=== PATIENT | male | born 1940 | race Caucasian/White ===

== ENCOUNTER 2017-12-20 07:36 | Outpatient (CLI) | payer MEDICARE, BC | END 2017-12-20 07:37 | disposition home or self-care (01) | LOC: BICULT 07:36 | PROVIDERS: ATTEND Family Medicine | DX: R74.8 Abnormal levels of other serum enzymes (principal); K80.20 Calculus of gallbladder without cholecystitis without obstruction; K82.8 Other specified diseases of gallbladder | CPT/HCPCS: 76705 ==

== ENCOUNTER 2018-05-01 07:01 | Outpatient (CLI) | payer MEDICARE, BC ==
--- NOTE | 2018-05-01 08:17 | ULT ---
ULTRASOUND ABDOMINAL AORTA: HISTORY: Abdominal aortic aneurysm. Aneurysm screening. FINDINGS: Real-time imaging of the abdominal aorta shows normal-caliber aorta. Proximally, it measures 2.1 cm and distally also approximately 2 cm. The left iliac artery measures 1 cm and the right iliac 8 mm. IMPRESSION: No evidence of aortic aneurysm. POS: [facility]
== END 2018-05-01 07:02 | disposition home or self-care (01) ==
LOC: SCSULT 07:01
PROVIDERS: ATTEND Family Medicine
DX: Z13.6 Encounter for screening for cardiovascular disorders (principal)
CPT/HCPCS: 76775

== ENCOUNTER 2019-08-16 12:58 | Inpatient (IN) | payer MEDICARE, BC ==
[2019-08-16] MEDS ORDERED: Diltiazem 125 MG/25 ML ONE (13:12)
[2019-08-16 13:43] LABS: #Eosinphils 0.3 thou/uL (0.0-0.7); #Monocytes 0.6 thou/uL (0.11-0.59); #Neutrophils 4.4 thou/uL (1.40-6.50); %Basophils 0.6 % (0.0-1.0); %Eosinophils 4.6 % (0.0-10.0); %Lymphocytes 26.6 % (21.0-51.0); %Monocytes 8.6 % (0.0-10.0); %Neutrophils 59.6 % (42.0-75.0); Hemoglobin 17.1 g/dL (14.0-18.0); Mean Corpuscular HGB CONC 34.3 g/dL (32.0-36.0); Mean Corpuscular Hemoglobin 35.1 pg (27.0-31.0); Mean Platelet Volume 7.7 fL (7.4-10.4); Platelet Count 159 thou/uL (130-400); RBC Distribution Width 12.5 % (11.5-14.5); Red Blood Cell (RBC) Count 4.87 mill/uL (4.70-6.10); White Blood Cell (WBC) Count 7.4 thou/uL (4.8-10.8)
--- NOTE | 2019-08-16 13:48 | RAD ---
EXAM: Single view of the chest HISTORY: Dizziness and atrial fibrillation COMPARISON: None FINDINGS: Single view of the chest shows a normal sized cardiomediastinal silhouette. There is no jackelin dence of consolidation, mass, or pleural effusion. The bones are unremarkable. IMPRESSION: No evidence of acute cardiopulmonary disease
[2019-08-16 14:07] LABS: ALT (SGPT) 46 U/L (8-55); AST (SGOT) 54 U/L (5-34); Albumin 3.8 g/dL (3.4-4.8); Alkaline Phosphatase 169 U/L (40-150); Anion Gap 13 mmol/L (10-20); BUN (Urea Nitrogen) 15 mg/dL (8.4-25.7); CK (CPK) 78 U/L (30-200); Calc. Creatinine Clearance 0 mL/min (70-130); Calcium 9.7 mg/dL (7.8-10.44); Carbon Dioxide 27 mmol/L (23-31); Chloride 97 mmol/L (98-107); Estimated GFR-MDRD 66; Globulin 3.4 g/dL (2.4-3.5); Glucose 123 mg/dL (83-110); Potassium 3.6 mmol/L (3.5-5.1); Protein, Total 7.2 g/dL (5.8-8.1); Sodium 133 mmol/L (136-145)
[2019-08-16 14:32] LABS: CKMB 3.4 ng/mL (0-6.6)
[2019-08-16] MEDS ORDERED: Digoxin 0.5 MG/2 ML AMP ONE (15:00)
[2019-08-16] MEDS ORDERED: Enoxaparin Sodium 100 MG/ML SYRINGE SC SCH (16:45)
[2019-08-16] MEDS ORDERED: Ondansetron ODT 4 MG TAB PO PRN (17:01)
[2019-08-16] MEDS ORDERED: Acetaminophen 325 MG TAB PO PRN (17:01)
[2019-08-16 18:42] LABS: CKMB 2.9 ng/mL (0-6.6)
[2019-08-16] MEDS: Enoxaparin Sodium 100 MG/ML SYRINGE SC SCH (21:17)
[2019-08-16] MEDS: Digoxin 0.5 MG/2 ML AMP SLOW IVP SCH (21:18)
--- NOTE | 2019-08-17 00:08 | CON ---
DATE OF CONSULTATION: 08/16/2019 INDICATION FOR CONSULTATION: A 79-year-old patient with a history of aortic valve stenosis. Last echocardiogram was approximately 1 year ago, which showed ejection fraction of 55% to 60% with aortic valve calcifications with [id number] aortic valve stenosis and mild mitral annular calcification and also some mild tricuspid valve regurgitation. He was seen in the office back in August 2018. He was able to walk on a treadmill and he continues to walk on a treadmill for about half an hour 3 times a week. Blood pressure has been elevated in the office at times. He was said that this was white coat syndrome. His blood pressure had previously been managed by his primary care physician. He also had a carotid duplex performed, which showed mild bilateral common carotid artery disease and plaque in December of 2017. Otherwise, he had no significant complaints. He still continues to exercise, this past Monday when he was in the gym and exercising, he noticed his heart rate had increased and he stopped the treadmill and then rested for a while and the heart rate improved somewhat. Early this morning he woke up with his heart rate not feeling well. He took his blood pressure, blood pressure was significantly elevated, almost 200 and then he called his physician's office at 8'o clock and presented to the physician's office. He had not noticed that the heart rate was rapid, but it was noted in the physician's office that the patient was likely in atrial fibrillation and had a significant elevation of blood pressure. He was then advised to be seen in the emergency room and was then subsequently admitted to the hospital after he was noted to be in atrial fibrillation with rapid ventricular response, so he was given IV diltiazem as well as digoxin. I am now seeing him on the telemetry floor and the heart rate is still in the 90s and shows what appears to be now atrial flutter. Blood pressure is stable at 145/89 and the heart rate is in the 90s, O2 saturation is 96%. He is otherwise comfortable. He denied any chest pain. EKG does show some nonspecific changes, but no significant indication of myocardial infarction. His cardiac enzymes are slightly elevated and were still indeterminate at 0.524, then increased up to 0.608. He denied any other symptoms such as diaphoresis, shortness of breath or chest discomfort. He did feel somewhat dizzy this morning, but now this has improved. There was evidence of moderate left atrial dilatation and mild right atrial dilatation on the echocardiogram in 2018. PAST MEDICAL HISTORY: Significant for right leg surgery. He has had a radical prostatectomy due to prostate cancer. He has hypertension, diabetes and new onset atrial fibrillation. He has had not had any history of atrial fibrillation in the past. FAMILY HISTORY: Unremarkable for any early heart disease. There is some history of prostate cancer as well as well as Waldenstrom's macroglobulinemia. His mother had a stroke. SOCIAL HISTORY: He continues to drink 2-3 glasses of wine a day and occasionally has a beer. He denies any tobacco abuse. He still remains very active. He has children, who are alive and well. He remains . He uses minimal amount of caffeine, but maybe 1 or 2 cups a day, always a mild amount of caffeine. ALLERGIES: HE IS ALLERGIC TO LISINOPRIL AND LOSARTAN. MEDICATIONS PRIOR TO ADMISSION: Include: 1. Hydrochlorothiazide 25 mg daily. 2. He was also taking a fiber laxative, which he stopped taking after he became somewhat bloated and is improved. 3. He was taking occasional other p.r.n. medications. REVIEW OF SYSTEMS: A 12-point review of systems is unremarkable except what is noted in the history of present illness. PHYSICAL EXAMINATION: GENERAL: Reveals a well-developed, well-nourished, very pleasant gentleman. He appears to be his stated age. He is alert, he is oriented. VITAL SIGNS: Show blood pressure is 125/87, heart rate is 94 and irregular. He is afebrile. Respiratory rate is 18. HEENT: Shows head to be normocephalic and atraumatic. NECK: Carotid pulses are present. He has radiation from the aortic area up into the carotids. CHEST: His chest was clear to auscultation without rales, rhonchi, or wheezing. CARDIOVASCULAR: Reveals somewhat tachycardia, irregular rhythm. He has significant aortic valve stenosis murmur, which is heard over the entire precordium. It is louder over the aortic area in the 2nd intercostal space anteriorly just to the right with radiation to the carotids and also to the entire precordium, but no heaves or thrills were noted, definitely irregular rhythm. ABDOMEN: Shows some obesity with positive bowel sounds. No organomegaly or masses noted. Femoral pulses are present. EXTREMITIES: Show no clubbing, cyanosis, or edema. Pedal pulses are present. I do not feel any significant other abnormalities. NEUROLOGIC: The patient appears to be fully intact with normal strength and tone for someone of his age. SKIN: Warm and dry. LABORATORY DATA: Shows a potassium of 3.6, sodium of 133, BUN 15, creatinine 1.08, blood sugar was 123. The AST was 54, alkaline phosphatase is 109. Troponin I as noted above. Hemoglobin was 17.1, hematocrit was 49.8, WBC of 7.4, platelet count 159,000. IMAGING: EKG shows what appears to be atrial flutter at this time. He did have some nonspecific ST-T wave changes. IMPRESSION: 1. New onset atrial fibrillation and flutter. The patient at this time is heart rate and blood pressure maintained on diltiazem. We will continue diltiazem at 15 mg/hour IV. He has also been given IV digoxin and we can continue to load him with digoxin as needed. Most likely, he will need to have an ablation of the atrial flutter and can control hopefully the atrial fibrillation by medical management. An echocardiogram has also been ordered. Further recommendations will depend on the results of the echocardiogram. 2. Hypertension, this is under good control at this time. We will continue to monitor that. 3. History of daily alcohol use. I have advised him to cut back on the alcohol somewhat. 4. Moderate aortic valve stenosis with a significant murmur. The echocardiogram is pending. We will evaluate the aortic valve stenosis. He may eventually need to undergo most likely an aortic valve replacement, hopefully by transcatheter aortic valve replacement, otherwise the patient appears to be stable at this time and we will continue to monitor the patient with you. Job ID: [id number]
--- NOTE | 2019-08-17 00:14 | HP ---
CHIEF COMPLAINT: New onset of atrial fibrillation, which presents as foggy brain. HISTORY OF PRESENT ILLNESS: The patient is a 79-year-old male, who felt that he had so-called foggy brain. His thinking was not clear this morning and he checked his blood pressure and it was elevated almost 200 systolic. He rested and it went down significantly, but he decided to go to his doctor, so he got appointment with Dr. Serrato, his primary care physician, who saw him and did EKG, which showed atrial fibrillation with RVR. He was sent to the emergency room for further evaluation and admission. He did not have any chest pain. He did not feel any palpitations. Apparently, he had some problems a couple of days ago when he did his treadmill and his pulse was high, but it came down to normal range after the rest. He denied any fever or chills. He never had this before. PAST MEDICAL HISTORY: Positive for; 1. Hypertension. 2. Diabetes mellitus, although I do not see any medications for that he is taking. 3. Heart murmur. 4. Prostate cancer, in remission. PAST SURGICAL HISTORY: Prostatectomy. SOCIAL HISTORY: He drinks every day 2, sometimes 3 drinks of red wine that is for his cholesterol he says. He denies any illicit drug use or smoking. ALLERGIES: LISINOPRIL AND LOSARTAN. MEDICATIONS: Hydrochlorothiazide 25 mg once a day. FAMILY HISTORY: Mother had stroke at the age of 63 and she passed when she was 69 and father had Waldenstrom macroglobulinemia and he passed at the age of 83. REVIEW OF SYSTEMS: All 14 systems were reviewed and they were negative except for those symptoms mentioned in the HPI. PHYSICAL EXAMINATION: VITAL SIGNS: Blood pressure is 146/79, pulse is 95, respiratory rate is 22. HEENT: Head is atraumatic and normocephalic. Eyes are PERRLA. Sclerae are nonicteric. Oral mucosa is moist. NECK: Supple. LUNGS: Clear. HEART: S1, S2. Irregularly irregular. No S3. No S4. There is a murmur 3/6 in the right and left sternal border at the top, is most likely aortic valve. ABDOMEN: Soft, nontender, nondistended. Bowel sounds are present. No organomegaly. EXTREMITIES: Trace peripheral edema bilaterally on both lower extremities. NEUROLOGICAL: He is alert and oriented x4. There is no any motor or sensory deficits present. Cranial nerves are intact. LABORATORY DATA: Showed normal white count, normal hemoglobin and hematocrit 49.8, MCV of 102, platelet count 159,000. Sodium of 133, potassium 3.6, chloride 97, glucose 123, creatinine 1.08, AST 54, ALT 46, and alkaline phosphatase is 169. CK-MB 3.4, troponin 0.524. Albumin 3.8, and globulin 3.4. The rest of chemistry is within normal limits. Electrocardiogram showed atrial fibrillation with RVR. Occasional PVCs. Chest x-ray personally reviewed by me did not show any evidence of acute cardiopulmonary disease. IMPRESSION: 1. New onset of atrial fibrillation with rapid ventricular response. The patient received digoxin, Cardizem IV push and he is on Cardizem drip at 15 mg/hour. His rate is down to 110 beats per minute. 2. Diabetes mellitus. 3. History of prostate cancer. 4. Hypertension. PLAN: Admission to telemetry floor. Full admission. Surrogate decision maker is the patient's and primary doctor is Dr. Serrato. IV Hep-Lock. Full dose of Lovenox 1 mg/kg q.12 hours subcutaneously. Continue Cardizem drip at 15 mg/hour, digoxin 0.25 mg q.6 hours x2, then 0.125 mg once a day p.o. tomorrow morning at 9. Echocardiogram. The case was discussed with Balance Bridge Inspector, Dr. Lemus and who is consulted. The patient is going to telemetry and he will have SCDs for DVT prophylaxis. Job ID: [id number]
[2019-08-17] MEDS: Digoxin 0.5 MG/2 ML AMP SLOW IVP SCH (03:45)
[2019-08-17 03:57] LABS: #Basophils 0.1 thou/uL (0.0-0.2); #Eosinphils 0.3 thou/uL (0.0-0.7); #Lymphocytes 2.3 thou/uL (1.20-3.40); #Monocytes 0.8 thou/uL (0.11-0.59); #Neutrophils 5.2 thou/uL (1.40-6.50); %Basophils 0.7 % (0.0-1.0); %Eosinophils 3.6 % (0.0-10.0); %Lymphocytes 26.7 % (21.0-51.0); %Monocytes 9.6 % (0.0-10.0); %Neutrophils 59.4 % (42.0-75.0); Hemoglobin 15.9 g/dL (14.0-18.0); Mean Corpuscular HGB CONC 34.4 g/dL (32.0-36.0); Mean Corpuscular Hemoglobin 35.3 pg (27.0-31.0); Mean Platelet Volume 7.3 fL (7.4-10.4); Platelet Count 167 thou/uL (130-400); RBC Distribution Width 12.6 % (11.5-14.5); Red Blood Cell (RBC) Count 4.49 mill/uL (4.70-6.10); White Blood Cell (WBC) Count 8.7 thou/uL (4.8-10.8)
[2019-08-17 04:22] LABS: Anion Gap 13 mmol/L (10-20); BUN (Urea Nitrogen) 15 mg/dL (8.4-25.7); Calc. Creatinine Clearance 80 mL/min (70-130); Carbon Dioxide 24 mmol/L (23-31); Chloride 99 mmol/L (98-107); Estimated GFR-MDRD 72; Glucose 131 mg/dL (83-110); Potassium 3.7 mmol/L (3.5-5.1); Sodium 132 mmol/L (136-145)
[2019-08-17] MEDS: Digoxin 0.125 MG TAB PO SCH (09:06)
[2019-08-17] MEDS: Enoxaparin Sodium 100 MG/ML SYRINGE SC SCH ×2 (09:07→22:20)
[2019-08-17 11:02] LABS: Hemoglobin 15.3 g/dL (14.0-18.0); Platelet Count 143 thou/uL (130-400)
--- NOTE | 2019-08-17 13:16 | PDOC.CPN ---
- Subjective Date: 08/17/19 Time: 13:18 Interval history: The pt seen and examined. No overnight events. No cardiac complaints. - Objective Allergies/Adverse Reactions: Allergies Allergy/AdvReac Type Severity Reaction Status Date / Time lisinopril Allergy Verified 08/16/19 16:40 losartan Allergy Verified 08/16/19 16:40 Visit Medications: Current Medications Acetaminophen (Tylenol) 650 mg PO Q4H PRN PRN Reason: Headache/Fever/Mild Pain (1-3) Digoxin (Lanoxin) 0.125 mg PO DAILY [facility] Last Admin: 08/17/19 09:06 Dose: 0.125 mg Enoxaparin Sodium (Lovenox) 90 mg SC 0900,2100 [facility] Last Admin: 08/17/19 09:07 Dose: 90 mg Diltiazem HCl 125 mg/ Sodium (Chloride) 125 mls @ 15 mls/hr IVPB INF [facility]; Protocol Last Admin: 08/17/19 06:00 Dose: 125 mls Ondansetron HCl (Zofran Odt) 4 mg PO Q6H PRN PRN Reason: Nausea/Vomiting Vital Signs & Weight: Vital Signs Temp Pulse Resp BP Pulse Ox 08/17/19 09:06 86 08/17/19 07:45 97.5 F L 86 14 118/57 L 96 08/17/19 03:50 97.9 F 86 16 116/60 95 08/17/19 03:45 101 H Weight 204 lb 4.838 oz - Physical Exam General: alert & oriented x3 Cardiac: irregularly regular Lungs: decreased breath sounds Skin: clear Musculoskeletal: decreased range of motion - Labs Result Diagrams: 08/17/19 10:25 08/17/19 10:25 Troponin/CKMB CK-MB (CK-2) 2.9 ng/mL (0-6.6) 08/16/19 17:43 Troponin I 0.663 ng/mL (< 0.028) H* 08/16/19 19:38 - Telemetry Supraventricular conduction: atrial fibrillation - Assessment/Plan Assessment/Plan: 1. New onset Afib with RVR - well controlled with Diltiazem 15mg/h, digoxin, and Lovenox BID; 2. HTN - stable with current med 3. DM type 2 - managed by PCP 4. Prostate Cancer 5. ETOH abuse - 6. Mod - echo today showed possible moderate to severe . The tech was asked to re-evaluate the gradient and the JOSE. MAR reviewed Pt. seen and eval. by me. I agree with the A/P by the CONSULTANT [employer]. 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 He denies cardiac complaints.Chest clear. Irreg/irreg. Rate controlled. When rate remains well controlled and on oral anticoagulation the he can be d/c'd and I will see him in the office in about 1 month and consider cardioversion. This will depend on the ecvaluation. If the is severe then he will need a cardiac cath to eval. the cors.for possible intervention and TAVR or CABG and AVR. <Addendum> Will change diltiazem drip to 90mg PO BID from [employer]. Diltiazem drip will be stopped 2 hrs after 1st dose of Diltazem PO given
--- NOTE | 2019-08-17 15:16 | PRG ---
DATE OF SERVICE: 08/17/2019 SUBJECTIVE: The patient is seen and examined at the bedside. He is in good spirit. Does not have much complaints to offer. No chest pain. No shortness of breath. OBJECTIVE: VITAL SIGNS: Blood pressure is 128/64, respiratory rate is 18, pulse is 89, temperature is 98.7, and O2 saturation is 97% on room air. HEENT: His head is atraumatic and normocephalic. Eyes are PERRLA. Sclerae are nonicteric. Oral mucosa is moist. NECK: Supple. LUNGS: Clear. HEART: S1 and S2. Irregularly irregular. No S3. No S4. ABDOMEN: Soft and nontender. Bowel sounds are present. No organomegaly. EXTREMITIES: No clubbing, cyanosis, or edema. NEUROLOGIC: He is alert and oriented x4. There is no any motor or sensory deficits. Cranial nerves are intact. LABORATORY DATA: Labs showed white count of 8.7, hemoglobin is 15.9, hematocrit 46.2, and platelet count is 167,000. Sodium of 132, potassium 3.7, chloride 99, CO2 of 24, BUN 15, creatinine 1.0, and glucose 131. Echocardiogram showed normal LVEF, probably some diastolic dysfunction, difficult to determine with atrial fibrillation and some tricuspid regurgitation, which is trace. IMPRESSION: 1. New onset atrial fibrillation with rapid ventricular response on Cardizem drip and digoxin and Lovenox full dose subcutaneous every 12 hours. 2. Diabetes mellitus type 2. The patient is not on any diabetic medications. He is managing with diet. 3. Prostate cancer. 4. Hypertension. PLAN: We will continue current regimen until gut cleaner make decision about the next step. He is still in atrial fibrillation, rate is controlled on Cardizem drip and digoxin. He is going to continue his Lovenox 1 mg/kg subcutaneous every 12 hours. Job ID: [id number]
[2019-08-17] MEDS: Diltiazem HCl SR 90 mg Capsule PO SCH (22:20)
[2019-08-18] MEDS: Diltiazem HCl SR 90 mg Capsule PO SCH ×2 (09:05→20:49)
[2019-08-18] MEDS: Digoxin 0.125 MG TAB PO SCH (09:05)
[2019-08-18] MEDS: Enoxaparin Sodium 100 MG/ML SYRINGE SC SCH ×2 (09:05→20:50)
--- NOTE | 2019-08-18 13:29 | PDOC.CPN ---
- Subjective Date: 08/18/19 Time: 13:34 Interval history: The pt seen and examined. No overnight events. No cardiac complaints. - Objective Allergies/Adverse Reactions: Allergies Allergy/AdvReac Type Severity Reaction Status Date / Time lisinopril Allergy Verified 08/16/19 16:40 losartan Allergy Verified 08/16/19 16:40 Visit Medications: Current Medications Acetaminophen (Tylenol) 650 mg PO Q4H PRN PRN Reason: Headache/Fever/Mild Pain (1-3) Digoxin (Lanoxin) 0.125 mg PO DAILY [facility] Last Admin: 08/18/19 09:05 Dose: 0.125 mg Diltiazem HCl (Cardizem Sr) 90 mg PO BID [facility] Last Admin: 08/18/19 09:05 Dose: 90 mg Enoxaparin Sodium (Lovenox) 90 mg SC 00,2099 [facility] Last Admin: 08/18/19 09:05 Dose: 90 mg Ondansetron HCl (Zofran Odt) 4 mg PO Q6H PRN PRN Reason: Nausea/Vomiting Vital Signs & Weight: Vital Signs Temp Pulse Resp BP Pulse Ox 08/18/19 09:05 86 08/18/19 07:30 98.1 F 86 16 127/65 97 08/18/19 04:00 98.3 F 94 16 97 Weight 204 lb 4.838 oz - Physical Exam General: alert & oriented x3 Neck: supple neck Cardiac: irregularly regular Lungs: clear to auscultation Neuro: cranial nerve 2-12 intact Skin: clear Musculoskeletal: normal range of motion - Labs Result Diagrams: 08/17/19 10:25 08/17/19 10:25 Troponin/CKMB CK-MB (CK-2) 2.9 ng/mL (0-6.6) 08/16/19 17:43 Troponin I 0.663 ng/mL (< 0.028) H* 08/16/19 19:38 - Telemetry Supraventricular conduction: atrial fibrillation - Assessment/Plan Assessment/Plan: 1. New onset Afib with RVR - well controlled; On Diltiazem 90mg BID, digoxin, and Lovenox BID; 2. HTN - stable with current med 3. DM type 2 - managed by PCP 4. Prostate Cancer 5. ETOH abuse - 6. Severe - possible cardiac catheterization for severe eval. waiting for gradient and the JOSE. ZAKI reviewed Pt. seen and eval. by me. I agree with the A/P by the DIRECTOR CONSUMER AFFAIRS. Plan for cath in AM to eval. AV stenosis. I have explained the proicedure and risks.jose alfredo
--- NOTE | 2019-08-18 16:22 | PRG ---
DATE OF SERVICE: 08/18/2019 SUBJECTIVE: The patient is seen and examined at the bedside. He is still in atrial fibrillation, but rate is controlled according to the monitors. OBJECTIVE: VITAL SIGNS: Blood pressure is 130/69, pulse is 83, temperature is 97.9, respirations 18, O2 saturation 95% on room air. HEENT: His head is atraumatic and normocephalic. Eyes are PERRLA. Sclerae are nonicteric. Oral mucosa is moist. NECK: Supple. LUNGS: Clear. HEART: S1 and S2 normal. No S3. No S4. Irregularly irregular . ABDOMEN: Soft, nontender, nondistended. EXTREMITIES: No clubbing, cyanosis, or edema. NEUROLOGIC: He is alert and oriented x4. There is no any motor or sensory deficits. LABORATORY DATA: None today. DIAGNOSTIC DATA: Echocardiogram showed LVEF estimated at 60% to 65%, probably diastolic dysfunction and possible severe aortic stenosis. IMPRESSION: 1. New-onset atrial fibrillation with RVR, switched to Cardizem p.o., rate controlled. 2. Diabetes mellitus type 2, on diet. 3. Prostate cancer. 4. Possible severe aortic stenosis based on the echo results. Measurements to be done. 5. Hypertension. PLAN: We are awaiting for final report on echocardiogram. For now, he will continue his digoxin daily, diltiazem 90 mg twice a day, and full dose of Lovenox. Then, Cardiology will make decision about the next step. Most likely, he will have cardiac catheterization for further evaluation of his aortic valve if the findings on echo Job ID: [id number]
[2019-08-18] MEDS ORDERED: Communication Order-Pharmacy FS SCH (18:45)
[2019-08-19] MEDS ORDERED: Lidocaine 1% (PF) 30 ML VIAL ONE (06:59)
[2019-08-19 07:46] LABS: Anion Gap 12 mmol/L (10-20); BUN (Urea Nitrogen) 12 mg/dL (8.4-25.7); Calc. Creatinine Clearance 87 mL/min (70-130); Carbon Dioxide 25 mmol/L (23-31); Chloride 101 mmol/L (98-107); Estimated GFR-MDRD 80; Glucose 137 mg/dL (83-110); Magnesium 2.1 mg/dL (1.6-2.6); Phosphorus 3.2 mg/dL (2.3-4.7); Sodium 134 mmol/L (136-145)
[2019-08-19] MEDS ORDERED: Midazolam HCl 2 mg/2 ml Vial ONE (08:06)
[2019-08-19] MEDS ORDERED: Digoxin 0.5 MG/2 ML AMP ONE (08:12)
[2019-08-19] MEDS ORDERED: Sodium Chloride 0.9% 200 ML IV PRN (10:14)
[2019-08-19] MEDS ORDERED: Nitroglycerin 0.4 MG TAB (25 Tab Bottle) SL PRN (10:14)
[2019-08-19] MEDS ORDERED: Acetaminophen/Codeine 30-300mg Tablet PO PRN ×2 (10:14)
[2019-08-19] MEDS: Digoxin 0.125 MG TAB PO SCH (10:15)
[2019-08-19] MEDS ORDERED: Iopamidol 370 76% 100 ML VIAL ONE (10:32)
[2019-08-19 11:18] LABS: Analyzer IN Cardio OR
[2019-08-19 11:19] LABS: Site PCW; Site RA
[2019-08-19 11:20] LABS: Site ART
[2019-08-19] MEDS: Diltiazem HCl SR 90 mg Capsule PO SCH ×2 (12:33→19:29)
[2019-08-19] MEDS ORDERED: ISOVUE-370 76%-LOCM 1 ML ONE (13:03)
--- NOTE | 2019-08-19 17:48 | PDOC.HOSPP ---
- Subjective Encounter Date: 08/19/19 Encounter Time: 11:00 Subjective: Patient seen and examined for Afib. No CP or SOB. No new complaints. No overnight events - Objective Vital Signs & Weight: Vital Signs (12 hours) Temp Pulse Resp BP BP Pulse Ox 08/19/19 16:00 85 135/74 08/19/19 12:00 98.6 F 94 16 151/75 H 08/19/19 10:17 98.6 F 79 18 139/68 08/19/19 10:15 88 08/19/19 10:14 79 18 139/68 95 Weight Weight 204 lb 4.838 oz I&O: 08/18/19 08/19/19 08/20/19 06:59 06:59 06:59 Intake Total 1560 1400 Output Total 1200 Balance 360 1400 Result Diagrams: 08/17/19 10:25 08/19/19 07:17 EKG Reviewed by me: Yes (tele AFib) Hospitalist ROS - Review of Systems Respiratory: denies: cough, dry, shortness of breath, hemoptysis, SOB with excertion, pleuritic pain, sputum, wheezing, other Cardiovascular: denies: chest pain, palpitations, orthopnea, paroxysmal noc. dyspnea, edema, light headedness, other - Medication Medications: Active Medications Generic Name Dose Route Start Last Admin Trade Name Freq PRN Reason Stop Dose Admin Digoxin 0.125 mg 08/17/19 09:00 08/19/19 10:15 Lanoxin PO Not Given DAILY [facility] Diltiazem HCl 90 mg 08/17/19 21:00 08/19/19 12:33 Cardizem Sr PO Not Given BID SKYLAR - Exam General Appearance: NAD Heart: no gallops, irregular Respiratory: CTAB, no wheezes, no ronchi Respiratory - other findings: dec AE at bases Gastrointestinal: soft, non-distended Extremities: no cyanosis Neurological: no new deficit Hosp A/P (1) Atrial fibrillation with RVR Code(s): I48.91 - UNSPECIFIED ATRIAL FIBRILLATION Status: Acute (2) CAD (coronary artery disease) Code(s): I25.10 - ATHSCL HEART DISEASE OF [place] CORONARY ARTERY W/O ANG PCTRS Status: Chronic (3) Aortic stenosis Code(s): I35.0 - NONRHEUMATIC AORTIC (VALVE) STENOSIS Status: Acute (4) DM2 (diabetes mellitus, type 2) Status: Chronic Qualifiers: Chronic kidney disease stage: stage 2 (mild) (5) Hyponatremia Code(s): E87.1 - HYPO-OSMOLALITY AND HYPONATREMIA Status: Acute (6) Type 2 myocardial infarction Code(s): I21.A1 - MYOCARDIAL INFARCTION TYPE 2 Status: Acute (7) Obesity (BMI 30.0-34.9) Code(s): E66.9 - OBESITY, UNSPECIFIED Status: Chronic (8) HTN (hypertension) Code(s): I10 - ESSENTIAL (PRIMARY) HYPERTENSION Status: Chronic - Plan Add ASA/Statins Cont Cardizem/Digoxin Add fasting lipid/A1c Curretnly being evaluated for CABG/Valve replacement AM labs
[2019-08-19] MEDS ORDERED: Diazepam 5 MG TAB PO PRN (17:54)
[2019-08-19] MEDS ORDERED: Communication Order-Pharmacy FS SCH (17:54)
[2019-08-19] MEDS ORDERED: Aspirin 325 mg Enteric Coated Tablet PO SCH (18:00)
--- NOTE | 2019-08-19 18:03 | CT ---
CTA CHEST WITH CONTRAST: Comparison: None. History: Abnormal cardiac catheterization this morning. Patient is scheduled for open heart surgery t omorrow. Pre-operative CT prior to aortic valve replacement. Technique: Multiple contiguous axial images were obtained in a CTA of the chest with contrast. 3D sag ittal and coronal MIP reformats were performed. FINDINGS: Calcifications are seen in the aortic valve, coronary arteries and aorta. There is no evidence of ane urysmal dilatation of the ascending or descending thoracic aorta. No hilar or mediastinal lymphadenop athy are seen. The heart is normal in size without focal abnormality. Increased interstitial markings are seen in the periphery of the lungs. No focal infiltrates are seen . No suspicious pulmonary mass is seen. No pneumothorax or pleural effusion are present. Degenerative changes are seen in the spine. The liver is slightly nodule in appearance which may repr esent cirrhosis. There is a partially visualized 2.0 cm cystic appearing lesion in the pancreatic jono l. There is a small amount of ascites adjacent to the liver and spleen. There may be fluid surroundin g the gallbladder which is only partially visualized. Chest wall soft tissues are unremarkable. IMPRESSION: 1. No significant aortic abnormality. 2. Calcified coronary arteries and aortic valve. 3. Cirrhotic liver with ascites. 4. Nonspecific cystic lesion in the tail of the pancreas should be further evaluated with a CT of the abdomen and pelvis with contrast. This may represent a pseudocyst or a cystic pancreatic neoplasm. POS: [facility]
[2019-08-19] MEDS ORDERED: Atorvastatin Calcium 10 MG TAB PO SCH (21:00)
--- NOTE | 2019-08-20 00:09 | CON ---
DATE OF CONSULTATION: 08/19/2019 REASON FOR CONSULTATION: Evaluate patient for AVR/CABG/Maze. HISTORY OF PRESENT ILLNESS: Mr. Camacho is a 79-year-old gentleman, who was admitted with atrial fibrillation. He has a longstanding history of aortic stenosis. Recent echocardiogram shows an aortic valve area of less than 1. Ejection fraction is 60% to 65%. He did not have gradients performed on his echo. He underwent cardiac catheterization today revealing severe three-vessel disease. I have been asked to see and discuss surgical intervention. Currently, he is resting comfortably in bed without chest pain, shortness of breath, or other symptomatology. PAST MEDICAL HISTORY: 1. Aortic stenosis. 2. Coronary artery disease. 3. Prostate cancer, status post radical prostatectomy. 4. Hypertension. 5. Diabetes. 6. Atrial fibrillation. PAST SURGICAL HISTORY: 1. Right leg surgery. 2. Prostatectomy. SOCIAL HISTORY: He drinks alcohol socially. He does not use tobacco. He is . ALLERGIES: LISINOPRIL AND LOSARTAN. MEDICATIONS: 1. Hydrochlorothiazide 25 mg daily. 2. Metformin 1000 mg b.i.d. REVIEW OF SYSTEMS: A 10-point review of systems is performed and is negative except as above. PHYSICAL EXAMINATION: GENERAL: This is a well-developed, well-nourished man, resting comfortably in bed. VITAL SIGNS: Height 5 feet 7 inches, weight is 204 pounds. BSA is 2.09. Temperature is 98.6, pulse is 85 and irregularly irregular, blood pressure is 135/74. HEENT: Sclerae nonicteric. Pupils are equal and round bilaterally. NECK: Supple. He has soft bilateral carotid bruits. CHEST: Clear bilaterally. HEART: Rhythm is irregularly irregular. He has a harsh 4/6 systolic ejection murmur heard throughout the precordium. ABDOMEN: Soft and nontender without mass. EXTREMITIES: No edema. VASCULAR: Palpable carotid, radial, femoral, dorsalis pedis pulses bilaterally. Venous, there is no venous varicosities or venous stasis changes. PSYCHIATRIC: The patient is awake, alert, and oriented to person, place, and time. LABORATORY DATA: Of note, hemoglobin is 15.3, platelet count is 143,000. Creatinine is 0.92, potassium is 4.0. Chest x-ray shows no dominant lung mass and well expanded lungs bilaterally. ASSESSMENT AND PLAN: This is a pleasant 79-year-old gentleman with severe aortic stenosis, three-vessel coronary artery disease, and presentation in atrial fibrillation-new onset. I have discussed aortic valve replacement with a bioprosthetic valve with him. We will also plan for three-vessel coronary artery bypass grafting with WYATT to his LAD and saphenous vein graft to OM and distal right coronary artery. We would ligate his left atrial appendage and perform epicardial Maze. Risks, benefits, and options of the operation were discussed with he and his family and they are agreeable to proceed and signed. Job ID: [id number] MTDD
[2019-08-20 05:26] LABS: Hemoglobin 15.8 g/dL (14.0-18.0); Platelet Count 133 thou/uL (130-400)
[2019-08-20 05:47] LABS: Anion Gap 13 mmol/L (10-20); BUN (Urea Nitrogen) 13 mg/dL (8.4-25.7); Calc. Creatinine Clearance 85 mL/min (70-130); Carbon Dioxide 20 mmol/L (23-31); Cardiac Risk 4.2 (Less than 4.5); Chloride 103 mmol/L (98-107); Cholesterol 159 mg/dl (< 200 Desired); Estimated GFR-MDRD 78; Glucose 127 mg/dL (83-110); HDL Cholesterol 38 mg/dL (>60 Neg Risk); LDL Cholesterol, Calculated 98 mg/dL; Potassium 4.1 mmol/L (3.5-5.1); Sodium 132 mmol/L (136-145); Triglycerides 114 mg/dL (Less than 150)
[2019-08-20 06:17] LABS: Hemoglobin A1c 5.4 % (4.0-6.0)
[2019-08-20] MEDS ORDERED: Midazolam HCl 5 mg/5 ml Vial ONE (06:28)
[2019-08-20] MEDS ORDERED: Fentanyl 250 MCG/5 ML VIAL ONE (06:28)
[2019-08-20] MEDS ORDERED: Phenylephrine HCL 10 MG/ML VIAL ONE (06:29)
[2019-08-20] MEDS ORDERED: Bupivacaine HCl 0.5%/Epinephrine 1:200,000/PF 30 ml Vial ONE (06:30)
[2019-08-20] MEDS ORDERED: Albumin 5% 500 ML ONE ×2 (06:30→10:26)
[2019-08-20] MEDS ORDERED: Vancomycin HCl 1.5 GM in Sodium Chloride 0.9% 250 ML 300 ML IVPB SCH (06:30)
[2019-08-20] MEDS ORDERED: Dexamethasone 4 mg/ml Vial ONE (06:30)
[2019-08-20] MEDS ORDERED: Heparin 10,000 UNITS/1 ML VIAL 30,000 UNITS in Sodium Chloride 0.9% 1,000 ML FS SCH (06:45)
[2019-08-20] MEDS ORDERED: Aspirin 325 mg Enteric Coated Tablet PO SCH (09:00)
[2019-08-20] MEDS ORDERED: Potassium Chloride 20 MEQ/100 ML PREMIX BAG IVPB PRN (12:30)
[2019-08-20] MEDS ORDERED: hydrALAZINE 20 MG/ML VIAL SLOW IVP PRN (12:30)
[2019-08-20] MEDS ORDERED: Bisacodyl 10 MG SUPP PR PRN (12:30)
[2019-08-20] MEDS ORDERED: Nitroglycerin 50 MG/250 ML BOT 250 ML IVPB PRN (12:30)
[2019-08-20] MEDS ORDERED: Norepinephrine 8 MG/0.9% NS 250 ML IVPB PRN (12:30)
[2019-08-20] MEDS ORDERED: Acetaminophen 325 MG TAB PO PRN (12:30)
[2019-08-20] MEDS ORDERED: Fentanyl 100 MCG/2 ML VIAL SLOW IVP PRN ×2 (12:30)
[2019-08-20] MEDS ORDERED: Hetastarch 6% 500 ML 500 ML IVPB PRN (12:30)
[2019-08-20] MEDS ORDERED: Morphine 2 MG/ML SYRINGE SLOW IVP PRN (12:30)
[2019-08-20] MEDS ORDERED: Guaifenesin DM 100-10/5 ML UDCUP PO PRN (12:30)
[2019-08-20] MEDS ORDERED: Bisacodyl 5 MG TAB PO PRN (12:30)
[2019-08-20] MEDS ORDERED: Mag-Al 1200 mg/1200 mg/30 ML UDCUP PO PRN (12:30)
[2019-08-20] MEDS ORDERED: HYDROcodone/Acetaminophen 5/325 mg Tablet PO PRN (12:30)
--- NOTE | 2019-08-20 12:38 | RAD ---
EXAM: Single view of the chest HISTORY: Status post open heart surgery COMPARISON: 08/16/2019 FINDINGS: Single view of the chest shows an enlarged cardiomediastinal silhouette. The patient is st atus post aortic valve repair. An endotracheal tube is seen with its tip at the lower border of the clavicles. A right-sided central venous catheter seen with its tip at the atriocaval junction. No pne umothorax is seen. Atelectasis is seen in the left lung base. IMPRESSION: Appropriate position of lines and tubes status post sternotomy.
[2019-08-20 12:42] LABS: #Eosinphils 0.2 thou/uL (0.0-0.7); #Monocytes 1.2 thou/uL (0.11-0.59); #Neutrophils 13.1 thou/uL (1.40-6.50); %Basophils 0.3 % (0.0-1.0); %Lymphocytes 12.3 % (21.0-51.0); %Monocytes 7.4 % (0.0-10.0); %Neutrophils 79.1 % (42.0-75.0); Hemoglobin 12.6 g/dL (14.0-18.0); Mean Corpuscular HGB CONC 34.6 g/dL (32.0-36.0); Mean Corpuscular Hemoglobin 35.8 pg (27.0-31.0); Mean Platelet Volume 7.2 fL (7.4-10.4); Platelet Count 119 thou/uL (130-400); RBC Distribution Width 12.4 % (11.5-14.5); Red Blood Cell (RBC) Count 3.51 mill/uL (4.70-6.10); White Blood Cell (WBC) Count 16.6 thou/uL (4.8-10.8)
[2019-08-20 12:45] LABS: INR-International Normal Ratio 1.8; Prothrombin Time 20.5 SEC (12.0-14.7)
[2019-08-20 12:46] LABS: PTT 40.6 SEC (22.9-36.1)
[2019-08-20 12:53] LABS: Actual Bicarbonate (HCO3a) 20.6 mEq/L (22-28); CO2 Tension 36.1 mmHg (35.0-45.0); Calcium, Ionized 1.03 mmol/L (1.12-1.30); Carboxyhemoglobin (COHb) 1.7 gm% (0.0-3.0); Hemoglobin (Hb) 13.2 g/dL (14.0-18.0); O2 Tension (PaO2) 88.5 mmHg (> 70.0); Potassium - ABG Lab 4.06 mmol/L (3.70-5.30); pH, Arterial 7.37 (7.35-7.45)
[2019-08-20] MEDS ORDERED: Dextrose 5% in Water 1,000 ML IV PRN (12:56)
[2019-08-20] MEDS ORDERED: Dextrose 50% Abboject 50 ML SYRINGE SLOW IVP PRN (12:56)
[2019-08-20] MEDS ORDERED: Magnesium 2 GM/50 ML 2 GM in Premix Bag 1 BAG IVPB SCH (13:00)
[2019-08-20 13:07] LABS: Anion Gap 13 mmol/L (10-20); BUN (Urea Nitrogen) 13 mg/dL (8.4-25.7); Calc. Creatinine Clearance 84 mL/min (70-130); Calcium 7.7 mg/dL (7.8-10.44); Carbon Dioxide 22 mmol/L (23-31); Chloride 108 mmol/L (98-107); Estimated GFR-MDRD 73; Glucose 121 mg/dL (83-110); Potassium 4.1 mmol/L (3.5-5.1); Sodium 139 mmol/L (136-145)
[2019-08-20 13:16] LABS: ALV-art Gradient 222.875 (0-20); Puncture Site ALINE
[2019-08-20] MEDS: D5 1/2 NS w/20 mEq KCL 1,000 ML IV SCH (13:54)
[2019-08-20] MEDS: CEFAZOLIN 2 GM in Premix Bag 1 BAG IVPB SCH ×2 (13:54→22:09)
[2019-08-20 15:38] LABS: Actual Bicarbonate (HCO3a) 17.7 mEq/L (22-28); Base Excess (BEa) -6.5 mEq/L (-2.0 to +3.0); CO2 Tension 31.8 mmHg (35.0-45.0); Calcium, Ionized 1.04 mmol/L (1.12-1.30); Carboxyhemoglobin (COHb) 1.6 gm% (0.0-3.0); Hemoglobin (Hb) 13.4 g/dL (14.0-18.0); O2 Tension (PaO2) 100.3 mmHg (> 70.0); Potassium - ABG Lab 4.22 mmol/L (3.70-5.30); pH, Arterial 7.36 (7.35-7.45)
[2019-08-20 15:45] LABS: Puncture Site ALINE
--- NOTE | 2019-08-20 15:45 | OP ---
DATE OF PROCEDURE: 08/20/2019 PREOPERATIVE DIAGNOSES: Aortic stenosis/coronary artery disease/hypertension/dyslipidemia/diabetes mellitus/paroxysmal atrial fibrillation. POSTOPERATIVE DIAGNOSES: Aortic stenosis/coronary artery disease/hypertension/dyslipidemia/diabetes mellitus/paroxysmal atrial fibrillation. PROCEDURES PERFORMED: 1. Aortic valve replacement with #23 Magna bioprosthetic valve. 2. Coronary artery bypass grafting x3 -. a. Left internal mammary artery to 3.0 mm heavily calcified diffuse disease mid left anterior descending artery. b. Reverse saphenous vein to 2.0 mm heavily calcified diffusely diseased obtuse marginal. c. Reverse saphenous vein to 1.25 mm heavily calcified diffusely diseased posterior descending artery. 3. Epicardial Maze with ligation of left atrial appendage. HEAT TREATING OPERATOR SURGEON: Guillermo Iverson MD ANESTHESIA: General endotracheal - Dr. Nilesh Mackey. PUMP TIME: 125 minutes. CROSS-CLAMP TIME: 93 minutes. LOW CORE TEMPERATURE: 34.5 degrees Celsius. DUMP TRUCK OPERATOR: Ratna Qiu. DRAINS: 24-[place]ian chest tubes x2. DRIPS: None. TRANSFUSIONS: None. DESCRIPTION OF PROCEDURE: After consent was obtained, the patient was brought to the operating room, placed in supine position on the operating table. Appropriate central line and monitors were placed and general endotracheal anesthesia was induced. Chest, abdomen, and legs were prepped and draped in usual sterile fashion. Greater saphenous vein was harvested from the left thigh utilizing an endoscopic technique. The wound was irrigated and closed in layers. Median sternotomy was performed. Left internal mammary artery was harvested as a pedicle graft. The patient was systemically heparinized. Distal pedicle was divided and infused with papaverine. Thymic fat and pericardium were divided with electrocautery. Pericardial stay sutures were placed. Aortic and atrial cannulation was performed. After adequate heparinization, retrograde prime was performed, the patient was placed on cardiopulmonary bypass. The left-sided pulmonary veins were ablated x2 with Dinamundotronic radiofrequency ablator. A left ventricular sump drain was placed through the right superior pulmonary vein. Aortic cross-clamp was applied and an antegrade sanguineous cardioplegic arrest obtained. 1 L of antegrade cold [place] cardioplegia was given. Topical cold solution was used. The left-sided pulmonary veins were then ablated x2 again at the venoatrial junction. The left atrial appendage was ablated x1. The left atrial appendage was then ligated utilizing a running mattressed 4-0 Prolene suture. A reverse saphenous vein was anastomosed to the OM in an end-to-side fashion with running 7-0 Prolene suture. Anastomosis was tested and was hemostatic. Reverse saphenous vein was anastomosed to the PDA in an end-to-side fashion with running 7-0 Prolene suture. Anastomosis was tested and was hemostatic. The mammary artery was brought through one of the pericardium and anastomosed to the mid LAD in an end-to-side fashion with running 7-0 Prolene suture. On release of the mammary clamps, good hooding of the anastomosis and good distal flow. Membranes were clamped. Pedicle was secured with interrupted 6-0 Prolene suture. Note, bypasses were done to the only soft spots on any of these three arteries. I would not consider him for redo for coronary reasons. 300 mL of antegrade [place] cardioplegia was given. Carbon dioxide was infused within the pericardial well. A transverse hockey-stick aortotomy was performed. Aortic stay sutures were placed. The valve was inspected. This was three leaflet valve with heavily-calcified leaflets and hinge point. Leaflets were debrided and the annulus decalcified. The bowel measured as a 23. A 23 Magna bioprosthetic valve was washed. Pledgeted 2-0 Ethibond sutures were placed in the annulus. These were then passed through the valve sewing ring and the valve seated nicely. A core knots were used to secure the valve in place. Aortotomy was then closed in a delayed running fashion with mattress 4-0 Prolene suture. Punch sites were created in the aorta for proximal anastomosis. Saphenous veins were anastomosed to aorta with running 6-0 Prolene suture. De-airing maneuvers were performed prior to completion of the last proximal anastomosis, that anastomosis was then tied. The patient was placed in Trendelenburg position and the cross-clamp removed. The patient was warmed and weaned from cardiopulmonary bypass. Atrial and ventricular pacing wires were placed and the patient was paced. After good hemodynamics had been obtained and the temperature was greater than 36.5, bypass was discontinued. Transfusion was given. Protamine was administered. The left ventricular sump drain was removed and its purse-string suture secured. The aortic root vent was removed and its purse-string suture secured. Decannulation was performed and purse-string suture secured for cannulation sites. Both cannulation sites reinforced with 4-0 Prolene suture. After adequate hemostasis had been obtained, 24-[place] chest tubes x2 were placed in the mediastinum. The sternum was treated with vancomycin paste and closed with #7 wire. Sternum was treated with platelet rich plasma and wire was twisted and buried. Wounds were irrigated. A 0.5% Marcaine with epinephrine mixed with Decadron. Peristernal block was performed. The sternum was then treated with platelet poor plasma and closed in multiple layers. Needle, sponge, and instrument counts were all reported as correct at the end of the procedure. The patient tolerated the procedure well and was transferred to the intensive care unit in stable, but critical condition. Job ID: [id number]
[2019-08-20] MEDS: Insulin Regular 300 UNITS/3 ML VIAL SC PRN ×2 (16:29→20:39)
[2019-08-20 17:07] LABS: Actual Bicarbonate (HCO3a) 20.6 mEq/L (22-28); Analyzer IN Cardio OR; Base Excess (BEa) -3.9 mEq/L (-2.0 to +3.0); CO2 Tension 36.1 mmHg (35.0-45.0); Calcium, Ionized 1.11 mmol/L (1.12-1.30); Hemoglobin (Hb) 14.6 g/dL (14.0-18.0); O2 Tension (PaO2) 266.4 mmHg (> 70.0); pH, Arterial 7.37 (7.35-7.45)
[2019-08-20 17:07] LABS: Actual Bicarbonate (HCO3a) 19.8 mEq/L (22-28); Analyzer IN Cardio OR; Base Excess (BEa) -4.1 mEq/L (-2.0 to +3.0); Calcium, Ionized 1.12 mmol/L (1.12-1.30); Carboxyhemoglobin (COHb) 0.8 gm% (0.0-3.0); Hemoglobin (Hb) 14.4 g/dL (14.0-18.0); O2 Tension (PaO2) 293.5 mmHg (> 70.0); Potassium - ABG Lab 3.88 mmol/L (3.70-5.30)
[2019-08-20 17:07] LABS: Analyzer IN Cardio OR; Base Excess (BEa) -2.5 mEq/L (-2.0 to +3.0); CO2 Tension 28.1 mmHg (35.0-45.0); Calcium, Ionized 0.99 mmol/L (1.12-1.30); Carboxyhemoglobin (COHb) 0.6 gm% (0.0-3.0); Hemoglobin (Hb) 12.1 g/dL (14.0-18.0); O2 Tension (PaO2) 406.4 mmHg (> 70.0); Potassium - ABG Lab 4.05 mmol/L (3.70-5.30); pH, Arterial 7.47 (7.35-7.45)
[2019-08-20 17:08] LABS: Actual Bicarbonate (HCO3v) 25 mEq/L (22-28); Analyzer IN Cardio OR; Base Excess 0.3 mEq/L (-2.0 to +3.0); Calcium, Ionized 0.95 mmol/L (1.16-1.32); Chloride (ABG LAB) 103 mmol/L (98-106); Hemoglobin (Hb) 10.4 g/dL (12.6-17.4); Potassium - ABG Lab 4.27 mmol/L (3.70-5.30); Sodium 136.6 mmol/L (133-146); pH (venous) 7.41 (7.32-7.43)
[2019-08-20 17:08] LABS: Actual Bicarbonate (HCO3a) 24.9 mEq/L (22-28); Analyzer IN Cardio OR; Base Excess (BEa) -0.7 mEq/L (-2.0 to +3.0); CO2 Tension 44.8 mmHg (35.0-45.0); Calcium, Ionized 0.97 mmol/L (1.12-1.30); Carboxyhemoglobin (COHb) 0.4 gm% (0.0-3.0); Hemoglobin (Hb) 10.6 g/dL (14.0-18.0); O2 Tension (PaO2) 429.7 mmHg (> 70.0); Potassium - ABG Lab 4.31 mmol/L (3.70-5.30); pH, Arterial 7.36 (7.35-7.45)
[2019-08-20 17:08] LABS: Actual Bicarbonate (HCO3a) 24.9 mEq/L (22-28); Analyzer IN Cardio OR; Base Excess (BEa) -0.7 mEq/L (-2.0 to +3.0); CO2 Tension 45.2 mmHg (35.0-45.0); Calcium, Ionized 0.99 mmol/L (1.12-1.30); Carboxyhemoglobin (COHb) 0.3 gm% (0.0-3.0); O2 Tension (PaO2) 455.5 mmHg (> 70.0); Potassium - ABG Lab 4.41 mmol/L (3.70-5.30); pH, Arterial 7.36 (7.35-7.45)
[2019-08-20 17:09] LABS: Puncture Site ALINE
[2019-08-20 17:09] LABS: Actual Bicarbonate (HCO3a) 22.2 mEq/L (22-28); Analyzer IN Cardio OR; Base Excess (BEa) -2.1 mEq/L (-2.0 to +3.0); CO2 Tension 36.3 mmHg (35.0-45.0); Calcium, Ionized 1.04 mmol/L (1.12-1.30); Carboxyhemoglobin (COHb) 0.5 gm% (0.0-3.0); Hemoglobin (Hb) 10.5 g/dL (14.0-18.0); O2 Tension (PaO2) 408.3 mmHg (> 70.0); Potassium - ABG Lab 4.26 mmol/L (3.70-5.30); pH, Arterial 7.41 (7.35-7.45)
[2019-08-20 17:09] LABS: Actual Bicarbonate (HCO3a) 22.2 mEq/L (22-28); Analyzer IN Cardio OR; Base Excess (BEa) -2.5 mEq/L (-2.0 to +3.0); CO2 Tension 38.2 mmHg (35.0-45.0); Carboxyhemoglobin (COHb) 0.5 gm% (0.0-3.0); Hemoglobin (Hb) 11.1 g/dL (14.0-18.0); O2 Tension (PaO2) 435.4 mmHg (> 70.0); Potassium - ABG Lab 4.45 mmol/L (3.70-5.30); pH, Arterial 7.38 (7.35-7.45)
[2019-08-20 17:10] LABS: Puncture Site ALINE
[2019-08-20 17:14] LABS: Puncture Site ALINE
[2019-08-20 17:16] LABS: Puncture Site ALINE
[2019-08-20 17:17] LABS: Puncture Site ALINE
[2019-08-20 17:18] LABS: Puncture Site ALINE
[2019-08-20 17:18] LABS: Puncture Site ALINE
[2019-08-20] MEDS: Vancomycin HCl 1.5 GM in Sodium Chloride 0.9% 250 ML 300 ML IVPB SCH (17:26)
[2019-08-20] MEDS: Ketorolac Tromethamine 30 MG/ML VIAL IVP SCH (17:27)
[2019-08-20 18:05] LABS: Hemoglobin 13.1 g/dL (14.0-18.0)
[2019-08-20 18:18] LABS: Potassium 4.2 mmol/L (3.5-5.1)
[2019-08-20] MEDS: Ondansetron PF 4 MG/2 ML Vial IVP PRN (20:23)
[2019-08-20] MEDS: HYDROcodone/Acetaminophen 5/325 mg Tablet PO PRN (20:24)
[2019-08-20] MEDS ORDERED: Famotidine/PF 20 mg/2ml Vial SLOW IVP SCH (21:00)
[2019-08-20] MEDS ORDERED: Simvastatin 40 MG TAB PO SCH (21:00)
[2019-08-20] MEDS ORDERED: Rocuronium Bromide 10 MG/ML (10ML VIAL) ONE (21:46)
[2019-08-20] MEDS ORDERED: Heparin 5,000 UNITS/ML VIAL ONE (21:46)
[2019-08-20] MEDS ORDERED: Papaverine 60 MG/2 ML VIAL ONE (21:46)
[2019-08-20] MEDS ORDERED: Thrombin 5000 UNITS/5 ML VIAL ONE (21:46)
[2019-08-20] MEDS ORDERED: Mannitol 12.5 GM/50 ML ONE (21:46)
[2019-08-20] MEDS ORDERED: Cardioplegic Soln 1,000 ML BAG ONE (21:46)
[2019-08-20] MEDS ORDERED: Sodium Bicarb 50 MEQ/50 ML VIAL ONE (21:46)
[2019-08-20] MEDS ORDERED: Protamine Sulfate 250 MG/25 ML VIAL ONE (21:46)
[2019-08-20] MEDS ORDERED: Vecuronium 10 MG VIAL ONE (21:46)
[2019-08-20] MEDS ORDERED: Potassium Chloride 60 MEQ/30 ML VIAL ONE (21:46)
[2019-08-20] MEDS ORDERED: Lidocaine 2% PF 100 mg/5 ml Syringe ONE (21:46)
[2019-08-20] MEDS ORDERED: PROPOFOL 200 MG/20 ML VIAL ONE (21:46)
[2019-08-20] MEDS ORDERED: Aminocaproic Acid 5 GM/20 ML VIAL ONE (21:46)
[2019-08-20] MEDS ORDERED: Magnesium 5 GM/10 ML VIAL ONE (21:46)
[2019-08-20] MEDS ORDERED: Calcium Chloride 1 GM/10 ML Abboject SYRINGE ONE (21:46)
[2019-08-20] MEDS ORDERED: PHENYLEPHRINE-NS 100 MCG/ML 10 ML SYRINGE ONE (21:46)
[2019-08-20] MEDS ORDERED: ePHEDrine 50 MG/ML VIAL ONE (21:46)
[2019-08-20] MEDS ORDERED: Heparin 30,000 units/30 ml VIAL ONE (21:46)
[2019-08-21] MEDS: Ketorolac Tromethamine 30 MG/ML VIAL IVP SCH ×2 (00:06→06:11)
[2019-08-21] MEDS: Insulin Regular 300 UNITS/3 ML VIAL SC PRN ×5 (00:10→20:35)
[2019-08-21] MEDS: HYDROcodone/Acetaminophen 5/325 mg Tablet PO PRN ×3 (03:05→20:28)
[2019-08-21 04:23] LABS: #Lymphocytes 1.1 thou/uL (1.20-3.40); #Monocytes 1.1 thou/uL (0.11-0.59); #Neutrophils 10.6 thou/uL (1.40-6.50); %Basophils 0.1 % (0.0-1.0); %Eosinophils 0.2 % (0.0-10.0); %Lymphocytes 8.5 % (21.0-51.0); %Monocytes 8.8 % (0.0-10.0); %Neutrophils 82.5 % (42.0-75.0); Hemoglobin 12.1 g/dL (14.0-18.0); Mean Corpuscular HGB CONC 33.8 g/dL (32.0-36.0); Mean Corpuscular Hemoglobin 35.3 pg (27.0-31.0); Mean Platelet Volume 7.8 fL (7.4-10.4); Platelet Count 102 thou/uL (130-400); RBC Distribution Width 12.6 % (11.5-14.5); Red Blood Cell (RBC) Count 3.43 mill/uL (4.70-6.10); White Blood Cell (WBC) Count 12.9 thou/uL (4.8-10.8)
[2019-08-21 04:44] LABS: Anion Gap 12 mmol/L (10-20); BUN (Urea Nitrogen) 23 mg/dL (8.4-25.7); Calc. Creatinine Clearance 62 mL/min (70-130); Calcium 7.5 mg/dL (7.8-10.44); Carbon Dioxide 22 mmol/L (23-31); Chloride 104 mmol/L (98-107); Estimated GFR-MDRD 52; Glucose 191 mg/dL (83-110); Potassium 4.1 mmol/L (3.5-5.1); Sodium 134 mmol/L (136-145)
[2019-08-21] MEDS: CEFAZOLIN 2 GM in Premix Bag 1 BAG IVPB SCH (05:21)
[2019-08-21] MEDS: Vancomycin HCl 1.5 GM in Sodium Chloride 0.9% 250 ML 300 ML IVPB SCH (06:12)
[2019-08-21] MEDS: Ondansetron PF 4 MG/2 ML Vial IVP PRN ×2 (06:15→17:38)
[2019-08-21] MEDS ORDERED: HumaLOG 300 UNITS/3 ML VIAL SC PRN (07:18)
--- NOTE | 2019-08-21 07:38 | RAD ---
Portable upright frontal chest radiograph: 08/21/2019 COMPARISON: 08/20/2019 HISTORY: Evaluate chest following open heart surgery FINDINGS: Midline sternotomy wires are present. Mechanical cardiac valve noted. Stable right-sided va scular catheter. No pneumothorax is noted. There is mild hazy increased linear density noted in the right lung base, which may signify mild infi ltrate or volume loss. Questionable small bilateral pleural effusions versus pleural thickening. IMPRESSION: Postoperative changes as detailed above. Mild hazy density in right lung base and subtle blunting of bilateral costophrenic angles.
[2019-08-21] MEDS: Famotidine 20 MG TAB PO SCH ×2 (07:59→20:21)
[2019-08-21] MEDS: Aspirin 325 MG TAB PO SCH (07:59)
--- NOTE | 2019-08-21 09:25 | PDOC.CPN ---
- Subjective Date: 08/21/19 Time: 09:32 Interval history: The pt seen and examined. No overnight events. No cardiac complaints. He is up to chair without any difficulties. - Objective Allergies/Adverse Reactions: Allergies Allergy/AdvReac Type Severity Reaction Status Date / Time lisinopril Allergy Verified 08/16/19 16:40 losartan Allergy Verified 08/16/19 16:40 Visit Medications: Current Medications Acetaminophen (Tylenol) 650 mg PO Q6H PRN PRN Reason: Headache/Fever Or Mild Pain Hydrocodone Bitart/Acetaminophen ([place] 5/325) 1 tab PO Q4H PRN PRN Reason: Moderate Pain (4-6) Hydrocodone Bitart/Acetaminophen ([place] 5/325) 2 tab PO Q4H PRN PRN Reason: Severe Pain (7-10) Last Admin: 08/21/19 03:05 Dose: 2 tab Al Hydroxide/Mg Hydroxide (Maalox) 30 ml PO Q4H PRN PRN Reason: Indigestion Albumin Human (Albumin 5%) 12.5 gm IVPB Q6H PRN PRN Reason: To Maintain SBP> 90 mmHG Stop: 08/21/19 12:31 Albumin Human (Albumin 5%) 25 gm IVPB Q6H PRN PRN Reason: To Maintain SBP > 90 mmHG Stop: 08/21/19 12:31 Albuterol/Ipratropium (Duoneb) 3 ml NEB [id number] PRN PRN Reason: SHORTNESS OF BREATH Aspirin (Aspirin) 325 mg PO DAILY [facility] Last Admin: 08/21/19 07:59 Dose: 325 mg Bisacodyl (Dulcolax) 10 mg PO Q12H PRN PRN Reason: Constipation Bisacodyl (Dulcolax) 10 mg UT Q12H PRN PRN Reason: Constipation Dextrose/Water (Dextrose 50%) 25 gm SLOW IVP PRN PRN PRN Reason: PER HYPOGLYCEMIC PROTOCOL Famotidine (Pepcid) 20 mg PO Q12HR [facility] Last Admin: 08/21/19 07:59 Dose: 20 mg Fentanyl (Sublimaze) 25 mcg SLOW IVP Q2H PRN PRN Reason: Moderate Pain (4-6) Stop: 08/22/19 12:03 Last Admin: 08/20/19 16:24 Dose: 25 mcg Fentanyl (Sublimaze) 50 mcg SLOW IVP Q2H PRN PRN Reason: Severe Pain (7-10) Stop: 08/22/19 12:03 Glucagon (Glucagon) 1 mg SC PRN PRN PRN Reason: PER HYPOGLYCEMIC PROTOCOL Glucagon (Glucagon) 1 mg IM PRN PRN PRN Reason: Hypoglycemia Guaifenesin/Dextromethorphan (Robitussin Dm) 15 ml PO Q4H PRN PRN Reason: Cough Hydralazine HCl (Apresoline) 10 mg SLOW IVP Q6H PRN PRN Reason: To Maintain SBP< 140mmHG Potassium Chloride/Dextrose/Sod Cl (D5 1/2 Ns W/20 Meq Kcl) 1,000 mls @ 40 mls/ hr IV .Q24H SKYLAR Last Admin: 08/20/19 13:54 Dose: 1,000 mls Hetastarch/Sodium Chloride (Hespan) 500 mls @ 0 mls/hr IVPB PRN PRN PRN Reason: To Maintain SBP > 90mmHg Stop: 08/21/19 12:03 Magnesium Sulfate 2 gm/ Device 50 mls @ 50 mls/hr IVPB QAM SKYLAR Stop: 08/22/19 09:59 Dextrose/Water (D5w) 1,000 mls @ 0 mls/hr IV INF PRN PRN Reason: PRN HYPOGLYCEMIC PROTOCOL Insulin Human Lispro (Humalog) 0 units SC .MILD SLIDING SCALE PRN PRN Reason: Mild Correctional Scale Insulin Human Regular (Humulin R) 0 units SC Q4H PRN; Protocol PRN Reason: POST OP SLIDING SCALE Last Admin: 08/21/19 06:44 Dose: 4 unit Ondansetron HCl (Zofran) 4 mg IVP Q6H PRN PRN Reason: Nausea/Vomiting Last Admin: 08/21/19 06:15 Dose: 4 mg Potassium Chloride (Kcl) 20 meq IVPB PRN PRN PRN Reason: K level </= 4.0 Simvastatin (Zocor) 40 mg PO QPM SKYLAR Last Admin: 08/20/19 20:25 Dose: Not Given Sodium Chloride (Flush - Normal Saline) 10 ml IVF PRN PRN PRN Reason: Saline Flush Vital Signs & Weight: Vital Signs Temp 08/21/19 07:53 97.9 F 08/21/19 04:00 97.6 F 08/21/19 00:00 97.8 F Weight 221 lb 5.506 oz - Physical Exam General: alert & oriented x3 Neck: supple neck Cardiac: regular rate and rhythm, S1/S2 Lungs: clear to auscultation, decreased breath sounds Neuro: cranial nerve 2-12 intact Abdomen: unremarkable Skin: clear Musculoskeletal: decreased range of motion - Labs Result Diagrams: 08/21/19 03:45 08/21/19 03:45 Troponin/CKMB CK-MB (CK-2) 2.9 ng/mL (0-6.6) 08/16/19 17:43 Troponin I 0.663 ng/mL (< 0.028) H* 08/16/19 19:38 - Telemetry Sinus rhythms and dysrhythmias: sinus rhythm - Assessment/Plan Assessment/Plan: 1. CAD with s/p CABG x3 on 08/20/2019 with WYATT-LAD, RSVG-OM, and RSVG-PDA with Manga Bioprostatic aortic valve replacement, maze procedure with YANY ligation - stable; will start BBlocker with stable VS. 2. New onset Afib with RVR with s/p Maze procedure with YANY ligation on 2018 - remains in SR; will start bblocker with stable VS 2. HTN - stable with current med 3. DM type 2 - managed by PCP 4. Prostate Cancer 5. ETOH abuse - strongly recommend ETOH cessation to the pt and family 6. Severe with s/p Manga Bioprostatic aortic valve replacement on 08/20/2019 MAR reviewed Pt. seen and eval. by me. I agree with the A/P by the COUPON CLERK. He is doing well s/p CABG, AVR and Maze procedure.. No cardiac complaints. Chest clear ant. RRR.
[2019-08-21] MEDS: Magnesium 2 GM/50 ML 2 GM in Premix Bag 1 BAG IVPB SCH (11:08)
--- NOTE | 2019-08-21 13:48 | CON ---
DATE OF CONSULTATION: 08/21/2019 HISTORY OF PRESENT ILLNESS: Kyle Camacho is a 79-year-old male, who underwent aortic valve replacement with a #23 Magna bioprosthetic valve yesterday as well as coronary artery bypass grafting x3 with a WYATT to his LAD, a saphenous vein to his obtuse marginal, and saphenous vein to his posterior descending artery. He also had a ligation of the left atrial appendage. I have seen him because of his presence in the Critical Care Unit. He was having dry heaves and walked into the room. He says he has "thrown up like this since he was in college." He is a very pleasant gentleman with no other complaints. He denies having chest discomfort. Actually presented 08/16/2019 with new onset of atrial fibrillation. He was hypertensive with rapid atrial fibrillation and said thinking would not clear, so he came in. CT pulmonary angiogram was done on the , which showed evidence of cirrhosis and a cystic lesion in the tail of the pancreas. He has undergone the above procedure and lymph node biopsy as well. PAST MEDICAL HISTORY: Remarkable for: 1. Diabetes. 2. History of prostate cancer with a radical prostatectomy in the past. 3. History of hypertension. 4. History of surgery in right lower extremity. SOCIAL HISTORY: He is not a smoker. He drinks wine in the evening. He does not use drugs. ALLERGIES: REPORTS INTOLERANCE TO LISINOPRIL AND LOSARTAN. MEDICATIONS: Prior to admission, he was just on hydrochlorothiazide. FAMILY HISTORY: Positive for vascular disease and cancer. REVIEW OF SYSTEMS: Ten-point review of system completed is otherwise negative. PHYSICAL EXAMINATION: GENERAL: He is in no distress other than his dry heaves. VITAL SIGNS: Blood pressure 121/76, heart rate 81, respiratory rate 16, and oximetry is 93%. HEENT: Pupils are equal. Sclerae are anicteric. NECK: Supple. LUNGS: Clear. HEART: Regular rhythm. ABDOMEN: Soft. EXTREMITIES: Without clubbing, cyanosis, or edema. NEUROLOGIC: Grossly nonfocal. LABORATORY DATA: White count 12.9, hemoglobin 12.1, platelets 102,000. Sodium 134, potassium 4.1, chloride 104, bicarb 22, BUN 23, creatinine 1.33, and glucose 191. IMPRESSION: 1. Status post aortic valve replacement, coronary artery bypass grafting. 2. Radiographic finding suggestive of cirrhosis. 3. Borderline thrombocytopenia. 4. Status post lymph node biopsy. 5. Cystic lesion in the tail of the pancreas. 6. Diabetes. 7. Obesity. He is getting Zofran as I evaluated him this morning, hopefully lead to resolution of his current complaints. We are happy to follow the other physicians caring for him. This is a 70 minute consult, with greater than 50% of time spent on unit coordinating care. Job ID: [id number] MTDD
--- NOTE | 2019-08-21 13:49 | PDOC.HOSPP ---
- Subjective Encounter Date: 08/20/19 Encounter Time: 17:00 Subjective: is post cabg weaning on vent, currently on cpap trial awakens easily - Objective Vital Signs & Weight: Vital Signs (12 hours) Temp Pulse Resp Pulse Ox 08/21/19 13:37 76 16 97 08/21/19 11:00 97.0 F L 08/21/19 07:53 97.9 F 08/21/19 04:00 97.6 F Weight Weight 221 lb 5.506 oz Most Recent Monitor Data Heart Rate from ECG 72 NIBP 117/59 NIBP BP-Mean 78 Respiration from ECG 21 SpO2 92 I&O: 08/20/19 08/21/19 08/22/19 06:59 06:59 06:59 Intake Total 1050 2762 240 Output Total 500 1880 410 Balance 550 882 -170 Result Diagrams: 08/21/19 03:45 08/21/19 03:45 Additional Labs: Accuchecks 08/21/19 08/21/19 08/20/19 11:21 00:11 20:32 POC Glucose 153 H 204 H 184 H 08/20/19 08/20/19 08/20/19 15:36 10:35 10:07 POC Glucose 153 H 149 H 137 H 08/20/19 08/20/19 08/20/19 09:40 09:25 09:12 POC Glucose 129 H 115 H 112 H 08/20/19 08/20/19 08:42 07:54 POC Glucose 112 H 103 Hospitalist ROS - Medication Medications: Active Medications Generic Name Dose Route Start Last Admin Trade Name Freq PRN Reason Stop Dose Admin Hydrocodone Bitart/Acetaminophen 2 tab 08/20/19 12:30 08/21/19 03:05 [place] 5/325 PO 2 tab Q4H PRN Administration Severe Pain (7-10) Albuterol/Ipratropium 3 ml 08/20/19 12:30 08/21/19 13:37 Duoneb NEB 3 ml [id number] PRN Administration SHORTNESS OF BREATH Aspirin 325 mg 08/21/19 09:00 08/21/19 07:59 Aspirin PO 325 mg DAILY SKYLAR Administration Famotidine 20 mg 08/21/19 09:00 08/21/19 07:59 Pepcid PO 20 mg Q12HR SKYLAR Administration Fentanyl 25 mcg 08/20/19 12:30 08/20/19 16:24 Sublimaze SLOW IVP 08/22/19 12:03 25 mcg Q2H PRN Administration Moderate Pain (4-6) Potassium Chloride/Dextrose/Sod Cl 1,000 mls @ 40 mls/hr 08/20/19 12:30 08/20 13:54 D5 1/2 Ns W/20 Meq Kcl IV 1,000 mls .Q24H SKYLAR Administration Magnesium Sulfate 2 gm/ Device 50 mls @ 50 mls/hr 08/21/19 09:00 08/21/19 11: 08 IVPB 08/22/19 09:59 50 mls QAM SKYLAR Administration Insulin Human Regular 0 units 08/20/19 12:56 08/21/19 12:47 Humulin R SC 3 unit Q4H PRN Administration POST OP SLIDING SCALE Protocol Ondansetron HCl 4 mg 08/20/19 12:30 08/21/19 06:15 Zofran IVP 4 mg Q6H PRN Administration Nausea/Vomiting - Exam Eye: PERRL, anicteric sclera ENT: no oropharyngeal lesions, dry oral mucosa Neck: supple, no JVD Heart: RRR, no murmur Respiratory: no wheezes, rales Respiratory - other findings: chest tubes+ Gastrointestinal: soft, non-tender, non-distended, normal bowel sounds Extremities: no cyanosis, no edema Neurological: cranial nerve grossly intact, no focal deficits Hosp A/P (1) Afib Code(s): I48.91 - UNSPECIFIED ATRIAL FIBRILLATION Status: Resolved (2) Aortic stenosis Code(s): I35.0 - NONRHEUMATIC AORTIC (VALVE) STENOSIS Status: Chronic Plan: s/p Magna 23 bioprosthetic valve (3) CAD (coronary artery disease) Code(s): I25.10 - ATHSCL HEART DISEASE OF [place] CORONARY ARTERY W/O ANG PCTRS Status: Chronic Qualifiers: Coronary Disease-Associated Artery/Lesion type: bypass graft [place] vs. transplanted heart: [place] heart Associated angina: without angina Qualified Code(s): I25.810 - Atherosclerosis of coronary artery bypass graft(s) without angina pectoris (4) DM2 (diabetes mellitus, type 2) Status: Chronic Qualifiers: Diabetes mellitus [place] insulin use: without residential use (5) HTN (hypertension) Code(s): I10 - ESSENTIAL (PRIMARY) HYPERTENSION Status: Chronic Qualifiers: Hypertension type: essential hypertension Qualified Code(s): I10 - Essential (primary) hypertension (6) Obesity (BMI 30.0-34.9) Code(s): E66.9 - OBESITY, UNSPECIFIED Status: Chronic - Plan s/p cabg 08/20/2019 for 3 vessel disease, bernardo to lad, svg to OM and PDA s/p bioprosthetic aortic valve 08/20/2019 s/p epicardial maze and LA appendage ligation done for afib 08/20/2019 hemostable not on any pressors will f/u
--- NOTE | 2019-08-21 13:54 | PDOC.HOSPP ---
- Subjective Encounter Date: 08/21/19 Encounter Time: 11:00 Subjective: is sitting in chair, no sob family at bedside knows what procedure he had etc - Objective Vital Signs & Weight: Vital Signs (12 hours) Temp Pulse Resp Pulse Ox 08/21/19 13:37 76 16 97 08/21/19 11:00 97.0 F L 08/21/19 07:53 97.9 F 08/21/19 04:00 97.6 F Weight Weight 221 lb 5.506 oz Most Recent Monitor Data Heart Rate from ECG 72 NIBP 117/59 NIBP BP-Mean 78 Respiration from ECG 21 SpO2 92 I&O: 08/20/19 08/21/19 08/22/19 06:59 06:59 06:59 Intake Total 1050 2762 240 Output Total 500 1880 410 Balance 550 882 -170 Result Diagrams: 08/21/19 03:45 08/21/19 03:45 Additional Labs: Accuchecks 08/21/19 08/21/19 08/20/19 11:21 00:11 20:32 POC Glucose 153 H 204 H 184 H 08/20/19 08/20/19 08/20/19 15:36 10:35 10:07 POC Glucose 153 H 149 H 137 H 08/20/19 08/20/19 08/20/19 09:40 09:25 09:12 POC Glucose 129 H 115 H 112 H 08/20/19 08/20/19 08:42 07:54 POC Glucose 112 H 103 Hospitalist ROS - Medication Medications: Active Medications Generic Name Dose Route Start Last Admin Trade Name Freq PRN Reason Stop Dose Admin Hydrocodone Bitart/Acetaminophen 2 tab 08/20/19 12:30 08/21/19 03:05 [place] 5/325 PO 2 tab Q4H PRN Administration Severe Pain (7-10) Albuterol/Ipratropium 3 ml 08/20/19 12:30 08/21/19 13:37 Duoneb NEB 3 ml [id number] PRN Administration SHORTNESS OF BREATH Aspirin 325 mg 08/21/19 09:00 08/21/19 07:59 Aspirin PO 325 mg DAILY SKYLAR Administration Famotidine 20 mg 08/21/19 09:00 08/21/19 07:59 Pepcid PO 20 mg Q12HR SKYLAR Administration Fentanyl 25 mcg 08/20/19 12:30 08/20/19 16:24 Sublimaze SLOW IVP 08/22/19 12:03 25 mcg Q2H PRN Administration Moderate Pain (4-6) Potassium Chloride/Dextrose/Sod Cl 1,000 mls @ 40 mls/hr 08/20/19 12:30 08/20 13:54 D5 1/2 Ns W/20 Meq Kcl IV 1,000 mls .Q24H SKYLAR Administration Magnesium Sulfate 2 gm/ Device 50 mls @ 50 mls/hr 08/21/19 09:00 08/21/19 11: 08 IVPB 08/22/19 09:59 50 mls QAM SKYLAR Administration Insulin Human Regular 0 units 08/20/19 12:56 08/21/19 12:47 Humulin R SC 3 unit Q4H PRN Administration POST OP SLIDING SCALE Protocol Ondansetron HCl 4 mg 08/20/19 12:30 08/21/19 06:15 Zofran IVP 4 mg Q6H PRN Administration Nausea/Vomiting - Exam General Appearance: awake alert Eye: anicteric sclera ENT: normocephalic atraumatic, no oropharyngeal lesions Neck: supple, no JVD Heart: RRR, no murmur Respiratory: no wheezes, no rales Respiratory - other findings: chest tube+ Gastrointestinal: soft, non-tender, normal bowel sounds Extremities: no cyanosis, no edema Neurological: cranial nerve grossly intact, no focal deficits Psychiatric: A&O x 3 Hosp A/P (1) Afib Code(s): I48.91 - UNSPECIFIED ATRIAL FIBRILLATION Status: Resolved (2) Aortic stenosis Code(s): I35.0 - NONRHEUMATIC AORTIC (VALVE) STENOSIS Status: Chronic (3) CAD (coronary artery disease) Code(s): I25.10 - ATHSCL HEART DISEASE OF [place] CORONARY ARTERY W/O ANG PCTRS Status: Chronic Qualifiers: Coronary Disease-Associated Artery/Lesion type: bypass graft [place] vs. transplanted heart: [place] heart Associated angina: without angina Qualified Code(s): I25.810 - Atherosclerosis of coronary artery bypass graft(s) without angina pectoris (4) DM2 (diabetes mellitus, type 2) Status: Chronic Qualifiers: Diabetes mellitus [place] insulin use: without intermediate use (5) HTN (hypertension) Code(s): I10 - ESSENTIAL (PRIMARY) HYPERTENSION Status: Chronic Qualifiers: Hypertension type: essential hypertension Qualified Code(s): I10 - Essential (primary) hypertension (6) Obesity (BMI 30.0-34.9) Code(s): E66.9 - OBESITY, UNSPECIFIED Status: Chronic (7) S/P CABG x 3 Code(s): Z95.1 - PRESENCE OF AORTOCORONARY BYPASS GRAFT Status: Acute (8) S/P AVR (aortic valve replacement) Code(s): Z95.2 - PRESENCE OF PROSTHETIC HEART VALVE Status: Acute - Plan s/p cabg 08/20/2019 for 3 vessel disease, bernardo to lad, svg to OM and PDA s/p bioprosthetic aortic valve 08/20/2019 s/p epicardial maze and LA appendage ligation done for afib 08/20/2019 hemostable sbp around 90's, may add bb in am, is on asp, lipitor will f/u
[2019-08-21] MEDS: D5 1/2 NS w/20 mEq KCL 1,000 ML IV SCH (16:58)
[2019-08-21] MEDS ORDERED: Polyethylene Glycol 3350 17 GM Packet PO PRN (18:53)
[2019-08-21] MEDS: Atorvastatin Calcium 20 MG TAB PO SCH (20:26)
[2019-08-21] MEDS ORDERED: Atorvastatin Calcium 10 MG TAB PO SCH (21:00)
[2019-08-22] MEDS: HYDROcodone/Acetaminophen 5/325 mg Tablet PO PRN (04:19)
[2019-08-22 04:26] LABS: #Eosinphils 0.3 thou/uL (0.0-0.7); #Monocytes 1.3 thou/uL (0.11-0.59); %Basophils 0.3 % (0.0-1.0); %Eosinophils 2.4 % (0.0-10.0); %Lymphocytes 16.1 % (21.0-51.0); %Monocytes 10.1 % (0.0-10.0); %Neutrophils 71.1 % (42.0-75.0); Hemoglobin 11.3 g/dL (14.0-18.0); Mean Corpuscular HGB CONC 34.3 g/dL (32.0-36.0); Mean Corpuscular Hemoglobin 35.5 pg (27.0-31.0); Mean Platelet Volume 7.5 fL (7.4-10.4); Platelet Count 110 thou/uL (130-400); RBC Distribution Width 12.7 % (11.5-14.5); Red Blood Cell (RBC) Count 3.19 mill/uL (4.70-6.10); White Blood Cell (WBC) Count 12.6 thou/uL (4.8-10.8)
[2019-08-22 04:42] LABS: Anion Gap 10 mmol/L (10-20); BUN (Urea Nitrogen) 31 mg/dL (8.4-25.7); Calc. Creatinine Clearance 64 mL/min (70-130); Calcium 7.6 mg/dL (7.8-10.44); Carbon Dioxide 24 mmol/L (23-31); Chloride 99 mmol/L (98-107); Estimated GFR-MDRD 51; Glucose 121 mg/dL (83-110); Potassium 3.8 mmol/L (3.5-5.1); Sodium 129 mmol/L (136-145)
[2019-08-22] MEDS: Insulin Regular 300 UNITS/3 ML VIAL SC PRN ×3 (06:08→21:09)
[2019-08-22] MEDS ORDERED: Furosemide 40 MG/4 ML VIAL SLOW IVP SCH ×2 (06:30→18:00)
--- NOTE | 2019-08-22 08:07 | RAD ---
PORTABLE CHEST: HISTORY: Postop open heart surgery. COMPARISON: 08/21/2019 exam. FINDINGS: Heart size is enlarged. There are postop sternotomy changes. A right subclavian line is present. C hest tubes remain in place. Pulmonary vessels appear mildly engorged. IMPRESSION: Overall stable chest. POS: [facility]
[2019-08-22] MEDS: Magnesium 2 GM/50 ML 2 GM in Premix Bag 1 BAG IVPB SCH (08:41)
[2019-08-22] MEDS: Potassium Chloride 10 MEQ TAB PO SCH ×2 (08:44→18:16)
[2019-08-22] MEDS: Famotidine 20 MG TAB PO SCH ×2 (08:44→21:06)
[2019-08-22] MEDS: Aspirin 325 MG TAB PO SCH (08:44)
--- NOTE | 2019-08-22 10:25 | PDOC.CPN ---
- Subjective Date: 08/22/19 Time: 10:30 Interval history: The pt seen and examined. No overnight events. No cardiac complaints. He complains of dizziness when he got up from the bed - Objective Allergies/Adverse Reactions: Allergies Allergy/AdvReac Type Severity Reaction Status Date / Time lisinopril Allergy Verified 08/16/19 16:40 losartan Allergy Verified 08/16/19 16:40 Visit Medications: Current Medications Acetaminophen (Tylenol) 650 mg PO Q6H PRN PRN Reason: Headache/Fever Or Mild Pain Al Hydroxide/Mg Hydroxide (Maalox) 30 ml PO Q4H PRN PRN Reason: Indigestion Albuterol/Ipratropium (Duoneb) 3 ml NEB [id number] PRN PRN Reason: SHORTNESS OF BREATH Last Admin: 08/21/19 13:37 Dose: 3 ml Aspirin (Aspirin) 325 mg PO DAILY [facility] Last Admin: 08/22/19 08:44 Dose: 325 mg Atorvastatin Calcium (Lipitor) 20 mg PO QPM [facility] Last Admin: 08/21/19 20:26 Dose: 20 mg Bisacodyl (Dulcolax) 10 mg PO Q12H PRN PRN Reason: Constipation Bisacodyl (Dulcolax) 10 mg [place] Q12H PRN PRN Reason: Constipation Dextrose/Water (Dextrose 50%) 25 gm SLOW IVP PRN PRN PRN Reason: PER HYPOGLYCEMIC PROTOCOL Famotidine (Pepcid) 20 mg PO Q12HR [facility] Last Admin: 08/22/19 08:44 Dose: 20 mg Glucagon (Glucagon) 1 mg SC PRN PRN PRN Reason: PER HYPOGLYCEMIC PROTOCOL Glucagon (Glucagon) 1 mg IM PRN PRN PRN Reason: Hypoglycemia Guaifenesin/Dextromethorphan (Robitussin Dm) 15 ml PO Q4H PRN PRN Reason: Cough Hydralazine HCl (Apresoline) 10 mg SLOW IVP Q6H PRN PRN Reason: To Maintain SBP< 140mmHG Dextrose/Water (D5w) 1,000 mls @ 0 mls/hr IV INF PRN PRN Reason: PRN HYPOGLYCEMIC PROTOCOL Insulin Human Lispro (Humalog) 0 units SC .MILD SLIDING SCALE PRN PRN Reason: Mild Correctional Scale Insulin Human Regular (Humulin R) 0 units SC Q4H PRN; Protocol PRN Reason: POST OP SLIDING SCALE Last Admin: 08/22/19 06:08 Dose: 2 unit Ondansetron HCl (Zofran) 4 mg IVP Q6H PRN PRN Reason: Nausea/Vomiting Last Admin: 08/21/19 17:38 Dose: 4 mg Polyethylene Glycol (Miralax) 17 gm PO DAILYPRN PRN PRN Reason: Constipation Potassium Chloride (Kcl) 20 meq IVPB PRN PRN PRN Reason: K level </= 4.0 Last Admin: 08/22/19 09:54 Dose: 20 meq Potassium Chloride (Klor-Con 10) 10 meq PO BID-WM SKYLAR Last Admin: 08/22/19 08:44 Dose: 10 meq Sodium Chloride (Flush - Normal Saline) 10 ml IVF PRN PRN PRN Reason: Saline Flush Tramadol HCl (Ultram) 50 mg PO Q6H PRN PRN Reason: Pain Vital Signs & Weight: Vital Signs Temp 08/22/19 08:00 97.4 F L 08/22/19 04:00 98.0 F 08/22/19 00:00 97.9 F Weight 218 lb 11.177 oz - Physical Exam General: alert & oriented x3 Neck: supple neck Cardiac: regular rate and rhythm, S1/S2 Lungs: clear to auscultation, decreased breath sounds Skin: clear Musculoskeletal: normal range of motion - Labs Result Diagrams: 08/22/19 04:10 08/22/19 04:10 Troponin/CKMB CK-MB (CK-2) 2.9 ng/mL (0-6.6) 08/16/19 17:43 Troponin I 0.663 ng/mL (< 0.028) H* 08/16/19 19:38 - Telemetry Sinus rhythms and dysrhythmias: sinus rhythm - Assessment/Plan Assessment/Plan: 1. CAD with s/p CABG x3 on 08/20/2019 with WYATT-LAD, RSVG-OM, and RSVG-PDA with Manga Bioprostatic aortic valve replacement, maze procedure with YANY ligation - stable; will start Coreg 3.125mg BID from today. 2. New onset Afib with RVR with s/p Maze procedure with YANY ligation on 2018 - remains in SR; will start Coreg 3.125mg BID. 2. HTN - stable with current med 3. DM type 2 - managed by PCP 4. Prostate Cancer 5. ETOH abuse - strongly recommend ETOH cessation to the pt and family 6. Severe with s/p Manga Bioprostatic aortic valve replacement on 08/20/2019 MAR reviewed Pt. seen and eval. by me. He is doing well postop CABG+CABG. He is maintaining NSR. Chest clear. RRR. No edema. i agree with the A/P by the NEW [employer]IVER. jose alfredo
[2019-08-22] MEDS ORDERED: Carvedilol 3.125 MG TAB PO SCH (12:15)
--- NOTE | 2019-08-22 13:08 | PDOC.HOSPP ---
- Subjective Encounter Date: 08/22/19 Encounter Time: 11:50 Subjective: is sitting in chair, says he is dizzy at bedside - Objective Vital Signs & Weight: Vital Signs (12 hours) Temp Pulse Pulse BP BP Pulse Ox Pulse Ox 08/22/19 12:00 97.4 F L 08/22/19 09:24 77 79 134/61 146/77 H 98 100 08/22/19 08:00 97.4 F L 08/22/19 04:00 98.0 F Weight Weight 218 lb 11.177 oz Most Recent Monitor Data Heart Rate from ECG 79 NIBP 133/63 NIBP BP-Mean 86 Respiration from ECG 24 SpO2 94 I&O: 08/21/19 08/22/19 08/23/19 06:59 06:59 06:59 Intake Total 2762 1645 2140 Output Total 1880 1210 620 Balance 666 242 2277 Result Diagrams: 08/22/19 04:10 08/22/19 04:10 Additional Labs: Accuchecks 08/22/19 08/22/19 08/21/19 11:38 06:00 20:35 POC Glucose 168 H 130 H 174 H 08/21/19 16:57 POC Glucose 141 H Hospitalist ROS - Medication Medications: Active Medications Generic Name Dose Route Start Last Admin Trade Name Freq PRN Reason Stop Dose Admin Albuterol/Ipratropium 3 ml 08/20/19 12:30 08/21/19 13:37 Duoneb NEB 3 ml [id number] PRN Administration SHORTNESS OF BREATH Aspirin 325 mg 08/21/19 09:00 08/22/19 08:44 Aspirin PO 325 mg DAILY SKYLAR Administration Atorvastatin Calcium 20 mg 08/21/19 21:00 08/21/19 20:26 Lipitor PO 20 mg QPM SKYLAR Administration Famotidine 20 mg 08/21/19 09:00 08/22/19 08:44 Pepcid PO 20 mg Q12HR SKYLAR Administration Insulin Human Regular 0 units 08/20/19 12:56 08/22/19 12:24 Humulin R SC 4 unit Q4H PRN Administration POST OP SLIDING SCALE Protocol Ondansetron HCl 4 mg 08/20/19 12:30 08/21/19 17:38 Zofran IVP 4 mg Q6H PRN Administration Nausea/Vomiting Potassium Chloride 20 meq 08/20/19 12:30 08/22/19 09:54 Kcl IVPB 20 meq PRN PRN Administration K level </= 4.0 Potassium Chloride 10 meq 08/22/19 08:00 08/22/19 08:44 Klor-Con 10 PO 10 meq BID-WM SKYLAR Administration - Exam General Appearance: awake alert Eye: PERRL, anicteric sclera ENT: no oropharyngeal lesions, moist mucosa Neck: supple, no JVD Heart: RRR, no murmur Respiratory: no wheezes, rales Gastrointestinal: soft, non-tender, non-distended, normal bowel sounds Extremities: no clubbing, no edema Neurological: cranial nerve grossly intact, no focal deficits Psychiatric: normal affect, A&O x 3 Hosp A/P (1) S/P CABG x 3 Code(s): Z95.1 - PRESENCE OF AORTOCORONARY BYPASS GRAFT Status: Acute (2) S/P AVR (aortic valve replacement) Code(s): Z95.2 - PRESENCE OF PROSTHETIC HEART VALVE Status: Acute (3) Afib Code(s): I48.91 - UNSPECIFIED ATRIAL FIBRILLATION Status: Resolved (4) Aortic stenosis Code(s): I35.0 - NONRHEUMATIC AORTIC (VALVE) STENOSIS Status: Chronic (5) CAD (coronary artery disease) Code(s): I25.10 - ATHSCL HEART DISEASE OF [place] CORONARY ARTERY W/O ANG PCTRS Status: Chronic Qualifiers: Coronary Disease-Associated Artery/Lesion type: bypass graft [place] vs. transplanted heart: [place] heart Associated angina: without angina Qualified Code(s): I25.810 - Atherosclerosis of coronary artery bypass graft(s) without angina pectoris (6) DM2 (diabetes mellitus, type 2) Status: Chronic Qualifiers: Diabetes mellitus group home insulin use: without terminal gauger use (7) HTN (hypertension) Code(s): I10 - ESSENTIAL (PRIMARY) HYPERTENSION Status: Chronic Qualifiers: Hypertension type: essential hypertension Qualified Code(s): I10 - Essential (primary) hypertension (8) Obesity (BMI 30.0-34.9) Code(s): E66.9 - OBESITY, UNSPECIFIED Status: Chronic - Plan s/p cabg 08/20/2019 for 3 vessel disease, bernardo to lad, svg to OM and PDA s/p bioprosthetic aortic valve 08/20/2019 s/p epicardial maze and LA appendage ligation done for afib 08/20/2019 hemostable, might need a dose of lasix is on asp, lipitor will f/u, chest tubes are off, gentle cardiac rehab as tolerated
[2019-08-22] MEDS: Ondansetron PF 4 MG/2 ML Vial IVP PRN (15:18)
[2019-08-22] MEDS: Carvedilol 3.125 MG TAB PO SCH (18:16)
[2019-08-22] MEDS: traMADol HCl 50 MG TAB PO PRN ×2 (18:18→23:59)
--- NOTE | 2019-08-22 18:19 | PRG ---
DATE OF SERVICE: 08/22/2019 SUBJECTIVE: Mr. Camacho is doing well. He has no complaints. He is afebrile. He did get a little nauseated again today, but this was not in a relationship to any particular medication he had received. He said he had a bowel movement prior to surgery, but has not had one since. OBJECTIVE: VITAL SIGNS: His heart rate is in the 60s, blood pressure 122/67, and oximetry is 98%. LUNGS: Clear. HEART: Regular rhythm. ABDOMEN: Soft. LABORATORY DATA: White count 12.6, hemoglobin 11.3, and platelets 110. Sodium 129, potassium 3.8, chloride 99, bicarb 24, BUN 31, and creatinine 1.35. Creatinine was 0.92 at its lowest. IMPRESSION AND PLAN: 1. Status post aortic valve replacement, coronary artery bypass grafting. 2. Acute on chronic renal dysfunction. I suspect his bump in creatinine as a downstream effect of the surgery and that should level often return to his normal. 3. Diabetes. 4. Hypertension. 5. History of prostatectomy for prostate cancer. He has been in a positive fluid balance for the last five days, so it is unlikely that the bump in creatinine is related to intravascular volume depletion. Lymph node biopsy, pathology has been reviewed. No malignancy was identified. He is stable to move out of the critical care unit. We will sign off. Job ID: [id number]
[2019-08-22] MEDS: Atorvastatin Calcium 20 MG TAB PO SCH (21:06)
[2019-08-23 04:51] LABS: Anion Gap 8 mmol/L (10-20); BUN (Urea Nitrogen) 31 mg/dL (8.4-25.7); Calc. Creatinine Clearance 73 mL/min (70-130); Calcium 7.5 mg/dL (7.8-10.44); Carbon Dioxide 26 mmol/L (23-31); Chloride 97 mmol/L (98-107); Estimated GFR-MDRD 60; Glucose 127 mg/dL (83-110); Sodium 127 mmol/L (136-145)
[2019-08-23 04:54] LABS: #Eosinphils 0.5 thou/uL (0.0-0.7); #Lymphocytes 1.9 thou/uL (1.20-3.40); #Monocytes 1.2 thou/uL (0.11-0.59); #Neutrophils 7.3 thou/uL (1.40-6.50); %Basophils 0.1 % (0.0-1.0); %Eosinophils 4.3 % (0.0-10.0); %Lymphocytes 17.3 % (21.0-51.0); %Monocytes 11.2 % (0.0-10.0); %Neutrophils 67.2 % (42.0-75.0); Hemoglobin 11.3 g/dL (14.0-18.0); Mean Corpuscular HGB CONC 35.6 g/dL (32.0-36.0); Mean Corpuscular Hemoglobin 36.2 pg (27.0-31.0); Mean Platelet Volume 8.5 fL (7.4-10.4); Platelet Count 99 thou/uL (130-400); RBC Distribution Width 12.7 % (11.5-14.5); Red Blood Cell (RBC) Count 3.11 mill/uL (4.70-6.10); White Blood Cell (WBC) Count 10.8 thou/uL (4.8-10.8)
[2019-08-23] MEDS ORDERED: Artificial Tears 18 DROP/0.9 ML EA EYE PRN (07:05)
[2019-08-23] MEDS ORDERED: Nitroglycerin 0.4 MG TAB (25 Tab Bottle) SL PRN (07:05)
[2019-08-23] MEDS ORDERED: Bisacodyl 10 MG SUPP PR PRN (07:05)
[2019-08-23] MEDS ORDERED: Bisacodyl 5 MG TAB PO PRN (07:05)
[2019-08-23] MEDS ORDERED: diphenhydrAMINE 25 MG CAP PO PRN (07:05)
[2019-08-23] MEDS ORDERED: Mag-Al 1200 mg/1200 mg/30 ML UDCUP PO PRN (07:05)
[2019-08-23] MEDS ORDERED: Milk Of Magnesia 30 ML UDCUP PO PRN (07:05)
[2019-08-23] MEDS ORDERED: Zolpidem Tartrate 5 MG TAB PO PRN (07:05)
[2019-08-23] MEDS ORDERED: Guaifenesin DM 100-10/5 ML UDCUP PO PRN (07:05)
[2019-08-23] MEDS ORDERED: Metolazone 5 MG TAB PO SCH (07:05)
[2019-08-23] MEDS ORDERED: Mineral Oil ENEMA PR PRN (07:05)
[2019-08-23] MEDS: Carvedilol 3.125 MG TAB PO SCH ×2 (07:27→17:23)
[2019-08-23] MEDS: Potassium Chloride 10 MEQ TAB PO SCH ×2 (07:27→17:22)
--- NOTE | 2019-08-23 08:42 | RAD ---
CHEST 1 VIEW: Date: 08/23/19 INDICATION: History of open heart surgery. COMPARISON: Prior exam dated 08/22/19. FINDINGS: Pulmonary vascular congestion is mildly improved. Midline sternotomy changes and aortic valve prosthe sis unchanged. Right subclavian central venous catheter is unchanged. There is increasing pleural eff usion bilaterally, left greater than right, with increased left basilar opacity, suspicious for atele ctasis. No pneumothorax is evident. IMPRESSION: Improving central edema pattern, but slightly increased pleural effusions bilaterally, left greater t lemon right. There is increased opacity in the left lower lobe suspicious for atelectasis. The remainde r of the examination is unchanged. POS: [facility]
[2019-08-23] MEDS: Famotidine 20 MG TAB PO SCH ×2 (09:07→20:51)
[2019-08-23] MEDS: Aspirin 325 MG TAB PO SCH (09:07)
[2019-08-23] MEDS: Furosemide 40 MG TAB PO SCH ×2 (09:07→13:11)
[2019-08-23] MEDS: Aspirin 325 mg Enteric Coated Tablet PO SCH (09:42)
--- NOTE | 2019-08-23 12:06 | PDOC.HOSPP ---
- Subjective Encounter Date: 08/23/19 Encounter Time: 08:45 Subjective: no dizziness, has amb a bit in the room with cardiac rehab at bedside - Objective Vital Signs & Weight: Vital Signs (12 hours) Temp Pulse Pulse Pulse Resp BP BP 08/23/19 09:25 98.2 F 72 18 08/23/19 08:51 74 70 145/67 H 106/61 08/23/19 08:00 97.8 F 08/23/19 04:00 98.5 F BP Pulse Ox 08/23/19 09:25 135/64 96 08/23/19 08:51 08/23/19 08:00 96 08/23/19 04:00 Weight Weight 217 lb 13.067 oz Most Recent Monitor Data Heart Rate from ECG 72 NIBP 145/67 NIBP BP-Mean 93 Respiration from ECG 20 SpO2 98 I&O: 08/22/19 08/23/19 08/24/19 06:59 06:59 06:59 Intake Total 1645 4220 390 Output Total 1210 1420 0 Balance 435 2800 390 Result Diagrams: 08/23/19 04:03 08/23/19 04:03 Additional Labs: Accuchecks 08/23/19 08/23/19 08/22/19 11:22 06:08 21:07 POC Glucose 171 H 126 H 153 H 08/22/19 08/22/19 17:45 11:38 POC Glucose 127 H 168 H Hospitalist ROS - Medication Medications: Active Medications Generic Name Dose Route Start Last Admin Trade Name Freq PRN Reason Stop Dose Admin Albuterol/Ipratropium 3 ml 08/20/19 12:30 08/21/19 13:37 Duoneb NEB 3 ml [id number] PRN Administration SHORTNESS OF BREATH Aspirin 325 mg 08/23/19 09:00 08/23/19 09:42 Ecotrin PO Not Given DAILY SKYLAR Atorvastatin Calcium 20 mg 08/21/19 21:00 08/22/19 21:06 Lipitor PO 20 mg QPM SKYLAR Administration Carvedilol 3.125 mg 08/22/19 17:00 08/23/19 07:27 Coreg PO 3.125 mg BID-WM SKYLAR Administration Famotidine 20 mg 08/21/19 09:00 08/23/19 09:07 Pepcid PO 20 mg Q12HR SKYLAR Administration Furosemide 40 mg 08/23/19 09:00 08/23/19 09:07 Lasix PO 40 mg 0900,1400 SKYLAR Administration Insulin Human Regular 0 units 08/20/19 12:56 08/22/19 21:09 Humulin R SC 3 unit Q4H PRN Administration POST OP SLIDING SCALE Protocol Ondansetron HCl 4 mg 08/20/19 12:30 08/22/19 15:18 Zofran IVP 4 mg Q6H PRN Administration Nausea/Vomiting Polyethylene Glycol 17 gm 08/21/19 18:53 08/22/19 18:31 Miralax PO 17 gm DAILYPRN PRN Administration Constipation Potassium Chloride 20 meq 08/20/19 12:30 08/22/19 09:54 Kcl IVPB 20 meq PRN PRN Administration K level </= 4.0 Potassium Chloride 10 meq 08/22/19 08:00 08/23/19 07:27 Klor-Con 10 PO 10 meq BID-WM SKYLAR Administration Tramadol HCl 50 mg 08/22/19 09:21 08/22/19 23:59 Ultram PO 50 mg Q6H PRN Administration Pain - Exam General Appearance: awake alert Eye: PERRL, anicteric sclera ENT: no oropharyngeal lesions, moist mucosa Neck: supple, no JVD Heart: RRR, no murmur Respiratory: no wheezes, no ronchi, rales Gastrointestinal: soft, non-tender, normal bowel sounds Extremities: no cyanosis, no edema Neurological: cranial nerve grossly intact, no focal deficits Psychiatric: normal affect, A&O x 3 Hosp A/P (1) S/P CABG x 3 Code(s): Z95.1 - PRESENCE OF AORTOCORONARY BYPASS GRAFT Status: Acute (2) S/P AVR (aortic valve replacement) Code(s): Z95.2 - PRESENCE OF PROSTHETIC HEART VALVE Status: Acute (3) Afib Code(s): I48.91 - UNSPECIFIED ATRIAL FIBRILLATION Status: Resolved (4) Aortic stenosis Code(s): I35.0 - NONRHEUMATIC AORTIC (VALVE) STENOSIS Status: Chronic (5) CAD (coronary artery disease) Code(s): I25.10 - ATHSCL HEART DISEASE OF [place] CORONARY ARTERY W/O ANG PCTRS Status: Chronic Qualifiers: Coronary Disease-Associated Artery/Lesion type: bypass graft [place] vs. transplanted heart: [place] heart Associated angina: without angina Qualified Code(s): I25.810 - Atherosclerosis of coronary artery bypass graft(s) without angina pectoris (6) DM2 (diabetes mellitus, type 2) Status: Chronic Qualifiers: Diabetes mellitus terminal system operator insulin use: without terminal system operator use (7) HTN (hypertension) Code(s): I10 - ESSENTIAL (PRIMARY) HYPERTENSION Status: Chronic Qualifiers: Hypertension type: essential hypertension Qualified Code(s): I10 - Essential (primary) hypertension (8) Obesity (BMI 30.0-34.9) Code(s): E66.9 - OBESITY, UNSPECIFIED Status: Chronic - Plan s/p cabg 08/20/2019 for 3 vessel disease, bernardo to lad, svg to OM and PDA s/p bioprosthetic aortic valve 08/20/2019 s/p epicardial maze and LA appendage ligation done for afib 08/20/2019 hemostable, continue gentle diuresis (lasix and zaroxolyn) is on asp, lipitor, coreg tx to tele
--- NOTE | 2019-08-23 12:42 | PDOC.CPN ---
- Subjective Date: 08/23/19 Time: 12:46 Interval history: The pt seen and examined. No overnight events. No cardiac complaints. - Objective Allergies/Adverse Reactions: Allergies Allergy/AdvReac Type Severity Reaction Status Date / Time lisinopril Allergy Verified 08/16/19 16:40 losartan Allergy Verified 08/16/19 16:40 Visit Medications: Current Medications Acetaminophen (Tylenol) 650 mg PO Q6H PRN PRN Reason: Headache/Fever Or Mild Pain Al Hydroxide/Mg Hydroxide (Maalox) 30 ml PO Q4H PRN PRN Reason: Indigestion Albuterol/Ipratropium (Duoneb) 3 ml NEB [id number] PRN PRN Reason: SHORTNESS OF BREATH Last Admin: 08/21/19 13:37 Dose: 3 ml Artificial Tears (Tears Naturale) 0 drop EA EYE PRN PRN PRN Reason: Dry Eyes Aspirin (Ecotrin) 325 mg PO DAILY [facility] Last Admin: 08/23/19 09:42 Dose: Not Given Atorvastatin Calcium (Lipitor) 20 mg PO QPM [facility] Last Admin: 08/22/19 21:06 Dose: 20 mg Bisacodyl (Dulcolax) 10 mg PO Q12H PRN PRN Reason: Constipation Bisacodyl (Dulcolax) 10 mg SD Q12H PRN PRN Reason: Constipation Carvedilol (Coreg) 3.125 mg PO BID-[facility] Last Admin: 08/23/19 07:27 Dose: 3.125 mg Dextrose/Water (Dextrose 50%) 25 gm SLOW IVP PRN PRN PRN Reason: PER HYPOGLYCEMIC PROTOCOL Diphenhydramine HCl (Benadryl) 25 mg PO Q6H PRN PRN Reason: Itching & Insomnia or Fer Timothy Famotidine (Pepcid) 20 mg PO Q12HR [facility] Last Admin: 08/23/19 09:07 Dose: 20 mg Furosemide (Lasix) 40 mg PO 0900,1400 [facility] Last Admin: 08/23/19 09:07 Dose: 40 mg Glucagon (Glucagon) 1 mg IM PRN PRN PRN Reason: Hypoglycemia Guaifenesin/Dextromethorphan (Robitussin Dm) 15 ml PO Q4H PRN PRN Reason: Cough Hydralazine HCl (Apresoline) 10 mg SLOW IVP Q6H PRN PRN Reason: To Maintain SBP< 140mmHG Dextrose/Water (D5w) 1,000 mls @ 0 mls/hr IV INF PRN PRN Reason: PRN HYPOGLYCEMIC PROTOCOL Insulin Human Regular (Humulin R) 0 units SC Q4H PRN; Protocol PRN Reason: POST OP SLIDING SCALE Last Admin: 08/22/19 21:09 Dose: 3 unit Magnesium Hydroxide (Milk Of Magnesium) 30 ml PO Q12H PRN PRN Reason: Constipation Mineral Oil (Fleet Mineral Oil) 133 ml SD DAILYPRN PRN PRN Reason: Constipation Nitroglycerin (Nitrostat) 0.4 mg SL Q5MIN PRN PRN Reason: Chest Pain Ondansetron HCl (Zofran) 4 mg IVP Q6H PRN PRN Reason: Nausea/Vomiting Last Admin: 08/22/19 15:18 Dose: 4 mg Polyethylene Glycol (Miralax) 17 gm PO DAILYPRN PRN PRN Reason: Constipation Last Admin: 08/22/19 18:31 Dose: 17 gm Potassium Chloride (Kcl) 20 meq IVPB PRN PRN PRN Reason: K level </= 4.0 Last Admin: 08/22/19 09:54 Dose: 20 meq Potassium Chloride (Klor-Con 10) 10 meq PO BID-WM SKYLAR Last Admin: 08/23/19 07:27 Dose: 10 meq Sodium Chloride (Flush - Normal Saline) 10 ml IVF PRN PRN PRN Reason: Saline Flush Tramadol HCl (Ultram) 50 mg PO Q6H PRN PRN Reason: Pain Last Admin: 08/22/19 23:59 Dose: 50 mg Zolpidem Tartrate (Ambien) 5 mg PO HSPRN PRN PRN Reason: Insomnia Vital Signs & Weight: Vital Signs Temp Pulse Pulse Pulse Resp BP BP 08/23/19 11:15 98.4 F 72 20 08/23/19 09:25 98.2 F 72 18 08/23/19 08:51 74 70 145/67 H 106/61 08/23/19 08:00 97.8 F 08/23/19 04:00 98.5 F BP Pulse Ox 08/23/19 11:15 135/62 97 08/23/19 09:25 135/64 96 08/23/19 08:51 08/23/19 08:00 96 09/27/19 04:00 Weight 217 lb 13.067 oz - Physical Exam General: alert & oriented x3 Neck: supple neck Cardiac: regular rate and rhythm, S1/S2 Lungs: decreased breath sounds Neuro: cranial nerve 2-12 intact Abdomen: unremarkable Skin: clear Musculoskeletal: decreased range of motion - Labs Result Diagrams: 08/23/19 04:03 08/23/19 04:03 Troponin/CKMB CK-MB (CK-2) 2.9 ng/mL (0-6.6) 08/16/19 17:43 Troponin I 0.663 ng/mL (< 0.028) H* 08/16/19 19:38 - Telemetry Sinus rhythms and dysrhythmias: sinus rhythm - Assessment/Plan Assessment/Plan: 1. CAD with s/p CABG x3 on 08/20/2019 with WYATT-LAD, RSVG-OM, and RSVG-PDA with Manga Bioprostatic aortic valve replacement, maze procedure with YANY ligation - stable; On Coreg 3.125mg BID, ASA 325mg qd, and Lipitor. 2. New onset Afib with RVR with s/p Maze procedure with YANY ligation on 2018 - remains in SR; On Coreg 3.125mg BID and ASA 325mg qd. [id number] Score is 4 (age, HTN, hx of CABG); Hx of YANY ligation 2. HTN - stable with current med 3. DM type 2 - managed by PCP 4. Prostate Cancer 5. ETOH abuse - strongly recommend ETOH cessation to the pt and family 6. Severe with s/p Manga Bioprostatic aortic valve replacement on 08/20/2019 MAR reviewed Pt. seen and eval. by me. I agree with the A/P by the LINGO CLEANER. He is doing well s/p CABG+ AVR.. Prob. home in 1-2 days. Chest clear. RRR. trace edema.
[2019-08-23] MEDS: Insulin Regular 300 UNITS/3 ML VIAL SC PRN (13:11)
[2019-08-23] MEDS ORDERED: Dextrose 5% in Water 1,000 ML IV PRN (13:35)
[2019-08-23] MEDS ORDERED: HumaLOG 300 UNITS/3 ML VIAL SC PRN (13:35)
[2019-08-23] MEDS: Atorvastatin Calcium 20 MG TAB PO SCH (20:51)
[2019-08-24] MEDS ORDERED: Carvedilol 3.125 MG TAB PO SCH (06:03)
[2019-08-24] MEDS ORDERED: Metolazone 5 MG TAB PO SCH (07:30)
[2019-08-24] MEDS: Aspirin 325 mg Enteric Coated Tablet PO SCH (09:37)
[2019-08-24] MEDS: Famotidine 20 MG TAB PO SCH ×2 (09:37→21:47)
[2019-08-24] MEDS: Furosemide 40 MG TAB PO SCH ×2 (09:38→12:46)
[2019-08-24] MEDS: Carvedilol 6.25 MG TAB PO SCH ×2 (09:38→17:51)
[2019-08-24] MEDS: Potassium Chloride 10 MEQ TAB PO SCH ×2 (09:38→17:51)
--- NOTE | 2019-08-24 10:22 | PDOC.HOSPP ---
- Subjective Subjective: Pt seen feels better Denies complaint concerned diet about causing sugars to go up - Objective Vital Signs & Weight: Vital Signs (12 hours) Temp Pulse Resp BP BP Pulse Ox 08/24/19 09:38 111/42 L 08/24/19 08:00 97.7 F 72 18 133/64 96 08/24/19 03:57 97.1 F L 67 16 138/65 16 L Weight Weight 216 lb 12.8 oz Most Recent Monitor Data Heart Rate from ECG 72 NIBP 145/67 NIBP BP-Mean 93 Respiration from ECG 20 SpO2 98 I&O: 08/23/19 08/24/19 08/25/19 06:59 06:59 06:59 Intake Total 4220 1400 Output Total 1420 870 Balance 2800 530 Result Diagrams: 08/23/19 04:03 08/23/19 04:03 Additional Labs: Accuchecks 08/24/19 08/23/19 08/23/19 05:39 20:52 16:51 POC Glucose 138 H 151 H 135 H 08/23/19 11:22 POC Glucose 171 H Hospitalist ROS - Review of Systems Constitutional: denies: fever Eyes: denies: pain Respiratory: denies: cough Cardiovascular: denies: chest pain Gastrointestinal: denies: nausea Musculoskeletal: denies: neck pain Neurological: reports: weakness - Medication Medications: Active Medications Generic Name Dose Route Start Last Admin Trade Name Freq PRN Reason Stop Dose Admin Albuterol/Ipratropium 3 ml 08/20/19 12:30 08/21/19 13:37 Duoneb NEB 3 ml [id number] PRN Administration SHORTNESS OF BREATH Aspirin 325 mg 08/23/19 09:00 08/24/19 09:37 Ecotrin PO 325 mg DAILY SKYLAR Administration Atorvastatin Calcium 20 mg 08/21/19 21:00 08/23/19 20:51 Lipitor PO 20 mg QPM SKYLAR Administration Carvedilol 6.25 mg 08/24/19 08:00 08/24/19 09:38 Coreg PO 6.25 mg BID-WM SKYLAR Administration Famotidine 20 mg 08/21/19 09:00 08/24/19 09:37 Pepcid PO 20 mg Q12HR SKYLAR Administration Furosemide 40 mg 08/23/19 09:00 08/24/19 09:38 Lasix PO 40 mg 0900,1400 SKYLAR Administration Guaifenesin/Dextromethorphan 15 ml 08/23/19 07:05 08/23/19 20:51 Robitussin Dm PO 15 ml Q4H PRN Administration Cough Magnesium Hydroxide 30 ml 08/23/19 07:05 08/23/19 17:31 Milk Of Magnesium PO 30 ml Q12H PRN Administration Constipation Ondansetron HCl 4 mg 08/20/19 12:30 08/22/19 15:18 Zofran IVP 4 mg Q6H PRN Administration Nausea/Vomiting Polyethylene Glycol 17 gm 08/21/19 18:53 08/22/19 18:31 Miralax PO 17 gm DAILYPRN PRN Administration Constipation Potassium Chloride 20 meq 08/20/19 12:30 08/22/19 09:54 Kcl IVPB 20 meq PRN PRN Administration K level </= 4.0 Potassium Chloride 10 meq 08/22/19 08:00 08/24/19 09:38 Klor-Con 10 PO 10 meq BID-WM SKYLAR Administration Tramadol HCl 50 mg 08/22/19 09:21 08/22/19 23:59 Ultram PO 50 mg Q6H PRN Administration Pain - Exam General Appearance: awake alert ENT: normocephalic atraumatic Neck: supple Heart: negative: no gallops Respiratory: no wheezes Gastrointestinal: soft Extremities: no cyanosis Neurological: cranial nerve grossly intact Musculoskeletal: normal tone Hosp A/P - Plan CAD S/P CABG x 3 AND S/P AVR Continue post op care , incentive spirometry Afib s/p epicardial maze and LA appendage ligation done for afib 08/20/2019 DM2 (diabetes mellitus, type 2) Diet changed to Diabetic continue monitoring blood sugars HTN (hypertension) currently stable Hyponatremia Chronic DVT/GI Prophylaxis Discussed with pt and nursing staff , Check labs BMP now and in am
[2019-08-24 11:24] LABS: Anion Gap 10 mmol/L (10-20); BUN (Urea Nitrogen) 30 mg/dL (8.4-25.7); Calc. Creatinine Clearance 76 mL/min (70-130); Calcium 7.8 mg/dL (7.8-10.44); Carbon Dioxide 24 mmol/L (23-31); Chloride 93 mmol/L (98-107); Estimated GFR-MDRD 63; Glucose 148 mg/dL (83-110); Potassium 3.4 mmol/L (3.5-5.1); Sodium 124 mmol/L (136-145)
--- NOTE | 2019-08-24 14:27 | PDOC.CPN ---
- Subjective Date: 08/24/19 Time: 14:25 Interval history: He is doing well. he had a BM yesterday. He is working with PT. - Review of Systems General: denies: fever/chills, weight/appetite/sleep changes, night sweats, fatigue Respiratory: denies: cough, congestion, shortness of breath, exercise intolerance Cardiovascular: denies: chest pain, palpitation, edema, paroxysmal nocturnal dyspnea, orthopnea Gastrointestinal: denies: nausea, vomiting, diarrhea, constipation, abd pain, GI bleeding Musculoskeletal: denies: pain, tenderness, stiffness, swelling, arthritis/ arthralgias Neurological: denies: numbness, syncope, seizure, weakness - Objective Allergies/Adverse Reactions: Allergies Allergy/AdvReac Type Severity Reaction Status Date / Time lisinopril Allergy Verified 08/16/19 16:40 losartan Allergy Verified 08/16/19 16:40 Visit Medications: Current Medications Acetaminophen (Tylenol) 650 mg PO Q6H PRN PRN Reason: Headache/Fever Or Mild Pain Al Hydroxide/Mg Hydroxide (Maalox) 30 ml PO Q4H PRN PRN Reason: Indigestion Albuterol/Ipratropium (Duoneb) 3 ml NEB [id number] PRN PRN Reason: SHORTNESS OF BREATH Last Admin: 08/21/19 13:37 Dose: 3 ml Artificial Tears (Tears Naturale) 0 drop EA EYE PRN PRN PRN Reason: Dry Eyes Aspirin (Ecotrin) 325 mg PO DAILY [facility] Last Admin: 08/24/19 09:37 Dose: 325 mg Atorvastatin Calcium (Lipitor) 20 mg PO QPM [facility] Last Admin: 08/23/19 20:51 Dose: 20 mg Bisacodyl (Dulcolax) 10 mg PO Q12H PRN PRN Reason: Constipation Bisacodyl (Dulcolax) 10 mg HI Q12H PRN PRN Reason: Constipation Carvedilol (Coreg) 6.25 mg PO BID-[facility] Last Admin: 08/24/19 09:38 Dose: 6.25 mg Dextrose/Water (Dextrose 50%) 25 gm SLOW IVP PRN PRN PRN Reason: PER HYPOGLYCEMIC PROTOCOL Diphenhydramine HCl (Benadryl) 25 mg PO Q6H PRN PRN Reason: Itching & Insomnia or Fer Timothy Famotidine (Pepcid) 20 mg PO Q12HR SKYLAR Last Admin: 08/24/19 09:37 Dose: 20 mg Furosemide (Lasix) 40 mg PO 0900,1400 [facility] Last Admin: 08/24/19 12:46 Dose: 40 mg Glucagon (Glucagon) 1 mg IM PRN PRN PRN Reason: Hypoglycemia Guaifenesin/Dextromethorphan (Robitussin Dm) 15 ml PO Q4H PRN PRN Reason: Cough Last Admin: 08/23/19 20:51 Dose: 15 ml Hydralazine HCl (Apresoline) 10 mg SLOW IVP Q6H PRN PRN Reason: To Maintain SBP< 140mmHG Dextrose/Water (D5w) 1,000 mls @ 0 mls/hr IV .Q0M PRN PRN Reason: Hypoglycemia Insulin Human Lispro (Humalog) 0 units SC .MILD SLIDING SCALE PRN PRN Reason: Mild Correctional Scale Magnesium Hydroxide (Milk Of Magnesium) 30 ml PO Q12H PRN PRN Reason: Constipation Last Admin: 08/23/19 17:31 Dose: 30 ml Mineral Oil (Fleet Mineral Oil) 133 ml HI DAILYPRN PRN PRN Reason: Constipation Nitroglycerin (Nitrostat) 0.4 mg SL Q5MIN PRN PRN Reason: Chest Pain Ondansetron HCl (Zofran) 4 mg IVP Q6H PRN PRN Reason: Nausea/Vomiting Last Admin: 08/22/19 15:18 Dose: 4 mg Polyethylene Glycol (Miralax) 17 gm PO DAILYPRN PRN PRN Reason: Constipation Last Admin: 08/22/19 18:31 Dose: 17 gm Potassium Chloride (Kcl) 20 meq IVPB PRN PRN PRN Reason: K level </= 4.0 Last Admin: 08/22/19 09:54 Dose: 20 meq Potassium Chloride (Klor-Con 10) 10 meq PO BID-[facility] Last Admin: 08/24/19 09:38 Dose: 10 meq Sodium Chloride (Flush - Normal Saline) 10 ml IVF PRN PRN PRN Reason: Saline Flush Tramadol HCl (Ultram) 50 mg PO Q6H PRN PRN Reason: Pain Last Admin: 08/22/19 23:59 Dose: 50 mg Zolpidem Tartrate (Ambien) 5 mg PO HSPRN PRN PRN Reason: Insomnia Vital Signs & Weight: Vital Signs Temp Pulse Pulse Resp BP BP BP 08/24/19 12:00 97.8 F 68 18 08/24/19 09:38 111/42 L 08/24/19 08:30 69 124/66 08/24/19 08:00 97.7 F 72 18 133/64 08/24/19 03:57 97.1 F L 67 16 138/65 BP Pulse Ox 08/24/19 12:00 124/61 95 08/24/19 09:38 08/24/19 08:30 08/24/19 08:00 96 08/24/19 03:57 16 L Weight 216 lb 12.8 oz - Physical Exam General: alert & oriented x3, no apparent distress HEENT: mucus membranes moist, normocephaly Neck: supple neck, midline trachea Cardiac: regular rate and rhythm, no murmur Lungs: clear to auscultation, no wheeze, rales, rhonchi Neuro: grossly intact, coordination normal Abdomen: active bowel sounds, soft, non-tender Skin: clear Musculoskeletal: normal range of motion, no pain - Labs Result Diagrams: 08/23/19 04:03 08/24/19 10:55 Troponin/CKMB CK-MB (CK-2) 2.9 ng/mL (0-6.6) 08/16/19 17:43 Troponin I 0.663 ng/mL (< 0.028) H* 08/16/19 19:38 - Telemetry Sinus rhythms and dysrhythmias: sinus rhythm - Assessment/Plan Assessment/Plan: 1. CAD with s/p CABG x3 with WYATT-LAD, SVG to OM and SVG to PDA with Manga Bioprostatic aortic valve replacement, maze procedure with YANY ligation - stable ; On Coreg 3.125mg BID, ASA 325mg qd, and Lipitor. 2. Afib with RVR with s/p Maze procedure with YANY ligation. 3. HTN 4. DM type 2 5. Prostate Cancer 6. ETOH abuse 7. Severe s/p Magna Bioprostatic aortic valve replacement . PLAN: - Doing very well. - ASA, statin for life. - BB. - Icrease PT as tolerated. - CV stable.
--- NOTE | 2019-08-24 17:35 | CT ---
CT OF BRAIN PERFORMED WITHOUT CONTRAST ENHANCEMENT: 08/24/19 HISTORY: Slurred speech. Some mild generalized ventricular and sulcal prominence. There is no signs of intracerebral hemorrhag e or extra-axial fluid collections. The mastoid air cells and visualized sinuses are clear other than some very minimal ethmoid air cell mucosa change. IMPRESSION: No acute intracranial abnormalities. POS: [facility]
[2019-08-24 19:43] LABS: Bilirubin Negative (Negative); Blood, Urine Trace (Negative); Clarity Clear (Clear); Glucose, Urine (Dipstick) Normal (Negative); Leukocyte Negative Leu/uL (Negative); Nitrite Negative (Negative); Protein, Urine (Dipstick) Negative (Neg-Trace); RBC/HPF 0-3 HPF (0-3); Squamous Epithelial 0-3 HPF (0-3); Urobilinogen Normal mg/dL (Less than 2); WBC/HPF 0-3 HPF (0-3)
[2019-08-24 19:44] LABS: Bacteria/HPF 1+ HPF (None Seen); Urine Culture Reflex No No
[2019-08-24] MEDS: traMADol HCl 50 MG TAB PO PRN (21:47)
[2019-08-24] MEDS: Atorvastatin Calcium 20 MG TAB PO SCH (21:47)
[2019-08-25 06:45] LABS: Phosphorus 3.4 mg/dL (2.3-4.7)
[2019-08-25 06:47] LABS: Anion Gap 9 mmol/L (10-20); BUN (Urea Nitrogen) 31 mg/dL (8.4-25.7); Calc. Creatinine Clearance 75 mL/min (70-130); Calcium 8.1 mg/dL (7.8-10.44); Carbon Dioxide 27 mmol/L (23-31); Chloride 92 mmol/L (98-107); Estimated GFR-MDRD 63; Glucose 115 mg/dL (83-110); Magnesium 2.4 mg/dL (1.6-2.6); Potassium 3.1 mmol/L (3.5-5.1); Sodium 125 mmol/L (136-145)
[2019-08-25] MEDS ORDERED: Potassium Chloride 20 MEQ TAB PO SCH ×2 (08:00→09:00)
--- NOTE | 2019-08-25 09:12 | DIS ---
DATE OF ADMISSION: 08/16/2019 DATE OF DISCHARGE: 08/25/2019 DIAGNOSES: 1. Coronary artery disease. 2. Severe aortic stenosis. 3. Hypertension. 4. Dyslipidemia. 5. Diabetes mellitus. PROCEDURES: 1. Cardiac catheterization. 2. Aortic valve replacement with #23 Magna bioprosthetic valve/coronary artery bypass grafting x3 -. a. Left internal mammary artery to left anterior descending artery. b. Saphenous vein graft to obtuse marginal. c. Saphenous vein graft to posterior descending artery. 3. Epicardial Maze with ligation of the left atrial appendage. DESCRIPTION OF HOSPITAL STAY: Mr. Camacho was admitted with AFib, which was controlled in his rate. He underwent cardiac catheterization revealing severe three-vessel disease. He has known history of aortic stenosis. Repeat echocardiogram showed severe aortic stenosis. He was taken to the operating room on 08/20 and underwent procedure as above. Postoperatively, he has remained in sinus rhythm. He has had no shortness of breath or incisional issues. At the time of discharge, he is ambulatory, tolerating a regular diet, having good bowel and bladder function. Incisions are clean and dry without evidence of infection. DISCHARGE MEDICATIONS: Include; 1. Aspirin 325 mg daily. 2. Lipitor 20 mg at bedtime. 3. Coreg 6.25 mg b.i.d. 4. Lasix 40 mg b.i.d. for 2 weeks. 5. Potassium 10 mEq b.i.d. for 2 weeks. 6. Tramadol 50 mg q.6 hours p.r.n. pain. FOLLOWUP: Follow up is with me in 2 weeks, Dr. Lemus in a month. Job ID: [id number]
[2019-08-25] MEDS: Aspirin 325 mg Enteric Coated Tablet PO SCH (09:26)
[2019-08-25] MEDS: Famotidine 20 MG TAB PO SCH ×2 (09:26→20:22)
[2019-08-25] MEDS: Furosemide 40 MG TAB PO SCH ×2 (09:26→13:23)
[2019-08-25] MEDS: Carvedilol 6.25 MG TAB PO SCH ×2 (09:26→18:08)
--- NOTE | 2019-08-25 09:34 | CON ---
DATE OF CONSULTATION: 08/24/2019 REQUESTING PHYSICIAN: Ceasar Mora MD REASON FOR CONSULTATION: Hyponatremia. HISTORY OF PRESENT ILLNESS: A 79-year-old male with past medical history significant for aortic stenosis, hypertension, and diabetes, who was admitted on August 16 due to new onset atrial fibrillation associated with hypertension. Further evaluation by Cardiology revealed severe aortic stenosis and 3-vessel atherosclerotic disease. Cardiothoracic Surgery consult was obtained, and the patient subsequently had aortic valve replacement as well as 3-vessel CABG. Postoperatively, the patient has been on diuretics, but sodium trended down from admission level of 133 to 124, hence Nephrology consult. Review of medical records showed that the patient has chronic hyponatremia, which waxes and wanes. Further review showed that the patient is on thiazide for hypertension management. Post cardiac surgery, the patient also has been on Lasix and metolazone. Metolazone, however, was stopped earlier today, August 24, due to worsening hyponatremia. The patient also has had hypokalemia during this hospitalization as well as hypomagnesemia requiring supplementation. He denied nausea, vomiting, worsening shortness of breath, fever, worsening cough, but admitted to bilateral leg swelling. He denied dysuria or hematuria. PAST MEDICAL HISTORY: 1. Severe aortic stenosis. 2. Coronary artery disease. 3. Prostate cancer. 4. Hypertension. 5. Diabetes mellitus. 6. New diagnosis of atrial fibrillation. PAST SURGICAL HISTORY: 1. Radical prostatectomy. 2. Right leg surgery. FAMILY HISTORY: Reviewed, but noncontributory. SOCIAL HISTORY: The patient drinks alcohol regularly. Denied recreational drug use or tobacco use. The patient is . ALLERGIES: REPORTED ALLERGIC REACTION TO LISINOPRIL AND LOSARTAN. HOME MEDICATIONS: 1. Hydrochlorothiazide 25 mg daily. 2. Metformin 1000 mg p.o. b.i.d. CURRENT HOSPITAL MEDICATIONS: 1. Aspirin 325 mg p.o. daily. 2. Lipitor 20 mg p.o. daily at bedtime. 3. Pepcid 20 mg p.o. b.i.d. 4. Carvedilol 6.25 mg p.o. b.i.d. 5. Lasix 40 mg p.o. b.i.d. 6. Metolazone 5 mg p.o. daily. This was stopped earlier today. 7. Potassium chloride 10 mEq p.o. b.i.d. 8. Tylenol p.r.n. as needed for pain. 9. Sliding scale Humalog. REVIEW OF SYSTEMS: Twelve-point review of systems performed was negative other than pertinent positives and negatives included in the history of present illness. PHYSICAL EXAMINATION: VITAL SIGNS: Temperature 97.5, pulse 70, respiratory rate 18, SpO2 of 97 on room air, blood pressure 112/59. GENERAL: Elderly male, in no obvious distress. Afebrile. Anicteric. Acyanotic. HEENT: Normocephalic, atraumatic. Oral mucosa is moist. NECK: Supple. Nontender with good range of motion. No obvious masses or JVD appreciated. CARDIOVASCULAR: Regular rhythm and rate with normal heart sounds 1 and 2. Systolic murmur noted. CHEST/RESPIRATORY: Anterior sternotomy wound noted. Fair air entry bilaterally with bibasilar crackles posteriorly. Work of breathing is not increased. GI: Abdomen is full, soft, nontender, nondistended with normal bowel sound. EXTREMITIES: Left leg is covered with dressing. Mild edema of right leg noted. STONE SETTER: Conscious and alert oriented x3 with appropriate mental status. Cranial nerves 2 through 12 are grossly intact. DIAGNOSTIC DATA: BMP earlier today showed sodium 124, potassium 3.4, chloride 93, CO2 of 24, BUN 30, creatinine 1.12, glucose 148, calcium 7.8. Ammonia is 92. CBC on August 23 showed WBC count of 10.8, hemoglobin of 11.3, MCV of 102, and platelet count of 99. There is no urinalysis since admission. ASSESSMENT: 1. Hyponatremia: Chronic with acute worsening. This is multifactorial in etiology. 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 The patient also has been receiving thiazide diuretics since this hospitalization. 2. Hypertension: Control is acceptable. 3. Volume status: Close to euvolemia. The patient is still on Lasix diuretic. 4. Coronary artery disease status post coronary artery bypass graft. 5. Severe aortic stenosis status post valve replacement. PLAN: 1. We will get urinalysis as well as urine and plasma osmolality as well as urine sodium. Agree with discontinuation of thiazide diuretics. 2. Continue Lasix diuretics for now. 3. Further recommendation, we will replete serum potassium with potassium chloride. We will also get repeat magnesium level to be sure hypomagnesium has resolved. Many thanks for involving us in the care of this patient. We will follow along with you. Further recommendation to follow on review of other diagnostic tests. Job ID: [id number]
--- NOTE | 2019-08-25 09:40 | PRG ---
DATE OF SERVICE: 08/25/2019 SERVICE: Nephrology. SUBJECTIVE: A 79-year-old male admitted due to atrial fibrillation with rapid ventricular response. Found to have coronary artery disease status post CABG. We are seeing the patient for hyponatremia as well as hypokalemia. The patient has been on thiazide and was also on thiazide prior to my evaluation yesterday. No new complaints. Denied fever, nausea, vomiting, or dysuria. The patient is for discharge today by Cardiothoracic Surgery. OBJECTIVE: VITAL SIGNS: Temperature 97.8, pulse 68, respiratory rate 16, SpO2 of 93% on room air, blood pressure 139/65. GENERAL: Elderly male, in no distress. Afebrile. Anicteric. Acyanotic. HEENT: Normocephalic, atraumatic. Oral mucosa is moist. CARDIOVASCULAR: Regular rhythm and rate with normal heart sounds 1 and 2 with few ectopics. Systolic murmur noted. RESPIRATORY: Fair air entry bilaterally with some transmitted breath sounds. Few bibasilar crackles also were noted. No rhonchi were appreciated. GI: Full, soft, nontender, nondistended with normal bowel sounds. EXTREMITIES: Mild right leg edema noted. PROFESSOR OF GEOGRAPHY: Conscious and alert oriented x3 with appropriate mental status. DIAGNOSTIC DATA: Renal function panel showed sodium 125, potassium 3.1, chloride 92, CO2 of 27, BUN 31, creatinine 1.13, glucose 115, calcium 8.1, phosphorus 3.4. Magnesium is 2.4. Serum osmolality on August 24 was 278, while urine osmolality on same day was 282. Urine sodium was 65. Urinalysis on August 24, showed clear colorless urine with pH of 5.0, specific gravity of 1.007. Negative protein, ketone, nitrite, bilirubin, and leukocyte esterase with trace blood. Microscopy showed 0 to 3 rbc and wbc. ASSESSMENT: 1. Hyponatremia: Due to syndrome of inappropriate antidiuretic hormone secretion or rather disrupted concentrating ability of the kidney due to chronic thiazide use as well as hypokalemia. 2. Hypokalemia: Due to diuretic use. 3. Hypertension. Control is acceptable. 4. Volume status: Close to euvolemia. 5. Hyperammonemia of unclear significance. PLAN: 1. We will start fluid restriction to 1500/24 hours. 2. The patient should not be restarted on thiazide diuretics. 3. We will replete serum potassium with 60 mEq of potassium chloride and continue with supplementation at increased rate due to continued Lasix therapy. 4. Since discharge is planned by Cardiothoracic Surgery, close followup with repeat renal function test and magnesium is recommended. I could see the patient in the office on August 29 with repeat BMP for re-evaluation of treatment and further adjustment. Many thanks for involving us in the care of this patient. Job ID: [id number]
[2019-08-25] MEDS: Potassium Chloride 20 MEQ TAB PO SCH ×2 (09:50→18:08)
--- NOTE | 2019-08-25 14:39 | PDOC.HOSPP ---
- Subjective Encounter Date: 08/25/19 - Objective Vital Signs & Weight: Vital Signs (12 hours) Temp Pulse Resp BP BP BP Pulse Ox 08/25/19 11:34 97.7 F 70 18 125/58 L 95 08/25/19 08:00 97.7 F 67 16 145/65 H 95 08/25/19 03:08 97.8 F 68 16 139/65 93 L Weight Weight 214 lb 11.2 oz Most Recent Monitor Data Heart Rate from ECG 72 NIBP 145/67 NIBP BP-Mean 93 Respiration from ECG 20 SpO2 98 I&O: 08/24/19 08/25/19 08/26/19 06:59 06:59 06:59 Intake Total 1400 1720 240 Output Total 870 1050 Balance 530 670 240 Result Diagrams: 08/23/19 04:03 08/25/19 05:33 Additional Labs: Accuchecks 08/25/19 08/25/19 08/24/19 10:50 05:54 21:01 POC Glucose 185 H 128 H 120 H 08/24/19 18:02 POC Glucose 128 H Hospitalist ROS - Review of Systems Constitutional: denies: fever Eyes: denies: pain ENT: denies: ear pain Respiratory: denies: cough Cardiovascular: denies: chest pain Gastrointestinal: denies: nausea Musculoskeletal: denies: neck pain Neurological: denies: weakness - Medication Medications: Active Medications Generic Name Dose Route Start Last Admin Trade Name Freq PRN Reason Stop Dose Admin Albuterol/Ipratropium 3 ml 08/20/19 12:30 08/21/19 13:37 Duoneb NEB 3 ml [id number] PRN Administration SHORTNESS OF BREATH Aspirin 325 mg 08/23/19 09:00 08/25/19 09:26 Ecotrin PO 325 mg DAILY SKYLAR Administration Atorvastatin Calcium 20 mg 08/21/19 21:00 08/24/19 21:47 Lipitor PO 20 mg QPM SKYLAR Administration Carvedilol 6.25 mg 08/24/19 08:00 08/25/19 09:26 Coreg PO 6.25 mg BID-WM SKYLAR Administration Famotidine 20 mg 08/21/19 09:00 08/25/19 09:26 Pepcid PO 20 mg Q12HR SKYLAR Administration Furosemide 40 mg 08/23/19 09:00 08/25/19 13:23 Lasix PO 40 mg 0900,1400 SKYLAR Administration Guaifenesin/Dextromethorphan 15 ml 08/23/19 07:05 08/23/19 20:51 Robitussin Dm PO 15 ml Q4H PRN Administration Cough Magnesium Hydroxide 30 ml 08/23/19 07:05 08/23/19 17:31 Milk Of Magnesium PO 30 ml Q12H PRN Administration Constipation Ondansetron HCl 4 mg 08/20/19 12:30 08/22/19 15:18 Zofran IVP 4 mg Q6H PRN Administration Nausea/Vomiting Polyethylene Glycol 17 gm 08/21/19 18:53 08/22/19 18:31 Miralax PO 17 gm DAILYPRN PRN Administration Constipation Potassium Chloride 20 meq 08/20/19 12:30 08/22/19 09:54 Kcl IVPB 20 meq PRN PRN Administration K level </= 4.0 Potassium Chloride 20 meq 08/25/19 17:00 08/25/19 09:50 K-Dur PO 20 meq BID-WM SKYLAR Administration Tramadol HCl 50 mg 08/22/19 09:21 08/24/19 21:47 Ultram PO 50 mg Q6H PRN Administration Pain - Exam General Appearance: awake alert Eye: anicteric sclera ENT: normocephalic atraumatic Neck: supple Heart: no murmur Respiratory: no wheezes Gastrointestinal: soft Extremities: no cyanosis Skin: normal turgor Neurological: cranial nerve grossly intact Musculoskeletal: normal tone Psychiatric: normal affect Hosp A/P - Plan CAD S/P CABG x 3 AND S/P AVR Continue post op care , incentive spirometry , doing well , cleared by Dr Park to dc Afib s/p epicardial maze and LA appendage ligation done for afib 08/20/2019 DM2 (diabetes mellitus, type 2) Continue Diet Diabetic, continue monitoring blood sugars HTN (hypertension) currently stable Hyponatremia Possible acute on Chronic as per pt been having low Na previously Nephrology evaluation appreciated continue fluid restriction , Na 125 today will check BMP in am and possible dc in am if Na improving , Acute mild encephaloapthy multifactorial possible metabolic due to hyponatremia and meds induced and related to recent hospitalization , Mental status Improving DVT/GI Prophylaxis Discussed with pt and nursing staff , Possible dc in am if Na improving and ok with Dr Bryant
--- NOTE | 2019-08-25 16:57 | EKG ---
Test Reason : POST CABG Blood Pressure : / mmHG Vent. Rate : 073 BPM Atrial Rate : 073 BPM P-R Int : 194 ms QRS Dur : 092 ms QT Int : 432 ms P-R-T Axes : 021 042 106 degrees QTc Int : 475 ms Normal sinus rhythm Prolonged QT Abnormal ECG When compared with ECG of 16-AUG-2019 13:06, Sinus rhythm has replaced Atrial fibrillation Vent. rate has decreased BY [address] no longer depressed in Inferior leads T wave inversion no longer evident in Inferior leads T wave inversion now evident in Anterior leads Confirmed by MARVIN ALBERTO (2) on 08/25/2019 4:57:11 PM Referred By: Jessica RAUSCH Confirmed By:MARVIN ALBERTO
--- NOTE | 2019-08-25 19:25 | PDOC.CPN ---
- Subjective Date: 08/25/19 Time: 19:21 - Review of Systems General: denies: fever/chills, weight/appetite/sleep changes, night sweats, fatigue Respiratory: denies: cough, congestion, shortness of breath, exercise intolerance Cardiovascular: denies: chest pain, palpitation, edema, paroxysmal nocturnal dyspnea, orthopnea Gastrointestinal: denies: nausea, vomiting, diarrhea, constipation, abd pain, GI bleeding Musculoskeletal: denies: pain, tenderness, stiffness, swelling, arthritis/ arthralgias Neurological: denies: numbness, syncope, seizure, weakness - Objective Allergies/Adverse Reactions: Allergies Allergy/AdvReac Type Severity Reaction Status Date / Time lisinopril Allergy Verified 08/16/19 16:40 losartan Allergy Verified 08/16/19 16:40 Visit Medications: Current Medications Acetaminophen (Tylenol) 650 mg PO Q6H PRN PRN Reason: Headache/Fever Or Mild Pain Al Hydroxide/Mg Hydroxide (Maalox) 30 ml PO Q4H PRN PRN Reason: Indigestion Albuterol/Ipratropium (Duoneb) 3 ml NEB [id number] PRN PRN Reason: SHORTNESS OF BREATH Last Admin: 08/21/19 13:37 Dose: 3 ml Artificial Tears (Tears Naturale) 0 drop EA EYE PRN PRN PRN Reason: Dry Eyes Aspirin (Ecotrin) 325 mg PO DAILY [facility] Last Admin: 08/25/19 09:26 Dose: 325 mg Atorvastatin Calcium (Lipitor) 20 mg PO QPM [facility] Last Admin: 08/24/19 21:47 Dose: 20 mg Bisacodyl (Dulcolax) 10 mg PO Q12H PRN PRN Reason: Constipation Bisacodyl (Dulcolax) 10 mg [place] Q12H PRN PRN Reason: Constipation Carvedilol (Coreg) 6.25 mg PO BID-[facility] Last Admin: 08/25/19 18:08 Dose: 6.25 mg Dextrose/Water (Dextrose 50%) 25 gm SLOW IVP PRN PRN PRN Reason: PER HYPOGLYCEMIC PROTOCOL Diphenhydramine HCl (Benadryl) 25 mg PO Q6H PRN PRN Reason: Itching & Insomnia or Fer Timothy Famotidine (Pepcid) 20 mg PO Q12HR [facility] Last Admin: 09/29/19 09:26 Dose: 20 mg Furosemide (Lasix) 40 mg PO 0900,1400 [facility] Last Admin: 08/25/19 13:23 Dose: 40 mg Glucagon (Glucagon) 1 mg IM PRN PRN PRN Reason: Hypoglycemia Guaifenesin/Dextromethorphan (Robitussin Dm) 15 ml PO Q4H PRN PRN Reason: Cough Last Admin: 08/23/19 20:51 Dose: 15 ml Hydralazine HCl (Apresoline) 10 mg SLOW IVP Q6H PRN PRN Reason: To Maintain SBP< 140mmHG Dextrose/Water (D5w) 1,000 mls @ 0 mls/hr IV .Q0M PRN PRN Reason: Hypoglycemia Insulin Human Lispro (Humalog) 0 units SC .MILD SLIDING SCALE PRN PRN Reason: Mild Correctional Scale Magnesium Hydroxide (Milk Of Magnesium) 30 ml PO Q12H PRN PRN Reason: Constipation Last Admin: 08/23/19 17:31 Dose: 30 ml Mineral Oil (Fleet Mineral Oil) 133 ml [place] DAILYPRN PRN PRN Reason: Constipation Nitroglycerin (Nitrostat) 0.4 mg SL Q5MIN PRN PRN Reason: Chest Pain Ondansetron HCl (Zofran) 4 mg IVP Q6H PRN PRN Reason: Nausea/Vomiting Last Admin: 08/22/19 15:18 Dose: 4 mg Polyethylene Glycol (Miralax) 17 gm PO DAILYPRN PRN PRN Reason: Constipation Last Admin: 08/22/19 18:31 Dose: 17 gm Potassium Chloride (Kcl) 20 meq IVPB PRN PRN PRN Reason: K level </= 4.0 Last Admin: 08/22/19 09:54 Dose: 20 meq Potassium Chloride (K-Dur) 20 meq PO BID-WM [facility] Last Admin: 08/25/19 18:08 Dose: 20 meq Sodium Chloride (Flush - Normal Saline) 10 ml IVF PRN PRN PRN Reason: Saline Flush Tramadol HCl (Ultram) 50 mg PO Q6H PRN PRN Reason: Pain Last Admin: 08/24/19 21:47 Dose: 50 mg Zolpidem Tartrate (Ambien) 5 mg PO HSPRN PRN PRN Reason: Insomnia Vital Signs & Weight: Vital Signs Temp Pulse Resp BP BP Pulse Ox 08/25/19 17:59 67 18 143/67 H 97 08/25/19 11:34 97.7 F 70 18 125/58 L 95 08/25/19 08:00 97.7 F 67 16 145/65 H 95 Weight 214 lb 11.2 oz - Physical Exam General: alert & oriented x3 HEENT: mucus membranes moist Neck: supple neck Cardiac: regular rate and rhythm Lungs: clear to auscultation Neuro: grossly intact Abdomen: active bowel sounds Skin: clear Musculoskeletal: no pain - Labs Result Diagrams: 08/23/19 04:03 08/25/19 05:33 Troponin/CKMB CK-MB (CK-2) 2.9 ng/mL (0-6.6) 08/16/19 17:43 Troponin I 0.663 ng/mL (< 0.028) H* 08/16/19 19:38 - Telemetry Sinus rhythms and dysrhythmias: sinus rhythm - Assessment/Plan Assessment/Plan: 1. CAD with s/p CABG x3 with WYATT-LAD, SVG to OM and SVG to PDA. 2. Afib with RVR with s/p Maze procedure with YANY ligation. 3. HTN 4. DM type 2 5. Prostate Cancer 6. ETOH abuse 7. 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 8. Hyponatremia PLAN: - Family feels he is a little "slower" today, they are concerned it is the BB. I enforced that this is likely the hyponatremia. Nephrology is on the case for this. Will hold BB for now to make sure this is not cause but doubt he will get better until his sodium improves. - ASA, statin for life. - Increase PT as tolerated. - CV stable.
[2019-08-25] MEDS: Atorvastatin Calcium 20 MG TAB PO SCH (20:22)
[2019-08-26 06:52] LABS: Anion Gap 12 mmol/L (10-20); BUN (Urea Nitrogen) 31 mg/dL (8.4-25.7); Calc. Creatinine Clearance 61 mL/min (70-130); Calcium 8.7 mg/dL (7.8-10.44); Carbon Dioxide 33 mmol/L (23-31); Chloride 91 mmol/L (98-107); Estimated GFR-MDRD 52; Glucose 116 mg/dL (83-110); Potassium 3.8 mmol/L (3.5-5.1); Sodium 132 mmol/L (136-145)
--- NOTE | 2019-08-26 08:22 | PRG ---
DATE OF SERVICE: 08/26/2019 SERVICE: Nephrology. SUBJECTIVE: A 79-year-old male status post aortic valve replacement and coronary artery bypass surgery, being followed up by Nephrology for hyponatremia. The patient reports feeling better. Also reported the swelling has markedly improved. Denied worsening shortness of breath, dysuria, hematuria, or palpitations. He also denied dizziness or vomiting. OBJECTIVE: VITAL SIGNS: Temperature 97.9, pulse 68, respiratory rate 16, SpO2 of 96% on room air, blood pressure is 130/67. GENERAL: Elderly male, in no distress. Afebrile. Anicteric. Acyanotic. HEENT: Normocephalic, atraumatic. Oral mucosa is moist. CARDIOVASCULAR: Regular rhythm and rate with normal heart sounds 1 and 2. RESPIRATORY: Fair air entry bilaterally with few transmitted breath sounds. No obvious crackle or rhonchi was appreciated. CHEST: Anterior sternotomy wound noted. GI: Full, soft, nontender, nondistended with normal bowel sounds. EXTREMITIES: Grossly normal looking. Left leg dressing noted. No edema or erythema appreciated. 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 DIAGNOSTIC DATA: BMP today showed sodium 132, up from 125 yesterday; potassium 3.8, up from 3.1 yesterday; chloride 91; CO2 33, up from 27 yesterday; BUN 31; creatinine 1.34, up from 1.13 yesterday; glucose is 116 and calcium is 8.7. ASSESSMENT: 1. Hyponatremia: [place] to be related to thiazide diuretic use as well as hypokalemia. The patient was started with fluid restriction while thiazide was discontinued with prompt improvement in sodium level. 2. Hypokalemia: Repleted with potassium chloride. 3. Chronic kidney disease stage 3 with acute increase in creatinine: [place] to be due to volume contraction from diuretic therapy given associated increase in BUN as well as in CO2. 4. Volume status: The patient seems euvolemic or close to it. PLAN: 1. We will decrease Lasix to 40 mg p.o. daily. 2. We will also decrease potassium supplementation to 20 mEq p.o. daily. 3. Close followup is recommended with repeat lab in 2 to 3 days. Other treatment as per primary attending and Cardiology service. Job ID: [id number]
[2019-08-26] MEDS: Aspirin 325 mg Enteric Coated Tablet PO SCH (08:44)
[2019-08-26] MEDS: Famotidine 20 MG TAB PO SCH ×2 (08:45→21:51)
[2019-08-26] MEDS: Potassium Chloride 20 MEQ TAB PO SCH (08:46)
[2019-08-26] MEDS ORDERED: Furosemide 40 MG TAB PO SCH (09:00)
[2019-08-26 13:18] LABS: Mean Corpuscular HGB CONC 35.4 g/dL (32.0-36.0); Mean Corpuscular Hemoglobin 34.9 pg (27.0-31.0); Mean Corpuscular Volume 98.6 fL (78.0-98.0); Mean Platelet Volume 7.3 fL (7.4-10.4); Platelet Count 173 thou/uL (130-400); Red Blood Cell (RBC) Count 3.71 mill/uL (4.70-6.10); White Blood Cell (WBC) Count 10.8 thou/uL (4.8-10.8)
--- NOTE | 2019-08-26 13:55 | PDOC.CPN ---
- Subjective Date: 08/26/19 Time: 08:30 Interval history: The pt seen and examined. No overnight events. No cardiac complaints. However , per the pt's family, the pt is slow to respond since the CABG sx. CT brain on 08/24/2019 is normal - Objective Allergies/Adverse Reactions: Allergies Allergy/AdvReac Type Severity Reaction Status Date / Time lisinopril Allergy Verified 08/16/19 16:40 losartan Allergy Verified 08/16/19 16:40 Visit Medications: Current Medications Acetaminophen (Tylenol) 650 mg PO Q6H PRN PRN Reason: Headache/Fever Or Mild Pain Al Hydroxide/Mg Hydroxide (Maalox) 30 ml PO Q4H PRN PRN Reason: Indigestion Albuterol/Ipratropium (Duoneb) 3 ml NEB [id number] PRN PRN Reason: SHORTNESS OF BREATH Last Admin: 08/21/19 13:37 Dose: 3 ml Artificial Tears (Tears Naturale) 0 drop EA EYE PRN PRN PRN Reason: Dry Eyes Aspirin (Ecotrin) 325 mg PO DAILY [facility] Last Admin: 08/26/19 08:44 Dose: 325 mg Atorvastatin Calcium (Lipitor) 20 mg PO QPM [facility] Last Admin: 08/25/19 20:22 Dose: 20 mg Bisacodyl (Dulcolax) 10 mg PO Q12H PRN PRN Reason: Constipation Bisacodyl (Dulcolax) 10 mg [place] Q12H PRN PRN Reason: Constipation Carvedilol (Coreg) 6.25 mg PO BID-WM [facility] Last Admin: 08/25/19 18:08 Dose: 6.25 mg Dextrose/Water (Dextrose 50%) 25 gm SLOW IVP PRN PRN PRN Reason: PER HYPOGLYCEMIC PROTOCOL Diphenhydramine HCl (Benadryl) 25 mg PO Q6H PRN PRN Reason: Itching & Insomnia or Fer Timothy Famotidine (Pepcid) 20 mg PO Q12HR [facility] Last Admin: 08/26/19 08:45 Dose: 20 mg Furosemide (Lasix) 40 mg PO DAILY [facility] Last Admin: 08/26/19 08:45 Dose: 40 mg Glucagon (Glucagon) 1 mg IM PRN PRN PRN Reason: Hypoglycemia Guaifenesin/Dextromethorphan (Robitussin Dm) 15 ml PO Q4H PRN PRN Reason: Cough Last Admin: 08/23/19 20:51 Dose: 15 ml Hydralazine HCl (Apresoline) 10 mg SLOW IVP Q6H PRN PRN Reason: To Maintain SBP< 140mmHG Dextrose/Water (D5w) 1,000 mls @ 0 mls/hr IV .Q0M PRN PRN Reason: Hypoglycemia Insulin Human Lispro (Humalog) 0 units SC .MILD SLIDING SCALE PRN PRN Reason: Mild Correctional Scale Magnesium Hydroxide (Milk Of Magnesium) 30 ml PO Q12H PRN PRN Reason: Constipation Last Admin: 08/23/19 17:31 Dose: 30 ml Mineral Oil (Fleet Mineral Oil) 133 ml [place] DAILYPRN PRN PRN Reason: Constipation Nitroglycerin (Nitrostat) 0.4 mg SL Q5MIN PRN PRN Reason: Chest Pain Ondansetron HCl (Zofran) 4 mg IVP Q6H PRN PRN Reason: Nausea/Vomiting Last Admin: 08/22/19 15:18 Dose: 4 mg Polyethylene Glycol (Miralax) 17 gm PO DAILYPRN PRN PRN Reason: Constipation Last Admin: 08/22/19 18:31 Dose: 17 gm Potassium Chloride (Kcl) 20 meq IVPB PRN PRN PRN Reason: K level </= 4.0 Last Admin: 08/22/19 09:54 Dose: 20 meq Potassium Chloride (K-Dur) 20 meq PO DAILY [facility] Last Admin: 08/26/19 08:46 Dose: 20 meq Sodium Chloride (Flush - Normal Saline) 10 ml IVF PRN PRN PRN Reason: Saline Flush Tramadol HCl (Ultram) 50 mg PO Q6H PRN PRN Reason: Pain Last Admin: 08/24/19 21:47 Dose: 50 mg Zolpidem Tartrate (Ambien) 5 mg PO HSPRN PRN PRN Reason: Insomnia Vital Signs & Weight: Vital Signs Temp Pulse Pulse Pulse Resp BP BP 08/26/19 12:49 78 71 172/76 H 130/60 08/26/19 11:58 98.6 F 73 18 08/26/19 08:00 98.1 F 68 12 08/26/19 03:29 97.9 F 68 16 BP BP Pulse Ox Pulse Ox Pulse Ox 08/26/19 12:49 99 96 08/26/19 11:58 131/60 95 08/26/19 08:00 133/60 96 08/26/19 03:29 130/67 96 Weight 210 lb 9.6 oz - Physical Exam General: alert & oriented x3 HEENT: mucus membranes moist Neck: supple neck Cardiac: regular rate and rhythm, S1/S2 Lungs: clear to auscultation Neuro: cranial nerve 2-12 intact Abdomen: unremarkable Skin: clear - Labs Result Diagrams: 08/26/19 13:04 08/26/19 05:09 Troponin/CKMB CK-MB (CK-2) 2.9 ng/mL (0-6.6) 08/16/19 17:43 Troponin I 0.663 ng/mL (< 0.028) H* 08/16/19 19:38 - Telemetry Sinus rhythms and dysrhythmias: sinus rhythm - Assessment/Plan Assessment/Plan: 1. CAD with s/p CABG x3 on 08/20/2019 with WYATT-LAD, RSVG-OM, and RSVG-PDA with Manga Bioprostatic aortic valve replacement, maze procedure with YANY ligation - stable; On Coreg 3.125mg BID, ASA 325mg qd, and Lipitor. 2. New onset Afib with RVR with s/p Maze procedure with YANY ligation on 2018 - remains in SR; On Coreg 3.125mg BID and ASA 325mg qd. [id number] Score is 4 (age, HTN, hx of CABG); Hx of YANY ligation 2. HTN - stable with current med 3. DM type 2 - managed by PCP 4. Prostate Cancer 5. ETOH abuse - strongly recommend ETOH cessation to the pt and family 6. Severe with s/p Manga Bioprostatic aortic valve replacement on 08/20/2019 7. Hyponatremia - improving 132 from 127 yesterday. On Fluid restrictions; Lasix was decreased from BID to qd. 8. CKD stage 3 - managed by car blocker; Lasix was decreased from BID to qd. ZAKI reviewed Pt. seen and eval. by me. He was getting ready for d/c and then developed Afib/ flutter with RVR. He has been started on IV amiodarone and now IV digoxin. If he does not convert he may need cardioversion. The BP has decreased somewhat with the tachycardia. If this is atrial flutter then I suggest an ablation. He did have a ligation of the YANY during his surgery. I agree with the remainder of the A/P by the ARMED SECURITY OFFICER.
[2019-08-26] MEDS ORDERED: Amiodarone 150 MG, Admixture Fee 1 EACH in Dextrose 5% in Water 100 ML IVPB SCH (15:00)
[2019-08-26] MEDS: Amiodarone 450 MG in Dextrose 5% in Water 250 ML IVPB SCH ×2 (15:37→22:47)
[2019-08-26] MEDS ORDERED: Digoxin 0.5 MG/2 ML AMP SLOW IVP SCH (16:45)
--- NOTE | 2019-08-26 17:21 | PDOC.HOSPP ---
- Subjective Encounter Date: 08/26/19 Subjective: per family at bedised patient is "slower than normal" ambulating in the hallways ; tolerating oral intake; no events overnight - Objective Vital Signs & Weight: Vital Signs (12 hours) Temp Pulse Pulse Pulse Resp BP BP 08/26/19 16:38 97.5 F L 120 H 18 08/26/19 12:49 78 71 172/76 H 130/60 08/26/19 11:58 98.6 F 73 18 08/26/19 08:00 98.1 F 68 12 BP Pulse Ox Pulse Ox Pulse Ox 08/26/19 16:38 99/66 95 08/26/19 12:49 99 96 08/26/19 11:58 131/60 95 08/26/19 08:00 133/60 96 Weight Weight 210 lb 9.6 oz Most Recent Monitor Data Heart Rate from ECG 72 NIBP 145/67 NIBP BP-Mean 93 Respiration from ECG 20 SpO2 98 I&O: 08/25/19 08/26/19 08/27/19 06:59 06:59 06:59 Intake Total 1720 2009 Output Total 1050 1800 Balance 670 210 Result Diagrams: 08/26/19 13:04 08/26/19 05:09 Additional Labs: Accuchecks 08/26/19 08/26/19 08/25/19 11:08 05:42 20:48 POC Glucose 148 H 127 H 188 H 08/25/19 17:23 POC Glucose 128 H Hospitalist ROS - Review of Systems Respiratory: denies: shortness of breath Cardiovascular: denies: chest pain Gastrointestinal: denies: abdominal pain - Medication Medications: Active Medications Generic Name Dose Route Start Last Admin Trade Name Freq PRN Reason Stop Dose Admin Albuterol/Ipratropium 3 ml 08/20/19 12:30 08/21/19 13:37 Duoneb NEB 3 ml [id number] PRN Administration SHORTNESS OF BREATH Aspirin 325 mg 08/23/19 09:00 08/26/19 08:44 Ecotrin PO 325 mg DAILY [facility] Administration Atorvastatin Calcium 20 mg 08/21/19 21:00 08/25/19 20:22 Lipitor PO 20 mg QPM [facility] Administration Carvedilol 6.25 mg 08/24/19 08:00 08/25/19 18:08 Coreg PO 6.25 mg BID-WM [facility] Administration Famotidine 20 mg 08/21/19 09:00 08/26/19 08:45 Pepcid PO 20 mg Q12HR [facility] Administration Furosemide 40 mg 08/26/19 09:00 08/26/19 08:45 Lasix PO 40 mg DAILY [facility] Administration Guaifenesin/Dextromethorphan 15 ml 08/23/19 07:05 08/23/19 20:51 Robitussin Dm PO 15 ml Q4H PRN Administration Cough Amiodarone HCl 450 mg/ 259 mls @ 0 mls/hr 08/26/19 14:45 08/26/19 15:37 Dextrose/Water IVPB 259 mls INF [facility] Administration Protocol Per Protocol Magnesium Hydroxide 30 ml 08/23/19 07:05 08/23/19 17:31 Milk Of Magnesium PO 30 ml Q12H PRN Administration Constipation Polyethylene Glycol 17 gm 08/21/19 18:53 08/22/19 18:31 Miralax PO 17 gm DAILYPRN PRN Administration Constipation Potassium Chloride 20 meq 08/20/19 12:30 08/22/19 09:54 Kcl IVPB 20 meq PRN PRN Administration K level </= 4.0 Potassium Chloride 20 meq 08/26/19 09:00 08/26/19 08:46 K-Dur PO 20 meq DAILY [facility] Administration Tramadol HCl 50 mg 08/22/19 09:21 08/24/19 21:47 Ultram PO 50 mg Q6H PRN Administration Pain - Exam General Appearance: NAD, awake alert Eye: PERRL, anicteric sclera ENT: normocephalic atraumatic, no oropharyngeal lesions, moist mucosa Neck: supple, symmetric, no JVD, no thyromegaly, no lymphadenopathy, no carotid bruit Heart: RRR, no murmur, no gallops, no rubs, normal peripheral pulses Respiratory: CTAB, no wheezes, no rales, no ronchi, normal chest expansion, no tachypnea, normal percussion Gastrointestinal: soft, non-tender, non-distended, normal bowel sounds, no palpable masses, no hepatomegaly, no splenomegaly, no bruit Extremities: no cyanosis, no clubbing, no edema Skin: normal turgor, no lesions, no rashes Skin - other findings: sternotomy scar Neurological: cranial nerve grossly intact, normal sensation to touch, no weakness, no focal deficits, no new deficit Musculoskeletal: normal tone, normal strength, no muscle wasting Psychiatric: normal affect, normal behavior, A&O x 3 Hosp A/P (1) Atrial fibrillation with RVR Code(s): I48.91 - UNSPECIFIED ATRIAL FIBRILLATION Status: Acute (2) S/P CABG x 3 Code(s): Z95.1 - PRESENCE OF AORTOCORONARY BYPASS GRAFT Status: Acute Plan: continue current medications; discharge planning with outpatient cardiac rehab (3) Type 2 myocardial infarction Code(s): I21.A1 - MYOCARDIAL INFARCTION TYPE 2 Status: Acute Plan: continue with bedside glucose monitor and sliding scale coverage (4) CAD (coronary artery disease) Code(s): I25.10 - ATHSCL HEART DISEASE OF [place] CORONARY ARTERY W/O ANG PCTRS Status: Chronic Qualifiers: Coronary Disease-Associated Artery/Lesion type: bypass graft [place] vs. transplanted heart: [place] heart Associated angina: without angina Qualified Code(s): I25.810 - Atherosclerosis of coronary artery bypass graft(s) without angina pectoris
[2019-08-26] MEDS: Atorvastatin Calcium 20 MG TAB PO SCH (21:51)
[2019-08-26] MEDS: Digoxin 0.5 MG/2 ML AMP SLOW IVP SCH (22:49)
[2019-08-27] MEDS: Digoxin 0.5 MG/2 ML AMP SLOW IVP SCH (04:55)
[2019-08-27 08:23] LABS: Anion Gap 11 mmol/L (10-20); BUN (Urea Nitrogen) 27 mg/dL (8.4-25.7); BUN/Creatinine Ratio 19.71; Calc. Creatinine Clearance 60 mL/min (70-130); Calcium 8.8 mg/dL (7.8-10.44); Carbon Dioxide 35 mmol/L (23-31); Chloride 91 mmol/L (98-107); Estimated GFR-MDRD 50; Glucose 132 mg/dL (83-110); Phosphorus 3.6 mg/dL (2.3-4.7); Potassium 3.6 mmol/L (3.5-5.1); Sodium 133 mmol/L (136-145)
[2019-08-27] MEDS ORDERED: Potassium Chloride 20 MEQ TAB PO SCH (08:45)
[2019-08-27] MEDS ORDERED: Digoxin 0.25 MG TAB PO SCH (09:00)
[2019-08-27] MEDS ORDERED: Furosemide 40 MG TAB PO SCH (09:00)
--- NOTE | 2019-08-27 09:29 | PDOC.CPN ---
- Subjective Date: 08/27/19 Time: 09:00 - Review of Systems General: denies: fever/chills, weight/appetite/sleep changes, night sweats, fatigue Respiratory: denies: cough, congestion, shortness of breath, exercise intolerance Cardiovascular: denies: chest pain, palpitation, edema, paroxysmal nocturnal dyspnea, orthopnea Gastrointestinal: denies: nausea, vomiting, diarrhea, constipation, abd pain, GI bleeding Neurological: denies: numbness, syncope, seizure, weakness - Objective Allergies/Adverse Reactions: Allergies Allergy/AdvReac Type Severity Reaction Status Date / Time lisinopril Allergy Verified 08/16/19 16:40 losartan Allergy Verified 08/16/19 16:40 Visit Medications: Current Medications Acetaminophen (Tylenol) 650 mg PO Q6H PRN PRN Reason: Headache/Fever Or Mild Pain Al Hydroxide/Mg Hydroxide (Maalox) 30 ml PO Q4H PRN PRN Reason: Indigestion Albuterol/Ipratropium (Duoneb) 3 ml NEB [id number] PRN PRN Reason: SHORTNESS OF BREATH Last Admin: 08/21/19 13:37 Dose: 3 ml Artificial Tears (Tears Naturale) 0 drop EA EYE PRN PRN PRN Reason: Dry Eyes Aspirin (Ecotrin) 325 mg PO DAILY [facility] Last Admin: 08/26/19 08:44 Dose: 325 mg Atorvastatin Calcium (Lipitor) 20 mg PO QPM [facility] Last Admin: 08/26/19 21:51 Dose: 20 mg Bisacodyl (Dulcolax) 10 mg PO Q12H PRN PRN Reason: Constipation Bisacodyl (Dulcolax) 10 mg [place] Q12H PRN PRN Reason: Constipation Carvedilol (Coreg) 6.25 mg PO BID-[facility] Last Admin: 08/25/19 18:08 Dose: 6.25 mg Dextrose/Water (Dextrose 50%) 25 gm SLOW IVP PRN PRN PRN Reason: PER HYPOGLYCEMIC PROTOCOL Digoxin (Lanoxin) 0.25 mg PO QAM [facility] Diphenhydramine HCl (Benadryl) 25 mg PO Q6H PRN PRN Reason: Itching & Insomnia or Fer Timothy Last Admin: 08/26/19 22:02 Dose: 25 mg Famotidine (Pepcid) 20 mg PO Q12HR [facility] Last Admin: 08/26/19 21:51 Dose: 20 mg Furosemide (Lasix) 20 mg PO DAILY [facility] Glucagon (Glucagon) 1 mg IM PRN PRN PRN Reason: Hypoglycemia Guaifenesin/Dextromethorphan (Robitussin Dm) 15 ml PO Q4H PRN PRN Reason: Cough Last Admin: 08/23/19 20:51 Dose: 15 ml Hydralazine HCl (Apresoline) 10 mg SLOW IVP Q6H PRN PRN Reason: To Maintain SBP< 140mmHG Dextrose/Water (D5w) 1,000 mls @ 0 mls/hr IV .Q0M PRN PRN Reason: Hypoglycemia Amiodarone HCl 450 mg/ (Dextrose/Water) 259 mls @ 0 mls/hr IVPB INF [facility]; Protocol Last Admin: 08/26/19 22:47 Dose: 259 mls Insulin Human Lispro (Humalog) 0 units SC .MILD SLIDING SCALE PRN PRN Reason: Mild Correctional Scale Magnesium Hydroxide (Milk Of Magnesium) 30 ml PO Q12H PRN PRN Reason: Constipation Last Admin: 08/23/19 17:31 Dose: 30 ml Mineral Oil (Fleet Mineral Oil) 133 ml [place] DAILYPRN PRN PRN Reason: Constipation Nitroglycerin (Nitrostat) 0.4 mg SL Q5MIN PRN PRN Reason: Chest Pain Polyethylene Glycol (Miralax) 17 gm PO DAILYPRN PRN PRN Reason: Constipation Last Admin: 08/22/19 18:31 Dose: 17 gm Potassium Chloride (Kcl) 20 meq IVPB PRN PRN PRN Reason: K level </= 4.0 Last Admin: 08/22/19 09:54 Dose: 20 meq Potassium Chloride (K-Dur) 20 meq PO DAILY [facility] Last Admin: 08/26/19 08:46 Dose: 20 meq Potassium Chloride (K-Dur) 40 meq PO NOW [facility] Stop: 08/27/19 11:00 Sodium Chloride (Flush - Normal Saline) 10 ml IVF PRN PRN PRN Reason: Saline Flush Sodium Chloride (Flush - Normal Saline) 10 ml IVF Q12HR [facility] Sodium Chloride (Flush - Normal Saline) 10 ml IVF PRN PRN PRN Reason: Saline Flush Tramadol HCl (Ultram) 50 mg PO Q6H PRN PRN Reason: Pain Last Admin: 08/24/19 21:47 Dose: 50 mg Zolpidem Tartrate (Ambien) 5 mg PO HSPRN PRN PRN Reason: Insomnia Vital Signs & Weight: Vital Signs Temp Pulse Resp BP Pulse Ox 08/27/19 07:05 98.6 F 80 14 159/74 H 96 08/27/19 04:55 83 08/27/19 04:00 97.9 F 83 19 124/60 97 08/26/19 22:49 102 H Weight 211 lb - Quality Measures CV meds: Beta Rayo: Yes, CLAU/ARB: Yes, Statin: Yes, ASA: Yes - Physical Exam HEENT: normocephaly Neck: no JVD/HJR, no bruit Cardiac: irregularly regular Lungs: clear to auscultation, no wheeze, rales, rhonchi Neuro: grossly intact Abdomen: unremarkable - Labs Result Diagrams: 08/26/19 13:04 08/27/19 07:51 Troponin/CKMB CK-MB (CK-2) 2.9 ng/mL (0-6.6) 08/16/19 17:43 Troponin I 0.663 ng/mL (< 0.028) H* 08/16/19 19:38 - Telemetry Supraventricular conduction: atrial fibrillation - Assessment/Plan Assessment/Plan: 1. CAD with s/p CABG x3 on 08/20/2019 with WYATT-LAD, RSVG-OM, and RSVG-PDA with Manga Bioprostatic aortic valve replacement, maze procedure with YANY ligation - stable; On Coreg 3.125mg BID, ASA 325mg qd, and Lipitor. 2. New onset Afib with RVR with s/p Maze procedure with YANY ligation on 2018 - remains in Afib but rate controlled this AM. Asymptomatic. Started on IV amiodarone last PM. [id number] Score is 4 (age, HTN, hx of CABG); Hx of YANY ligation. Plan for electrical cardioversion today. 2. HTN - stable with current med 3. DM type 2 - managed by PCP 4. Prostate Cancer 5. ETOH abuse - strongly recommend ETOH cessation to the pt and family 6. Severe with s/p Manga Bioprostatic aortic valve replacement on 08/20/2019 7. Hyponatremia - improving 132 from 127 yesterday. On Fluid restrictions; Lasix was decreased from BID to qd. 8. CKD stage 3 - managed by communications assistant; Lasix was decreased from BID to qd. MAR reviewed
--- NOTE | 2019-08-27 09:59 | PRG ---
DATE OF SERVICE: 08/27/2019 SERVICE: Nephrology. SUBJECTIVE: A 79-year-old male admitted due to generalized weakness and atrial fibrillation with rapid ventricular response. The patient was found to have severe aortic stenosis and coronary artery disease, hence CABG and bioprosthetic valve replacement. The patient was to be discharged yesterday, but developed atrial fibrillation/flutter with rapid ventricular response. Nephrology is seeing the patient for hyponatremia and renal insufficiency. The patient feels better, but complains of generalized weakness. Denied fever, shortness of breath, abdominal pain, or dysuria. OBJECTIVE: VITAL SIGNS: Temperature 98.6, pulse 80, respiratory rate 14, SpO2 of 96% on room air, blood pressure is 159/74. GENERAL: Elderly male, in no obvious distress. Afebrile. Anicteric. Acyanotic. HEENT: Normocephalic, atraumatic. Oral mucosa is moist. CARDIOVASCULAR: Irregular rhythm. Normal heart rate. CHEST/RESPIRATORY: Sternotomy wound noted. Good air entry bilaterally with no obvious crackles or rhonchi or use of accessory muscles. GI: Full, soft, nontender, nondistended with normal bowel sounds. EXTREMITIES: Grossly normal looking, atraumatic with no edema or erythema. 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 Cranial nerves 2 through 12 are grossly intact. The patient moves all extremities. LABORATORY DATA: Renal function panel today showed sodium 133, potassium 3.6, chloride 91, CO2 of 35, BUN 27, creatinine 1.37, glucose 132, calcium 8.8, phosphorus 3.6, magnesium 2.0, albumin 3.0. Of note, creatinine is up from a nancy of 0.92 to 1.37. ASSESSMENT: 1. Acute kidney injury: Due to hemodynamic factors related to volume depletion. 2. Hyponatremia: Related to thiazide diuretic therapy. Improving with fluid restriction. 3. Volume depletion as evidenced by increasing creatinine, BUN, and contraction alkalosis with CO2 of 35. 4. Hypokalemia: Due to diuretic therapy. Up to 3.6. 5. Atrial fibrillation/flutter with rapid ventricular response: Treatment as per Cardiology. 6. Coronary artery disease, status post coronary artery bypass grafting. 7. Severe aortic stenosis, status post replacement. PLAN: 1. We will hold diuretic therapy for now. 2. We will get replete potassium to get it above 4 given atrial fibrillation/flutter. 3. We will change fluid restriction to 1800/24 hours. 4. We will repeat BMP in the morning. Other treatment as per primary attending and Cardiology. Job ID: [id number]
[2019-08-27] MEDS: Potassium Chloride 20 MEQ TAB PO SCH ×2 (10:04→18:37)
[2019-08-27] MEDS: Aspirin 325 mg Enteric Coated Tablet PO SCH (10:13)
[2019-08-27] MEDS: Famotidine 20 MG TAB PO SCH ×2 (10:13→21:41)
[2019-08-27] MEDS: Amiodarone 450 MG in Dextrose 5% in Water 250 ML IVPB SCH (14:02)
--- NOTE | 2019-08-27 14:28 | PDOC.HOSPP ---
- Subjective Subjective: Patient seen and examined. NPO for cardioversion. Family at bedside, many questions asked, all answered in detail. Family state that patient is profoundly week and is having difficulty getting in and out of bed. They are inquiring about rehab placement once medically cleared. - Objective Vital Signs & Weight: Vital Signs (12 hours) Temp Pulse Resp BP Pulse Ox 08/27/19 11:45 98.2 F 83 14 140/70 97 08/27/19 08:05 96 08/27/19 07:05 98.6 F 80 14 159/74 H 96 08/27/19 04:55 83 08/27/19 04:00 97.9 F 83 19 124/60 97 Weight Weight 211 lb Most Recent Monitor Data Heart Rate from ECG 72 NIBP 145/67 NIBP BP-Mean 93 Respiration from ECG 20 SpO2 98 I&O: 08/26/19 08/27/19 08/28/19 06:59 06:59 06:59 Intake Total 2009 1419.98 Output Total 1800 1800 Balance 210 -380.02 Result Diagrams: 08/26/19 13:04 08/27/19 07:51 Additional Labs: Accuchecks 08/27/19 08/27/19 08/26/19 10:51 05:35 20:26 POC Glucose 128 H 137 H 213 H 08/26/19 17:26 POC Glucose 134 H Radiology Reviewed by me: Yes (CT head 08/24/19) Hospitalist ROS - Review of Systems All other systems reviewed; all pertinent +/- noted in HPI/Subj - Medication Medications: Active Medications Generic Name Dose Route Start Last Admin Trade Name Freq PRN Reason Stop Dose Admin Albuterol/Ipratropium 3 ml 08/20/19 12:30 08/21/19 13:37 Duoneb NEB 3 ml [id number] PRN Administration SHORTNESS OF BREATH Aspirin 325 mg 08/23/19 09:00 08/27/19 10:13 Ecotrin PO 325 mg DAILY SKYLAR Administration Atorvastatin Calcium 20 mg 08/21/19 21:00 08/26/19 21:51 Lipitor PO 20 mg QPM SKYLAR Administration Carvedilol 6.25 mg 08/24/19 08:00 08/25/19 18:08 Coreg PO 6.25 mg BID-WM SKYLAR Administration Diphenhydramine HCl 25 mg 08/23/19 07:05 08/26/19 22:02 Benadryl PO 25 mg Q6H PRN Administration Itching & Insomnia or Fer Timothy Famotidine 20 mg 08/21/19 09:00 08/27/19 10:13 Pepcid PO 20 mg Q12HR SKYLAR Administration Guaifenesin/Dextromethorphan 15 ml 08/23/19 07:05 08/23/19 20:51 Robitussin Dm PO 15 ml Q4H PRN Administration Cough Amiodarone HCl 450 mg/ 259 mls @ 0 mls/hr 08/26/19 14:45 08/27/19 14:02 Dextrose/Water IVPB 259 mls INF SKYLAR Administration Protocol Per Protocol Magnesium Hydroxide 30 ml 08/23/19 07:05 08/23/19 17:31 Milk Of Magnesium PO 30 ml Q12H PRN Administration Constipation Polyethylene Glycol 17 gm 08/21/19 18:53 08/22/19 18:31 Miralax PO 17 gm DAILYPRN PRN Administration Constipation Potassium Chloride 20 meq 08/20/19 12:30 08/22/19 09:54 Kcl IVPB 20 meq PRN PRN Administration K level </= 4.0 Potassium Chloride 20 meq 08/26/19 09:00 08/27/19 10:04 K-Dur PO Not Given DAILY SKYLAR Tramadol HCl 50 mg 08/22/19 09:21 08/24/19 21:47 Ultram PO 50 mg Q6H PRN Administration Pain - Exam General Appearance: NAD, awake alert ENT: normocephalic atraumatic, moist mucosa Neck: supple, symmetric, no lymphadenopathy Heart: no gallops, no rubs, irregular Respiratory: CTAB, no wheezes, no rales, no ronchi Gastrointestinal: soft, non-tender, non-distended, normal bowel sounds, no guarding, no rigidity Extremities: no cyanosis, no clubbing Skin: no lesions, no rashes Neurological: cranial nerve grossly intact, no focal deficits Musculoskeletal: no muscle wasting, generalized weakness Psychiatric: normal affect, A&O x 3 Hosp A/P (1) Atrial fibrillation with RVR Code(s): I48.91 - UNSPECIFIED ATRIAL FIBRILLATION Status: Acute (2) Hyponatremia Code(s): E87.1 - HYPO-OSMOLALITY AND HYPONATREMIA Status: Acute (3) S/P AVR (aortic valve replacement) Code(s): Z95.2 - PRESENCE OF PROSTHETIC HEART VALVE Status: Acute (4) S/P CABG x 3 Code(s): Z95.1 - PRESENCE OF AORTOCORONARY BYPASS GRAFT Status: Acute (5) Type 2 myocardial infarction Code(s): I21.A1 - MYOCARDIAL INFARCTION TYPE 2 Status: Acute (6) Aortic stenosis Code(s): I35.0 - NONRHEUMATIC AORTIC (VALVE) STENOSIS Status: Chronic (7) CAD (coronary artery disease) Code(s): I25.10 - ATHSCL HEART DISEASE OF [place] CORONARY ARTERY W/O ANG PCTRS Status: Chronic Qualifiers: Coronary Disease-Associated Artery/Lesion type: bypass graft [place] vs. transplanted heart: [place] heart Associated angina: without angina Qualified Code(s): I25.810 - Atherosclerosis of coronary artery bypass graft(s) without angina pectoris (8) DM2 (diabetes mellitus, type 2) Status: Chronic Qualifiers: Diabetes mellitus intermediate designer insulin use: without intermediate designer use (9) HTN (hypertension) Code(s): I10 - ESSENTIAL (PRIMARY) HYPERTENSION Status: Chronic Qualifiers: Hypertension type: essential hypertension Qualified Code(s): I10 - Essential (primary) hypertension (10) Obesity (BMI 30.0-34.9) Code(s): E66.9 - OBESITY, UNSPECIFIED Status: Chronic - Plan Plan: medical unit with telemetry cardiology consultation, recommendations appreciated nephrology consultation, recommendations appreciated cardiovascular thoracic surgery consultation, recommendations appreciated NPO for possible cardioversion on 08/27/2019 cardiomyopathy regimen as tolerated avoid nephro toxins as able fluid restrictions replace electrolytes as needed continue home medications as able
[2019-08-27 14:36] VITALS: BMI 33.0
[2019-08-27] MEDS ORDERED: PROPOFOL 20 ML ONE (17:08)
[2019-08-27] MEDS ORDERED: Carvedilol 3.125 MG TAB PO SCH (20:00)
--- NOTE | 2019-08-27 20:20 | OP ---
DATE OF PROCEDURE: 08/27/19 SURGEON: Laurel Lemus M.D. INDICATION FOR PROCEDURE: This is a 79-year-old gentleman who is status post aortic valve replacement as well as bypass surgery who developed atrial fibrillation with rapid ventricular response yesterday. He was started on IV Am iodarone as well as given IV digoxin. He continues to be in atrial fibrillation and was advised to un dergo early cardioversion of his atrial fibrillation. He has undergone a ligation of the left atrial appendage at the time of the surgery as well as Maze procedure. CARDIOVERSION The patient was taken to the recovery area where he underwent short acting propofol. Using one attemp t at 200 joules, he was successfully converted back to normal sinus rhythm without any difficulties o r complications. At this time he remains in a sinus rhythm with a heart rate in the 70s.
[2019-08-27] MEDS: Amiodarone 200 MG TAB PO SCH (21:41)
[2019-08-27] MEDS: Atorvastatin Calcium 20 MG TAB PO SCH (21:41)
[2019-08-28 06:23] LABS: #Basophils 0.1 thou/uL (0.0-0.2); #Eosinphils 0.5 thou/uL (0.0-0.7); #Monocytes 1.4 thou/uL (0.11-0.59); %Basophils 0.6 % (0.0-1.0); %Lymphocytes 18.3 % (21.0-51.0); %Monocytes 12.5 % (0.0-10.0); %Neutrophils 63.5 % (42.0-75.0); Hemoglobin 12.9 g/dL (14.0-18.0); Mean Corpuscular HGB CONC 34.4 g/dL (32.0-36.0); Mean Corpuscular Hemoglobin 34.9 pg (27.0-31.0); Mean Platelet Volume 7.7 fL (7.4-10.4); Platelet Count 143 thou/uL (130-400); Red Blood Cell (RBC) Count 3.69 mill/uL (4.70-6.10); White Blood Cell (WBC) Count 10.9 thou/uL (4.8-10.8)
[2019-08-28 06:36] LABS: Anion Gap 11 mmol/L (10-20); BUN (Urea Nitrogen) 23 mg/dL (8.4-25.7); Calc. Creatinine Clearance 59 mL/min (70-130); Calcium 8.5 mg/dL (7.8-10.44); Carbon Dioxide 34 mmol/L (23-31); Chloride 91 mmol/L (98-107); Estimated GFR-MDRD 49; Glucose 115 mg/dL (83-110); Potassium 4.2 mmol/L (3.5-5.1); Sodium 132 mmol/L (136-145)
[2019-08-28] MEDS ORDERED: Carvedilol 3.125 MG TAB PO SCH ×2 (08:00)
[2019-08-28] MEDS: Amiodarone 200 MG TAB PO SCH ×2 (08:30→15:40)
[2019-08-28] MEDS: Famotidine 20 MG TAB PO SCH (08:31)
[2019-08-28] MEDS: Aspirin 325 mg Enteric Coated Tablet PO SCH (08:31)
--- NOTE | 2019-08-28 10:52 | PDOC.CPN ---
- Subjective Date: 08/28/19 Time: 10:53 Interval history: The pt seen and examined. No overnight events. No cardiac complaints. - Objective Allergies/Adverse Reactions: Allergies Allergy/AdvReac Type Severity Reaction Status Date / Time lisinopril Allergy Verified 08/16/19 16:40 losartan Allergy Verified 08/16/19 16:40 Visit Medications: Current Medications Acetaminophen (Tylenol) 650 mg PO Q6H PRN PRN Reason: Headache/Fever Or Mild Pain Al Hydroxide/Mg Hydroxide (Maalox) 30 ml PO Q4H PRN PRN Reason: Indigestion Albuterol/Ipratropium (Duoneb) 3 ml NEB [id number] PRN PRN Reason: SHORTNESS OF BREATH Last Admin: 08/21/19 13:37 Dose: 3 ml Amiodarone HCl (Cordarone) 200 mg PO TID [facility] Last Admin: 08/28/19 08:30 Dose: 200 mg Artificial Tears (Tears Naturale) 0 drop EA EYE PRN PRN PRN Reason: Dry Eyes Aspirin (Ecotrin) 325 mg PO DAILY [facility] Last Admin: 08/28/19 08:31 Dose: 325 mg Atorvastatin Calcium (Lipitor) 20 mg PO QPM [facility] Last Admin: 08/27/19 21:41 Dose: 20 mg Bisacodyl (Dulcolax) 10 mg PO Q12H PRN PRN Reason: Constipation Bisacodyl (Dulcolax) 10 mg VT Q12H PRN PRN Reason: Constipation Carvedilol (Coreg) 1.5625 mg PO BID-WM [facility] Last Admin: 08/28/19 08:30 Dose: 1.5625 mg Dextrose/Water (Dextrose 50%) 25 gm SLOW IVP PRN PRN PRN Reason: PER HYPOGLYCEMIC PROTOCOL Diphenhydramine HCl (Benadryl) 25 mg PO Q6H PRN PRN Reason: Itching & Insomnia or Fer Timothy Last Admin: 08/26/19 22:02 Dose: 25 mg Famotidine (Pepcid) 20 mg PO Q12HR [facility] Last Admin: 08/28/19 08:31 Dose: 20 mg Glucagon (Glucagon) 1 mg IM PRN PRN PRN Reason: Hypoglycemia Guaifenesin/Dextromethorphan (Robitussin Dm) 15 ml PO Q4H PRN PRN Reason: Cough Last Admin: 08/23/19 20:51 Dose: 15 ml Hydralazine HCl (Apresoline) 10 mg SLOW IVP Q6H PRN PRN Reason: To Maintain SBP< 140mmHG Dextrose/Water (D5w) 1,000 mls @ 0 mls/hr IV .Q0M PRN PRN Reason: Hypoglycemia Insulin Human Lispro (Humalog) 0 units SC .MILD SLIDING SCALE PRN PRN Reason: Mild Correctional Scale Magnesium Hydroxide (Milk Of Magnesium) 30 ml PO Q12H PRN PRN Reason: Constipation Last Admin: 08/23/19 17:31 Dose: 30 ml Mineral Oil (Fleet Mineral Oil) 133 ml VT DAILYPRN PRN PRN Reason: Constipation Nitroglycerin (Nitrostat) 0.4 mg SL Q5MIN PRN PRN Reason: Chest Pain Polyethylene Glycol (Miralax) 17 gm PO DAILYPRN PRN PRN Reason: Constipation Last Admin: 08/22/19 18:31 Dose: 17 gm Potassium Chloride (Kcl) 20 meq IVPB PRN PRN PRN Reason: K level </= 4.0 Last Admin: 08/22/19 09:54 Dose: 20 meq Sodium Chloride (Flush - Normal Saline) 10 ml IVF PRN PRN PRN Reason: Saline Flush Sodium Chloride (Flush - Normal Saline) 10 ml IVF Q12HR SKYLAR Last Admin: 08/28/19 08:31 Dose: 10 ml Sodium Chloride (Flush - Normal Saline) 10 ml IVF PRN PRN PRN Reason: Saline Flush Tramadol HCl (Ultram) 50 mg PO Q6H PRN PRN Reason: Pain Last Admin: 08/24/19 21:47 Dose: 50 mg Zolpidem Tartrate (Ambien) 5 mg PO HSPRN PRN PRN Reason: Insomnia Vital Signs & Weight: Vital Signs Temp Pulse Resp BP BP Pulse Ox 08/28/19 08:00 98.1 F 71 18 149/68 H 96 08/28/19 03:37 98.1 F 74 18 168/79 H 98 Admit Weight 200 lb 8 oz Weight 210 lb 3 oz - Quality Measures CV meds: Beta Rayo: Yes, CLAU/ARB: Yes, Statin: Yes, ASA: Yes - Physical Exam General: alert & oriented x3, other (still slightly respond slow; however, the pt denied any "foggy feeling in head" any more) Neck: supple neck Cardiac: regular rate and rhythm, S1/S2 Lungs: clear to auscultation Neuro: cranial nerve 2-12 intact Skin: clear Musculoskeletal: normal range of motion - Labs Result Diagrams: 08/28/19 05:26 08/28/19 05:26 Troponin/CKMB CK-MB (CK-2) 2.9 ng/mL (0-6.6) 08/16/19 17:43 Troponin I 0.663 ng/mL (< 0.028) H* 08/16/19 19:38 - Telemetry Sinus rhythms and dysrhythmias: sinus rhythm - Assessment/Plan Assessment/Plan: 1. CAD with s/p CABG x3 on 08/20/2019 with WYATT-LAD, RSVG-OM, and RSVG-PDA with [employer] aortic valve replacement, maze procedure with YANY ligation - stable; On Coreg 3.125mg BID, ASA 325mg qd, and Lipitor. 2. New onset Afib with RVR with s/p Maze procedure with YANY ligation on 2018 - S/p DCCV on 08/27/2019 with Amiodarone 200mg TID from on 08/27/2019 which will be weaning down q2wks. Remains in SR since DCCV yesterday; [id number]- VASc Score is 4 (age, HTN, hx of CABG); on ASA 325mg qd with Hx of YANY ligation. 2. HTN - stable with current med 3. DM type 2 - managed by PCP 4. Prostate Cancer 5. ETOH abuse - strongly recommend ETOH cessation to the pt and family 6. Severe with s/p M[employer] aortic valve replacement on 08/20/2019 7. Hyponatremia - unchanged; On Fluid restrictions; Lasix was decreased from BID to qd. May need repeat Na check as outpt. 8. CKD stage 3 - managed by commercial loan closer; Lasix was decreased from BID to qd. MAR reviewed * From Cardiac standpoint, the pt is stable to d/c home. The pt will f/u with Dr Lemus' office within 2wks. Pt. seen and eval. by me. I agree with the A/P by the CLOTH FOLDER MACHINE. He remains in NSR. Chest clear,RRR.
--- NOTE | 2019-08-28 13:15 | PRG ---
DATE OF SERVICE: 08/28/2019 SERVICE: Nephrology. SUBJECTIVE: A 79-year-old male, status post CABG and aortic valve replacement, being followed up for hyponatremia and acute kidney injury. The patient had cardioversion yesterday for persistent atrial fibrillation with rapid ventricular response. Reports feeling better today. No nausea, vomiting, or change in bowel habit. OBJECTIVE: VITAL SIGNS: Temperature 98.1, pulse 71, respiratory rate 18, SpO2 of 96% on room air, blood pressure 149/68. GENERAL: Elderly male, in no distress. Afebrile. Anicteric. Acyanotic. CARDIOVASCULAR: Regular rhythm and rate with normal heart sounds 1 and 2. Systolic murmur noted. RESPIRATORY: Fair air entry bilaterally with few bibasilar rhonchi posteriorly. No use of accessory muscles appreciated. GASTROINTESTINAL: Full, soft, nontender, and nondistended with normal bowel sounds. EXTREMITIES: Grossly normal, looking atraumatic with no obvious edema or erythema. CENTRAL NERVOUS SYSTEM: Conscious, alert, and oriented x3 with appropriate mental status. Cranial nerves 2 through 12 are grossly intact. DIAGNOSTIC DATA: CBC showed WBC count of 10.9, hemoglobin of 12.9, MCV of 101, and platelet of 143. BMP showed sodium 132, potassium 4.2, chloride 91, CO2 of 34, BUN 23, creatinine 1.40, glucose 115, calcium 8.5. ASSESSMENT: 1. Acute kidney injury: Due to hemodynamic factors related to volume depletion from diuretic therapy. Diuretics are held at this time. 2. Hyponatremia: Related to thiazide diuretic therapy. Improved with fluid restriction. Thiazide diuretic has been discontinued. 3. Mild dehydration with volume depletion given elevated creatinine, BUN, and contraction alkalosis: Improving. Oral intake, however, remained suboptimal. It is expected that the patient's oral intake will improve when the patient gets home as he does not like hospital foods. 4. Hypokalemia: Repleted. 5. Atrial fibrillation/flutter with rapid ventricular response: Treatment per Cardiology. Continue to hold diuretic while in hospital. PLAN: The patient will be discharged whenever he is medically ready on low-dose diuretics of Lasix 20 mg p.o. daily. Continue potassium supplementation while in hospital and also on discharge. If the patient goes home today, a repeat BMP in 1 week is recommended as well as follow up in clinic in 1 week. Fluid restriction of 1500 to 1800 to continue on discharge. Other treatment as per primary attending and other specialties. The patient can be discharged from Nephrology point of view. Job ID: [id number]
[2019-08-28 15:19] VITALS: BP 142/64; TEMP 97.5
--- NOTE | 2019-08-29 02:57 | DIS ---
DATE OF ADMISSION: 08/16/2019 DATE OF DISCHARGE: 08/28/2019 REASON FOR HOSPITALIZATION: Chest pain in addition to new onset of atrial fibrillation. SIGNIFICANT FINDINGS: The patient found to have new onset of atrial fibrillation, underwent cardiac catheterization, please see full report for details. The patient was found to have aortic stenosis and coronary artery disease and was taken to the operating room for aortic valve replacement and bypass grafting x3-please see full operative report for details. PROCEDURE PERFORMED AND TREATMENTS RENDERED: The patient with aortic valve repair for aortic valve replacement and coronary artery bypass grafting x3 vessels, which was performed on 08/20/[address] Park-please see full operative report for details. The patient underwent cardiac catheterization on 08/16/2019-please see full report for details. The patient had a good postoperative recovery with the only complication of him developing recurrent atrial flutter and he required cardioversion, this was completed on 08/27/[address] Lemus-please see full operative report for details. The patient recommended safe for discharge by all specialists on 08/28/2019, with close followup in the outpatient setting. SPECIFIC INSTRUCTIONS FOR THE PATIENT/FAMILY: 1. The patient is recommended to take all medications as directed, to be re-evaluated by Cardiology, primary care physician, outpatient form building supervisor, and Cardiovascular Thoracic Surgery in the next 1 to 2 weeks. 2. The patient is recommended to participate with home health care in addition to 24-hour supervision by his family for a good recovery. 3. The patient was evaluated by Physical Therapy and Occupational Therapy and recommended placement in rehabilitation facility, unfortunately the patient and his family refused any rehabilitation placement and they decided they would take him home with 24-hour/7-day a week supervision by family. The patient's daughter is a nurse and she states that she will be able to take care of him completely. 4. The patient is recommended to return to acute care hospital immediately if signs or symptoms return, worsen, or any other new symptoms occur. DISCHARGE MEDICATIONS: 1. Amiodarone 100 mg one tablet p.o. t.i.d. 2. Aspirin 325 mg one tablet p.o. daily. 3. Atorvastatin 20 mg one tablet p.o. daily. 4. Carvedilol 1.12755 mg one tablet p.o. b.i.d. 5. Furosemide 20 mg one tablet p.o. daily. 6. Potassium chloride 10 mEq one tablet p.o. b.i.d. 7. Tramadol 50 mg one tablet p.o. q.6 hours p.r.n. pain. Please see discharge summary from Dr. Park from 08/25/2019 for additional details. The patient unfortunately was not discharged on that date as he developed atrial flutter and Cardiology recommending cardioversion, which was successfully performed on 08/27/2019. After successful cardioversion, the patient was recommended safe for discharge by all specialists on 08/28/2019, and discharged in stable condition with 24-hour supervision by his family including his daughter, who is a nurse. The patient was evaluated by Physical Therapy, Occupational Therapy and myself, all of whom recommended rehabilitation placement. The patient was recommended rehabilitation placement by Case Management and nursing staff. Despite all of our efforts, the patient and his family decided that they will take him home with 24-hour 7-day a week supervision including the care of his daughter, who is a nurse. Greater than 39 minutes spent coordinating care and discharge process for this patient. Job ID: [id number]
== END 2019-08-28 16:30 | disposition home or self-care (01) | DRG 216 ==
LOC: ERS 12:58 → 2NO 16:38 → CCU 08-20 07:12 → 2NO 08-23 09:19
PROVIDERS: ADMIT Internal Medicine; ATTEND Internal Medicine
PROC: B2111ZZ Fluoroscopy of Multiple Coronary Arteries using Low Osmolar Contrast (ICD-10-PCS; 2019-08-16)
PROC: 4A023N7 Measurement of Cardiac Sampling and Pressure, Left Heart, Percutaneous Approach (ICD-10-PCS; 2019-08-16)
PROC: B2151ZZ Fluoroscopy of Left Heart using Low Osmolar Contrast (ICD-10-PCS; 2019-08-16)
PROC: 4A023N6 Measurement of Cardiac Sampling and Pressure, Right Heart, Percutaneous Approach (ICD-10-PCS; 2019-08-16)
PROC: 02RF08Z Replacement of Aortic Valve with Zooplastic Tissue, Open Approach (ICD-10-PCS; principal; 2019-08-20)
PROC: 02580ZZ Destruction of Conduction Mechanism, Open Approach (ICD-10-PCS; 2019-08-20)
PROC: 02100Z9 Bypass Coronary Artery, One Artery from Left Internal Mammary, Open Approach (ICD-10-PCS; 2019-08-20)
PROC: 021109W Bypass Coronary Artery, Two Arteries from Aorta with Autologous Venous Tissue, Open Approach (ICD-10-PCS; 2019-08-20)
PROC: 06BQ4ZZ Excision of Left Saphenous Vein, Percutaneous Endoscopic Approach (ICD-10-PCS; 2019-08-20)
PROC: 5A1221Z Performance of Cardiac Output, Continuous (ICD-10-PCS; 2019-08-20)
PROC: 5A2204Z Restoration of Cardiac Rhythm, Single (ICD-10-PCS; 2019-08-27)
DX: I48.0 Paroxysmal atrial fibrillation (principal); I21.A1 Myocardial infarction type 2; K86.2 Cyst of pancreas; I97.190 Other postprocedural cardiac functional disturbances following cardiac surgery; N17.9 Acute kidney failure, unspecified; E22.2 Syndrome of inappropriate secretion of antidiuretic hormone; E72.4 Disorders of ornithine metabolism; G93.49 Other encephalopathy; I35.0 Nonrheumatic aortic (valve) stenosis; F10.10 Alcohol abuse, uncomplicated; I25.10 Atherosclerotic heart disease of native coronary artery without angina pectoris; E11.22 Type 2 diabetes mellitus with diabetic chronic kidney disease; E66.9 Obesity, unspecified; Z88.8 Allergy status to other drugs, medicaments and biological substances; Z90.79 Acquired absence of other genital organ(s); Z85.46 Personal history of malignant neoplasm of prostate; Z79.899 Other long term (current) drug therapy; Z68.32 Body mass index [BMI] 32.0-32.9, adult; D69.6 Thrombocytopenia, unspecified; Y83.2 Surgical operation with anastomosis, bypass or graft as the cause of abnormal reaction of the patient, or of later complication, without mention of misadventure at the time of the procedure; Y71.2 Prosthetic and other implants, materials and accessory cardiovascular devices associated with adverse incidents; I48.92 Unspecified atrial flutter; E86.0 Dehydration; E87.6 Hypokalemia; I12.9 Hypertensive chronic kidney disease with stage 1 through stage 4 chronic kidney disease, or unspecified chronic kidney disease; N18.3 Chronic kidney disease, stage 3 (moderate)
CPT/HCPCS: 36415; 36416; 36430; 70450; 71045; 71275; 80048; 80053; 80061; 80069; 82140; 82550; 82553; 82805; 82810; 83036; 83735; 83930; 83935; 84100; 84300; 84484; 85014; 85018; 85025; 85027; 85049; 85610; 85730; 86850; 86900; 86901; 88184; 88305; 88307; 92960; 93005; 93010; 93306; 93460; 93561; 93798; 94002; 94150; 94640; 94760; 96365; 96366; 96374; 99152; 99153; C1769; J0282; J0670; J0690; J1100; J1160; J1642; J1644; J1650; J1815; J1885; J1940; J2001; J2150; J2250; J2370; J2405; J2440; J2704; J2720; J3010; J3370; J3475; J3480; J3490; J7050; J7070; P9045; Q0163; Q9966; Q9967; S0017; S0028

== ENCOUNTER 2019-09-05 14:53 | Outpatient (CLI) | payer MEDICARE, BC ==
--- NOTE | 2019-09-05 16:55 | RAD ---
PA AND LATERAL CHEST: Date: 09/05/19 COMPARISON: 08/23/19 study. HISTORY: Dyspnea. FINDINGS: Heart size is enlarged. There are postop sternotomy changes. There appears to be a slight increase in size of the left-sided effusion, although the differences may be just technique-related. The right l neo remains clear. IMPRESSION: 1. Cardiomegaly with postop sternotomy change and aortic valve replacement. 2. Persistent left pleural effusion, appears slightly increased as compared to the prior exam. POS: TPC
== END 2019-09-05 14:54 | disposition home or self-care (01) ==
LOC: RAD 14:53
PROVIDERS: ATTEND Thoracic Surgery (Cardiothoracic Vascular Surgery)
DX: I25.10 Atherosclerotic heart disease of native coronary artery without angina pectoris (principal); I51.7 Cardiomegaly; Z98.890 Other specified postprocedural states; J90 Pleural effusion, not elsewhere classified; Z95.2 Presence of prosthetic heart valve
CPT/HCPCS: 71046

== ENCOUNTER 2019-09-08 06:29 | Emergency (ER) | payer MEDICARE, BC ==
[2019-09-08 07:05] LABS: #Basophils 0.1 thou/uL (0.0-0.2); #Eosinphils 0.7 thou/uL (0.0-0.7); #Lymphocytes 1.4 thou/uL (1.20-3.40); #Neutrophils 6.6 thou/uL (1.40-6.50); %Eosinophils 7.4 % (0.0-10.0); %Lymphocytes 13.8 % (21.0-51.0); %Monocytes 10.4 % (0.0-10.0); %Neutrophils 67.5 % (42.0-75.0); Hemoglobin 12.8 g/dL (14.0-18.0); Mean Corpuscular HGB CONC 34.6 g/dL (32.0-36.0); Mean Corpuscular Hemoglobin 34.7 pg (27.0-31.0); Platelet Count 203 thou/uL (130-400); RBC Distribution Width 13.5 % (11.5-14.5); White Blood Cell (WBC) Count 9.8 thou/uL (4.8-10.8)
[2019-09-08 07:21] LABS: ALT (SGPT) 34 U/L (8-55); AST (SGOT) 46 U/L (5-34); Alkaline Phosphatase 199 U/L (40-110); Anion Gap 11 mmol/L (10-20); BUN (Urea Nitrogen) 25 mg/dL (8.4-25.7); Bilirubin, Total 1.1 mg/dL (0.2-1.2); Calc. Creatinine Clearance 0 mL/min (70-130); Calcium 8.4 mg/dL (7.8-10.44); Carbon Dioxide 30 mmol/L (23-31); Chloride 93 mmol/L (98-107); Estimated GFR-MDRD 53; Glucose 153 mg/dL (83-110); Potassium 3.2 mmol/L (3.5-5.1); Sodium 131 mmol/L (136-145)
--- NOTE | 2019-09-08 07:34 | RAD ---
Chest one view HISTORY: Dyspnea. COMPARISON: 09/05/2019. FINDINGS: Cardiac silhouette is magnified. Left cardiac margin predominantly obscured by left pleural fluid and dense left basilar infiltrate. Pulmonary vasculature remains engorged. Mediastinum is midline with postoperative changes and aortic calcification. No evidence of pneumothorax. IMPRESSION: Pulmonary vascular congestion, left pleural fluid, and left basilar infiltrate are stable .
[2019-09-08 07:35] LABS: CKMB 1.7 ng/mL (0-6.6)
[2019-09-08 07:39] LABS: INR-International Normal Ratio 1.1; PTT 34.4 SEC (22.9-36.1); Prothrombin Time 14.4 SEC (12.0-14.7)
== END 2019-09-08 09:00 | disposition home or self-care (01) ==
LOC: ERS 06:29
DX: I48.91 Unspecified atrial fibrillation (principal); I10 Essential (primary) hypertension; E11.9 Type 2 diabetes mellitus without complications; Z79.899 Other long term (current) drug therapy
CPT/HCPCS: 71045; 80053; 82553; 84484; 85025; 85610; 85730; 93005

== ENCOUNTER 2019-09-13 11:22 | Day surgery (SDC) | payer MEDICARE, BC ==
[2019-09-12 11:54] VITALS: BMI 31.3
[2019-09-13 13:10] LABS: #Basophils 0.1 thou/uL (0.0-0.2); #Eosinphils 0.8 thou/uL (0.0-0.7); #Lymphocytes 1.6 thou/uL (1.20-3.40); #Monocytes 1.1 thou/uL (0.11-0.59); #Neutrophils 6.4 thou/uL (1.40-6.50); %Basophils 0.6 % (0.0-1.0); %Eosinophils 8.4 % (0.0-10.0); %Lymphocytes 15.7 % (21.0-51.0); %Neutrophils 64.3 % (42.0-75.0); Mean Corpuscular HGB CONC 34.4 g/dL (32.0-36.0); Mean Corpuscular Hemoglobin 34.3 pg (27.0-31.0); Mean Corpuscular Volume 99.6 fL (78.0-98.0); Mean Platelet Volume 8.3 fL (7.4-10.4); Platelet Count 150 thou/uL (130-400); RBC Distribution Width 14.1 % (11.5-14.5); White Blood Cell (WBC) Count 9.9 thou/uL (4.8-10.8)
[2019-09-13 13:23] LABS: MDiff Complete? YES; Platelet Clumps SLIGHT; Platelet Morphology Comment Appears Adequate; RBC Morphology Normal
--- NOTE | 2019-09-13 16:23 | OP ---
DATE OF PROCEDURE: 09/13/19 SURGEON: Laurel Lemus M.D. PROCEDURE: Cardioversion. INDICATION FOR PROCEDURE: 79-year-old gentleman status post bypass surgery, aortic valve replacement and a left atrial appendag e occlusion or ligation. He was found to be back in atrial fibrillation. He had been on Amiodarone an d he was advised to undergo a repeat cardioversion of his atrial fibrillation. CARDIOVERSION The patient was taken to the recovery area where he underwent short acting propofol. Using one attempt at 200 joules, he was successfully converted back to a normal sinus rhythm with a h eart rate in the 50s. He remained stable throughout the procedure. There were no difficulties or comp lications encountered.
--- NOTE | 2019-09-14 02:33 | DIS ---
DATE OF ADMISSION: 09/13/2019 DATE OF DISCHARGE: 09/13/2019 INDICATION FOR PROCEDURE: A 79-year-old patient with status post aortic valve replacement, also history of bypass surgery with a left atrial appendage ligation. He was found to be in atrial fibrillation in the office. He had a Maze procedure performed. He had been on medications, but he presented to the hospital, was in sinus rhythm. He returned to the office and was noted to be back in atrial fibrillation. He was advised to undergo electrical cardioversion. He was taken to the recovery area, where he underwent short-acting propofol, using one attempt at 200 joules. He was successfully converted back to a normal sinus rhythm with a heart rate in the 50s. No difficulties or complications were encountered. DISCHARGE MEDICATIONS: Include, 1. Coreg 3.125 mg three times a day. 2. Furosemide 40 mg a day. 3. Potassium 10 mEq a day. 4. Amiodarone 200 mg a day. 5. Atorvastatin 20 mg a day. 6. Aspirin 81 mg a day. 7. Metolazone 5 mg once a day as directed as well as Tylenol. 8. Hydrochlorothiazide 25 mg once every morning. He is to follow up with me in 2 weeks in the office. He will continue his routine followup with primary care physician. PROCEDURE IN HOSPITAL: Included electrocardioversion of atrial fibrillation. HOSPITAL COURSE: As noted above. He underwent successful cardioversion of atrial fibrillation without difficulties or complications using one attempt at 200 joules. I will see him back in the office in about 2 weeks to see whether or not he continues in atrial fibrillation. He does continue to have significant lower extremity edema and also some ascites, which may be related to his atrial fibrillation. We will continue with his diuretics. He was down to 20 mg a day on the Lasix, however, increased up again to 40 mg a day. He may need further diuretics depending on how he progresses. Job ID: [id number]
--- NOTE | 2019-09-16 23:09 | EKG ---
Test Reason : PREOP CARDIOVERSION Blood Pressure : / mmHG Vent. Rate : 103 BPM Atrial Rate : 234 BPM P-R Int : 000 ms QRS Dur : 116 ms QT Int : 400 ms P-R-T Axes : 000 031 236 degrees QTc Int : 524 ms Atrial fibrillation with rapid ventricular response Incomplete left bundle branch block Abnormal ECG When compared with ECG of 08-SEP-2019 06:36, (Unconfirmed) QT has lengthened Confirmed by JESUS HOOPER M.D. ([id number]) on 09/16/2019 11:08:53 PM Referred By: WILLAM Confirmed By:JESUS HOOPER M.D.
--- NOTE | 2019-09-16 23:10 | EKG ---
Test Reason : POST CARDIOVERSION Blood Pressure : / mmHG Vent. Rate : 058 BPM Atrial Rate : 058 BPM P-R Int : 218 ms QRS Dur : 110 ms QT Int : 440 ms P-R-T Axes : 047 032 154 degrees QTc Int : 431 ms Sinus bradycardia with 1st degree A-V block Incomplete left bundle branch block T wave abnormality, consider inferior ischemia Abnormal ECG When compared with ECG of 13-SEP-2019 12:48, (Unconfirmed) Sinus rhythm has replaced Atrial fibrillation Vent. rate has decreased BY 45 BPM QT has shortened Confirmed by JESUS HOOPER M.D. ([id number]) on 09/16/2019 11:10:09 PM Referred By: WILLAM Confirmed By:JESUS HOOPER M.D.
== END 2019-09-13 15:20 | disposition home or self-care (01) ==
LOC: CCL 11:22
PROVIDERS: ATTEND Internal Medicine Cardiovascular Disease
PROC: 5A2204Z Restoration of Cardiac Rhythm, Single (ICD-10-PCS; principal; 2019-09-13)
DX: I48.0 Paroxysmal atrial fibrillation (principal); R60.0 Localized edema; I25.10 Atherosclerotic heart disease of native coronary artery without angina pectoris; I12.9 Hypertensive chronic kidney disease with stage 1 through stage 4 chronic kidney disease, or unspecified chronic kidney disease; E11.22 Type 2 diabetes mellitus with diabetic chronic kidney disease; N18.3 Chronic kidney disease, stage 3 (moderate); Z79.82 Long term (current) use of aspirin; Z79.899 Other long term (current) drug therapy; Z88.8 Allergy status to other drugs, medicaments and biological substances; Z95.1 Presence of aortocoronary bypass graft; Z95.3 Presence of xenogenic heart valve; Z98.890 Other specified postprocedural states
CPT/HCPCS: 85025; 93005; 93010

== ENCOUNTER 2019-11-14 10:22 | Outpatient (CLI) | payer MEDICARE, BC ==
--- NOTE | 2019-11-14 10:48 | RAD ---
XR Chest Pa Lat STANDARD HISTORY: Localized edema COMPARISON: 09/08/2019 FINDINGS: Changes of median sternotomy are again seen. The heart size is stable. A large left pleural effusion is again seen with adjacent infiltrate/atelectatic change. No pneumothoraces are identified.
== END 2019-11-14 10:23 | disposition home or self-care (01) ==
LOC: RAD 10:22
PROVIDERS: ATTEND Internal Medicine Cardiovascular Disease
DX: R60.0 Localized edema (principal)
CPT/HCPCS: 71046

== ENCOUNTER 2019-12-02 14:28 | Outpatient (CLI) | payer MEDICARE, BC ==
--- NOTE | 2019-12-02 15:57 | RAD ---
PA AND LATERAL VIEWS CHEST: HISTORY: Pleural effusion. COMPARISON: 11/14/2019. FINDINGS: Changes of median sternotomy are again seen. The heart size is stable. The large left pleural effus ion is again noted with infiltrate/atelectatic change. No pneumothoraces are seen. There are chroni c changes in the right lung. IMPRESSION: Large left pleural effusion. POS: TPC
== END 2019-12-02 14:29 | disposition home or self-care (01) ==
LOC: BICRAD 14:28
PROVIDERS: ATTEND Internal Medicine Cardiovascular Disease
DX: J90 Pleural effusion, not elsewhere classified (principal)
CPT/HCPCS: 71046

== ENCOUNTER 2019-12-04 11:43 | Day surgery (SDC) | payer MEDICARE, BC ==
[2019-12-04] MEDS ORDERED: Heparin 10,000 UNITS/ 10 ML VIAL ONE (12:22)
[2019-12-04 13:15] LABS: Fluid, pH - Pleural Fld Greater than 7.50 (7.60 - 7.66)
[2019-12-04 14:01] LABS: Fluid, Creatinine 1.51 mg/dL (Not Available); Fluid, Protein 3.2 g/dL (Not Available)
[2019-12-04 14:46] LABS: RBC Count-Automated (BF) 20312 /cumm; WBC/Nucleated-Auto (BF) 2136 uL
[2019-12-04 15:20] LABS: BF Color Red; Body Fluid Source Pleural Fluid; Clarity Hazy (Clear); Tube # EDTA
[2019-12-04 15:27] LABS: BF Segmented Neutrophils 1 %; Cell Count Non Hematic 10 %; Eosinophils 1 %; Lymphocytes 88 %
--- NOTE | 2019-12-04 20:39 | HP ---
DATE: 12/04/2019 HISTORY OF PRESENT ILLNESS: Kyle Camacho is a 79-year-old gentleman who is referred for pleural effusion. Dr. Lemus asked me to work him in for a possible thoracentesis. Reviewing old radiographs, he has had an effusion dating back in August. This is a large left-sided effusion. He had atrial fibrillation. He was cardioverted in August and he tells me he has been in sinus rhythm since then. He was admitted in the fall last year with an aortic valve abnormality (stenosis ). He required aortic valve replacement and 3-vessel bypass and also had left atrial appendage ligation. He has had intermittent problems with atrial fib since then and actually his aortic stenosis has been followed for some time. He developed atrial fib at home 1 day when he got lightheaded. This led to a trip to the hospital which eventually led to his surgery. SOCIAL HISTORY: He was actually seen by me back in July when he was in the ICU. When I met him, he was actually vomiting and was joking that he had thrown up like that since he was in college, he obviously recovered from that. PAST MEDICAL HISTORY: 1. Remarkable for CT pulmonary angiogram showing cirrhosis in August 19, 2019. 2. History of WYATT to LAD graft, saphenous vein to obtuse marginal graft and saphenous vein to posterior descending graft with placement of his aortic valve, which was a #23 Magna bioprosthetic valve. 3. History of hypertension. 4. History of radical prostatectomy for prostate cancer. 5. History of right lower extremity surgery. In the past, he has been one drinker in the evening. He is not a smoker. He does not use drugs. Reports CLAU inhibitor and angiotensin receptor jsaon intolerance. MEDICATIONS: Have been reviewed. FAMILY HISTORY: Negative for lung disease in early age. REVIEW OF SYSTEMS: 10 point review of systems completed, otherwise negative. PHYSICAL EXAMINATION: GENERAL: He is in no distress in the office. VITAL SIGNS: Pulse is 88, respiratory rate is 18, oximetry is 96% on room air. HEENT: Pupils are equal. Sclerae anicteric. NECK: Supple. No lymphadenopathy. LUNGS: Remarkable for decreased breath sounds long-term up with dullness on the left. Right chest is clear. HEART: Regular rhythm. No S3. ABDOMEN: Protuberant with an exam consistent with ascites. EXTREMITIES: Without clubbing, cyanosis, or edema. LABORATORY DATA: There are some labs recently done at the [facility], which showed low albumin. His liver enzymes were normal. Remainder of his lab was fairly unimpressive. IMPRESSION: Large left pleural effusion. PLAN: Thoracentesis. Risk of bleeding, infection, lung collapse, and least likely serious complications such as were explained to the patient. He agreed to proceed. This is a 50 minute History and Physical, with greater than 50% of time spent on unit coordinating care. Time is independent of procedures performed. Job ID: [id number] MTDD
--- NOTE | 2019-12-05 08:52 | OP ---
DATE OF PROCEDURE: 12/04/2019 PROCEDURE PERFORMED: Thoracentesis. INDICATIONS: Left posterior hemithorax was cleansed with chlorhexidine. DESCRIPTION OF PROCEDURE: The interspace was anesthetized with 8 mL of 1% lidocaine. The fluid was localized with a 22-gauge needle. An 8-[place] Umpb-J-Akcytxjc Catheter was inserted into the pleural space. 900 mL of serosanguineous pleural fluid was evacuated. No air was aspirated. There were no immediate complications. Preliminary studies show a white count of 21.36, red count of 20,312, predominantly lymphocytes. Glucose 130, protein 3.2, LDH 201, creatinine 1.5. PH was 7.60. Cytology is pending. He will call my office for final results next week. He tolerated the procedure well. He should have an immediate improvement in his symptoms. He does have an exam consistent with ascites and the CT showing findings consistent with cirrhosis back in July last year. He says he is not aware of any cirrhosis. I would recommend that he be evaluated by one of the broaching machine repairer, if this has not already occurred. Reviewing old notes, I do not see any consultation when he was in the hospital consistent with that. Job ID: [id number]
== END 2019-12-04 14:15 | disposition home or self-care (01) ==
LOC: SDC/OP 11:43
PROVIDERS: ATTEND Internal Medicine Critical Care Medicine
PROC: 0W9B3ZZ Drainage of Left Pleural Cavity, Percutaneous Approach (ICD-10-PCS; principal; 2019-12-04)
DX: J90 Pleural effusion, not elsewhere classified (principal); I48.91 Unspecified atrial fibrillation; Z88.8 Allergy status to other drugs, medicaments and biological substances
CPT/HCPCS: 32554; 82570; 82945; 83615; 84157; 85060; 87070; 87205; 88112; 88184; 88305; 89051; J1642; J1644

== ENCOUNTER 2019-12-10 13:21 | Inpatient (IN) | payer MEDICARE, BC ==
[2019-12-10] MEDS ORDERED: Furosemide 100 MG/10 ML VIAL SLOW IVP SCH (15:30)
--- NOTE | 2019-12-10 15:53 | RAD ---
EXAM: Single view of the chest HISTORY: Pleural effusion COMPARISON: 12/02/2019 FINDINGS: Single view of the chest shows an enlarged but stable cardiomediastinal silhouette. The pa tient is status post sternotomy. There is a moderate to large left pleural effusion. The bones are unremarkable. IMPRESSION: Stable moderate to large left pleural effusion.
--- NOTE | 2019-12-10 16:12 | ULT ---
EXAM: US Abdomen Limited CLINICAL HISTORY: Evaluate for ascites.. COMPARISON: None. FINDINGS: Targeted sonographic imaging of all 4 quadrants demonstrates ascites. Largest pockets appear to be wi thin the right upper quadrant and right lower quadrant. IMPRESSION: Significant ascites, which is amenable to ultrasound-guided paracentesis.
[2019-12-10 16:23] LABS: #Eosinphils 0.3 thou/uL (0.0-0.7); #Lymphocytes 1.1 thou/uL (1.20-3.40); #Monocytes 0.8 thou/uL (0.11-0.59); #Neutrophils 6.1 thou/uL (1.40-6.50); %Basophils 0.2 % (0.0-1.0); %Eosinophils 3.5 % (0.0-10.0); %Lymphocytes 12.9 % (21.0-51.0); %Monocytes 9.9 % (0.0-10.0); %Neutrophils 73.5 % (42.0-75.0); Hemoglobin 12.1 g/dL (14.0-18.0); Mean Corpuscular HGB CONC 32.8 g/dL (32.0-36.0); Mean Corpuscular Hemoglobin 32.3 pg (27.0-31.0); Mean Corpuscular Volume 98.4 fL (78.0-98.0); Mean Platelet Volume 6.6 fL (7.4-10.4); Platelet Count 263 thou/uL (130-400); RBC Distribution Width 15.4 % (11.5-14.5); Red Blood Cell (RBC) Count 3.76 mill/uL (4.70-6.10); White Blood Cell (WBC) Count 8.3 thou/uL (4.8-10.8)
[2019-12-10 16:28] LABS: INR-International Normal Ratio 1.2; Prothrombin Time 15.4 SEC (12.0-14.7)
[2019-12-10 16:47] LABS: ALT (SGPT) 24 U/L (8-55); AST (SGOT) 36 U/L (5-34); Albumin 2.7 g/dL (3.4-4.8); Alkaline Phosphatase 184 U/L (40-110); Anion Gap 10 mmol/L (10-20); BUN (Urea Nitrogen) 46 mg/dL (8.4-25.7); Bilirubin, Total 1.4 mg/dL (0.2-1.2); Calc. Creatinine Clearance 43 mL/min (70-130); Calcium 8.6 mg/dL (7.8-10.44); Carbon Dioxide 35 mmol/L (23-31); Chloride 94 mmol/L (98-107); Estimated GFR-MDRD 35; Glucose 207 mg/dL (83-110); Potassium 4.1 mmol/L (3.5-5.1); Protein, Total 6.7 g/dL (5.8-8.1); Sodium 135 mmol/L (136-145)
[2019-12-10 17:05] LABS: Ferritin 471.17 ng/mL (22-322)
[2019-12-10 17:06] LABS: HIV (1/2) Antibody/Antigen Non-Reactive (NonReactive); HIV 1/2 INDEX 0.18 S/CO (<1.00)
[2019-12-10] MEDS: Spironolactone 25 MG TAB PO SCH (20:25)
[2019-12-10] MEDS: Carvedilol 6.25 MG TAB PO SCH (20:26)
[2019-12-10] MEDS: Atorvastatin Calcium 20 MG TAB PO SCH (20:26)
--- NOTE | 2019-12-11 01:41 | CON ---
DATE OF CONSULTATION: 12/10/2019 REASON FOR CONSULTATION: New onset ascites. CONSULTING PROVIDER: Mansoor Berman MD HISTORY OF PRESENT ILLNESS: The patient is a 79-year-old male with past medical history of coronary artery disease status post CABG, hypertension, prostate cancer, aortic stenosis status post replacement, atrial fibrillation, and imaging showing cirrhosis of the liver in July 2019, presenting with complaints of shortness of breath. Upon questioning the patient, he states that he underwent aortic valve repair, approximately 3 months ago with three-vessel CABG and since that time has been experiencing increased shortness of breath, both at rest and exertion (primarily at exertion). However, during the same time, he also endorses increased abdominal distention with an approximate 10 to 15 pounds weight gain during that same time as well. With this increased shortness of breath and increased abdominal distention, it was also accompanied by generalized weakness and somnolence again worsening over the last 3 months. He was subsequently evaluated by his primary care physician and ultimately sent to his professor of family medicine for further evaluation of the shortness of breath, especially in light of the recent cardiac instrumentation. Upon evaluation by his professor of family medicine (Dr. Lemus), he was noted to have a large left pleural effusion for which the patient underwent urgent thoracentesis by Dr. Berman on December 04, 2019. The patient did well during the procedure and did have some improvement of his symptoms, but over the course of the next week had return of his shortness of breath. So that when he was followed up in the Pulmonary Clinic, there was concern for worsening pulmonary status in addition into this increased abdominal distention requiring inpatient admission for further evaluation. Upon questioning the patient, he also states that he has been having increased jaundice and lower extremity edema over the last three months but denies any nausea, vomiting, fevers, chills, hematemesis, melena, hematochezia, dysphagia, odynophagia, or encephalopathy. He states that for the last 17 to 18 years, he would drink approximately 1 to 2 glasses red wine per night at the direction of one of his physicians for cholesterol management, but prior to that did not have an extensive drinking history. However, the patient has been "overweight" for many years. REVIEW OF SYSTEMS: A 10-category review of systems was obtained with all responses negative except for the pertinent positives as listed in HPI. PAST MEDICAL HISTORY: As per HPI. PAST SURGICAL HISTORY: Radical prostatectomy and right leg surgery. FAMILY HISTORY: Denies any GI malignancies. SOCIAL HISTORY: He drinks approximately 1 to 2 glasses of red wine nightly, but denies any tobacco or illicit drug use. OUTPATIENT MEDICATIONS: Reviewed. ALLERGIES: LISINOPRIL AND LOSARTAN. PHYSICAL EXAMINATION: VITAL SIGNS: Temperature 97.8, pulse 66, blood pressure 136/63, respiratory rate 23, saturating 95% on room air. GENERAL: The patient was lying in bed, in no acute distress. Alert and oriented x4. HEENT: Normocephalic, atraumatic. NECK: Supple. No JVD or scleral icterus noted. CARDIOVASCULAR: Regular rate and rhythm with no discernible murmurs, gallops, or rubs. RESPIRATORY: Clear to auscultation in the right upper and lower lung golden, however, diminished breath sounds were auscultated in both the left upper and left lower lung golden. ABDOMEN: Normoactive bowel sounds. Moderate to severe abdominal distention that is not tense to palpation. No tenderness upon palpation either. EXTREMITIES: 1+/2+ bilateral lower extremity edema extending up to the bilateral knees. No cyanosis or clubbing. LABORATORY DATA: CBC with a white blood cell count of 8.3, hemoglobin 12.1, hematocrit 37, platelets 263. INR 1.2. Chemistry with a sodium of 135, potassium 4.1, chloride 94, CO2 of 35, BUN 46, creatinine 1.86, glucose 207. AST 36, ALT 24, alkaline phosphatase 184, total bilirubin 1.4, ferritin 471, albumin 2.7. HIV nonreactive. IMAGING DATA: Chest x-ray obtained on December 10, 2019, showed [id number] stable left-sided pleural effusion. Abdominal ultrasound also obtained on December 10 showed a significant amount of abdominal ascites. ASSESSMENT AND PLAN: The patient is a 79-year-old male with past medical history of coronary artery disease status post coronary artery bypass grafting, hypertension, prostate cancer, aortic stenosis status post aortic valve repair, atrial fibrillation, now presenting with increased lower extremity edema, significant ascites and imaging in July of 2019, consistent with a diagnosis of cirrhosis. Ascites/abdominal distention. The patient is presenting with a history of increased shortness of breath that has been slowly worsening over the last 3 months ever since he had a 3-vessel coronary artery bypass grafting and aortic valve repair. This has also been associated with an increase in his abdominal distention with abdominal ultrasound obtained during this admission showing a significant amount of ascites. Upon review of the patient's chart, he did have a CT angiography of the chest obtained in July 2019, which showed a slightly nodular liver which may represent cirrhosis, but also a small amount of ascites adjacent to the liver and spleen also consistent with cirrhotic liver with ascites. However, given his extensive cardiac history and worsening of ascites immediately after coronary artery bypass grafting, congestive heart failure or cardiac etiology for his worsening ascites is within the differential as well. Cirrhosis. The patient is presenting with a history of cirrhotic morphology on imaging based on the CT scan from July 2019, in addition to worsening lower extremity edema and ascites also concerning for the presence of cirrhosis of the liver. However, at the current point in time, he is not exhibiting any spider angioma nor does he have thrombocytopenia on labs consistent with a diagnosis of cirrhosis, although he does also have hypoalbuminemia which does lend itself toward the diagnosis of cirrhosis. At this point, the etiology of his cirrhosis is largely unknown, but could possibly due to his alcohol consumption history (less likely), but more realistically could be related to nonalcoholic fatty liver disease. RECOMMENDATIONS: 1. Would perform paracentesis with removal of 6 to 8 L of fluid as a therapeutic tap. 2. Would also send labs for fluid albumin to calculate a SAAG ration in addition to culture, cytology, and fluid protein to help differentiate between portal hypertension and cardiac etiology. 3. Agree with placing the patient on diuretic management including spironolactone and furosemide, but would attempt to maintain 5:2 ratio of spironolactone to furosemide (could consider increased dose of furosemide in the first 24 to 48 hours of this hospitalization, but then decrease to 5:2 ratio). 4. Would maintain a low-sodium diet with consumption of sodium not exceeding 2000 mg in a 24-hour period. 5. We will perform a full liver workup during this hospitalization for evaluation of other underlying liver disease that could contribute to cirrhosis. 6. Would obtain paracentesis as above to help differentiate between portal hypertension and cardiac etiology. 7. If the patient's labs are consistent with portal hypertension, he will need dedicated imaging of the liver for evaluation of possible hepatoma. 8. I will review his records for recent EGD or colonoscopy and make sure that his age-appropriate colonoscopy is up to date, as well as possible screening for esophageal varices via EGD. We will continue to follow. Please call with any questions. Job ID: [id number]
--- NOTE | 2019-12-11 03:21 | HP ---
DATE: 12/10/2019 HISTORY OF PRESENT ILLNESS: Kyle Camacho is a 79-year-old male, who has cirrhosis. This was seen on the CT last fall. He had coronary bypass grafting and aortic valve replacement. I was consulted to see him recently for pleural effusion. He underwent a thoracentesis, which was serosanguineous and really more of an exudate than a transudate. My feeling was that this might be just a slowly resolving post pericardiotomy effusion. He called today saying he was feeling horrible and was short of breath again. I recommended he come to the office and then when I saw him in the office I recommended admission. PAST MEDICAL HISTORY: Remarkable for; 1. Three vessel bypass, a left atrial appendage ligation, and aortic valve replacement. 2. History of CT pulmonary angiogram in July 2019 showing cirrhosis. 3. History of WYATT to LAD graft, saphenous vein graft to an obtuse marginal and a saphenous vein to his posterior descending artery. His aortic valve a #23 Magna bioprosthetic valve. 4. History of hypertension. 5. History of radical prostatectomy for prostate cancer. 6. History of drinking occasionally, but he is not a heavy drinker. 7. History of CLAU inhibitor intolerance and ARB intolerance. FAMILY HISTORY: Negative for lung disease in early age. REVIEW OF SYSTEMS: Ten points otherwise negative. His only complaint today is uncomfortable abdominal swelling and shortness of breath. PHYSICAL EXAMINATION: GENERAL: A very pleasant gentleman. He is always pleasant since I have met him. VITAL SIGNS: He is afebrile. Heart rate is in the 60s, respiratory rate is in the 20s, oximetry is 95% on room air in the office, blood pressure 147/66 when he got into the hospital. HEAD AND NECK: Unremarkable. LUNGS: Remarkable for decreased breath sounds at the left base. HEART: Regular rhythm. S1 and S2 are normal. No gallop. ABDOMEN: Soft, massively distended. EXTREMITIES: Without asymmetry. He has lower extremity edema. LABORATORY DATA: White count 8.3, hemoglobin 12.1, platelets 263. Sodium 135, potassium 4.1, chloride 94, bicarb 35, BUN 46, and creatinine 1.86. Creatinine was 1.65 on the 10th. PT is 15.4, INR is 1.2. Glucose was 179. Ferritin was 471. Bilirubin was 1.4, AST 36, ALT 24, alkaline phosphatase 184, albumin is 2.7. IMPRESSION: Cirrhosis with ascites. PLAN: Admission. Gradual diuresis. Large volume paracentesis if GI feels appropriate. Gastroenterology consult. I think the primary problem here is cirrhosis. I doubt now that his bowels have been replaced and he has had bypass surgery that this is hepatic failure secondary to right heart failure secondary to pulmonary hypertension. We will be happy to follow the other physicians caring for him. I am happy to admit him to the hospital. An echocardiogram in July 2019 was found and reviewed. He had atrial fibrillation at that time. His ejection fraction was 60%. Dilated left atrium , but no clear-cut evidence of severe pulmonary hypertension. Job ID: [id number] MTDD
[2019-12-11 04:37] LABS: Iron 46 ug/dL (65-175); Iron Binding Capacity, Total 206 mcg/dL (261-462)
[2019-12-11 04:55] LABS: Hep C IgG Ab Non-Reactive (NonReactive); Hep C Index 0.24 S/CO (0-0.79)
--- NOTE | 2019-12-11 11:55 | PRG ---
DATE OF SERVICE: 12/11/2019 SUBJECTIVE: Mr. Camacho was down having procedure done during my rounds today, so I was unable to examine him. I did speak at length with his and daughter regarding his presentation and current management. OBJECTIVE: VITAL SIGNS: Temperature 98.1, pulse 65, blood pressure 145/70, and 96% oxygen saturation on room air. LABORATORY STUDIES: Sodium 135, potassium 4.1, BUN 46, creatinine 1.86, and glucose 179. Iron 46, TIBC 206, 22% iron saturation, and ferritin is 471.1. Total bilirubin 1.4, alkaline phosphatase 184, AST 36, ALT 24, and albumin 2.7. Hepatitis C antibodies nonreactive. HIV antibody is nonreactive. INR is 1.2. WBC 8.3, hemoglobin 12.1, and platelets normal at 263. Further labs are pending including alpha-1 antitrypsin, PB, AMA, ceruloplasmin, hepatitis B serologies, serum protein electrophoresis, and paracentesis fluid studies including albumin, Gram stain and culture, protein and cytology. ASSESSMENT AND PLAN: 1. Ascites, new onset over the past few months, following cardiac surgery. 2. Cirrhosis, based on nodular liver appearance on imaging as well as presence of ascites. This would appear to be the patient's initial decompensation. 3. Chronic alcohol use. The patient evidently has about 3 alcoholic beverages per day on average and this has been his pattern for a long time. We will continue to follow along and await results of paracentesis studies. He did have some workup through our clinic a couple of years ago, which was essentially negative for other causes of liver disease aside from alcoholic or fatty liver disease. The patient is going to need to stop alcohol altogether at this point. He is going to need to be on a low-sodium diet of less than 2000 mg per day. We will see how he does after paracentesis with regard to fluid retention, but I expect he is going to need to continue diuretics with Lasix and spironolactone. We will have him follow up in the GI/Liver Clinic closely as well. Job ID: [id number]
[2019-12-11] MEDS: Aspirin 325 MG TAB PO SCH (11:59)
[2019-12-11] MEDS: Carvedilol 6.25 MG TAB PO SCH ×2 (11:59→20:31)
[2019-12-11] MEDS: Spironolactone 25 MG TAB PO SCH ×2 (12:00→20:31)
[2019-12-11] MEDS: Furosemide 100 MG/10 ML VIAL SLOW IVP SCH (12:00)
--- NOTE | 2019-12-11 13:31 | CON ---
DATE OF CONSULTATION: PRIMARY CARE DOCTOR: Rebel Serrato DO PRIMARY RF ENGINEER: Laurel Lemus MD PRIMARY HEADER BOSS: Mansoor Berman MD PRIMARY GI DOCTOR: Madhu Tucker MD REASON FOR CARDIOLOGY CONSULT: History of coronary artery disease with status post CABG in July 2019, history of paroxysmal atrial fibrillation, shortness of breath, and surgical clearance for possible GI workup today. HISTORY OF PRESENT ILLNESS: Mr. Camacho is a very pleasant 79-year-old male with significant history of coronary artery disease, status post CABG x3 in July 2019, and bioprosthetic aortic valve replacement, postop atrial fibrillation, status post cardioversion in August 2019, thoracentesis at the left posterior lobe on December 04, 2019. Since the patient has underwent CABG in July 2019, he has continued to have shortness of breath, although the patient was on a strict fluid restriction and Lasix and metolazone. The patient underwent thoracentesis by Dr. Berman on December 04, 2019. He was found to have more fluid and large amount of cirrhosis. The patient was supposed to follow up with Dr. Tucker's PA today. However, patient has started having more shortness of breath, after the patient was examined by Dr. Berman, Dr. Berman recommend direct admit for the patient for further GI workup. Dr. Tucker having seen this patient yesterday and according to Dr. Tucker consult note, the patient had CT scan which shows slightly nodular liver which may represent cirrhosis. At that time, the patient had small amount of ascites in 2019, however, etiologies of his cirrhosis is still unknown, but most likely nonalcoholic fatty liver disease and possible patient is to undergo paracentesis today by Dr. Tucker. At this moment, the patient denies any chest pain, heaviness, tightness, shortness of breath at rest or any other cardiac complaints. He still has shortness of breath with mild exertion. PAST MEDICAL HISTORY: 1. Coronary artery disease with CABG x3, aortic valve replacement, Maze procedure, left atrium appendage ligation July 2019. 2. Hypertension. 3. Diabetes type 2. 4. Prostate cancer. 5. Postop atrial fibrillation. PAST SURGICAL HISTORY: 1. CABG x3 with Maze and LA ligation and bioprosthetic aortic valve replacement in July 2019. 2. Cardioversion for atrial fibrillation in August 2019. 3. Left leg surgery. 4. Radical prostatectomy. 5. Thoracentesis from left posterior lobe on December 04, 2019. FAMILY HISTORY: Remarkable for any heart disease. There is family history of polyps, prostate cancer, and waldenstrom macroglobulinemia. His mother had a stroke. SOCIAL HISTORY: He used to drink two glass of wine and occasional beer at lunchtime. He denied any tobacco abuse or illicit drug abuse. Prior to CABG in July 2019, he was active. He is , lives with his . ALLERGIES: HE HAS NO KNOWN DRUG ALLERGIES. HOME MEDICATION: 1. Atorvastatin 20 mg once a day. 2. Potassium chloride 20 mEq once a day. 3. Lasix 40 mg twice a day. 4. Metolazone 5 mg once week. 5. Amiodarone 100 mg once a day. 6. Aspirin 81 mg once a day. 7. Carvedilol 6.25 mg twice a day. REVIEW OF SYSTEMS: 12-point review of systems negative unless otherwise mentioned in the HPI. PHYSICAL EXAMINATION: VITAL SIGNS: Blood pressure 145/70, temperature 98.1, heart rate 65 with sinus rhythm, respiratory rate 22, O2 saturation 96% on room air, but with movement, the patient's O2 saturation went down to 88% per the nurse. GENERAL: The patient is alert and oriented x4, not in acute distress, the patient in the bed. HEAD: Normocephalic, atraumatic. EYES: Extraocular muscle movement intact ENT: Mouth, oral mucosa moist without lesions. NECK: Supple. Normal range of motion. No JVD. RESPIRATORY: Clear to auscultate bilaterally, but very diminished at the bases. No wheezing, rales, or rhonchi noted. CARDIOVASCULAR: Regular rate and rhythm. Normal S1, S2. No S3 or S4. No significant murmur, hives, or thrill noted. 2+ pulses in bilateral upper and lower extremities. 2+ pitting edema in the bilateral lower extremities. Carotid pulses are present without bruit or thrill. ABDOMEN: Very distended, but no discomfort with palpitation. Bowel sounds are present but very diminished. SKIN: Warm and dry. No lesion, rash, erythema noted. MUSCULOSKELETAL: The patient able to move all extremities. The patient denied claudication. NEUROLOGIC: The patient is alert and oriented x4. PSYCHIATRIC: The patient mood is appropriate. LABORATORY DATA: WBC 8.3, hemoglobin 12.1, hematocrit 37.0, platelet 263. INR 1.2. Sodium 135, potassium 4.1, chloride 94, carbon dioxide 35, BUN 46, creatinine 1.86, glucose 207, calcium 8.6. Iron 46, TIBC 206, ferritin 471.17. Total bilirubin 1.4, AST 36, ALT 24, alkaline phosphate 184, albumin 2.7, globulin 4.0. Hepatitis C antibody is negative. Chest x-ray shows stable moderate to large left pleural effusion. Abdomen ultrasound shows significant ascites which amenable to ultrasound-guided paracentesis. EKGs shows sinus rhythm. ASSESSMENT AND PLAN: 1. Large ascites. The patient has already consulted by Dr. Tucker. Possibility, the patient is to undergo paracentesis today. The patient has been n.p.o. The patient denied any cardiac complaints. The patient's echocardiogram in October 2019, shows EF 60% to 65% and normal function of bioprosthetic aortic valve and again patient denied any cardiac complaints at this moment. The patient is cleared for surgical clearance by the industrial engineering director. 2. Moderate to large left pleural effusion, status post thoracenteses in the left posterior lobe on December 04, [address] Berman. We will continue to monitor, which is managed by Dr. Berman. 3. Coronary artery disease with history of CABG in July 2019. The patient is asymptomatic. He is on carvedilol, atorvastatin, and aspirin. We might like to hold the atorvastatin and aspirin due to the ascites. 4. Hypertension. Blood pressure is stable at this moment. 5. Diabetes type 2, which is managed by primary care doctor. 6. Paroxysmal atrial fibrillation. The patient has been in normal sinus rhythm during this hospitalization. We would like to continue to monitor on the telemetry. Thank you very much for Cardiology Services to participate in care of this patient. We will follow along the patient's care team and make further recommendation as appropriate. Job ID: [id number]
--- NOTE | 2019-12-11 13:49 | ULT ---
Ultrasound-guided paracentesis: 12/11/2019 HISTORY: Ascites FINDINGS: Informed consent obtained prior to the procedure. Preprocedural imaging demonstrated signif icant ascites throughout the abdomen and pelvis. Left lower quadrantprepped and draped in normal sterile fashion and anesthetized with 1% buffered lid ocaine. With direct sonographic guidance, 5 [place] Yueh catheter is advanced into the ascites and removal of the stylet yielded yellowfluid. 5 L were removed. The patient tolerated the procedure well. No postprocedural complications. Significant residual ascites noted. Only 5 L were removed as this was t he patient's initial paracentesis. IMPRESSION: Successful ultrasound-guided paracentesis yielding 5 L of yellow fluid.
[2019-12-11] MEDS ORDERED: Acetaminophen 325 MG TAB PO PRN (16:26)
--- NOTE | 2019-12-11 16:51 | PRG ---
DATE OF SERVICE: 12/11/2019 SUBJECTIVE: Mr. Camacho did well overnight. He had a large volume paracentesis today. I have started him on some albumin afterwards to hopefully facilitate ongoing diuresis. OBJECTIVE: VITAL SIGNS: He is afebrile, heart rate 60, respiratory rate 20s, oximetry is 94% on room air, and blood pressure 105/56. LUNGS: Clear HEART: Regular rhythm. ABDOMEN: Soft. EXTREMITIES: Without clubbing, cyanosis, or edema. IMPRESSION: 1. Cirrhosis with ascites. 2. Postpericardiotomy pleural effusion. He has had some elevated blood glucoses, but only one yesterday afternoon, was high in the 200. We will just continue to observe this for now. Appreciate Gastroenterology's assistance. Cardiology is following as well. While we are diuresing him, we will follow his electrolytes, to be sure we do not make him to extremely alkalotic. At the same time, we will check a morning fasting glucose. Job ID: [id number]
[2019-12-11] MEDS: Albumin 25% 25 GM/100 ML BOT IVPB SCH (17:49)
[2019-12-11] MEDS: Atorvastatin Calcium 20 MG TAB PO SCH (20:32)
[2019-12-12] MEDS: Albumin 25% 25 GM/100 ML BOT IVPB SCH ×4 (00:03→18:05)
[2019-12-12] MEDS: Acetaminophen 500 MG TAB PO PRN (00:03)
[2019-12-12] MEDS: diphenhydrAMINE 25 MG CAP PO PRN (00:03)
[2019-12-12 05:04] LABS: #Eosinphils 0.4 thou/uL (0.0-0.7); #Lymphocytes 1.5 thou/uL (1.20-3.40); #Monocytes 1.1 thou/uL (0.11-0.59); #Neutrophils 5.3 thou/uL (1.40-6.50); %Basophils 0.5 % (0.0-1.0); %Eosinophils 4.6 % (0.0-10.0); %Lymphocytes 18.4 % (21.0-51.0); %Neutrophils 63.4 % (42.0-75.0); Hemoglobin 10.5 g/dL (14.0-18.0); Mean Corpuscular HGB CONC 33.1 g/dL (32.0-36.0); Mean Corpuscular Hemoglobin 32.3 pg (27.0-31.0); Mean Corpuscular Volume 97.7 fL (78.0-98.0); Mean Platelet Volume 6.7 fL (7.4-10.4); Platelet Count 202 thou/uL (130-400); RBC Distribution Width 15.3 % (11.5-14.5); Red Blood Cell (RBC) Count 3.26 mill/uL (4.70-6.10); White Blood Cell (WBC) Count 8.3 thou/uL (4.8-10.8)
[2019-12-12 05:30] LABS: ALT (SGPT) 19 U/L (8-55); AST (SGOT) 31 U/L (5-34); Albumin 2.8 g/dL (3.4-4.8); Alkaline Phosphatase 135 U/L (40-110); Anion Gap 13 mmol/L (10-20); BUN (Urea Nitrogen) 42 mg/dL (8.4-25.7); Bilirubin, Total 1.5 mg/dL (0.2-1.2); Calc. Creatinine Clearance 49 mL/min (70-130); Calcium 8.4 mg/dL (7.8-10.44); Carbon Dioxide 31 mmol/L (23-31); Chloride 94 mmol/L (98-107); Estimated GFR-MDRD 41; Globulin 3.1 g/dL (2.4-3.5); Glucose 112 mg/dL (83-110); Potassium 3.5 mmol/L (3.5-5.1); Protein, Total 5.9 g/dL (5.8-8.1); Sodium 134 mmol/L (136-145)
[2019-12-12] MEDS: Aspirin 325 MG TAB PO SCH (08:41)
[2019-12-12] MEDS: Spironolactone 25 MG TAB PO SCH ×2 (08:41→21:50)
[2019-12-12] MEDS: Furosemide 100 MG/10 ML VIAL SLOW IVP SCH (08:42)
[2019-12-12] MEDS: Carvedilol 6.25 MG TAB PO SCH ×2 (08:42→21:50)
--- NOTE | 2019-12-12 10:48 | PDOC.CPN ---
- Subjective Date: 12/12/19 Time: 10:49 Interval history: The pt seen and examined. No overnight events. No cardiac complaints. After paracentesis, the pt feels better and can breath. - Objective Allergies/Adverse Reactions: Allergies Allergy/AdvReac Type Severity Reaction Status Date / Time lisinopril Allergy Verified 09/12/19 13:15 losartan Allergy Verified 09/12/19 13:15 Visit Medications: Current Medications Acetaminophen (Tylenol) 500 mg PO Q4H PRN PRN Reason: Headache/Fever or Pain Last Admin: 12/12/19 00:03 Dose: 500 mg Albumin Human (Albumin 25%) 25 gm IVPB Q6HR [facility] Stop: 12/12/19 18:01 Last Admin: 12/12/19 06:17 Dose: 25 gm Aspirin (Aspirin) 325 mg PO DAILY [facility] Last Admin: 12/12/19 08:41 Dose: 325 mg Atorvastatin Calcium (Lipitor) 20 mg PO HS [facility] Last Admin: 12/11/19 20:32 Dose: 20 mg Carvedilol (Coreg) 6.25 mg PO BID [facility] Last Admin: 12/12/19 08:42 Dose: 6.25 mg Diphenhydramine HCl (Benadryl) 25 mg PO Q6H PRN PRN Reason: Itching & Insomnia Last Admin: 12/12/19 00:03 Dose: 25 mg Furosemide (Lasix) 60 mg SLOW IVP QAM [facility] Last Admin: 12/12/19 08:42 Dose: 60 mg Spironolactone (Aldactone) 50 mg PO BID [facility] Last Admin: 12/12/19 08:41 Dose: 50 mg Vital Signs & Weight: Vital Signs Temp Pulse Resp BP BP Pulse Ox 12/12/19 10:21 97 12/12/19 08:42 136/60 12/12/19 03:59 51 L 16 116/55 L 97 12/12/19 00:00 99.0 F 63 20 108/53 L 93 L Weight 194 lb 6.4 oz - Physical Exam General: alert & oriented x3 HEENT: mucus membranes moist Neck: supple neck Cardiac: regular rate and rhythm, S1/S2 Lungs: decreased breath sounds Neuro: cranial nerve 2-12 intact Abdomen: firm, distended Extremities: no edema Skin: clear - Labs Result Diagrams: 12/12/19 04:29 12/12/19 04:29 - Telemetry Sinus rhythms and dysrhythmias: sinus rhythm - Assessment/Plan Assessment/Plan: 1. Large Ascities possible 2/2 non ETOH fatty liver and s/p paracentesis on with 5L output - managed by GI 2. Mod-large Lt pleural effusion with s/p thoracentesis in Lt posterior lobe in 11/[address] Berman 3. CAD with s/p CABG, MAZE procedure, YANY ligation, and AV replacement in 2018 4. Prox Afib - remains in SR; on ASA and Coreg 5. HTN - stable 6. Type 2 DM MAR reviewed Pt. seen and eval. by me. I agree with the A/P by the RAMP SERVICE AGENT. He is feeling better and the edema in the lower extremities has improved. RRR, Chest: decr. left base. continue present meds. jose alfredo
--- NOTE | 2019-12-12 11:33 | PRG ---
DATE OF SERVICE: 12/12/2019 SUBJECTIVE: Mr. Camacho is feeling a lot better after paracentesis of 5 L yesterday. Abdominal distension persists but is improved. He is having really good urine output. He had a good breakfast today. He has no new complaints. OBJECTIVE: VITAL SIGNS: Temperature 97, blood pressure 136/60, pulse 62, and 97% oxygen saturation on room air. GENERAL: In no acute distress. Sitting up in bed comfortably. HEART: Regular rate and rhythm. LUNGS: Clear to auscultation bilaterally. ABDOMEN: Distended, but not tense. Bowel sounds are present. Soft, nontender to palpation. EXTREMITIES: Trace pretibial edema bilaterally. LABORATORY STUDIES: WBC 8.3, hemoglobin 10.5, platelets 202. INR is 1.2. Sodium 134, potassium 3.5, BUN 42, creatinine down to 1.64, glucose 112, calcium 8.4, total bilirubin 1.5, alkaline phosphatase 135, AST 31, ALT 19. Ascites fluid total protein is 2.0. Other ascites fluid studies are pending. Also awaiting results of PB, alpha-1 antitrypsin, ASMA, ceruloplasmin, and AMA, as well as serum protein electrophoresis. ASSESSMENT AND PLAN: 1. Ascites, new onset over the past few months, does indeed appear to be due to portal hypertension. Note of the ascites fluid total protein is 2.0, which is consistent with portal hypertension. 2. Cirrhosis. This was previously well compensated, now with decompensation with ascites since his cardiac procedures a few months ago. We do need to get dedicated liver imaging to rule out hepatoma or portal vein thrombosis. We will go ahead and order an MRI, and we will get AFP with tomorrow morning's labs. Otherwise, discussed that the patient needs to completely abstain from all alcohol going forward, which he will do. We are continuing IV diuresis for now as well as low-sodium diet. Anticipate on discharge we will transition him to Lasix with spironolactone at a 2 to 5 ratio. Please call anytime with questions or concerns. Job ID: [id number]
--- NOTE | 2019-12-12 11:54 | PRG ---
DATE OF SERVICE: 12/12/2019 SUBJECTIVE: Kyle Camacho is feeling better. He is walking around in the room. Intake and output entered is 350 mL, but he had over 5 L removed yesterday via paracentesis. There is a 13-pound weight change which really does match up with intake and output. He needs to be weighed on a standing scale. OBJECTIVE: VITAL SIGNS: Stable. He is afebrile. Heart rate is in the 50s to 60s and regular rhythm. Blood pressure 136/60. Oximetry is 96% to 97% on room air. HEAD AND NECK: Unremarkable. LUNGS: Clear with exception of decreased breath sounds at left base. HEART: Regular rhythm. ABDOMEN: Soft and much less protuberant than several days back. LABORATORY DATA: White count 8.3, hemoglobin 10.5, platelets 202. Electrolytes are normal. BUN is 42, creatinine 1.64 which is down from 1.86. IMPRESSION: 1. Cirrhosis with decompensation and ascites. 2. History of aortic valve replacement, coronary artery bypass grafting last year. This was in the time period when the incidental finding of cirrhosis was identified via CAT scan. 3. Acute on chronic kidney disease. Actually, he has improved renal function with diuresis. I suspect he had significant intraabdominal pressure as massive as his ascites was, maybe this was contributing to renal perfusion issues. I have recommended we continue our current course. He needs to be weighed on the standing scale. He can transfer to a medical bed. Job ID: [id number]
[2019-12-12] MEDS ORDERED: Magnevist 469MG/ML 20 ML VIAL ONE (13:58)
[2019-12-12] MEDS: Atorvastatin Calcium 20 MG TAB PO SCH (21:50)
[2019-12-13] MEDS: Acetaminophen 500 MG TAB PO PRN ×2 (00:55→23:38)
[2019-12-13] MEDS: diphenhydrAMINE 25 MG CAP PO PRN ×2 (00:55→23:38)
[2019-12-13 05:27] LABS: #Eosinphils 0.4 thou/uL (0.0-0.7); #Lymphocytes 1.4 thou/uL (1.20-3.40); #Neutrophils 5.2 thou/uL (1.40-6.50); %Basophils 0.6 % (0.0-1.0); %Eosinophils 4.6 % (0.0-10.0); %Lymphocytes 17.2 % (21.0-51.0); %Monocytes 12.4 % (0.0-10.0); %Neutrophils 65.2 % (42.0-75.0); Hemoglobin 10.9 g/dL (14.0-18.0); Mean Corpuscular HGB CONC 33.4 g/dL (32.0-36.0); Mean Corpuscular Hemoglobin 32.8 pg (27.0-31.0); Mean Corpuscular Volume 98.1 fL (78.0-98.0); Mean Platelet Volume 6.3 fL (7.4-10.4); Platelet Count 197 thou/uL (130-400); RBC Distribution Width 15.4 % (11.5-14.5); Red Blood Cell (RBC) Count 3.32 mill/uL (4.70-6.10)
[2019-12-13 05:42] VITALS: BMI 30.1
[2019-12-13 05:47] LABS: ALT (SGPT) 18 U/L (8-55); AST (SGOT) 31 U/L (5-34); Albumin 3.1 g/dL (3.4-4.8); Alkaline Phosphatase 147 U/L (40-110); Anion Gap 10 mmol/L (10-20); BUN (Urea Nitrogen) 39 mg/dL (8.4-25.7); Bilirubin, Total 1.4 mg/dL (0.2-1.2); Calc. Creatinine Clearance 46 mL/min (70-130); Calcium 8.6 mg/dL (7.8-10.44); Carbon Dioxide 32 mmol/L (23-31); Chloride 94 mmol/L (98-107); Estimated GFR-MDRD 41; Globulin 2.7 g/dL (2.4-3.5); Glucose 109 mg/dL (83-110); Potassium 3.7 mmol/L (3.5-5.1); Protein, Total 5.8 g/dL (5.8-8.1); Sodium 132 mmol/L (136-145)
[2019-12-13] MEDS: Carvedilol 6.25 MG TAB PO SCH ×2 (08:22→20:45)
[2019-12-13] MEDS: Aspirin 325 MG TAB PO SCH (08:22)
[2019-12-13] MEDS: Spironolactone 25 MG TAB PO SCH ×2 (08:22→20:45)
--- NOTE | 2019-12-13 09:14 | MRI ---
MRI Abdomen W WO Con HISTORY: Cirrhosis, portal hypertension COMPARISON: None. FINDINGS: There is a 17 mm cyst in the right paracardiac region with low T1, high T2 signal and no postcontrast enhancement. The spleen is enlarged measuring 15 cm in length. The liver surface is irregular and nodular, consistent with cirrhosis. No enhancing liver mass is identified. Multiple gallstones are pr esent. There is a 2 cm cystic mass in the tail of the pancreas with low T1 and high T2 signal and no postcon trast enhancement. There is free fluid in the abdomen. No portal splenic thrombosis is seen. No lymphadenopathy is identified. The aorta demonstrates no evidence of aneurysmal dilatation. The abdelrahman ne marrow signal is normal. The adrenal glands and kidneys are normal. IMPRESSION: 1. Cirrhosis the liver without mass 2. Splenomegaly 3. Ascites 4. Cholelithiasis 5. A 2 cm cystic mass in the tail of the pancreas. Endoscopic ultrasound is recommended. 6. A 17 mm right paracardiac cyst.
[2019-12-13] MEDS: Furosemide 100 MG/10 ML VIAL SLOW IVP SCH (09:19)
--- NOTE | 2019-12-13 09:57 | PDOC.CPN ---
- Subjective Date: 12/13/19 Time: 10:02 Interval history: The Pt seen and examined. No overnight events. No cardiac complaints. He stated he can breath much better and feels more energy this AM. - Objective Allergies/Adverse Reactions: Allergies Allergy/AdvReac Type Severity Reaction Status Date / Time lisinopril Allergy Verified 09/12/19 13:15 losartan Allergy Verified 09/12/19 13:15 Visit Medications: Current Medications Acetaminophen (Tylenol) 500 mg PO Q4H PRN PRN Reason: Headache/Fever or Pain Last Admin: 12/13/19 00:55 Dose: 500 mg Aspirin (Aspirin) 325 mg PO DAILY [facility] Last Admin: 12/13/19 08:22 Dose: 325 mg Atorvastatin Calcium (Lipitor) 20 mg PO HS [facility] Last Admin: 12/12/19 21:50 Dose: 20 mg Carvedilol (Coreg) 6.25 mg PO BID [facility] Last Admin: 12/13/19 08:22 Dose: 6.25 mg Diphenhydramine HCl (Benadryl) 25 mg PO Q6H PRN PRN Reason: Itching & Insomnia Last Admin: 12/13/19 00:55 Dose: 25 mg Furosemide (Lasix) 60 mg SLOW IVP QAM [facility] Last Admin: 12/13/19 09:19 Dose: 60 mg Spironolactone (Aldactone) 50 mg PO BID [facility] Last Admin: 12/13/19 08:22 Dose: 50 mg Vital Signs & Weight: Vital Signs Temp Pulse Resp BP BP Pulse Ox 12/13/19 07:41 98.3 F 59 L 18 129/74 95 12/13/19 04:00 98.4 F 60 20 112/64 95 12/13/19 00:00 98.9 F 63 20 102/54 L 92 L Weight 192 lb - Physical Exam General: alert & oriented x3 HEENT: mucus membranes moist Neck: supple neck Cardiac: regular rate and rhythm, S1/S2 Lungs: decreased breath sounds Neuro: cranial nerve 2-12 intact Extremities: no edema - Labs Result Diagrams: 12/13/19 05:07 12/13/19 05:07 - Assessment/Plan Assessment/Plan: 1. Large Ascities possible 2/2 portal hypertension and s/p paracentesis on 12/11 with 5L output - managed by GI; march d/c with Lasix with Spironolactone (2: 5 ratio) 2. Mod-large Lt pleural effusion with s/p thoracentesis in Lt posterior lobe in 11/[address] Berman - stable with RA 3. CAD with s/p CABG, MAZE procedure, YANY ligation, and AV replacement in 2018 - stable; on Coreg, ASA, but to no Statin due to Ascities 4. Prox Afib - remains in SR; on ASA and Coreg 5. HTN - stable 6. Type 2 DM MAR reviewed
--- NOTE | 2019-12-13 12:38 | PRG ---
DATE OF SERVICE: 12/13/2019 SUBJECTIVE: Mr. Camacho is feeling well. He feels his abdominal distention is about the same as yesterday. His appetite is great. He is having good urine output on the diuretics. He has no other complaints. OBJECTIVE: VITAL SIGNS: His temperature is 98.2, pulse 62, blood pressure 143/77, 95% oxygen saturation on room air. GENERAL: No acute distress. HEART: Regular rate and rhythm. LUNGS: Clear to auscultation bilaterally. ABDOMEN: Distended, but not tense. Bowel sounds are present. Soft, nontender to palpation throughout. EXTREMITIES: No peripheral edema. LABORATORY STUDIES: WBC 8.0, hemoglobin 10.9, platelets 197. INR is 1.2. Sodium 132, potassium 3.7, BUN 39, creatinine 1.62, which is stable. Total bilirubin 1.4, alkaline phosphatase 147, AST 31, ALT 18, albumin 3.1, and AFP is less than 2. Ascites fluid total protein is 2.0. Ascites fluid albumin is 0.9. This yields a serum ascites albumin gradient of 2.2. ASMA is pending. IMAGING STUDIES: MRI of the abdomen was performed yesterday. This demonstrates a 2.0 cm cystic mass in the tail of the pancreas with no postcontrast enhancement. There is no portal or splenic thrombosis seen. There is no liver lesion seen. The liver is nodular consistent with cirrhosis. Spleen measures 15 cm in length. There is a 17 mm right pericardiac cyst and there is some cholelithiasis as well. ASSESSMENT/PLAN: 1. Cirrhosis, appears secondary to nonalcoholic steatohepatitis. Liver lab workup does seem most consistent with OATES. He does have some history of drinking alcohol, but not to the extent that I would blame this for the cirrhosis. Even so, I advised he abstain from all alcohol completely going forward. We will not plan on any liver biopsy at this time. 2. Ascites, new development over the past few months. He has done well following 5 L paracentesis, getting IV Lasix here the past few days. I advised him to continue with daily weights as well as sodium and fluid restriction. He is going to need to be on diuretics following discharge. I think a reasonable dose would be Lasix 40 mg daily and spironolactone 50 mg twice daily. We will plan to see him back in clinic in a couple of weeks and monitor his metabolic panel. If his renal function is not stable, then he is already established with Dr. Bryant with Nephrology and should follow up with him as well. 3. Pancreatic lesion, 2 cm cystic mass in the tail of the pancreas. This is an incidental finding on yesterday's MRI of the abdomen. I advised that this could represent a new one of multiple benign causes, but malignancy cannot be excluded. It does need to be worked up further with endoscopic ultrasound. We will go ahead and start working on referral for endoscopic ultrasound, which is not done at this facility or with anyone in my practice. Otherwise, okay for discharge from the GI perspective. Please call back anytime with questions or concerns. Job ID: [id number]
[2019-12-13 15:10] LABS: A/G Ratio 0.6 (0.7-1.7); Albumin 2.4 g/dL (2.9-4.4); Alpha 1 0.4 g/dL (0.0-0.4); Alpha 2 0.6 g/dL (0.4-1.0); Beta 1.1 g/dL (0.7-1.3); Gamma 1.6 g/dL (0.4-1.8); Globulin, Total 3.8 g/dL (2.2-3.9); M-Spike Not Observed g/dL (Not Observed)
[2019-12-13 16:09] LABS: Hep B Surface AG-Rflx Sendout Negative (Negative); Hepatitis B Core Total Negative (Negative); Hepatitis B Surface AB-Sendout Non Reactive (.)
[2019-12-13 16:24] LABS: ANA Symphony (Qualitative) Negative (Negative); ANA Symphony (Quantitative) 0.4 Ratio (< 0.7 Negative); EliA Vaculitis New Method **** NEW METHOD ****; Mitochondrial Ab 1.4 U/mL (<4 Negative); dsDNA IgG Antibody 0.9 IU/mL (<10 Negative)
--- NOTE | 2019-12-13 19:48 | PRG ---
DATE OF SERVICE: 12/13/2019 SUBJECTIVE: Mr. Camacho says he is feeling better. OBJECTIVE: VITAL SIGNS: He is afebrile, heart rate is 61, respiratory rate is 19, oximetry is 92% to 94% on room air, blood pressure 104/62. LUNGS: Remarkable for decreased breath sounds in the left base. HEART: Regular rhythm. ABDOMEN: Remarkable for a soft abdomen compared to admission. LABORATORY DATA: Peritoneal fluid cultures are negative so far. IMPRESSION AND PLAN: Cirrhosis with ascites. He appears to be slowly clinically improving. His intake and output just over -600 mL. He has a weight on there today that I am not sure is accurate. I weighed myself on the floor scale that they had in the room, and I weighed 15 pounds more than I weigh using my doctor's office scale. In any event, he appears to be slowly improving, diuresing on a daily basis. He is still on IV Lasix. We will discontinue this and start him on p.o. Lasix in the morning. He will ambulate in the [place]choa tonight. Hopefully, he can go home in the morning. Job ID: [id number]
[2019-12-13] MEDS: Atorvastatin Calcium 20 MG TAB PO SCH (20:45)
[2019-12-14 06:18] LABS: Anion Gap 13 mmol/L (10-20); BUN (Urea Nitrogen) 35 mg/dL (8.4-25.7); Calc. Creatinine Clearance 46 mL/min (70-130); Calcium 8.6 mg/dL (7.8-10.44); Carbon Dioxide 29 mmol/L (23-31); Chloride 95 mmol/L (98-107); Estimated GFR-MDRD 42; Glucose 106 mg/dL (83-110); Potassium 3.9 mmol/L (3.5-5.1); Sodium 133 mmol/L (136-145)
[2019-12-14 07:05] VITALS: BP 146/73; TEMP 99
[2019-12-14] MEDS ORDERED: Furosemide 40 MG TAB PO SCH (07:30)
[2019-12-14] MEDS: Spironolactone 25 MG TAB PO SCH (07:45)
[2019-12-14] MEDS: Aspirin 325 MG TAB PO SCH (07:46)
[2019-12-14] MEDS: Carvedilol 6.25 MG TAB PO SCH (07:46)
--- NOTE | 2019-12-14 14:07 | DIS ---
DATE OF ADMISSION: 12/10/2019 DATE OF DISCHARGE: 12/14/2019 HOSPITAL COURSE: Mr. Camacho is a very pleasant gentleman, who was admitted from my office with massive ascites. He underwent large volume paracentesis and IV diuretics. His weights are inaccurate, but he has clearly diuresed close to a liter a day, sometimes more, sometimes less. His hemodynamics remained stable with his diuresis, and his renal function has improved. He will be discharged home on 60 of Lasix in the morning and then 50 of Aldactone twice a day. He is to follow up with his primary care doctor next week for electrolyte and creatinine check. He will follow up with his aircraft tool maker in 2 to 3 weeks. I will see him in 4 to 6 weeks to do a chest x-ray. Hopefully, we will see resolution of his pleural effusion. I have encouraged his family to call me should he have any problems in the interim. DISCHARGE DIAGNOSES: 1. Cirrhosis of unclear etiology. Many studies are pending. 2. Status post aortic valve replacement. 3. Status post coronary artery bypass grafting. 4. Status post large volume paracentesis, tolerated well. 5. Qxqwr-yx-evaatud kidney disease. I am wondering if he did degree of abdominal compartment syndrome when he came in given his improvement of his renal function after his paracentesis with diuresis. Job ID: [id number]
== END 2019-12-14 11:26 | disposition home or self-care (01) | DRG 433 ==
LOC: 2NO 14:00 → T4-A 12-12 15:55
PROVIDERS: ADMIT Internal Medicine Critical Care Medicine; ATTEND Internal Medicine Critical Care Medicine
PROC: 0W9G3ZZ Drainage of Peritoneal Cavity, Percutaneous Approach (ICD-10-PCS; principal; 2019-12-11)
DX: K74.60 Unspecified cirrhosis of liver (principal); R18.8 Other ascites; J90 Pleural effusion, not elsewhere classified; K76.6 Portal hypertension; K75.81 Nonalcoholic steatohepatitis (NASH); K76.0 Fatty (change of) liver, not elsewhere classified; I25.10 Atherosclerotic heart disease of native coronary artery without angina pectoris; Z95.1 Presence of aortocoronary bypass graft; I12.9 Hypertensive chronic kidney disease with stage 1 through stage 4 chronic kidney disease, or unspecified chronic kidney disease; N28.9 Disorder of kidney and ureter, unspecified; I48.91 Unspecified atrial fibrillation; Z95.2 Presence of prosthetic heart valve; Z82.3 Family history of stroke; Z80.8 Family history of malignant neoplasm of other organs or systems; Z84.89 Family history of other specified conditions; E78.5 Hyperlipidemia, unspecified; N18.3 Chronic kidney disease, stage 3 (moderate); Z85.46 Personal history of malignant neoplasm of prostate; I27.20 Pulmonary hypertension, unspecified; E11.22 Type 2 diabetes mellitus with diabetic chronic kidney disease; K86.9 Disease of pancreas, unspecified
CPT/HCPCS: 36415; 36416; 49083; 71045; 74183; 76705; 80048; 80053; 82042; 82103; 82105; 82390; 82728; 83516; 83540; 83550; 84157; 84165; 85025; 85610; 86038; 86225; 86704; 86705; 86706; 86707; 86803; 87070; 87205; 87340; 87350; 87389; 88112; 88305; A9579; J1940; P9047; Q0163

== ENCOUNTER 2020-05-18 10:27 | Outpatient (CLI) | payer MEDICARE, BC ==
--- NOTE | 2020-05-18 10:53 | RAD ---
EXAM: Chest 2 views: HISTORY: Pleural effusion COMPARISON: 12/02/2019 FINDINGS: There is an enlarged but stable cardiomediastinal silhouette. The patient is status post sternotomy. Atherosclerotic calcific lesions are seen in the aorta. There is a moderate left pleural effusion. This has decreased in size compared to the prior exam. The bones are unremarkable. IMPRESSION: Moderate left pleural effusion
== END 2020-05-18 10:28 | disposition home or self-care (01) ==
LOC: BICRAD 10:27
PROVIDERS: ATTEND Internal Medicine Cardiovascular Disease
DX: J90 Pleural effusion, not elsewhere classified (principal)
CPT/HCPCS: 71046

== ENCOUNTER 2020-06-14 18:39 | Inpatient (IN) | payer MEDICARE, BC ==
[~2020-06-14 18:39] MED LIST: Calcium Chloride 1 GM/10 ML Abboject SYRINGE ONE; Ondansetron PF 4 MG/2 ML Vial ONE; PHENYLEPHRINE-NS 100 MCG/ML 10 ML SYRINGE ONE; Rocuronium Bromide 10 MG/ML (10ML VIAL) ONE
[2020-06-14] MEDS ORDERED: Ondansetron PF 4 MG/2 ML Vial ONE ×2 (18:49→19:06)
[2020-06-14] MEDS ORDERED: ADMIXTURE FEE IV SCH (19:30)
[2020-06-14] MEDS ORDERED: [UNRECOGNIZED DRUG - OTHER] IV SCH (19:30)
[2020-06-14] MEDS ORDERED: Octreotide Acetate 50 MCG/ML AMP SLOW IVP SCH (19:30)
[2020-06-14] MEDS ORDERED: HUM PROTHROMBIN CPLX IV SCH (19:30)
[2020-06-14] MEDS ORDERED: Pantoprazole 80 MG in Sodium Chloride 0.9% 100 ML IVPB SCH (19:30)
[2020-06-14 19:31] LABS: #Eosinphils 0.1 thou/uL (0.0-0.7); #Lymphocytes 2.4 thou/uL (1.20-3.40); #Monocytes 1.3 thou/uL (0.11-0.59); #Neutrophils 15.7 thou/uL (1.40-6.50); %Basophils 0.2 % (0.0-1.0); %Eosinophils 0.4 % (0.0-10.0); %Lymphocytes 12.4 % (21.0-51.0); %Monocytes 6.7 % (0.0-10.0); %Neutrophils 80.2 % (42.0-75.0); Hemoglobin 8.8 g/dL (14.0-18.0); Mean Corpuscular HGB CONC 32.4 g/dL (32.0-36.0); Mean Corpuscular Hemoglobin 32.8 pg (27.0-31.0); Mean Platelet Volume 7.1 fL (7.4-10.4); Platelet Count 425 thou/uL (130-400); RBC Distribution Width 14.8 % (11.5-14.5); Red Blood Cell (RBC) Count 2.67 mill/uL (4.70-6.10); White Blood Cell (WBC) Count 19.6 thou/uL (4.8-10.8)
[2020-06-14 19:39] LABS: INR-International Normal Ratio 1.4; PTT 30.4 sec (22.9-36.1); Prothrombin Time 17.5 sec (12.0-14.7)
[2020-06-14] MEDS ORDERED: cefTRIAXone\\ROCEPHIN 1 GM VIAL ONE (19:42)
[2020-06-14 19:57] LABS: ALT (SGPT) 31 U/L (8-55); AST (SGOT) 41 U/L (5-34); Albumin 2.5 g/dL (3.4-4.8); Alkaline Phosphatase 185 U/L (40-110); Anion Gap 17 mmol/L (10-20); BUN (Urea Nitrogen) 64 mg/dL (8.4-25.7); Bilirubin, Total 0.7 mg/dL (0.2-1.2); Calc. Creatinine Clearance 0 mL/min (70-130); Calcium 8.9 mg/dL (7.8-10.44); Carbon Dioxide 22 mmol/L (23-31); Chloride 100 mmol/L (98-107); Estimated GFR-MDRD 55; Glucose 193 mg/dL (83-110); Lipase 17 U/L (8-78); Magnesium 2.3 mg/dL (1.6-2.6); Protein, Total 5.5 g/dL (5.8-8.1); Sodium 132 mmol/L (136-145)
[2020-06-14] MEDS ORDERED: Octreotide Acetate 50 MCG/ML AMP ONE (19:59)
[2020-06-14 20:03] LABS: Potassium 6.6 mmol/L (3.5-5.1)
[2020-06-14] MEDS ORDERED: Sodium Bicarb 50 MEQ/50 ML Abboject 8.4% SYRINGE ONE ×2 (20:22→21:30)
[2020-06-14] MEDS ORDERED: Calcium Chloride 1 GM/10 ML Abboject SYRINGE ONE ×3 (20:22→21:30)
[2020-06-14] MEDS ORDERED: Acetaminophen 650 MG Suppository PR PRN (20:41)
[2020-06-14] MEDS ORDERED: Acetaminophen 325 MG TAB PO PRN (20:41)
[2020-06-14] MEDS ORDERED: Sodium Chloride 0.9% 1,000 ML IV SCH (20:45)
--- NOTE | 2020-06-14 21:10 | HP ---
REASON FOR ADMISSION: Acute blood loss anemia, hematemesis with GI hemorrhage, hyperkalemia. HISTORY OF PRESENT ILLNESS: The patient gives history of starting to vomit blood from this afternoon. In fact, he had black stools last night, and he has had nearly 4 of them this morning. As his hematemesis continued multiple times, the patient and his called EMS and was brought here. He admits to taking a dose of 40 mg prednisone for shoulder pain yesterday morning. I did confirm with that he only takes aspirin and no other blood thinners. He is on spironolactone and Lasix. Currently, the patient is getting more lethargic. He is maintaining airway for now, but he is still throwing up blood. He almost threw up more than half a liter of blood during his stay here in the emergency room in multiple emesis bags. 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 He has had left atrial appendage ligation done during his CABG. CURRENT MEDICATIONS: The patient is on; 1. Aspirin 81 mg daily. 2. Lasix 20 mg daily. 3. Carvedilol 6.25 mg twice daily. 4. Spironolactone 50 mg twice daily. 5. Lactulose 5 tablespoons daily. ALLERGIES: TO LISINOPRIL AND LOSARTAN. PERSONAL HISTORY: Does not abuse alcohol or drugs. No history of smoking. Lives with his . He ambulates by himself. He says physical therapy comes 3 times a week to exercise him. FAMILY HISTORY: Mother at the age of 69. She has had history of coronary artery disease. Father at the age of 82 from natural causes. CODE STATUS: Full. Power of machine stitcher is his . REVIEW OF SYSTEMS: CONSTITUTIONAL: Negative for weight loss or gain, ability to conduct usual activities. SKIN: Negative for rash, itching. EYES: Negative for double vision, pain. ENT/MOUTH: Negative for nose bleeding, neck stiffness, pain, tenderness. CARDIOVASCULAR: Negative for palpitations, dyspnea on exertion, orthopnea. RESPIRATORY: Negative for shortness of breath, wheezing, cough, hemoptysis, fever or night sweats. GASTROINTESTINAL: Negative for poor appetite, abdominal pain, heartburn, nausea , vomiting, constipation, or diarrhea. GENITOURINARY: Negative for urgency, frequency, dysuria, nocturia. MUSCULOSKELETAL: Negative for pain, swelling. NEUROLOGIC/PSYCHIATRIC: Negative for anxiety, depression. ALLERGY/IMMUNOLOGIC: Negative for skin rash, bleeding tendency. PHYSICAL EXAMINATION: GENERAL: The patient is a 79-year-old male, who is currently in moderate-to- severe distress from throwing up blood. VITAL SIGNS: Blood pressure 106/54, pulse 84 per minute, respiratory rate 24 per minute, temperature 96 degrees rectal and the patient is on a Murphy Hugger now, and saturating 100% on room air. HEENT: Eyes; extraocular muscles intact. Pupils reacting to light. Oral cavity, the patient is still having hematemesis with its entire oral cavity, tongue and teeth and lips and on the exterior chin and the cheek smeared with blood. NECK: Supple. No elevated JVD. CARDIOVASCULAR SYSTEM: S1 and S2 heard, regular rhythm. RESPIRATORY: Air entry 1+ bilateral. Scattered rhonchi plus bilateral. ABDOMEN: Soft. Bowel sounds heard. No tenderness, rigidity, or guarding. EXTREMITIES: No peripheral edema or calf tenderness. VASCULAR SYSTEM: Peripheral pulses 1+ bilateral. No ischemic ulcerations or gangrene. CENTRAL NERVOUS SYSTEM: No gross focal motor deficits noted. The patient is a bit lethargic at present. PSYCHIATRIC SYSTEM: No obvious hallucinations or delusions. LABORATORY DATA: White count of 19, H and H of 8.8 and 27, platelet count is 425, MCV is 101 with 80% neutrophils, 12% lymphocytes. PT 17.5, INR 1.4, and PTT 30. Sodium 132, potassium 6.6, serum bicarb 22, BUN 64, creatinine 1.2, serum glucose 193, AST 41, ALT 31, alkaline phosphatase 185, albumin 2.5. Lipase is 17. CLINICAL IMPRESSION AND PLAN: The patient will be admitted to ICU for GI hemorrhage with hematemesis, acute blood loss anemia, hyperkalemia. He is currently on octreotide and Protonix drip. The patient is also getting 2 g of ceftriaxone in the ER. 2 units of packed cell transfusion is getting ready. He will also be getting a dose of KCentra weight based. 2 units of fresh frozen plasma will be kept ready as well. Dr. David Richards, ditch cleaner will be shortly evaluating patient for emergent upper endoscopy. I have given complete updates to his , Ms. Janice Banks. She is also aware that the patient might get intubated if he cannot maintain airway with him getting lethargic post procedure. She is okay with it for now. He is a full code for now. He will be kept n.p.o. We will obtain serial H and H. His overall prognosis is guarded. Likely his hyperkalemia is related to him being on spironolactone. A repeat metabolic panel is pending in the ER at present and we will closely follow up on that. Job ID: [id number] MTDD
[2020-06-14 21:13] LABS: Anion Gap 17 mmol/L (10-20); BUN (Urea Nitrogen) 63 mg/dL (8.4-25.7); Calc. Creatinine Clearance 0 mL/min (70-130); Calcium 9.6 mg/dL (7.8-10.44); Carbon Dioxide 21 mmol/L (23-31); Chloride 103 mmol/L (98-107); Estimated GFR-MDRD 63; Glucose 152 mg/dL (83-110); Sodium 134 mmol/L (136-145)
[2020-06-14] MEDS ORDERED: Midazolam HCl 2 mg/2 ml Vial ONE (21:20)
[2020-06-14] MEDS ORDERED: Ketamine 50 MG/ML (10ML VIAL) ONE (21:20)
[2020-06-14] MEDS ORDERED: Furosemide 20 MG/2 ML VIAL ONE (21:29)
[2020-06-14] MEDS ORDERED: Insulin Regular 300 UNITS/3 ML VIAL ONE (21:30)
[2020-06-14] MEDS ORDERED: Dextrose 50% Abboject 50 ML SYRINGE ONE (21:30)
[2020-06-14 21:35] LABS: Hemoglobin 7.9 g/dL (14.0-18.0)
[2020-06-14] MEDS ORDERED: Propofol 1,000 MG/100 ML VIAL IV ONE (22:34)
[2020-06-14 22:49] LABS: Base Excess (BEa) -3.5 mEq/L (-2.0 to +3.0); Carboxyhemoglobin (COHb) 0.3 gm% (0.0-3.0); Hemoglobin (Hb) 8.9 g/dL (14.0-18.0); Potassium - ABG Lab 5.68 mmol/L (3.70-5.30)
[2020-06-14 22:53] LABS: O2 Tension (PaO2), arterial 514.6 mmHg (> 70.0)
[2020-06-14 22:54] LABS: Puncture Site LRA
[2020-06-14] MEDS ORDERED: Ventilator Sedation Protocol 1 EACH FS ONE (23:02)
[2020-06-14] MEDS ORDERED: DISCONTINUE PREVIOUS NARCOTIC PAIN MEDICATIONS AND BENZODIAZEPINES FS SCH (23:13)
[2020-06-14] MEDS ORDERED: Propofol BOLUS 1,000 MG/100 ML VIAL IV PRN (23:13)
[2020-06-14] MEDS ORDERED: fentaNYL Citrate/PF 2,000 MCG in Sodium Chloride 0.9% 60 ML IV SCH (23:13)
[2020-06-14] MEDS ORDERED: Lorazepam 2 MG/ML VIAL SLOW IVP PRN (23:13)
[2020-06-14] MEDS ORDERED: Morphine 2 MG/ML VIAL SLOW IVP PRN (23:13)
[2020-06-14] MEDS ORDERED: Fentanyl BOLUS 250 ML IVPB PRN (23:13)
[2020-06-14] MEDS ORDERED: Propofol 1,000 MG/100 ML VIAL IV PRN (23:13)
--- NOTE | 2020-06-15 01:20 | OP ---
DATE OF PROCEDURE: 06/14/2020 PROCEDURE PERFORMED: Esophagogastroduodenoscopy with banding of esophageal varices with active bleeding. DESCRIPTION OF PROCEDURE: Informed consent was obtained from the patient. He was sedated with general anesthesia. The bite block was placed, and the endoscope was advanced easily to the second portion of the duodenum and retroflexion was performed in the stomach. The esophagus had 3 columns of varices, 2 columns of large grade 3 varices with red signs with one of those having a red nipple line suggestive of recent active bleed. His two varices were banded at 3 o'clock and 9 o'clock. A third varix at 12 o'clock was small and did appear red, but I attempted band placement, but these were not soft enough to hold a band, which just slid off. This varix was left alone ultimately. The stomach had black old blood staining throughout the fundus and body, which obscured views of the fundus. I really could not assess for gastric varices adequately, but there was no red blood or active bleeding in that site. The pylorus and first and second portions of the duodenum were normal. Again, there was black old blood throughout the duodenum. IMPRESSION: 1. Two columns of large grade 3 varices with red signs banded one time each. They flattened out completely with the banding. One of these did have a red nipple over it. A third varix was small and stiff and would not hold the band. 2. Old black blood in the fundus and body of the stomach that obscured views in these areas and I could not say if he has gastric varices or not at this point. RECOMMENDATIONS: 1. Octreotide IV. 2. Proton pump inhibitor IV. 3. Follow trend of his hemoglobin. 4. Ceftriaxone 1 g q.24 hours. He received his first dose in the ER. 5. Lactulose enema tonight. He was noted to have significant hyperkalemia, which likely involves a hemolyzed specimen; however, repeat potassium again is high. He received calcium and insulin during the endoscopy. We will give a large volume lactulose enema this evening. 6. Repeat EGD in around 2 weeks for completion banding of the varices. Job ID: [id number]
--- NOTE | 2020-06-15 01:27 | CON ---
DATE OF CONSULTATION: 06/14/2020 CHIEF COMPLAINT: Vomiting blood. HISTORY OF PRESENT ILLNESS: Mr. Camacho is a 79-year-old man who passed 2 black stools earlier today and then vomited some pink blood and then started vomiting on the way to the emergency room, large amounts of dark red blood and clots. He filled a few emesis bags with blood. He has no abdominal pain with this. No chest pain or shortness of breath. Over the last several days, he has had shoulder pain, which he believes was from sleeping on his shoulder wrong. He initially was taking Tylenol and working on physical therapy with it, but then ultimately he took a dose of prednisone on Monday 40 mg to help with his pain. He takes aspirin 81 mg daily but no other blood thinners. He just saw Dr. Tucker in the office in [facility] on Monday, and upper and lower endoscopies have been ordered for him for varices screening and colon cancer screening. He has been on diuretics for ascites, which has been fairly well controlled and on lactulose for history of encephalopathy, and currently his mental status is pretty good. PAST MEDICAL HISTORY: Cirrhosis of the liver thought to be due to past alcohol versus OATES, coronary artery disease, atrial fibrillation, congestive heart failure, hypertension, diabetes mellitus type 2. PAST SURGICAL HISTORY: Aortic valve replacement. FAMILY HISTORY: Negative for liver disease or GI malignancy. SOCIAL HISTORY: He is a former drinker. Previously, he just drank a couple of glasses of wine in the evening and occasional beer with lunch. These are not volumes expected to cause cirrhosis alone. No smoking. No drugs. ALLERGIES: LISINOPRIL, LOSARTAN. MEDICATIONS: Prior to admission, 1. Aspirin 81 mg daily. 2. Carvedilol 6.25 mg daily. 3. Lactulose 45 mL twice daily. 4. Lasix 20 mg daily. 5. Spironolactone 50 mg daily. REVIEW OF SYSTEMS: Negative x10 systems reviewed except as stated in history of present illness. PHYSICAL EXAMINATION: VITAL SIGNS: Blood pressure 106/54, pulse 84, temperature 96. GENERAL: He is awake and alert. He is oriented x3. His eyes have no scleral icterus. Oropharynx is clear without lesions. He has blood staining on his hand. He has multiple emesis bags in the sink and he is holding one with blood in as well. HEENT: He has no cervical or supraclavicular lymphadenopathy. LUNGS: Clear to auscultation bilaterally. HEART: Regular rate and rhythm without murmur. ABDOMEN: Soft, nontender, and nondistended. Bowel sounds are present. EXTREMITIES: No lower extremity edema. LABORATORY DATA: White blood cell count 19.6, hemoglobin 8.8, down from 12.4 a month ago, platelets 425. INR 1.4. Sodium 132, potassium 6.6, chloride 100, CO2 22, BUN 64, creatinine 1.27, bilirubin 0.7, AST 41, ALT 31, alkaline phosphatase 185, albumin 2.5. Alpha-fetoprotein was 2.1 back in February. IMPRESSION: 1. Acute upper gastrointestinal bleed consistent with esophageal varices with a large volume bleed. 2. 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 3. History of ascites, which has been pretty well controlled lately with low-dose of diuretics on furosemide 20 mg daily and spironolactone 50 mg daily along with a low-sodium diet. 4. History of hepatic encephalopathy. Currently has no asterixis and he is oriented x3. He is on lactulose 45 mL twice daily. RECOMMENDATIONS: 1. Octreotide. 2. We will transfuse as needed. Currently, his hemoglobin is 8.8, and we will just have the blood ready but not transfuse as of yet. 3. Upper endoscopy urgently given the large volume bleeding from suspected varices. 4. Ceftriaxone has been given in the ER for SBP prophylaxis. 5. Proton pump inhibitor. 6. We will give lactulose or Kayexalate enema depending on the trend of his potassium. I suspect his hyperkalemia is from a hemolyzed specimen. Job ID: [id number]
[2020-06-15 03:49] LABS: Hemoglobin 9.3 g/dL (14.0-18.0)
[2020-06-15 05:04] LABS: ALT (SGPT) 36 U/L (8-55); AST (SGOT) 48 U/L (5-34); Albumin 2.5 g/dL (3.4-4.8); Alkaline Phosphatase 160 U/L (40-110); Anion Gap 17 mmol/L (10-20); BUN (Urea Nitrogen) 71 mg/dL (8.4-25.7); Bilirubin, Total 0.9 mg/dL (0.2-1.2); Calc. Creatinine Clearance 56 mL/min (70-130); Calcium 10.6 mg/dL (7.8-10.44); Carbon Dioxide 19 mmol/L (23-31); Chloride 105 mmol/L (98-107); Estimated GFR-MDRD 57; Globulin 3.1 g/dL (2.4-3.5); Glucose 172 mg/dL (83-110); Potassium 6.1 mmol/L (3.5-5.1); Protein, Total 5.6 g/dL (5.8-8.1); Sodium 135 mmol/L (136-145)
[2020-06-15] MEDS ORDERED: DC Sedation Protocol FS ONE (08:27)
[2020-06-15] MEDS ORDERED: Prevnar 13-Val Conj/PF 0.5 ML SYRINGE IM ONE (09:00)
--- NOTE | 2020-06-15 09:02 | CON ---
DATE OF CONSULTATION: 06/15/2020 TIME SPENT: 35 minutes of critical care time. HISTORY OF PRESENT ILLNESS: I have been consulted by the hospitalist group to see Mr. Camacho, who is a 79-year-old who was admitted yesterday with variceal bleeding and required banding by Dr. Richards. He was left intubated overnight on mechanical ventilation. PAST MEDICAL HISTORY: 1. Cirrhosis due to alcohol. 2. Coronary artery disease. 3. Atrial fibrillation. 4. Congestive heart failure. 5. Diabetes mellitus. 6. Hypertension. PAST SURGICAL HISTORY: Aortic valve replacement. FAMILY MEDICAL HISTORY: Unremarkable. SOCIAL HISTORY: Former drinker. Does not smoke. No illicit drugs. ALLERGIES: LISINOPRIL, LOSARTAN. MEDICATIONS: Prior to admission; 1. Aspirin. 2. Carvedilol. 3. Lactulose. 4. Lasix. 5. Spironolactone. REVIEW OF SYSTEMS: Cannot be obtained as the patient is currently intubated. PHYSICAL EXAMINATION: VITAL SIGNS: Temperature 98.3, pulse 96, blood pressure 143/70, and O2 saturation 100%. GENERAL: The patient will wake up. HEENT: Unremarkable. NECK: No adenopathy or JVD. CHEST: Clear. CARDIAC: S1 and S2 regular without murmur. ABDOMEN: Soft and nontender. EXTREMITIES: No clubbing, cyanosis, or edema. LABORATORY DATA: Sodium 135, potassium 6.1, chloride 105, CO2 of 19, BUN 71, creatinine 1.2, and glucose 172. White blood cell count 19.6, hematocrit , and platelet count 425. PH of 7.4, pCO2 of 35, and pO2 of 514. ASSESSMENT: 1. The patient is currently intubated after variceal bleeding, requiring endoscopy. 2. Stable anemia. 3. Hyperkalemia. PLAN: 1. We will go ahead and extubate. 2. He received some Kayexalate for his hyperkalemia. 3. Monitor H and H. Job ID: [id number]
[2020-06-15 09:55] LABS: Hemoglobin 9.3 g/dL (14.0-18.0)
[2020-06-15] MEDS ORDERED: Sodium Bicarbonate 150 MEQ in Dextrose 5% in Water 1,000 ML IV SCH (10:00)
[2020-06-15] MEDS ORDERED: Pantoprazole 80 MG, Admixture Fee 1 EACH in Sodium Chloride 0.9% 100 ML IVPB SCH (10:00)
--- NOTE | 2020-06-15 10:03 | PDOC.HOSPP ---
- Subjective Encounter Date: 06/15/20 Encounter Time: 11:00 Subjective: Patient remains intubated and sedated. No further bleeding overnight. - Objective Vital Signs & Weight: Vital Signs (12 hours) Temp Pulse Resp BP Pulse Ox 06/15/20 09:00 98.6 F 06/15/20 08:00 28 H 06/15/20 06:46 93 148/77 H 06/15/20 06:00 24 H 06/15/20 04:00 98.3 F 23 H 06/15/20 02:18 84 94/49 L 06/15/20 02:00 23 H 06/15/20 00:41 88 147/79 H 06/15/20 00:00 25 H 06/14/20 23:00 97.7 F 89 25 H 06/14/20 22:52 100 Weight Weight 173 lb 15.115 oz Most Recent Monitor Data Heart Rate from ECG 101 NIBP 157/90 NIBP BP-Mean 112 Respiration from ECG 29 SpO2 100 I&O: 06/14/20 06/15/20 06/16/20 06:59 06:59 06:59 Intake Total 659.8 Output Total 605 70 Balance 54.8 -70 Result Diagrams: 06/15/20 09:39 06/15/20 03:02 Hospitalist ROS - Review of Systems ROS unobtainable: due to endotracheal tube - Medication Medications: Active Medications Generic Name Dose Route Start Last Admin Trade Name Freq PRN Reason Stop Dose Admin Sodium Polystyrene Sulfonate 30 gm 06/15/20 08:45 06/15/20 09:13 Kayexalate Oral Susp 15 Gm/60 Ml PO 06/15/20 12:00 30 gm NOW SKYLAR Administration - Exam General - other findings: sedated on vent ENT: moist mucosa Heart: RRR, no murmur, no gallops, no rubs Respiratory: CTAB, no wheezes, no rales, no ronchi Gastrointestinal: soft, non-tender, non-distended, normal bowel sounds Psychiatric - other findings: sedated on vent Hosp A/P (1) Esophageal varices with bleeding Code(s): I85.01 - ESOPHAGEAL VARICES WITH BLEEDING Status: Acute (2) Acute blood loss anemia Code(s): D62 - ACUTE POSTHEMORRHAGIC ANEMIA Status: Acute (3) Hyperkalemia Code(s): E87.5 - HYPERKALEMIA Status: Acute (4) S/P AVR (aortic valve replacement) Code(s): Z95.2 - PRESENCE OF PROSTHETIC HEART VALVE Status: Chronic (5) S/P CABG x 3 Code(s): Z95.1 - PRESENCE OF AORTOCORONARY BYPASS GRAFT Status: Chronic (6) CAD (coronary artery disease) Code(s): I25.10 - ATHSCL HEART DISEASE OF [place] CORONARY ARTERY W/O ANG PCTRS Status: Chronic Qualifiers: Coronary Disease-Associated Artery/Lesion type: bypass graft [place] vs. transplanted heart: [place] heart Associated angina: without angina Qualified Code(s): I25.810 - Atherosclerosis of coronary artery bypass graft(s) without angina pectoris (7) DM2 (diabetes mellitus, type 2) Status: Chronic Qualifiers: Diabetes mellitus alf insulin use: without alf use (8) HTN (hypertension) Code(s): I10 - ESSENTIAL (PRIMARY) HYPERTENSION Status: Chronic Qualifiers: Hypertension type: essential hypertension Qualified Code(s): I10 - Essential (primary) hypertension (9) Obesity (BMI 30.0-34.9) Code(s): E66.9 - OBESITY, UNSPECIFIED Status: Chronic (10) Afib Code(s): I48.91 - UNSPECIFIED ATRIAL FIBRILLATION Status: Chronic Qualifiers: Atrial fibrillation type: paroxysmal Qualified Code(s): I48.0 - Paroxysmal atrial fibrillation - Plan Patient s/p esophageal varices banding on 06/14/2020, will need repeat EGD and finish banding in 2 weeks Received 1 unit PRBC, H/H stable this morning Dr. Sanchez plans to extubate this morning. Persistent hyperkalemia, received lactulose per GI, Dr. Castelan to give Kayexelate. Will ask Dr. Bryant to see.
--- NOTE | 2020-06-15 10:42 | CON ---
DATE OF CONSULTATION: 06/15/2020 SERVICE: Nephrology. REQUESTING PHYSICIAN: Faustino Robertson MD REASON FOR CONSULTATION: Hyperkalemia. CHIEF COMPLAINT: Hematemesis. HISTORY OF PRESENT ILLNESS: A 79-year-old male with known history of coronary artery disease, status post CABG, cirrhosis, hypertension, diabetes, and others, well known to me from prior hospitalization; during which, he had acute kidney injury, hyponatremia, and hyperkalemia. The patient on spironolactone, presented with hematemesis. He was found to have potassium of 6.6, which worsened to 7.0, necessitating Nephrology consult. The patient was intubated and taken to endoscopy suite. After stabilization and treatment with sodium bicarbonate, calcium chloride, insulin, and dextrose, he was still intubated and in the ICU. Since admission, the patient had received 1 unit of packed red blood cells as well as calcitriol. OBJECTIVE: VITAL SIGNS: Temperature 98.6, pulse 104, respiratory rate 29, SpO2 of 100 on the ventilator, and blood pressure is 157/90. GENERAL: Somnolent elderly male, in no obvious distress. Sedatives were discontinued earlier this morning. HEENT: Normocephalic, atraumatic. Oral mucosa is mildly dry. ET tube is in place. CARDIOVASCULAR: Regular rhythm and rate with normal heart sounds. RESPIRATORY: Ventilator transmitted breath sounds is heard in all lung zones. GI: Full, soft, nondistended. Bowel sound is hypoactive. UROGENITAL: Espitia catheter is in place, draining some urine. MUSCULOSKELETAL: Extremities are grossly normal with no obvious edema. SKIN: Scattered ecchymosis and petechia on both forearms noted. POST ACUTE CARE NURSE: The patient is lethargic. He opens eye with stimulation, but goes right back to sleep. DIAGNOSTIC DATA: Hemoglobin and hematocrit this morning showed 9.3 and 28.7. On presentation yesterday, CBC showed WBC count of 19.6, hemoglobin of 8.8, MCV of 101, and platelets of 425. Chemistry today showed sodium 135, potassium 6.1, chloride 105, CO2 19, BUN 71, creatinine 1.22, glucose 172 calcium 10.6, total bilirubin 0.9, AST 48, ALT 36, alkaline phosphatase 160, total protein 5.6, albumin 2.5, and globulin 3.1. EKG performed on June 14, showed normal sinus rhythm with rate of 82 with no peaked T-wave or evidence of cardiac toxicity. Telemetry reviewed showed sinus tachycardia. ASSESSMENT: 1. Hyperkalemia: Most likely due to increase absorption from gastrointestinal bleed superimposed on effect of spironolactone as well as potassium shift related to acidosis. Potassium has gone up from 6.6 on presentation to 7.0 before coming down to 6.1 currently. 2. Metabolic acidosis: Due to hyperchloremia and use of normal saline, superimposed on chronic kidney disease. 3. Chronic kidney disease, stage 3 with possible reversible component. Baseline creatinine seems to be 0.9 to 1.1, currently is 1.22, which is close to baseline. 4. Hyponatremia: Most likely due to volume contraction with appropriate ADH. 5. Worsening azotemia, most likely due to gastrointestinal bleeding. Volume contraction cannot be ruled out. 6. Acute gastrointestinal bleeding. Treatment as per GI specialist. PLAN: 1. We will substitute normal saline with sodium bicarbonate. 2. We will also give Kayexalate. 3. We will repeat potassium level in 6 hours. There is no overt need for hemodialysis at this point as potassium is trending downwards. Other treatment as per care aid and GI. Further treatment to follow depending on hospital course. Job ID: [id number]
[2020-06-15 16:33] LABS: Anion Gap 19 mmol/L (10-20); BUN (Urea Nitrogen) 84 mg/dL (8.4-25.7); Calc. Creatinine Clearance 41 mL/min (70-130); Calcium 10.3 mg/dL (7.8-10.44); Carbon Dioxide 16 mmol/L (23-31); Chloride 107 mmol/L (98-107); Estimated GFR-MDRD 40; Glucose 237 mg/dL (83-110); Potassium 5.8 mmol/L (3.5-5.1); Sodium 136 mmol/L (136-145)
[2020-06-15] MEDS ORDERED: Lactulose 10 GM/15 ML Oral Solution PR SCH ×2 (18:45)
--- NOTE | 2020-06-15 18:56 | PRG ---
DATE OF SERVICE: 06/15/2020 SUBJECTIVE: Mr. Camacho was sleeping and not arousable. OBJECTIVE: VITAL SIGNS: Temperature 98.8, blood pressure 157/79, and pulse 105. GENERAL: He is sleeping. He will not wake up to verbal stimuli. LUNGS: Clear to auscultation bilaterally. HEART: Irregular, tachycardic, 2/6 systolic murmur at the right upper sternal border. ABDOMEN: Soft, nontender, and nondistended. Bowel sounds are present. EXTREMITIES: No lower extremity edema. LABORATORY DATA: Hemoglobin is 9.3 after 1 unit transfusion. IMPRESSION: 1. Acute variceal hemorrhage from esophageal varices, status post banding. 2. Anemia of acute blood loss. 3. Cirrhosis. 4. Hepatic encephalopathy, which is now severe secondary to the GI bleed. He has received two lactulose enemas, but is still not arousable. We will repeat the lactulose enema. He is unable to wake up enough to take lactulose by mouth and I would rather not place an NG tube, currently having just placed the bands on his esophageal varices last night. 5. Hyperkalemia. 6. Acute renal failure. RECOMMENDATIONS: 1. Lactulose enema and repeat as necessary. 2. Ceftriaxone for SBP prophylaxis. 3. Octreotide. 4. Pantoprazole. This can be changed to twice daily dosing. 5. Dr. Tucker will be rounding for the GI service tomorrow. Job ID: [id number]
[2020-06-15] MEDS: cefTRIAXone\\ROCEPHIN 2 GM in Sodium Chloride 0.9% 100 ML IVPB SCH (21:03)
[2020-06-15] MEDS: Octreotide Acetate 1,250 MCG in Sodium Chloride 0.9% 250 ML 250 ML IVPB SCH (21:03)
[2020-06-15] MEDS: Pantoprazole 40 MG VIAL IVP SCH (21:04)
[2020-06-16 04:43] LABS: Anion Gap 17 mmol/L (10-20); BUN (Urea Nitrogen) 93 mg/dL (8.4-25.7); Calc. Creatinine Clearance 37 mL/min (70-130); Calcium 9.8 mg/dL (7.8-10.44); Carbon Dioxide 22 mmol/L (23-31); Chloride 104 mmol/L (98-107); Estimated GFR-MDRD 36; Glucose 290 mg/dL (83-110); Potassium 4.9 mmol/L (3.5-5.1); Sodium 138 mmol/L (136-145)
[2020-06-16 05:00] LABS: Band 5 % (5-11); Hemoglobin 8.5 g/dL (14.0-18.0); Lymphocytes 11 % (21-51); MDiff Complete? YES; Mean Corpuscular HGB CONC 33.7 g/dL (32.0-36.0); Mean Corpuscular Hemoglobin 32.9 pg (27.0-31.0); Mean Corpuscular Volume 97.6 fL (78.0-98.0); Mean Platelet Volume 6.9 fL (7.4-10.4); Metamyelocyte 1 % (0-0); Monocytes 10 % (0-10); Neutrophil 73 % (42-75); Platelet Count 259 thou/uL (130-400); Platelet Morphology Comment Appears Adequate; RBC Distribution Width 16.3 % (11.5-14.5); Red Blood Cell (RBC) Count 2.59 mill/uL (4.70-6.10); White Blood Cell (WBC) Count 27.5 thou/uL (4.8-10.8)
[2020-06-16 07:37] LABS: ALT (SGPT) 40 U/L (8-55); AST (SGOT) 43 U/L (5-34); Albumin 2.6 g/dL (3.4-4.8); Alkaline Phosphatase 141 U/L (40-110); Bilirubin, Direct 0.3 mg/dL (0.1-0.3); Bilirubin, Total 0.5 mg/dL (0.2-1.2); Protein, Total 5.7 g/dL (5.8-8.1)
--- NOTE | 2020-06-16 08:35 | PRG ---
DATE OF SERVICE: 06/16/2020 SUBJECTIVE: The patient has persistent encephalopathy post extubation. He was given lactulose. He was extubated without much difficulty. OBJECTIVE: VITAL SIGNS: On exam, temperature is 98, pulse 107, blood pressure 168/80, and O2 saturation 100%. HEENT: Unremarkable. NECK: No JVD. CHEST: Clear. CARDIAC: S1 and S2. Regular. ABDOMEN: Soft. EXTREMITIES: No edema. LABORATORY DATA: White blood cell count 27.5, hematocrit 25.3, and platelet count 259. Sodium 138, potassium 4.9, chloride 104, CO2 of 22, BUN 93, creatinine 1.8, glucose 290, and albumin 2.6. ASSESSMENT: 1. Status post varicocele bleeding. 2. Hepatic encephalopathy. 3. Anemia due to blood loss. 4. Cirrhosis. 5. Acute renal failure. 6. Improved hyperkalemia. PLAN: 1. Check ammonia level. 2. Continue lactulose as needed per GI. 3. The patient has continued on empiric antibiotics. 4. Remain in ICU until encephalopathy improves. Job ID: [id number]
[2020-06-16] MEDS: Carvedilol 6.25 MG TAB PO SCH ×2 (08:41→20:54)
[2020-06-16] MEDS: Pantoprazole 40 MG VIAL IVP SCH ×2 (08:43→20:55)
[2020-06-16] MEDS: Lactulose 10 GM/15 ML Oral Solution PR SCH ×3 (10:49→21:36)
--- NOTE | 2020-06-16 10:55 | PRG ---
DATE OF SERVICE: 06/16/2020 SERVICE: Nephrology. SUBJECTIVE: A 80-year-old male with upper GI bleeding from variceal bleed, seen in followup for hyperkalemia and acute kidney injury. The patient is somnolent and unable to provide any history. Has been n.p.o. since extubation yesterday. OBJECTIVE: VITAL SIGNS: Temperature 98.0, pulse 107, respiratory rate 22, SpO2 of 100% on 2 L nasal cannula, blood pressure is 151/101. Intake and output in the last 24 hours showed total intake of 1784 with total output of 711. Weight is up from 173 to 184 today. GENERAL: Somnolent, elderly male, in no obvious distress. Afebrile. HEENT: Normocephalic, atraumatic. Oral mucosa is mildly dry. NECK: Supple with no obvious JVD. CARDIOVASCULAR: Irregular rhythm and rate with normal heart sounds 1 and 2. The patient is tachycardic. RESPIRATORY: Fair air entry bilaterally with some transmitted breath sounds. No obvious respiratory distress appreciated. GI: Abdomen is full, soft with hypoactive bowel sounds. UROGENITAL: Espitia catheter is in place draining some urine. Rectal tube also is in place. MUSCULOSKELETAL: Mild fullness and edema of both upper limbs noted. Lower extremities are grossly normal without obvious edema. SKIN: Ecchymosis and petechia of both forearms noted with some breakdown on the right forearm. SCRUM MASTER: The patient is somnolent. Nonverbal. Tries to localize pain. DIAGNOSTIC DATA: CBC today showed WBC count of 27.5, hemoglobin of 8.5, platelet of 259. Chemistry today showed sodium 138, potassium 4.9, chloride 104, CO2 of 22, BUN 93, creatinine 1.83, glucose 290, calcium 9.8, total bilirubin 0.5, AST 43, ALT 40, alkaline phosphatase 141, total protein 5.7, albumin 2.6. Ammonia level is 153. ASSESSMENT: 1. Acute kidney injury: Most likely due to hemodynamic factors related to hemorrhage. Some hemodynamic instability cannot be ruled out, especially during procedure. Hepatorenal syndrome remains a concern given acute hepatic encephalopathy. Effective volume depletion is a concern. 2. Hyperkalemia: Resolved with Kayexalate and resolution of an improvement of metabolic acidosis. 3. Metabolic acidosis: Improved with alkali therapy with sodium bicarbonate. 4. Acute metabolic encephalopathy. Ammonia 153 is consistent with hepatic encephalopathy. 5. Paroxysmal atrial fibrillation. 6. Hypertension: Control is suboptimal. PLAN: 1. We will get stat EKG to confirm atrial fibrillation. 2. We will also get urinalysis as well as urine electrolytes and urine protein. 3. We will also restart sodium bicarbonate but at a lower rate of 50 mL/h. 4. We will restart carvedilol and this will help both the blood pressure, tachyarrhythmia, and also for variceal bleed. 5. We will continue octreotide and Protonix as well as other treatment as per GI. NG tube will help administer for this patient who is currently somnolent. I understand GI do not want this at this time due to recent banding of bleeding varices. Further treatment to follow depending on hospital course. Job ID: [id number]
[2020-06-16 11:29] LABS: Bilirubin Negative (Negative); Blood, Urine Trace (Negative); Clarity Clear (Clear); Glucose, Urine (Dipstick) Normal (Negative); Ketone, Urine Negative (Negative); Leukocyte 250 Leu/uL (Negative); Nitrite Negative (Negative); Protein, Urine (Dipstick) Negative (Neg-Trace); Specific Gravity, Urine 1.023 (1.002-1.036); Squamous Epithelial 0-3 HPF (0-3); Urobilinogen Normal mg/dL (Less than 2); pH, Urine 5.5 (5.0-9.0)
[2020-06-16 11:39] LABS: Bacteria/HPF 1+ HPF (None Seen)
[2020-06-16 11:40] LABS: Urine Culture Reflex Yes Yes
[2020-06-16] MEDS: Diltiazem 125 MG in Sodium Chloride 0.9% 100 ML IVPB SCH (11:43)
[2020-06-16] MEDS: Sodium Bicarbonate 150 MEQ in Dextrose 5% in Water 1,000 ML IV SCH (11:51)
[2020-06-16 12:36] LABS: Creatinine, Urine 71.27 mg/dL (63-166); Protein, Urine Random Quant 12 mg/dL (1-14); Sodium, Urine Less than 20 mmol/L (Not Available)
[2020-06-16 12:39] LABS: Urea Nitrogen, Random Urine Greater than 1200 mg/dl
--- NOTE | 2020-06-16 14:19 | PDOC.HOSPP ---
- Subjective Encounter Date: 06/16/20 Encounter Time: 10:30 Subjective: Patient somnolent this AM. Ammonia level very elevated likely from his GI bleed. Vitals are stable and no further evidence of bleeding. - Objective Vital Signs & Weight: Vital Signs (12 hours) Temp BP Pulse Ox 06/16/20 12:00 98.0 F 06/16/20 08:41 138/66 06/16/20 08:00 97.9 F 100 06/16/20 04:00 98.0 F Weight Weight 184 lb 4.903 oz Most Recent Monitor Data Heart Rate from ECG 98 NIBP 138/66 NIBP BP-Mean 90 Respiration from ECG 22 SpO2 100 I&O: 06/15/20 06/16/20 06/17/20 06:59 06:59 06:59 Intake Total 659.8 1784.2 Output Total 605 711 210 Balance 54.8 1073.2 -210 Result Diagrams: 06/16/20 03:42 06/16/20 03:42 Additional Labs: Accuchecks 06/14/20 21:39 POC Glucose 155 H Hospitalist ROS - Review of Systems ROS unobtainable: due to mental status - Medication Medications: Active Medications Generic Name Dose Route Start Last Admin Trade Name Freq PRN Reason Stop Dose Admin Carvedilol 6.25 mg 06/16/20 09:00 06/16/20 08:41 Coreg PO Not Given BID SKYLAR Octreotide Acetate 1,250 mcg/ 251.25 mls @ 10.05 mls/hr 06/14/20 19:30 21:03 Sodium Chloride IVPB 251.25 mls INF SKYLAR Administration 50 MCG/HR Ceftriaxone Sodium 2 gm/ 100 mls @ 200 mls/hr 06/15/20 21:00 06/15/20 21:03 Sodium Chloride IVPB 100 mls 2100 SKYLAR Administration Sodium Bicarbonate 150 meq/ 1,150 mls @ 50 mls/hr 06/16/20 10:15 06/16/20 11: 51 Dextrose/Water IV 1,150 mls INF SKYLAR Administration Diltiazem HCl 125 mg/ Sodium 125 mls @ 5 mls/hr 06/16/20 11:30 06/16/20 11:43 Chloride IVPB 125 mls INF SKYLAR Administration 5 MG/HR Lactulose 200 gm 06/16/20 10:00 06/16/20 10:49 Lactulose 10 Gm/15ml Oral Jazmin [place] 200 gm 1000,1600,2200 SKYLAR Administration Pantoprazole Sodium 40 mg 06/15/20 21:00 06/16/20 08:43 Protonix IVP 40 mg Q12HR SKYLAR Administration - Exam General - other findings: somnolent, minimal responsiveness to stimulation Eye: scleral icterus ENT: moist mucosa Heart: RRR, no murmur, no gallops, no rubs Respiratory: CTAB, no wheezes, no rales, no ronchi Gastrointestinal: soft, non-tender, non-distended, normal bowel sounds Neurological: no focal deficits Psychiatric: somnolent Hosp A/P (1) Hepatic encephalopathy Code(s): K72.90 - HEPATIC FAILURE, UNSPECIFIED WITHOUT COMA Status: Acute (2) Esophageal varices with bleeding Code(s): I85.01 - ESOPHAGEAL VARICES WITH BLEEDING Status: Acute (3) Acute blood loss anemia Code(s): D62 - ACUTE POSTHEMORRHAGIC ANEMIA Status: Acute (4) Hyperkalemia Code(s): E87.5 - HYPERKALEMIA Status: Resolved (5) S/P AVR (aortic valve replacement) Code(s): Z95.2 - PRESENCE OF PROSTHETIC HEART VALVE Status: Chronic (6) S/P CABG x 3 Code(s): Z95.1 - PRESENCE OF AORTOCORONARY BYPASS GRAFT Status: Chronic (7) CAD (coronary artery disease) Code(s): I25.10 - ATHSCL HEART DISEASE OF [place] CORONARY ARTERY W/O ANG PCTRS Status: Chronic Qualifiers: Coronary Disease-Associated Artery/Lesion type: bypass graft [place] vs. 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 (9) HTN (hypertension) Code(s): I10 - ESSENTIAL (PRIMARY) HYPERTENSION Status: Chronic Qualifiers: Hypertension type: essential hypertension Qualified Code(s): I10 - Essential (primary) hypertension (10) Obesity (BMI 30.0-34.9) Code(s): E66.9 - OBESITY, UNSPECIFIED Status: Chronic (11) Afib Code(s): I48.91 - UNSPECIFIED ATRIAL FIBRILLATION Status: Chronic Qualifiers: Atrial fibrillation type: paroxysmal Qualified Code(s): I48.0 - Paroxysmal atrial fibrillation (12) ARF (acute renal failure) Status: Acute - Plan Patient s/p esophageal varices banding on 06/14/2020, will need repeat EGD and finish banding in 2 weeks Received 1 unit PRBC, H/H remains stable Extubated. Dr. Bryant following, creatinine rising, potassium now normalized. NPO due to recent variceal bleed and banding, will give scheduled Lactulose.
[2020-06-16] MEDS: Octreotide Acetate 1,250 MCG in Sodium Chloride 0.9% 250 ML 250 ML IVPB SCH (14:31)
--- NOTE | 2020-06-16 18:45 | PRG ---
DATE OF SERVICE: 06/16/2020 REASON FOR CONSULTATION: Cirrhosis with esophageal varix bleed, status post band ligation. SUBJECTIVE: Per nursing staff, there were no acute events or problems overnight. He continues to have some dark black sediment within the bowel management system, but also a significant amount of the lactulose was present in the BMS as well. There was no mention of any hematemesis or hematochezia since the EGD performed on the . Otherwise, the patient is still in a sleep like state and only arousable to noxious stimuli. OBJECTIVE: VITAL SIGNS: Temperature 97.4, pulse 89, blood pressure 123/60, respiratory rate 20, saturating 100% on room air. GENERAL: The patient was lying in bed, in no acute distress. The patient was not alert or oriented at this time and only responding to noxious stimuli. CARDIOVASCULAR: Irregularly irregular rhythm with a 3/6 systolic murmur best heard at the right upper sternal border. RESPIRATORY: Clear to auscultation bilaterally. ABDOMEN: Normoactive bowel sounds. Soft, nondistended, mild tenderness to palpation in the periumbilical region. EXTREMITIES: No cyanosis, clubbing, or edema. LABORATORY DATA: CBC with a white blood cell count of 27.5, hemoglobin 8.5, hematocrit 25.3, platelets 259. Chemistry with a sodium of 138, potassium of 4.9, chloride 104, CO2 of 22, BUN 93, creatinine 1.83, glucose 290, AST 43, ALT 40, alkaline phosphatase 141, total bilirubin 0.5, ammonia 153. IMAGING DATA: No current GI imaging is available for review. ASSESSMENT AND PLAN: 1. Acute variceal hemorrhage, now status post band ligation x2. He continues to have a downtrending hemoglobin/hematocrit, but it is unclear if this is secondary to continued bleeding or just equilibration of the new effective circulating blood volume. 2. Anemia of acute blood loss. 3. Cirrhosis. 4. Hepatic encephalopathy secondary to gastrointestinal bleed, currently receiving lactulose enemas given that oral administration is unfeasible due to his altered mental status. Placement of an NG or Dobhoff tube is not indicated at this time due to the recent placement of variceal bands. 5. Hyperkalemia, now resolving. 6. Acute renal failure. RECOMMENDATIONS: 1. We would continue to trend his H and H and transfuse as necessary to maintain an H and H of 06/16. 2. Continue to monitor clinically for signs of active GI bleeding. 3. We would continue the lactulose enemas as part of treatment for hepatic encephalopathy. If not responding by tomorrow, we would consider placement of a Dobhoff tube at that time given enough time has elapsed to place this past the variceal bands. 4. Continue ceftriaxone for SBP prophylaxis. 5. We would continue the octreotide for a total duration of therapy of 72 hours, then discontinue. 6. Continue PPI 40 mg IV b.i.d. We will continue to follow. Please call with any questions. Dr. Medina will be rounding for the GI service tomorrow. Job ID: [id number]
[2020-06-16] MEDS: cefTRIAXone\\ROCEPHIN 2 GM in Sodium Chloride 0.9% 100 ML IVPB SCH (20:50)
[2020-06-17 04:14] LABS: Anion Gap 13 mmol/L (10-20); Carbon Dioxide 28 mmol/L (23-31); Chloride 105 mmol/L (98-107); Potassium 4.2 mmol/L (3.5-5.1); Sodium 142 mmol/L (136-145)
[2020-06-17 04:18] LABS: ALT (SGPT) 40 U/L (8-55); AST (SGOT) 51 U/L (5-34); Albumin 2.3 g/dL (3.4-4.8); Alkaline Phosphatase 118 U/L (40-110); BUN (Urea Nitrogen) 84 mg/dL (8.4-25.7); Bilirubin, Total 0.4 mg/dL (0.2-1.2); Calc. Creatinine Clearance 38 mL/min (70-130); Estimated GFR-MDRD 41; Glucose 212 mg/dL (83-110); Protein, Total 5.3 g/dL (5.8-8.1)
[2020-06-17 04:46] LABS: Band 8 % (5-11); Hemoglobin 7.2 g/dL (14.0-18.0); Lymphocytes 7 % (21-51); MDiff Complete? YES; Mean Corpuscular HGB CONC 32.6 g/dL (32.0-36.0); Mean Corpuscular Hemoglobin 32.1 pg (27.0-31.0); Mean Corpuscular Volume 98.6 fL (78.0-98.0); Mean Platelet Volume 7.2 fL (7.4-10.4); Monocytes 6 % (0-10); Myelocyte 1 % (0-0); Neutrophil 78 % (42-75); Platelet Count 203 thou/uL (130-400); RBC Distribution Width 16.1 % (11.5-14.5); Red Blood Cell (RBC) Count 2.24 mill/uL (4.70-6.10); White Blood Cell (WBC) Count 14.5 thou/uL (4.8-10.8)
--- NOTE | 2020-06-17 08:05 | PRG ---
DATE OF SERVICE: 06/17/2020 SUBJECTIVE: The patient is able to say good morning today. He perseverates with that response. OBJECTIVE: VITAL SIGNS: His temperature 99.0, pulse 80, blood pressure 113/65. He is on a Cardizem drip because of development of atrial fibrillation yesterday. HEENT: Unremarkable. NECK: No JVD. LUNGS: Clear. CARDIAC: S1 and S2. Irregularly irregular. ABDOMEN: Soft and nontender to palpation. EXTREMITIES: No clubbing, cyanosis, or edema. LABORATORY DATA: Sodium 142, potassium 4.2, chloride 105, CO2 of 28, BUN 84, creatinine 1.6, glucose 212. White blood cell count 14.5, hemoglobin 7.2, hematocrit 22.1, and platelet count 203. ASSESSMENT: 1. Hepatic encephalopathy. Ammonia level improved on lactulose from 153 to 23. 2. Status post esophageal varices with banding. 3. Corrected metabolic acidosis-currently on bicarb drip from Nephrology. 4. Hyperkalemia. 5. Acute renal failure. PLAN: 1. Numbers are slowly improving. H and H remain somewhat worrisome and may require another transfusion by tomorrow. 2. I would recommend discontinuation of the bicarbonate drip and continue monitoring in the ICU for at least another 24 hours. Keep on Cardizem until he is able to take his Coreg. Job ID: [id number]
[2020-06-17] MEDS: Pantoprazole 40 MG VIAL IVP SCH ×2 (08:21→20:55)
[2020-06-17] MEDS: Carvedilol 6.25 MG TAB PO SCH ×2 (08:22→20:53)
[2020-06-17] MEDS: Albumin 25% 25 GM/100 ML BOT IVPB SCH ×2 (08:24→15:49)
--- NOTE | 2020-06-17 09:20 | PDOC.HOSPP ---
- Subjective Encounter Date: 06/17/20 Encounter Time: 10:00 Subjective: Patient much more awake today. Says "Hi" and "I'm fine" that are pretty understandable. Still confused and few words. - Objective Vital Signs & Weight: Vital Signs (12 hours) Temp BP Pulse Ox 06/17/20 08:22 138/66 06/17/20 07:05 100 06/17/20 07:00 99.0 F 06/17/20 04:00 98.7 F 06/17/20 00:00 98.2 F Weight Weight 161 lb 6.054 oz Most Recent Monitor Data Heart Rate from ECG 70 NIBP 98/33 NIBP BP-Mean 54 Respiration from ECG 23 SpO2 98 I&O: 06/16/20 06/17/20 06/18/20 06:59 06:59 06:59 Intake Total 1784.2 1450.1 0 Output Total 711 1355 140 Balance 1073.2 95.1 -140 Result Diagrams: 06/17/20 03:30 06/17/20 03:30 Hospitalist ROS - Review of Systems ROS unobtainable: due to mental status - Medication Medications: Active Medications Generic Name Dose Route Start Last Admin Trade Name Freq PRN Reason Stop Dose Admin Albumin Human 25 gm 06/17/20 08:15 06/17/20 08:24 Albumin 25% IVPB 06/18/20 08:16 25 gm Q8H SKYLAR Administration Carvedilol 6.25 mg 06/16/20 09:00 06/17/20 08:22 Coreg PO Not Given BID SKYLAR Octreotide Acetate 1,250 mcg/ 251.25 mls @ 10.05 mls/hr 06/14/20 19:30 14:31 Sodium Chloride IVPB 251.25 mls INF SKYLAR Administration 50 MCG/HR Ceftriaxone Sodium 2 gm/ 100 mls @ 200 mls/hr 06/15/20 21:00 06/16/20 20:50 Sodium Chloride IVPB 100 mls 2100 SKYLAR Administration Sodium Bicarbonate 150 meq/ 1,150 mls @ 50 mls/hr 06/16/20 10:15 06/16/20 11: 51 Dextrose/Water IV 1,150 mls INF SKYLAR Administration Diltiazem HCl 125 mg/ Sodium 125 mls @ 5 mls/hr 06/16/20 11:30 06/16/20 11:43 Chloride IVPB 125 mls INF SKYLAR Administration 5 MG/HR Lactulose 200 gm 06/16/20 10:00 06/16/20 21:36 Lactulose 10 Gm/15ml Oral Jazmin [place] 200 gm 1000,1600,2200 SKYLAR Administration Pantoprazole Sodium 40 mg 06/15/20 21:00 06/17/20 08:21 Protonix IVP 40 mg Q12HR SKYLAR Administration - Exam General Appearance: NAD, awake alert ENT: moist mucosa Heart: RRR, no murmur, no gallops, no rubs Respiratory: CTAB, no wheezes, no rales, no ronchi Gastrointestinal: soft, non-tender, non-distended, normal bowel sounds Neurological: no focal deficits Psychiatric: not oriented Hosp A/P (1) Hepatic encephalopathy Code(s): K72.90 - HEPATIC FAILURE, UNSPECIFIED WITHOUT COMA Status: Acute (2) Esophageal varices with bleeding Code(s): I85.01 - ESOPHAGEAL VARICES WITH BLEEDING Status: Acute (3) Acute blood loss anemia Code(s): D62 - ACUTE POSTHEMORRHAGIC ANEMIA Status: Acute (4) Hyperkalemia Code(s): E87.5 - HYPERKALEMIA Status: Resolved (5) S/P AVR (aortic valve replacement) Code(s): Z95.2 - PRESENCE OF PROSTHETIC HEART VALVE Status: Chronic (6) S/P CABG x 3 Code(s): Z95.1 - PRESENCE OF AORTOCORONARY BYPASS GRAFT Status: Chronic (7) CAD (coronary artery disease) Code(s): I25.10 - ATHSCL HEART DISEASE OF [place] CORONARY ARTERY W/O ANG PCTRS Status: Chronic Qualifiers: Coronary Disease-Associated Artery/Lesion type: bypass graft [place] vs. 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 insulin use: without long-term use (9) HTN (hypertension) Code(s): I10 - ESSENTIAL (PRIMARY) HYPERTENSION Status: Chronic Qualifiers: Hypertension type: essential hypertension Qualified Code(s): I10 - Essential (primary) hypertension (10) Obesity (BMI 30.0-34.9) Code(s): E66.9 - OBESITY, UNSPECIFIED Status: Chronic (11) Afib Code(s): I48.91 - UNSPECIFIED ATRIAL FIBRILLATION Status: Chronic Qualifiers: Atrial fibrillation type: paroxysmal Qualified Code(s): I48.0 - Paroxysmal atrial fibrillation (12) ARF (acute renal failure) Status: Acute - Plan Patient s/p esophageal varices banding on 06/14/2020, will need repeat EGD and finish banding in 2 weeks Received 1 unit PRBC, H/H trending down, may need another transfusion if dips below 7. Extubated. Dr. Bryant following, creatinine stabilized and now improving. NPO due to AMS and can't place NG tube due to recent variceal bleed and banding - improving so hope to switch to po meds soon Hepatic encephalopathy improving with rectal lactulose, ammonia now down to normal
[2020-06-17] MEDS: Lactulose 10 GM/15 ML Oral Solution PR SCH ×3 (09:39→23:49)
--- NOTE | 2020-06-17 11:18 | PRG ---
DATE OF SERVICE: 06/17/2020 SUBJECTIVE: Mr. Camacho is more awake today, but not fully alert yet. He is currently not oriented. Lactulose enema continued without any problem. No new GI issue. No signs of recurrent bleeding. OBJECTIVE: VITAL SIGNS: Temperature is 99.0, blood pressure 138/66, and pulse of 78. GENERAL: Enjoys moving around in bed with open eyes. Not able to answer questions appropriately. HEENT: Shows anicteric sclerae. Oropharynx is clear. NECK: Supple. CV: Shows normal S1 and S2. Irregular rhythm, but regular rate. CHEST: Shows poor excursion. ABDOMEN: Soft and nontender. He has bowel sounds. EXTREMITIES: No edema. LABORATORY DATA: WBCs 14.5, hemoglobin 7.2, and platelet count of 203. Electrolytes within normal range. Creatinine 1.62. Bilirubin of 0.4, AST 51, ALT 40, and alkaline phosphatase 118. Serum ammonia is 23. ASSESSMENT: 1. Hepatic encephalopathy, resolving with normalization of serum ammonia. He is more awake, but not fully alert nor oriented. 2. Status post esophageal variceal bleeding, status post banding ligation. Hemoglobin is slightly lower today, but no signs of recurrent bleeding. Still on IV octreotide. 3. Cirrhosis, either from alcohol or [place]. 4. Acute renal failure. RECOMMENDATIONS: 1. Continue with rectal lactulose enema as the patient is not fully alert to take oral lactulose. 2. We will start on rifaximin 550 mg p.o. b.i.d. 3. Hopefully, can stop IV octreotide and start on oral nadolol tomorrow if he becomes more alert. 4. Continue to trend blood count. Job ID: [id number]
[2020-06-17] MEDS: Sodium Bicarbonate 150 MEQ in Dextrose 5% in Water 1,000 ML IV SCH (11:42)
--- NOTE | 2020-06-17 12:07 | PRG ---
DATE OF SERVICE: 06/17/2020 SERVICE: Nephrology. SUBJECTIVE: A 80-year-old male with cirrhosis, coronary artery disease, CKD, and others, admitted due to acute GI/variceal bleeding. Nephrology is seeing the patient for hyperkalemia and acute kidney injury. The patient is still lethargic and disoriented. He, however, seemed more awake today, but still non-conversational. He remained n.p.o. OBJECTIVE: VITAL SIGNS: Temperature 99, pulse 83, respiratory rate 17, SpO2 100% on nasal cannula, blood pressure is 105/48. Intake and output in the last 24 hours showed total intake of 1450 with total output of 1255. GENERAL: An elderly male, in no obvious distress. Afebrile. HEENT: Normocephalic and atraumatic. Oral mucosa is mildly dry. NECK: Supple with no JVD. CARDIOVASCULAR: Irregular rhythm and rate with normal rate. Heart sounds one and two are normal. RESPIRATORY: Fair air entry bilaterally. Few transmitted breath sounds with no obvious rhonchi or use of accessory muscles. GI: Full, soft, nontender, nondistended with normal bowel sounds. UROGENITAL: Espitia catheter and rectal tubes are in place. MUSCULOSKELETAL: Both forearms are swollen with some petechiae and ecchymosis as well as some exudation of fluid noted. EXTREMITIES: Lower extremities are grossly normal looking with no edema or erythema. 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 He responds to call and stimulation. He is trying to verbalize, but mostly nonsense. LABORATORY DATA: CBC today showed WBC count of 14.5, hemoglobin of 7.2, MCV of 98.6, platelet of 203. CMP today showed sodium 142, potassium 4.2, chloride 105, CO2 of 28, BUN 84, creatinine 1.62, glucose 212, calcium 9.0, total bilirubin 0.4. AST 51, ALT 40, alkaline phosphatase 118, total protein 5.3, albumin 2.3. ASSESSMENT: 1. Acute kidney injury: Due to hemodynamic factors related to gastrointestinal bleeding and volume contraction as well as effect of atrial fibrillation with rapid ventricular response. Creatinine is marginally better today at 1.62 from peak of 1.83 yesterday. 2. Hyperkalemia: Resolved. 3. Metabolic acidosis: Resolved with alkali therapy with sodium bicarbonate. 4. Upper extremity swelling, edema, and exudation due to hypoalbuminemia. 5. Hypoalbuminemia. 6. Presumed volume contraction given hypercalcemia, improving with fluid therapy. 7. Hypercalcemia: Due to volume depletion, improved with IV fluid therapy. 8. Liver cirrhosis with acute encephalopathy. 9. Acute gastrointestinal bleed from variceal bleeding, status post banding. PLAN: 1. We will give albumin to expand intravascular space with a view to mobilizing space fluid as well as improve hemodynamics. The patient seems to be clinically dry despite upper extremity edema, but IV fluid will worsen the exudation, hence albumin. We will monitor hemodynamics closely. 2. We will recheck renal function in the morning. 3. Anticipate further drop in hemoglobin with albumin, which will correct hemoconcentration. We will defer blood transfusion to primary attending and GI. 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 Job ID: [id number]
[2020-06-17] MEDS: Rifaximin 550 MG TAB PO SCH ×2 (20:53→21:41)
[2020-06-17] MEDS: Diltiazem 125 MG in Sodium Chloride 0.9% 100 ML IVPB SCH (20:54)
[2020-06-17] MEDS: cefTRIAXone\\ROCEPHIN 2 GM in Sodium Chloride 0.9% 100 ML IVPB SCH (20:54)
[2020-06-18] MEDS: Albumin 25% 25 GM/100 ML BOT IVPB SCH ×2 (00:30→07:36)
[2020-06-18 04:34] LABS: ALT (SGPT) 35 U/L (8-55); AST (SGOT) 42 U/L (5-34); Albumin 3.2 g/dL (3.4-4.8); Alkaline Phosphatase 100 U/L (40-110); Anion Gap 12 mmol/L (10-20); BUN (Urea Nitrogen) 61 mg/dL (8.4-25.7); Bilirubin, Total 0.6 mg/dL (0.2-1.2); Calc. Creatinine Clearance 50 mL/min (70-130); Calcium 9.2 mg/dL (7.8-10.44); Carbon Dioxide 32 mmol/L (23-31); Chloride 104 mmol/L (98-107); Estimated GFR-MDRD 56; Globulin 2.5 g/dL (2.4-3.5); Glucose 150 mg/dL (83-110); Potassium 3.3 mmol/L (3.5-5.1); Protein, Total 5.7 g/dL (5.8-8.1); Sodium 145 mmol/L (136-145)
[2020-06-18] MEDS ORDERED: Potassium Chloride 20 MEQ TAB PO SCH (07:00)
[2020-06-18] MEDS ORDERED: Digoxin 0.5 MG/2 ML AMP SLOW IVP SCH (08:15)
[2020-06-18] MEDS: Carvedilol 6.25 MG TAB PO SCH ×2 (08:29→21:25)
[2020-06-18] MEDS: Rifaximin 550 MG TAB PO SCH ×2 (08:29→21:01)
[2020-06-18] MEDS: Pantoprazole 40 MG VIAL IVP SCH ×2 (08:31→21:01)
[2020-06-18] MEDS ORDERED: Nadolol 40 MG TAB PO SCH (09:00)
--- NOTE | 2020-06-18 09:01 | PRG ---
DATE OF SERVICE: 06/18/2020 SUBJECTIVE: The patient is much more awake and alert. He is using his cellphone now. OBJECTIVE: VITAL SIGNS: Temperature 98.4, pulse 109, and blood pressure 99/54. Intake 2595, output 1280. HEENT: Unremarkable. NECK: No JVD. CHEST: Clear. CARDIAC: S1 and S2. Irregularly irregular. Slightly tachycardic. ABDOMEN: Soft. EXTREMITIES: No edema. LABORATORY DATA: White blood cell count 14.5, hematocrit 22.1, and platelet count 203. Sodium 145, potassium 3.3, chloride 104, CO2 of 32, BUN 61, creatinine 1.2, and glucose 150. ASSESSMENT: 1. Improved hepatic encephalopathy. 2. Atrial fibrillation. 3. Rapid ventricular response. 4. Acute renal failure-improving BUN and creatinine. 5. Anemia due to blood loss from variceal bleed. 6. Cirrhosis. PLAN: 1. The patient can be transferred to [facility]. 2. Stop Cardizem drip. Start IV digoxin till he is able to take oral medications more confidently. 3. He was placed back on his carvedilol yesterday. He is also on nadolol. Job ID: [id number]
--- NOTE | 2020-06-18 09:08 | PDOC.HOSPP ---
- Subjective Encounter Date: 06/18/20 Encounter Time: 11:00 Subjective: Patient alert and talking well, still mildly confused and can't remember coming into the hospital but much better. Taking good po fluids per nursing. - Objective Vital Signs & Weight: Vital Signs (12 hours) Temp Pulse BP Pulse Ox 06/18/20 08:29 99/54 L 06/18/20 08:28 113 H 06/18/20 07:06 96 06/18/20 07:00 98.4 F 06/18/20 05:00 98.7 F Weight Weight 167 lb 5.294 oz Most Recent Monitor Data Heart Rate from ECG 81 NIBP 95/46 NIBP BP-Mean 62 Respiration from ECG 15 SpO2 96 I&O: 06/17/20 06/18/20 06/19/20 06:59 06:59 06:59 Intake Total 1450.1 2595.6 390 Output Total 1355 1280 190 Balance 95.1 1315.6 200 Result Diagrams: 06/18/20 09:44 06/18/20 03:33 Hospitalist ROS - Review of Systems Constitutional: denies: fever, chills Respiratory: denies: cough, shortness of breath Cardiovascular: denies: chest pain, palpitations Gastrointestinal: denies: nausea, vomiting, abdominal pain - Medication Medications: Active Medications Generic Name Dose Route Start Last Admin Trade Name Onurq PRN Reason Stop Dose Admin Carvedilol 6.25 mg 06/16/20 09:00 06/18/20 08:29 Coreg PO 6.25 mg BID SKYLAR Administration Digoxin 0.25 mg 06/18/20 08:15 06/18/20 08:28 Lanoxin SLOW IVP 06/18/20 10:00 0.25 mg NOW SKYLAR Administration Ceftriaxone Sodium 2 gm/ 100 mls @ 200 mls/hr 06/15/20 21:00 06/17/20 20:54 Sodium Chloride IVPB 100 mls 2100 SKYLAR Administration Lactulose 200 gm 06/16/20 10:00 06/17/20 23:49 Lactulose 10 Gm/15ml Oral [place] 200 gm 1000,1600,2200 SKYLAR Administration Nadolol 40 mg 06/18/20 09:00 06/18/20 08:29 Corgard PO 40 mg DAILY SKYLAR Administration Pantoprazole Sodium 40 mg 06/15/20 21:00 06/18/20 08:31 Protonix IVP 40 mg Q12HR SKYLAR Administration Potassium Chloride 40 meq 06/18/20 07:00 06/18/20 07:34 K-Dur PO 06/18/20 10:00 40 meq NOW SKYLAR Administration Rifaximin 550 mg 06/17/20 21:00 06/18/20 08:29 Xifaxan PO 550 mg BID SKYLAR Administration - Exam General Appearance: NAD, awake alert ENT: moist mucosa Heart: RRR, no murmur, no gallops, no rubs Respiratory: CTAB, no wheezes, no rales, no ronchi Gastrointestinal: soft, non-tender, non-distended, normal bowel sounds Psychiatric: normal affect, normal behavior Hosp A/P (1) Hepatic encephalopathy Code(s): K72.90 - HEPATIC FAILURE, UNSPECIFIED WITHOUT COMA Status: Acute (2) Esophageal varices with bleeding Code(s): I85.01 - ESOPHAGEAL VARICES WITH BLEEDING Status: Acute (3) Acute blood loss anemia Code(s): D62 - ACUTE POSTHEMORRHAGIC ANEMIA Status: Acute (4) Hyperkalemia Code(s): E87.5 - HYPERKALEMIA Status: Resolved (5) S/P AVR (aortic valve replacement) Code(s): Z95.2 - PRESENCE OF PROSTHETIC HEART VALVE Status: Chronic (6) S/P CABG x 3 Code(s): Z95.1 - PRESENCE OF AORTOCORONARY BYPASS GRAFT Status: Chronic (7) CAD (coronary artery disease) Code(s): I25.10 - ATHSCL HEART DISEASE OF [place] CORONARY ARTERY W/O ANG PCTRS Status: Chronic Qualifiers: Coronary Disease-Associated Artery/Lesion type: bypass graft [place] vs. transplanted heart: [place] heart Associated angina: without angina Qualified Code(s): I25.810 - Atherosclerosis of coronary artery bypass graft(s) without angina pectoris (8) DM2 (diabetes mellitus, type 2) Status: Chronic Qualifiers: Diabetes mellitus termite control technician insulin use: without termite control technician use (9) HTN (hypertension) Code(s): I10 - ESSENTIAL (PRIMARY) HYPERTENSION Status: Chronic Qualifiers: Hypertension type: essential hypertension Qualified Code(s): I10 - Essential (primary) hypertension (10) Obesity (BMI 30.0-34.9) Code(s): E66.9 - OBESITY, UNSPECIFIED Status: Chronic (11) Afib Code(s): I48.91 - UNSPECIFIED ATRIAL FIBRILLATION Status: Chronic Qualifiers: Atrial fibrillation type: paroxysmal Qualified Code(s): I48.0 - Paroxysmal atrial fibrillation (12) ARF (acute renal failure) Status: Acute - Plan Patient s/p esophageal varices banding on 06/14/2020, will need repeat EGD and finish banding in 2 weeks Received 1 unit PRBC, H/H trending down, below 7 this AM so will give 2 more units PRBC. Extubated. Dr. Bryant following, creatinine stabilized and now improving. NPO due to AMS and can't place NG tube due to recent variceal bleed and banding - improving so hope to switch to po meds soon Hepatic encephalopathy improving markedly with rectal lactulose, ammonia now down to normal Can try transitioning to oral medications
[2020-06-18] MEDS: Lactulose 10 GM/15 ML Oral Solution PR SCH (09:36)
[2020-06-18 09:56] LABS: Hemoglobin 6.3 g/dL (14.0-18.0)
[2020-06-18] MEDS ORDERED: Albumin 25% 25 GM/100 ML BOT IVPB SCH (14:06)
[2020-06-18] MEDS: Sodium Chloride 0.9% 1,000 ML IV SCH (16:37)
--- NOTE | 2020-06-18 16:45 | PRG ---
DATE OF SERVICE: 06/18/2020 SUBJECTIVE: Mr. Camacho has had no bleeding. He has some complaints of left arm and right arm pain. He has been moved from the ICU to the intermediate care unit. Nurse notes that he has had no bleeding or melena. He has started to take oral lactulose. Lactose enemas have been discontinued. His blood pressure is running about low in the low 80s to upper 70s. He has been started on some albumin. He is receiving blood. He has no IV fluid. Apparently, his blood pressure was fine earlier. MEDICATIONS: 1. Tylenol p.r.n. 2. Albumin 25 g one dose. 3. Carvedilol 6.25 b.i.d. 4. Rocephin. 5. Digoxin 0.125 mg daily. 6. Lactulose 20 g p.o. t.i.d. 7. . 8. Nadolol 40 mg p.o. daily was given at 9 this morning. 9. Protonix 40 mg daily. 10. . OBJECTIVE: VITAL SIGNS: Temperature 97.4, pulse 113 today. Blood pressure 82/42, it was 90s over 40s to 107s over 40s yesterday. GENERAL: He is more alert. He is awake and knows he is at [facility]. He is speaking slowly. He is somewhat pale still. HEENT: Oropharynx, no lesions. NECK: Supple. LUNGS: Clear. HEART: Regular without clicks or murmurs. ABDOMEN: Soft, nontender. EXTREMITIES: No clubbing, cyanosis, or edema. NEUROLOGIC: Mild asterixis. A look at his In's and Out's, yesterday 2595 in, 1315 out. Espitia was 1280 and output through his bowel movements was not recorded. There was a large amount of stool in his rectal tube presently. LABORATORY DATA: Hemoglobin 6.3, was 7.2 at 3 this morning, it was 9.5 yesterday. White count was 14 this morning, platelet count 203. INR 1.4. Sodium 145, potassium 3.3, BUN and creatinine are 61 and 1.25. AST 42, ALT 35. Albumin 3.2. ASSESSMENT: 1. Gastrointestinal hemorrhage from variceal bleed, status post banding on 06/14. 2. Severe hepatic encephalopathy, much better today, now with taking oral lactulose and Xifaxan. 3. History of ascites, on medications at home for this, not present presently. 4. Hypotension today. This may be related to starting the nadolol today. I will go ahead and hold back going forward for now. 5. His hemoglobin has dropped some. He is off the octreotide. There are no overt signs of bleeding. We will continue the IV PPI and agree with transfusion. 6. We will start some IV fluids on him along with albumin. We will check hemoglobin later today. If there are signs of acute hemorrhage, we can consider repeat endoscopy, restarting of Aldactone. Would continue his Rocephin, prophylaxis for GI bleed as well. Job ID: [id number]
[2020-06-18] MEDS ORDERED: traMADol HCl 50 MG TAB PO SCH (21:00)
[2020-06-18] MEDS: cefTRIAXone\\ROCEPHIN 2 GM in Sodium Chloride 0.9% 100 ML IVPB SCH (21:00)
[2020-06-18] MEDS: Lidocaine 5% Patch TD SCH (21:25)
[2020-06-19] MEDS: Sodium Chloride 0.9% 1,000 ML IV SCH (00:36)
[2020-06-19] MEDS: traMADol HCl 50 MG TAB PO PRN ×2 (01:49→10:12)
[2020-06-19 03:16] LABS: #Eosinphils 0.5 thou/uL (0.0-0.7); #Lymphocytes 1.3 thou/uL (1.20-3.40); #Monocytes 1.1 thou/uL (0.11-0.59); #Neutrophils 7.3 thou/uL (1.40-6.50); %Basophils 0.1 % (0.0-1.0); %Eosinophils 4.9 % (0.0-10.0); %Lymphocytes 12.5 % (21.0-51.0); %Monocytes 11.1 % (0.0-10.0); %Neutrophils 71.4 % (42.0-75.0); Hemoglobin 8.3 g/dL (14.0-18.0); Mean Corpuscular HGB CONC 33.9 g/dL (32.0-36.0); Mean Corpuscular Hemoglobin 33.5 pg (27.0-31.0); Mean Corpuscular Volume 98.9 fL (78.0-98.0); Mean Platelet Volume 7.4 fL (7.4-10.4); Platelet Count 148 thou/uL (130-400); RBC Distribution Width 16.3 % (11.5-14.5); Red Blood Cell (RBC) Count 2.49 mill/uL (4.70-6.10); White Blood Cell (WBC) Count 10.2 thou/uL (4.8-10.8)
[2020-06-19 03:22] LABS: INR-International Normal Ratio 1.5; Prothrombin Time 17.6 sec (12.0-14.7)
[2020-06-19 03:40] LABS: ALT (SGPT) 30 U/L (8-55); AST (SGOT) 34 U/L (5-34); Albumin 3.4 g/dL (3.4-4.8); Alkaline Phosphatase 97 U/L (40-110); Anion Gap 13 mmol/L (10-20); BUN (Urea Nitrogen) 54 mg/dL (8.4-25.7); Bilirubin, Total 1.2 mg/dL (0.2-1.2); Calc. Creatinine Clearance 48 mL/min (70-130); Calcium 8.6 mg/dL (7.8-10.44); Carbon Dioxide 28 mmol/L (23-31); Chloride 101 mmol/L (98-107); Estimated GFR-MDRD 51; Globulin 2.4 g/dL (2.4-3.5); Glucose 130 mg/dL (83-110); Potassium 3.7 mmol/L (3.5-5.1); Protein, Total 5.8 g/dL (5.8-8.1); Sodium 138 mmol/L (136-145)
--- NOTE | 2020-06-19 07:41 | PDOC.HOSPP ---
- Subjective Encounter Date: 06/19/20 Encounter Time: 10:00 Subjective: Patient without complaints. His BP was very low yesterday afternoon so Nadalol discontinued. Better this AM but Coreg still being held. - Objective Vital Signs & Weight: Vital Signs (12 hours) Temp BP BP Pulse Ox 06/19/20 03:45 98.4 F 06/19/20 00:00 96 06/18/20 23:40 98.4 F 06/18/20 22:00 96/43 L 06/18/20 21:25 91/55 L 06/18/20 21:00 91/55 L 06/18/20 20:00 96 Weight Weight 167 lb 5.294 oz Most Recent Monitor Data Heart Rate from ECG 79 NIBP 104/51 NIBP BP-Mean 68 Respiration from ECG 11 SpO2 97 I&O: 06/18/20 06/19/20 06/20/20 06:59 06:59 06:59 Intake Total 2595.6 3486 Output Total 1280 1165 Balance 1315.6 2321 Result Diagrams: 06/19/20 02:55 06/19/20 02:55 Additional Labs: Accuchecks 06/14/20 22:32 POC Glucose 202 H Hospitalist ROS - Review of Systems Constitutional: denies: fever, chills Respiratory: denies: cough, shortness of breath Cardiovascular: denies: chest pain, palpitations Gastrointestinal: denies: nausea, vomiting, abdominal pain - Medication Medications: Active Medications Generic Name Dose Route Start Last Admin Trade Name Freq PRN Reason Stop Dose Admin Acetaminophen 650 mg 06/14/20 20:41 06/18/20 10:46 Tylenol PO 650 mg Q4H PRN Administration Headache/Fever/Mild Pain (1-3) Carvedilol 6.25 mg 06/16/20 09:00 06/18/20 21:25 Coreg PO Not Given BID SKYLAR Ceftriaxone Sodium 2 gm/ 100 mls @ 200 mls/hr 06/15/20 21:00 06/18/20 21:00 Sodium Chloride IVPB 100 mls 2100 SKYLAR Administration Sodium Chloride 1,000 mls @ 75 mls/hr 06/18/20 16:00 06/19/20 00:36 Normal Saline 0.9% IV 1,000 mls .[id number] SKYLAR Administration Lactulose 20 gm 06/18/20 15:00 06/18/20 21:00 Lactulose PO 20 gm TID SKYLAR Administration Lidocaine 1 patch 06/18/20 21:00 06/18/20 21:25 Lidoderm 5% Patch TD 1 patch 2100 SKYLAR Administration Pantoprazole Sodium 40 mg 06/15/20 21:00 06/18/20 21:01 Protonix IVP 40 mg Q12HR SKYLAR Administration Rifaximin 550 mg 06/17/20 21:00 06/18/20 21:01 Xifaxan PO 550 mg BID SKYLAR Administration Tramadol HCl 50 mg 06/19/20 01:40 06/19/20 01:49 Ultram PO 50 mg Q4H PRN Administration Moderate to Severe Pain (6-10) - Exam General Appearance: NAD, awake alert ENT: moist mucosa Heart: RRR, no murmur, no gallops, no rubs Respiratory: CTAB, no wheezes, no rales, no ronchi Gastrointestinal: soft, non-tender, non-distended, normal bowel sounds Psychiatric: normal affect, normal behavior, oriented to person, oriented to place, oriented to time Hosp A/P (1) Hepatic encephalopathy Code(s): K72.90 - HEPATIC FAILURE, UNSPECIFIED WITHOUT COMA Status: Acute (2) Esophageal varices with bleeding Code(s): I85.01 - ESOPHAGEAL VARICES WITH BLEEDING Status: Acute (3) Acute blood loss anemia Code(s): D62 - ACUTE POSTHEMORRHAGIC ANEMIA Status: Acute (4) Hyperkalemia Code(s): E87.5 - HYPERKALEMIA Status: Resolved (5) S/P AVR (aortic valve replacement) Code(s): Z95.2 - PRESENCE OF PROSTHETIC HEART VALVE Status: Chronic (6) S/P CABG x 3 Code(s): Z95.1 - PRESENCE OF AORTOCORONARY BYPASS GRAFT Status: Chronic (7) CAD (coronary artery disease) Code(s): I25.10 - ATHSCL HEART DISEASE OF [place] CORONARY ARTERY W/O ANG PCTRS Status: Chronic Qualifiers: Coronary Disease-Associated Artery/Lesion type: bypass graft [place] vs. transplanted heart: [place] heart Associated angina: without angina Qualified Code(s): I25.810 - Atherosclerosis of coronary artery bypass graft(s) without angina pectoris (8) DM2 (diabetes mellitus, type 2) Status: Chronic Qualifiers: Diabetes mellitus residential insulin use: without terminal manager use (9) HTN (hypertension) Code(s): I10 - ESSENTIAL (PRIMARY) HYPERTENSION Status: Chronic Qualifiers: Hypertension type: essential hypertension Qualified Code(s): I10 - Essential (primary) hypertension (10) Obesity (BMI 30.0-34.9) Code(s): E66.9 - OBESITY, UNSPECIFIED Status: Chronic (11) Afib Code(s): I48.91 - UNSPECIFIED ATRIAL FIBRILLATION Status: Chronic Qualifiers: Atrial fibrillation type: paroxysmal Qualified Code(s): I48.0 - Paroxysmal atrial fibrillation (12) ARF (acute renal failure) Status: Acute - Plan Patient s/p esophageal varices banding on 06/14/2020, will need repeat EGD and finish banding in 2 weeks Received 2 more units PRBC yesterday, Hgb improved today. Dr. Bryant following, creatinine stabilized and now improving. Some low BPs on Nadolol yesterday, d/c'd by Dr. Briceño and IV fluids, albumin given. BP better this AM. Transitioned to po Lactulose and medications. Encephalopathy much improved. Will see how he does with PT. May need some rehab.
[2020-06-19] MEDS: Pantoprazole 40 MG VIAL IVP SCH ×2 (08:59→20:24)
[2020-06-19] MEDS: Lidocaine Patch Removal TOP SCH (09:00)
[2020-06-19] MEDS: Rifaximin 550 MG TAB PO SCH ×2 (09:00→20:23)
[2020-06-19] MEDS ORDERED: Digoxin 0.5 MG/2 ML AMP SLOW IVP SCH (09:00)
[2020-06-19] MEDS: Carvedilol 6.25 MG TAB PO SCH (09:08)
--- NOTE | 2020-06-19 09:44 | PRG ---
DATE OF SERVICE: 06/18/2020 SERVICE: Nephrology. SUBJECTIVE: A 80-year-old male with GI bleeding, seen in followup for acute kidney injury and hyperkalemia. The patient is clinically improved. He is awake and conversational today. Tolerating oral intake. OBJECTIVE: VITAL SIGNS: Temperature 98.4, pulse 81, respiratory rate 16, SpO2 of 96, blood pressure is 95/46. Intake and output in the last 24 hours showed total intake of 2595 with total output of 1200. GENERAL: Ill-looking, elderly man in no obvious distress. Afebrile, acyanotic. HEENT: Normocephalic, atraumatic. Oral mucosa is moist. Conjunctivae, pallor noted. NECK: Supple with no JVD. CARDIOVASCULAR: Irregular rhythm and rate with normal heart sounds 1 and 2. RESPIRATORY: Fair air entry bilaterally with some transmitted breath sounds but no obvious respiratory distress. GI: Full, soft, nontender, nondistended with normal bowel sounds. UROGENITAL: Espitia catheter and rectal tubes are in place. MUSCULOSKELETAL: Mild edema of right forearm noted. Other extremities are grossly normal looking, atraumatic with no obvious edema. SKIN: Ecchymosis and petechiae of both forearms noted. GRAIN MANAGER: Conscious and alert, oriented x2 at least. Some memory lapse is noted. DIAGNOSTIC DATA: Hemoglobin and hematocrit today showed a hemoglobin of 6.3 and hematocrit of 19.7. Chemistry showed sodium of 145, potassium 3.3, chloride 104, CO2 of 32, BUN 61, creatinine 1.25, glucose 150, calcium 9.2. Total bilirubin 0.6, AST 42, ALT 35, alkaline phosphatase 100, total protein 5.7, albumin 3.2. Ammonia level is down to 29. ASSESSMENT: 1. Acute kidney injury: Due to hemodynamic factors related to hemorrhage and intravascular contraction. Creatinine has improved significantly from peak of 1.8 to 1.2 today. BUN is still elevated, but also trending downwards. Elevated BUN most likely related to GI bleeding in addition to RICARDO. 2. Hyponatremia: Most likely due to urinary and colonic losses. The patient has been getting lactulose rectally. 3. Hyperkalemia: Related to acute kidney injury as well as metabolic acidosis. Resolved. 4. Metabolic acidosis: Improved with improvement of hemodynamics and renal function as well as CO2 which is 34 today. 5. Acute blood loss anemia. 6. Variceal bleeding. 7. Liver cirrhosis with decompensation and acute hepatic encephalopathy. 8. Hypotension: Multifactorial related to atrial fibrillation as well as volume contraction. Improved. PLAN: 1. We will replete serum potassium with 40 mEq of potassium chloride. 2. We will also discontinue sodium bicarbonate infusion in view of resolution of metabolic acidosis and development of mild metabolic alkalosis. 3. We will also give another dose of albumin as blood pressure is on the soft side. 4. Oral intake advised. 5. 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 We will recheck renal function test in the morning. Further treatment to follow depending on hospital course. Job ID: [id number]
--- NOTE | 2020-06-19 10:16 | PRG ---
DATE OF SERVICE: 06/19/2020 SUBJECTIVE: The patient is doing well, much more interactive, in no distress. OBJECTIVE: VITAL SIGNS: Temperature 98.0, pulse 68, blood pressure 105/50, O2 saturation 97%. HEENT: Unremarkable. NECK: No JVD. CHEST: Clear. CARDIAC: S1 and S2. Regular. ABDOMEN: Soft. EXTREMITIES: Bruised right arm, bruised tips of left fingers. LABORATORY DATA: White blood cell count 10, hematocrit 24.6, and platelet count 148. INR 1.5. Sodium 138, potassium 3.7, chloride 101, CO2 of 28, BUN 54, creatinine 1.3, glucose 130, ammonia level 25. ASSESSMENT: 1. Hepatic encephalopathy. 2. Atrial fibrillation. 3. Acute renal failure-improved BUN and creatinine. 4. Anemia due to variceal bleed. 5. Cirrhosis. PLAN: Doing well. Heart rate seems under adequate control. I will go ahead and stop the digoxin and this can be managed with the beta-jason that was started yesterday. No further pulmonary recommendations at this time available as needed. Job ID: [id number]
--- NOTE | 2020-06-19 11:46 | PRG ---
DATE OF SERVICE: 06/19/2020 SERVICE: Nephrology. SUBJECTIVE: A 80-year-old male with acute GI/variceal bleeding, seen in followup for acute kidney injury. The patient is improved and tolerating oral intake. Denied nausea or vomiting. Received blood transfusion yesterday. OBJECTIVE: VITAL SIGNS: Temperature 98.1, pulse 97, respiratory rate 24, SpO2 of 96, blood pressure is 98/60. I and O in the last 24 hours showed total intake of 3486 with total output of 1165. GENERAL: Elderly male, in no obvious distress. The patient is fatigued. HEENT: Normocephalic, atraumatic. Oral mucosa is moist. NECK: Supple with no obvious JVD. CARDIOVASCULAR: Irregular rhythm and rate with normal heart sounds 1 and 2. RESPIRATORY: Fair air entry bilateral with some transmitted breath sounds. No obvious respiratory distress. GI: Full, soft, nontender, nondistended with normal bowel sounds. UROGENITAL: Espitia catheter is in place draining some urine. MUSCULOSKELETAL: Mild edema of right upper limb with some skin erosion as well as scattered ecchymosis. Other extremities are grossly normal looking with no edema. SKIN: Ecchymoses and petechiae of both forearm noted with some skin loss and excoriation on right forearm. STAFFING CONSULTANT: Conscious, alert, oriented x2 at least. Some memory lapses noted. DIAGNOSTIC DATA: CBC showed WBC count of 10.2, hemoglobin of 8.3, platelet of 148. Chemistry showed sodium 138, potassium 3.7, chloride 101, CO2 of 28, BUN 54, creatinine 1.34, glucose 130, calcium 8.6, albumin 1.2, AST 34, ALT 30, alkaline phosphatase 97, total protein 5.8, albumin 3.4. ASSESSMENT: 1. Acute kidney injury: Due to hemodynamic factors related to volume depletion from hemorrhage and poor oral intake. Renal function has improved, but creatinine is up today, most likely related to hypotension of yesterday. 2. Chronic kidney disease stage 3. 3. : Due to volume depletion and hemorrhage. Improved with blood transfusion as well as crystalloid and colloid. Blood pressure is better today, but still not back to baseline. 4. Acute blood loss anemia, status post transfusion. 5. Variceal bleeding, status post banding. 6. . 7. Metabolic acidosis: Resolved. PLAN: 1. We will continue supportive care with IV fluid and liberal oral intake. Renal function is expected to improve with optimization of hemodynamics. 2. We will recheck renal function test in the morning. 3. [place] oral intake advised. 4. Avoid nephrotoxic agents. Job ID: [id number]
--- NOTE | 2020-06-19 16:52 | PRG ---
DATE OF SERVICE: SUBJECTIVE: Mr. Camacho is more alert today. He has been eating a little bit, but he states he is pretty sleepy. I have talked with the nurse, he has not bled today. He had 2 units of blood yesterday, but none since. His Coreg was held this morning. He has received albumin and that has been discontinued. He is on Rocephin still, digoxin, lactulose [address] Restrepo started on metoprolol 25 mg daily to help with rate control and he remains on 75 mg of normal saline daily as well as Protonix q.12, rifaximin, and p.r.n. tramadol. PHYSICAL EXAMINATION: VITAL SIGNS: Temperature is 98.3, pulse 85 to 100, and blood pressure 105/63. GENERAL: He has got some edema in his legs and getting some ascites now, has some shifting dullness, slight fluid wave. HEART: Regular rate and rhythm. LUNGS: Actually clear. NEUROLOGIC: He is alert and oriented to person, place, and time. LABORATORY DATA: [place] [id number] on admission, [address] yesterday, [place] [address] today; hemoglobin is 8.3, platelet count 148. INR is 1.5. Sodium 138, potassium 3.7, BUN and creatinine of 54 and 1.34, this is down from 93 and 1.83 on the . Bilirubin 1.2. AST and ALT are 34 and 30. Ammonia is 25, albumin 3.4. ASSESSMENT: 1. Gastrointestinal bleed from esophageal varices, status post banding, off octreotide now, he was banded on 06/14. 2. Severe hepatic encephalopathy, much better today, on oral lactulose and Xifaxan. 3. History of ascites, some recurrence of fluid today. 4. Hypotension related to nadolol. He is off that now. His Coreg was held today, which will be restarted tomorrow. He is on a little bit of labetalol for rate control. 5. Hemoglobin stable. RECOMMENDATIONS: Advance diet as tolerated. Agree with the patient going to the unit. Job ID: [id number]
--- NOTE | 2020-06-19 19:09 | CON ---
DATE OF CONSULTATION: PRIMARY SLPS: Laurel Lemus MD REASON FOR CONSULTATION: Atrial fibrillation. HISTORY OF PRESENT ILLNESS: Mr. Camacho is a very pleasant 80-year-old gentleman. He has history of coronary artery disease, atrial fibrillation, and aortic stenosis. The patient underwent bypass surgery and aortic valve replacement last fall. The patient did well. He was noted to have some atrial fibrillation postoperatively. There was a note in the chart that there was a plan to do left atrial appendage oversewing, but the operative note is not visible in the chart, so I do not know if that was done. The patient was admitted on this occasion with hepatic encephalopathy, which is improved since he has been here. He is beginning to feel progressively better. He is more alert and oriented. He has no chest pain or pressure. No syncope or near syncope. Medication prior to admission were carvedilol 6.25 mg twice a day and Aldactone 100 mg a day and aspirin and Lasix. The patient had previously normal left ventricular function. The patient has developed atrial fibrillation while here in the hospital. He is currently rate controlled. The patient also has had GI bleeding and has received packed red blood cells. The patient has had sinus rhythm on the . REVIEW OF SYSTEMS: Otherwise, negative. PHYSICAL EXAMINATION: GENERAL: This is a pleasant 80-year-old gentleman, who has been relatively hypotensive. VITAL SIGNS: Blood pressure about 100 systolic, Coreg had to be held. NECK: Veins are normal. Carotid, normal upstrokes. LUNGS: Clear. CARDIAC: Irregularly irregular. No murmur, rub, or gallop. ABDOMEN: Soft and nontender. EXTREMITIES: Warm and dry. No clubbing. No cyanosis or edema. PSYCHIATRIC: He is oriented. He says he knows the year. He knows it is 2019. He is at [facility]. ASSESSMENT: 1. History of bypass surgery with aortic valve replacement, bioprosthetic. 2. Atrial fibrillation. 3. Recent gastrointestinal bleed, cannot be anticoagulated. 4. Hypotension. 5. Normal left ventricular function. PLAN: 1. Continue with digoxin. 2. Hold Coreg till the blood pressure improves. No further recommendations at this time. Job ID: [id number]
[2020-06-19] MEDS: cefTRIAXone\\ROCEPHIN 2 GM in Sodium Chloride 0.9% 100 ML IVPB SCH (20:23)
[2020-06-19] MEDS: Lidocaine 5% Patch TD SCH (20:24)
[2020-06-20] MEDS: Rifaximin 550 MG TAB PO SCH ×2 (08:31→21:57)
[2020-06-20] MEDS: Furosemide 20 MG TAB PO SCH (08:31)
[2020-06-20] MEDS: Pantoprazole 40 MG VIAL IVP SCH ×2 (08:31→21:57)
[2020-06-20] MEDS: Spironolactone 25 MG TAB PO SCH (08:31)
[2020-06-20] MEDS: Lidocaine Patch Removal TOP SCH (08:32)
[2020-06-20] MEDS: traMADol HCl 50 MG TAB PO PRN (08:34)
[2020-06-20 08:46] LABS: Mean Corpuscular HGB CONC 33.7 g/dL (32.0-36.0); Mean Corpuscular Hemoglobin 33.3 pg (27.0-31.0); RBC Distribution Width 21.4 % (11.5-14.5); Red Blood Cell (RBC) Count 3.01 mill/uL (4.70-6.10)
[2020-06-20 09:07] LABS: Anion Gap 13 mmol/L (10-20); BUN (Urea Nitrogen) 37 mg/dL (8.4-25.7); Calc. Creatinine Clearance 60 mL/min (70-130); Calcium 8.4 mg/dL (7.8-10.44); Carbon Dioxide 26 mmol/L (23-31); Chloride 101 mmol/L (98-107); Estimated GFR-MDRD 67; Glucose 107 mg/dL (83-110); Potassium 4.5 mmol/L (3.5-5.1); Sodium 135 mmol/L (136-145)
[2020-06-20 09:30] LABS: Band 1 % (5-11); Eosinophils 10 % (0-10); Hypersemented Neutrophil SLIGHT; Lymphocytes 13 % (21-51); MDiff Complete? YES; Mean Platelet Volume 7.8 fL (7.4-10.4); Monocytes 3 % (0-10); Neutrophil 73 % (42-75); Nucleated RBC 1 % (0); Platelet Count 166 thou/uL (130-400); Platelet Morphology Comment Appears Adequate; Polychromasia SLIGHT = 2-3 cells (100X) (0-2/hpf); White Blood Cell (WBC) Count 10.8 thou/uL (4.8-10.8)
[2020-06-20] MEDS ORDERED: Acetaminophen 325 MG TAB PO PRN (10:06)
--- NOTE | 2020-06-20 10:08 | PDOC.HOSPP ---
- Subjective Encounter Date: 06/20/20 (f/u GI bleed) Encounter Time: 10:07 Subjective: Pt without complaints, no overnight events noted. He states pain is controlled. Denies any n/v - Objective Vital Signs & Weight: Vital Signs (12 hours) Temp Pulse Resp BP Pulse Ox 06/20/20 08:25 97.9 F 104 H 18 100/64 96 Weight Weight 166 lb 11.064 oz Most Recent Monitor Data Heart Rate from ECG 117 NIBP 107/60 NIBP BP-Mean 75 Respiration from ECG 16 SpO2 97 I&O: 06/19/20 06/20/20 06/21/20 06:59 06:59 06:59 Intake Total 3486 320 Output Total 1165 500 Balance 2321 -180 Result Diagrams: 06/20/20 07:20 06/20/20 07:20 EKG Reviewed by me: Yes (tele - a fib with rate 100-120's) Hospitalist ROS - Medication Medications: Active Medications Generic Name Dose Route Start Last Admin Trade Name Freq PRN Reason Stop Dose Admin Acetaminophen 650 mg 06/14/20 20:41 06/18/20 10:46 Tylenol PO 650 mg Q4H PRN Administration Headache/Fever/Mild Pain (1-3) Furosemide 20 mg 06/20/20 09:00 06/20/20 08:31 Lasix PO 20 mg DAILY SKYLAR Administration Ceftriaxone Sodium 2 gm/ 100 mls @ 200 mls/hr 06/15/20 21:00 06/19/20 20:23 Sodium Chloride IVPB 100 mls 2100 SKYLAR Administration Lactulose 20 gm 06/18/20 15:00 06/20/20 08:31 Lactulose PO 20 gm TID SKYLAR Administration Lidocaine 1 patch 06/18/20 21:00 06/19/20 20:24 Lidoderm 5% Patch TD 1 patch 2100 SKYLAR Administration Metoprolol Succinate 25 mg 06/20/20 09:00 06/20/20 08:31 Toprol Xl PO 25 mg DAILY SKYLAR Administration Miscellaneous Medication 1 each 06/19/20 09:00 06/20/20 08:32 Lidocaine Patch Removal TOP 1 each 0900 SKYLAR Administration Pantoprazole Sodium 40 mg 06/15/20 21:00 06/20/20 08:31 Protonix IVP 40 mg Q12HR SKYLAR Administration Rifaximin 550 mg 06/17/20 21:00 06/20/20 08:31 Xifaxan PO 550 mg BID SKYLAR Administration Spironolactone 50 mg 06/20/20 08:00 06/20/20 08:31 Aldactone PO 50 mg QAM-WM SKYLAR Administration Tramadol HCl 50 mg 06/19/20 01:40 06/20/20 08:34 Ultram PO 50 mg Q4H PRN Administration Moderate to Severe Pain (6-10) - Exam General Appearance: NAD Heart: no murmur, irregular Respiratory: CTAB, no wheezes, no rales, no ronchi Gastrointestinal: soft, non-tender, non-distended, normal bowel sounds Extremities: no cyanosis, no clubbing, no edema Neurological - other findings: slowed speech, answers questions appropriately Psychiatric - other findings: oriented to person, place, time Hosp A/P (1) Esophageal varices with bleeding Code(s): I85.01 - ESOPHAGEAL VARICES WITH BLEEDING Status: Acute (2) ARF (acute renal failure) Status: Resolved (3) Acute blood loss anemia Code(s): D62 - ACUTE POSTHEMORRHAGIC ANEMIA Status: Acute (4) Hepatic encephalopathy Code(s): K72.90 - HEPATIC FAILURE, UNSPECIFIED WITHOUT COMA Status: Acute (5) Hyperkalemia Code(s): E87.5 - HYPERKALEMIA Status: Resolved (6) Atrial fibrillation with RVR Code(s): I48.91 - UNSPECIFIED ATRIAL FIBRILLATION Status: Acute - Plan Pt overall improved compared to admission: 1/ U GI bleed secondary to varicies - appreciate GI management - on IV protonix daily - on spironolactone/furosemide - RN to monitor rectal tube output and see if this can be removed - will need to determine duration of Rocephin with GI on Monday - s/p 3 units prbc with improved hemoglobin today compared to yesterday, last transfusion 06/18 2. A fib with RVR - appreciate Cardiology management - on low dose beta jason for rate control - not a candidate for anticoagulation 3. Hyperkalemia and RICARDO - appreciate Nephrology management - appears resolved 4. Hepartic encephalopathy - improved - continue lactulose tid continue current meds as ordered dvt prophy - scd's - not currently connected/requested nursing staff fix this gi prophy - on IV protonix as part of treatment code status full will update pt's this afternoon Addendum at 20:47 - pt having frequent loose stool - changed lactulose to BID starting tomorrow. Tylenol adjusted to no more than 2 grams per day - prn use only. Pt's updated by phone earlier today.
--- NOTE | 2020-06-20 11:38 | PRG ---
DATE OF SERVICE: 06/20/2020 SUBJECTIVE: Kyle Camacho is a 80-year-old male with liver cirrhosis, GI bleeding, hepatic encephalopathy, and ascites. The patient underwent EGD and banding by Dr. David Richards. He had done well after the banding, he has no active bleeding. He is also on lactulose and rifaximin for encephalopathy. He had transient hypotension after he was started on some nadolol. Both nadolol and carvedilol is on hold. The patient is awake, alert, and communicative. He is able to tell me his name, the date, month, the year, etc. The patient denies abdominal pain, nausea, vomiting. He is tolerating diet. He has no stool today. Although he is awake and alert, but he appears kind of somewhat very weak and slightly lethargic. OBJECTIVE: VITAL SIGNS: Afebrile, pulse is 104, blood pressure 100/64. CARDIOVASCULAR: Normal heart sounds. LUNGS: Clear to auscultation. ABDOMEN: Distended with ascites. Abdomen is nontender. No rebound or guarding. Bowel sounds normal. LABORATORY DATA: From today CBC; WBC 10,800, hemoglobin 10, hematocrit 29.8, platelet count is 160,000, MCV 99, polymorphs 73, bands 1, lymphocytes 13. Chemistry panel; normal lytes, BUN is 37, creatinine 1.06. RECOMMENDATIONS: 1. Continue lactulose and rifaximin. 2. Follow up H and H. 3. Transfuse p.r.n. I will restart beta jason from tomorrow if blood pressure is a little low around 100/60. Job ID: [id number]
--- NOTE | 2020-06-20 14:08 | PRG ---
DATE OF SERVICE: 06/20/2020 SERVICE: Nephrology. SUBJECTIVE: A 80-year-old male with liver cirrhosis associated with variceal bleeding, seen in followup for acute kidney injury and electrolyte derangements. The patient reports feeling better. Denied nausea, vomiting, or abdominal pain. Oral intake is stable. OBJECTIVE: VITAL SIGNS: Temperature 97.9, pulse 104, respiratory rate 18, SpO2 of 96% on room air, and blood pressure is 100/64. Intake and output in the last 24 hours showed total intake of 320 with output of 500, this is grossly inconclusive. GENERAL: Elderly male, in no obvious distress, but afebrile. HEENT: Normocephalic, atraumatic. Oral mucosa is moist. NECK: Supple with no obvious JVD. CARDIOVASCULAR: Irregular rhythm and rate with normal heart sounds 1 and 2. RESPIRATORY: Fair air entry bilaterally with no obvious crackle or rhonchi or use of accessory muscles. GASTROINTESTINAL: Full, soft, nontender, and nondistended with normal bowel sounds. EXTREMITIES: Mild bilateral elbow edema noted. Right forearm covered with dressing. Other extremities are grossly normal and atraumatic with no obvious edema. SKIN: Resolving ecchymosis and to take care of both forearms noted. CENTRAL NERVOUS SYSTEM: Conscious, alert, oriented x3 with appropriate mental status. Cranial nerves II through XII are grossly intact. DIAGNOSTIC DATA: CBC showed WBC count of 10.8, hemoglobin of 10.0, and platelet of 166. Chemistry showed sodium 135, potassium 4.5, chloride 101, CO2 of 26, BUN 37, creatinine 1.06, glucose 107, and calcium is 8.4. ASSESSMENT: 1. Hyperkalemia: Due to gastrointestinal bleeding, acute kidney injury, and metabolic acidosis, resolved. 2. Hypokalemia: Due to gastrointestinal losses related to continuous lactulose enema, resolved with supplementation. 3. Acute kidney injury: Due to hemodynamic factors related to volume depletion and hemorrhage. Creatinine continued to trend downwards with IV fluid therapy. Today is 1.06 and BUN continued to trend downwards. 4. Hypotension: Due to hypovolemia and hemorrhage. Improved with aggressive therapy. 5. Acute blood loss anemia, status post transfusion. 6. Variceal bleeding, status post banding by GI. PLAN: Continue supportive care. Creatinine is back to baseline. Avoid nephrotoxic agent. Nephrology will sign off at this time due to resolution of acute kidney injury and stable electrolytes. Call for any clarification or question. Job ID: [id number]
[2020-06-20] MEDS: Lidocaine 5% Patch TD SCH (21:57)
[2020-06-20] MEDS: cefTRIAXone\\ROCEPHIN 2 GM in Sodium Chloride 0.9% 100 ML IVPB SCH (21:57)
[2020-06-21] MEDS: traMADol HCl 50 MG TAB PO PRN ×3 (00:41→20:30)
[2020-06-21 04:58] LABS: Anion Gap 10 mmol/L (10-20); BUN (Urea Nitrogen) 26 mg/dL (8.4-25.7); Calc. Creatinine Clearance 75 mL/min (70-130); Calcium 7.9 mg/dL (7.8-10.44); Carbon Dioxide 27 mmol/L (23-31); Chloride 98 mmol/L (98-107); Estimated GFR-MDRD 87; Glucose 122 mg/dL (83-110); Potassium 3.6 mmol/L (3.5-5.1); Sodium 131 mmol/L (136-145)
[2020-06-21] MEDS: Spironolactone 25 MG TAB PO SCH (09:12)
[2020-06-21] MEDS: Furosemide 20 MG TAB PO SCH (09:13)
[2020-06-21] MEDS: Rifaximin 550 MG TAB PO SCH ×2 (09:13→20:30)
[2020-06-21] MEDS: Pantoprazole 40 MG VIAL IVP SCH ×2 (09:15→20:30)
[2020-06-21] MEDS: Lidocaine Patch Removal TOP SCH (09:15)
--- NOTE | 2020-06-21 10:08 | PDOC.HOSPP ---
- Subjective Encounter Date: 06/21/20 (f/u GI bleed) Encounter Time: 10:07 Subjective: No overnight events, pt feels weak and unable to use the bedside commode with assistance. He has some shoulder pain. He denies chest pain, n/v/abd pain. - Objective Vital Signs & Weight: Vital Signs (12 hours) Temp Pulse Resp BP Pulse Ox 06/21/20 07:20 94 L 06/21/20 03:34 98.1 F 102 H 30 H 109/62 92 L 06/21/20 00:43 94 16 108/63 Weight Weight 192 lb 3.2 oz Most Recent Monitor Data Heart Rate from ECG 117 NIBP 107/60 NIBP BP-Mean 75 Respiration from ECG 16 SpO2 97 I&O: 06/20/20 06/21/20 06/22/20 06:59 06:59 06:59 Intake Total 320 1620 480 Output Total 500 1150 450 Balance -180 470 30 Result Diagrams: 06/21/20 11:14 06/21/20 04:25 EKG Reviewed by me: Yes (tele - a fib with rate 100's, intermittent RVR) Hospitalist ROS - Medication Medications: Active Medications Generic Name Dose Route Start Last Admin Trade Name Freq PRN Reason Stop Dose Admin Furosemide 20 mg 06/20/20 09:00 06/21/20 09:13 Lasix PO 20 mg DAILY SKYLAR Administration Ceftriaxone Sodium 2 gm/ 100 mls @ 200 mls/hr 06/15/20 21:00 06/20/20 21:57 Sodium Chloride IVPB 100 mls 2100 SKYLAR Administration Lactulose 20 gm 06/21/20 09:00 06/21/20 09:13 Lactulose PO 20 gm BID SKYLAR Administration Lidocaine 1 patch 06/18/20 21:00 06/20/20 21:57 Lidoderm 5% Patch TD 1 patch 2100 SKYLAR Administration Metoprolol Succinate 25 mg 06/20/20 09:00 06/21/20 09:13 Toprol Xl PO 25 mg DAILY SKYLAR Administration Miscellaneous Medication 1 each 06/19/20 09:00 06/21/20 09:15 Lidocaine Patch Removal TOP 1 each 0900 SKYLAR Administration Pantoprazole Sodium 40 mg 06/15/20 21:00 06/21/20 09:15 Protonix IVP 40 mg Q12HR SKYLAR Administration Rifaximin 550 mg 06/17/20 21:00 06/21/20 09:13 Xifaxan PO 550 mg BID SKYLAR Administration Spironolactone 50 mg 06/20/20 08:00 06/21/20 09:12 Aldactone PO 50 mg QAM-WM SKYLAR Administration Tramadol HCl 50 mg 06/20/20 10:06 06/21/20 09:18 Ultram PO 50 mg Q8H PRN Administration Moderate to Severe Pain (6-10) - Exam General Appearance: NAD Heart - other findings: irregular, no significant murmurs Respiratory: no wheezes, no ronchi Respiratory - other findings: decreased breath sounds and rales at left base Gastrointestinal: soft, non-tender, normal bowel sounds Extremities: no cyanosis, no clubbing, no edema Psychiatric: normal affect Psychiatric - other findings: clearer speech today Hosp A/P (1) Esophageal varices with bleeding Code(s): I85.01 - ESOPHAGEAL VARICES WITH BLEEDING Status: Acute (2) ARF (acute renal failure) Status: Resolved (3) Acute blood loss anemia Code(s): D62 - ACUTE POSTHEMORRHAGIC ANEMIA Status: Acute (4) Hepatic encephalopathy Code(s): K72.90 - HEPATIC FAILURE, UNSPECIFIED WITHOUT COMA Status: Acute (5) Hyperkalemia Code(s): E87.5 - HYPERKALEMIA Status: Resolved (6) Atrial fibrillation with RVR Code(s): I48.91 - UNSPECIFIED ATRIAL FIBRILLATION Status: Acute (7) Hyponatremia Code(s): E87.1 - HYPO-OSMOLALITY AND HYPONATREMIA Status: Acute - Plan Pt overall improved compared to admission: 1/ U GI bleed secondary to varicies - appreciate GI management - on IV protonix daily - on spironolactone/furosemide - rectal tube removed and lactulose decreased to BID - monitor number of stools per day and adjust - d/w Dr. Miles - jodi d/c Rocephin - s/p 3 units prbc last transfusion 06/18 2. Abnormal lung exam - check CXR - start incentive spirometer 3. A fib with RVR - appreciate Cardiology management - on low dose beta jason for rate control - not a candidate for anticoagulation 4. Hyperkalemia and RICARDO - resolved - Nephrology signed off 5. Hyponatremia - start fluid restriction to 1.5 L per day 4. Hepatic encephalopathy - improved - titrate lactulose continue current meds as ordered dvt prophy - scd's gi prophy - on IV protonix as part of treatment code status full will update pt's this afternoon Addendum at 11:43 - CXR reviewed and opacity throughout left lower and mid lung golden. Will check a procalcitonin level. will d/c rocephin which was started for variceal bleed, and start cefepime for broad spectrum antibiotics. XR and increasing WBC count are suggestive of pneumonia. Incentive spirometer. Pt is back on furosemide and spironolactone -bp's on the lower side of normal - monitor lung exam. Hold on double covering with FQ and adding Vanc for now as pt's renal function has just recovered.
[2020-06-21 11:26] LABS: #Eosinphils 0.7 thou/uL (0.0-0.7); #Monocytes 1.4 thou/uL (0.11-0.59); #Neutrophils 10.6 thou/uL (1.40-6.50); %Basophils 0.1 % (0.0-1.0); %Eosinophils 4.8 % (0.0-10.0); %Lymphocytes 7.5 % (21.0-51.0); %Monocytes 10.2 % (0.0-10.0); %Neutrophils 77.3 % (42.0-75.0); Mean Corpuscular HGB CONC 33.2 g/dL (32.0-36.0); Mean Corpuscular Hemoglobin 33.1 pg (27.0-31.0); Mean Corpuscular Volume 99.5 fL (78.0-98.0); Mean Platelet Volume 7.5 fL (7.4-10.4); Platelet Count 156 thou/uL (130-400); RBC Distribution Width 16.3 % (11.5-14.5); Red Blood Cell (RBC) Count 3.02 mill/uL (4.70-6.10); White Blood Cell (WBC) Count 13.7 thou/uL (4.8-10.8)
[2020-06-21] MEDS: Cefepime 2 GM in Sodium Chloride 0.9% 100 ML IVPB SCH ×2 (12:36→20:30)
--- NOTE | 2020-06-21 13:06 | RAD ---
PORTABLE CHEST: HISTORY: Decreased breath sounds on the left side. COMPARISON: A 12/10/2019 and 05/18/2020 exam. FINDINGS: The heart size is enlarged. The pleural and parenchymal changes in the left base are again noted. O verall opacification of the left base appears slightly increased on today's study, although I think a portion of this is just related to the differences in slight rotation in the patient. IMPRESSION: Persistent left-sided pleural effusion associated with parenchymal changes. Overall parenchymal dens ity is slightly increased as compared to the prior examination. This could be largely technique in n ature. Some slight increase in effusion is possible. POS: LAINE
[2020-06-21] MEDS: Lidocaine 5% Patch TD SCH (20:30)
[2020-06-22] MEDS: Cefepime 2 GM in Sodium Chloride 0.9% 100 ML IVPB SCH ×3 (03:46→20:25)
[2020-06-22 04:19] LABS: #Basophils 0.1 thou/uL (0.0-0.2); #Eosinphils 0.6 thou/uL (0.0-0.7); #Lymphocytes 1.2 thou/uL (1.20-3.40); #Monocytes 1.1 thou/uL (0.11-0.59); %Basophils 0.6 % (0.0-1.0); %Lymphocytes 10.1 % (21.0-51.0); %Monocytes 9.3 % (0.0-10.0); %Neutrophils 75.1 % (42.0-75.0); Hemoglobin 9.7 g/dL (14.0-18.0); Mean Corpuscular HGB CONC 31.1 g/dL (32.0-36.0); Mean Corpuscular Hemoglobin 31.4 pg (27.0-31.0); Mean Platelet Volume 7.8 fL (7.4-10.4); Platelet Count 166 thou/uL (130-400); RBC Distribution Width 16.7 % (11.5-14.5); Red Blood Cell (RBC) Count 3.08 mill/uL (4.70-6.10)
[2020-06-22 04:43] LABS: Anion Gap 11 mmol/L (10-20); BUN (Urea Nitrogen) 21 mg/dL (8.4-25.7); Calc. Creatinine Clearance 90 mL/min (70-130); Calcium 7.7 mg/dL (7.8-10.44); Carbon Dioxide 22 mmol/L (23-31); Chloride 99 mmol/L (98-107); Estimated GFR-MDRD Greater than 90; Glucose 117 mg/dL (83-110); Potassium 3.6 mmol/L (3.5-5.1); Sodium 128 mmol/L (136-145)
--- NOTE | 2020-06-22 07:30 | PRG ---
DATE OF SERVICE: 06/21/2020 SUBJECTIVE: This is a 80-year-old . He underwent EGD . He is awake PHYSICAL EXAMINATION: VITAL SIGNS: Pulse , blood pressure CARDIOVASCULAR: ABDOMEN: tender LABORATORY DATA: WBC hemoglobin , hematocrit , Chem 7 RECOMMENDATION: 1. diet and . 2. . 3. Labs . Job ID: [id number]
[2020-06-22] MEDS: Furosemide 20 MG TAB PO SCH (07:52)
[2020-06-22] MEDS: Rifaximin 550 MG TAB PO SCH ×2 (07:52→20:25)
[2020-06-22] MEDS: Pantoprazole 40 MG VIAL IVP SCH ×2 (07:53→20:25)
[2020-06-22] MEDS: Spironolactone 25 MG TAB PO SCH (07:53)
[2020-06-22] MEDS: Lidocaine Patch Removal TOP SCH (07:54)
[2020-06-22] MEDS: traMADol HCl 50 MG TAB PO PRN (07:58)
--- NOTE | 2020-06-22 11:37 | PRG ---
DATE OF SERVICE: 06/22/2020 SUBJECTIVE: Mr. Camacho is feeling pretty well today. He feels mentally clear. He is not having any abdominal pain or nausea. He is tolerating his diet. He had been having some diarrhea, but that seems to have improved over the past day. No other complaints for me. OBJECTIVE: VITAL SIGNS: Temperature 97.9, pulse 122, blood pressure is 113/62, oxygen saturation 98% on room air. GENERAL: No acute distress, lying in bed comfortably. HEART: Irregular, tachycardia. LUNGS: Clear to auscultation bilaterally. No respiratory distress. ABDOMEN: Mild distention. Bowel sounds present. Soft, nontender to palpation. EXTREMITIES: No peripheral edema. LABORATORY STUDIES: Hemoglobin stable at 9.7, WBC 12.0, and platelets 166. INR 1.5. Sodium 128, potassium 3.6, BUN 21, creatinine 0.82, and glucose 117. ASSESSMENT AND PLAN: 1. Gastrointestinal bleeding from esophageal varices, status post banding on 06/14/2020. 2. Acute blood loss anemia, stable after initial transfusion. The patient has had no further evidence of overt gastrointestinal bleeding since presentation. BUN has declined. Hemoglobin has stabilized after initial transfusion. He is now off octreotide. Note, he was on nadolol prior to this, currently getting Toprol-XL. His atrial fibrillation is being treated. If possible to get him back on nonselective beta-jason, would also serve as secondary bleeding prophylaxis. The patient will need repeat variceal banding in the next month or so. 3. Severe hepatic encephalopathy, appears to be resolved on oral lactulose and rifaximin. 4. Pneumonia. The patient's antibiotics were changed from ceftriaxone to cefepime. No other new recommendations today from a GI perspective. The patient will follow up with Dr. Tucker as an outpatient. Job ID: [id number]
[2020-06-22 12:17] LABS: Creatinine, Urine 114.34 mg/dL (63-166)
--- NOTE | 2020-06-22 12:29 | PDOC.HOSPP ---
- Subjective Encounter Date: 06/22/20 (f/u GI bleed) Encounter Time: 12:28 Subjective: Mr. Camacho was admitted for hepatic encephalopathy, upper GI bleed now s/p endoscopy with variceal banding, sx anemia, RICARDO which has since resolved. He has a known left pleural effusion which he's seen Dr. Berman in the past. Yesterday he had decreased breath sounds and was started on cefepime for concern of pneumonia in conjunction with an elevated wbc count. Pt's mental status has improved, ammonia level normalized. He blood count has remained stable. He continues to feel weak overall, and over the past few days has developed hyponatremia. Pt reports he is feeling better today, a little stronger. he c/o 1 month of left shoulder pain, constant and aching. No known trauma, denies any ppt or relieving factors. By report from RN, pt's concerned about this and requesting xrays. - Objective Vital Signs & Weight: Vital Signs (12 hours) Temp Pulse Resp BP Pulse Ox 06/22/20 12:15 113/60 06/22/20 11:09 97.0 F L 90 18 178/129 H 96 06/22/20 07:44 97.9 F 122 H 14 113/62 98 06/22/20 04:00 98.7 F 105 H 20 109/63 97 06/22/20 00:44 97 Weight Weight 191 lb 9.6 oz Most Recent Monitor Data Heart Rate from ECG 117 NIBP 107/60 NIBP BP-Mean 75 Respiration from ECG 16 SpO2 97 I&O: 06/21/20 06/22/20 06/23/20 06:59 06:59 06:59 Intake Total 1620 480 Output Total 1150 650 Balance 470 -170 Result Diagrams: 06/22/20 04:04 06/22/20 04:04 EKG Reviewed by me: Yes (tele - a fib 100-120's) Hospitalist ROS - Medication Medications: Active Medications Generic Name Dose Route Start Last Admin Trade Name Freq PRN Reason Stop Dose Admin Acetaminophen 500 mg 06/20/20 10:06 06/22/20 11:44 Tylenol PO 500 mg Q6H PRN Administration Headache/Fever/Mild Pain (1-3) Furosemide 20 mg 06/20/20 09:00 06/22/20 07:52 Lasix PO 20 mg DAILY SKYLAR Administration Cefepime HCl 2 gm/ Sodium 100 mls @ 200 mls/hr 06/21/20 12:00 06/22/20 11:45 Chloride IVPB 100 mls 0400,1200,2000 SKYLAR Administration Lactulose 20 gm 06/21/20 09:00 06/22/20 07:53 Lactulose PO 20 gm BID SKYLAR Administration Lidocaine 1 patch 06/18/20 21:00 06/21/20 20:30 Lidoderm 5% Patch TD 1 patch 2100 SKYLAR Administration Metoprolol Succinate 25 mg 06/20/20 09:00 06/22/20 07:53 Toprol Xl PO 25 mg DAILY SKYLAR Administration Miscellaneous Medication 1 each 06/19/20 09:00 06/22/20 07:54 Lidocaine Patch Removal TOP 1 each 0900 SKYLAR Administration Pantoprazole Sodium 40 mg 06/15/20 21:00 06/22/20 07:53 Protonix IVP 40 mg Q12HR SKYLAR Administration Rifaximin 550 mg 06/17/20 21:00 06/22/20 07:52 Xifaxan PO 550 mg BID SKYLAR Administration Spironolactone 50 mg 06/20/20 08:00 06/22/20 07:53 Aldactone PO 50 mg QAM-WM SKYLAR Administration Tramadol HCl 50 mg 06/20/20 10:06 06/22/20 07:58 Ultram PO 50 mg Q8H PRN Administration Moderate to Severe Pain (6-10) - Exam General Appearance: NAD General - other findings: more alert today Heart: no murmur, irregular Respiratory: no wheezes, no ronchi Respiratory - other findings: decreased breath sounds left side to mid-lung field - unchanged Gastrointestinal: soft, non-tender, normal bowel sounds Gastrointestinal - other findings: pt with abdominal prominence - soft, non- tender Extremities: no cyanosis, no clubbing, no edema Extremities - other findings: Able to elevate left shoulder - FROM, no ttp along scapula/clavicle Psychiatric: normal affect Hosp A/P (1) Esophageal varices with bleeding Code(s): I85.01 - ESOPHAGEAL VARICES WITH BLEEDING Status: Acute (2) ARF (acute renal failure) Status: Resolved (3) Acute blood loss anemia Code(s): D62 - ACUTE POSTHEMORRHAGIC ANEMIA Status: Acute (4) Hepatic encephalopathy Code(s): K72.90 - HEPATIC FAILURE, UNSPECIFIED WITHOUT COMA Status: Acute (5) Hyperkalemia Code(s): E87.5 - HYPERKALEMIA Status: Resolved (6) Atrial fibrillation with RVR Code(s): I48.91 - UNSPECIFIED ATRIAL FIBRILLATION Status: Acute (7) Hyponatremia Code(s): E87.1 - HYPO-OSMOLALITY AND HYPONATREMIA Status: Acute (8) Shoulder pain, left Code(s): M25.512 - PAIN IN LEFT SHOULDER Status: Acute - Plan Pt overall improved compared to admission: 1/ U GI bleed secondary to varicies - appreciate GI management - on IV protonix daily - on spironolactone/furosemide - Rocephin d/c yesterday - s/p 3 units prbc last transfusion 06/18 2. Cirrhosis - check US for ascites - continue home meds 3. chronic left pleural effusion - XR yesterday shows possibly slightly increased. Due to cough, elevation of WBC count, I changed to cefepime yesterday to cover for possible infiltrate. Cough improved today. Anticipate this can be changed to oral abx tomorrow. 4. A fib with RVR - appreciate Cardiology management - on low dose beta jaosn for rate control - not a candidate for anticoagulation 5. Hyponatremia - fluid restriction started yesterday, diet changed to low sodium mechanical soft yesterday - worsening today. Urine studies obtained and pending and requested that Dr. Bryant resume care. 6. Hepatic encephalopathy - continues to improve - continue lactulose at bid 8/ Shoulder pain - check XR, continue pt/ot dvt prophy - scd's gi prophy - on IV protonix as part of treatment code status full will update pt's this afternoon
[2020-06-22] MEDS ORDERED: Furosemide 20 MG TAB PO SCH (13:30)
[2020-06-22] MEDS ORDERED: Spironolactone 25 MG TAB PO SCH (13:30)
--- NOTE | 2020-06-22 15:11 | RAD ---
XR Shoulder Lt 2 View: 06/22/2020 12:12 PM CLINICAL INDICATION: Left shoulder pain. COMPARISON: Chest radiograph dated June 21, 2020 FINDINGS: Bones: No acute fracture. Glenohumeral joint: Normal alignment. AC joint: There is mild AC joint osteoarthrosis. Visualized lung: There is pleural parenchymal opacity involving the left lung field, better detailed on the recent performed chest radiograph Soft tissues: Within normal limits. IMPRESSION: No acute osseous abnormality.
--- NOTE | 2020-06-22 15:27 | ULT ---
EXAM: US Abdomen Limited PROVIDED CLINICAL HISTORY: Cirrhosis. Evaluate for ascites. COMPARISON: 12/10/2019 FINDINGS: Limited sonographic evaluation the abdomen was performed to evaluate for intraperitoneal free fluid. Imaging was obtained in the upper and lower quadrants as well as in the midline of the pelvis. A small amount of intraperitoneal free fluid is seen throughout the abdomen. The degree of intraperit belcher free fluid is less than seen on prior exam. IMPRESSION: Small amount of ascites.
[2020-06-22] MEDS: Sodium Chloride 1 GM TAB PO SCH ×2 (15:39→20:46)
--- NOTE | 2020-06-22 17:13 | PRG ---
DATE OF SERVICE: 06/22/2020 SERVICE: Nephrology. SUBJECTIVE: A 80-year-old male with known history of chronic liver disease, admitted due to GI bleeding. Seen in followup for hyponatremia. The patient had an acute kidney injury and hyperkalemia earlier on, which have improved. Overall, clinically improved. Denied nausea, vomiting, abdominal pain, fever, or chills. He however admitted to abdominal distention. OBJECTIVE: VITAL SIGNS: Temperature 97.0, pulse 90, respiratory rate 18, SpO2 of 96 on room air, blood pressure is 113/60. Intake and output in the last 24 hours showed total intake of 418, total output of 650, this is grossly inconclusive as the patient had wet diapers, which were not accounted for. GENERAL: Comfortable, elderly male, in no obvious distress. Afebrile, acyanotic. HEENT: Normocephalic and atraumatic. Oral mucosa is moist. NECK: Supple with no obvious JVD. CARDIOVASCULAR: Irregular rhythm and rate with normal heart sounds 1 and 2. RESPIRATORY: Fair air entry bilaterally with some transmitted breath sounds. GI: Abdomen is enlarged, but nontender. Bowel sound is hypoactive. MUSCULOSKELETAL: Mild bilateral elbow edema noted. Trace edema of the legs noted. No obvious erythema appreciated. Resolving ecchymosis and skin desquamation on the right upper arm noted. BUS MONITOR: Conscious and alert and oriented x3 with appropriate mental status. DIAGNOSTIC DATA: CBC today showed WBC count of 12.0, hemoglobin of 9.7, MCV of 101, platelets of 166. Chemistry today showed sodium of 128, potassium 3.6, chloride 99, CO2 of 22, BUN 21, creatinine 0.82, glucose 117, calcium 7.7. Of note, BUN has gone down from peak of 93 to 21 currently. Creatinine also is down from peak of 1.83 to 0.82. Sodium is down to 128 from normal levels of 138 two days ago. Urine osmolality performed yesterday was 611. However, there was no plasma osmolality. ASSESSMENT: 1. Hyponatremia: Acute. Seems to be related to syndrome of inappropriate antidiuretic hormone secretion due to decompensated liver problem. However, free water intake excess cannot be ruled out as well as intravascular contraction with appropriate ADH secretion, given persistent soft blood pressures. 2. Acute kidney injury: Resolved. 3. Metabolic acidosis, improved. 4. History of hypertension: Blood pressure currently is soft. PLAN: 1. We will continue free water restriction. 2. We will also increase the diuretic therapy with increase of Lasix to 40 daily and spironolactone to 100 daily. 3. We will also start salt tablets, sodium chloride. 4. We will monitor blood pressure closely. 5. We will get renal function panel in the morning. 6. Abdominal distention evaluation as per primary attending. We will consider getting paired urine and plasma osmolality tomorrow. Further treatment to follow depending on hospital course. Job ID: [id number]
[2020-06-22] MEDS: Lidocaine 5% Patch TD SCH (20:25)
[2020-06-23] MEDS: Cefepime 2 GM in Sodium Chloride 0.9% 100 ML IVPB SCH ×3 (03:47→20:19)
[2020-06-23 05:04] LABS: Anion Gap 12 mmol/L (10-20); BUN (Urea Nitrogen) 20 mg/dL (8.4-25.7); Calc. Creatinine Clearance 89 mL/min (70-130); Calcium 7.7 mg/dL (7.8-10.44); Carbon Dioxide 24 mmol/L (23-31); Chloride 100 mmol/L (98-107); Estimated GFR-MDRD 89; Glucose 116 mg/dL (83-110); Potassium 3.7 mmol/L (3.5-5.1); Sodium 132 mmol/L (136-145)
[2020-06-23 05:25] LABS: #Basophils 0.1 thou/uL (0.0-0.2); #Eosinphils 0.5 thou/uL (0.0-0.7); #Lymphocytes 0.8 thou/uL (1.20-3.40); #Monocytes 1.4 thou/uL (0.11-0.59); %Basophils 0.7 % (0.0-1.0); %Lymphocytes 6.6 % (21.0-51.0); %Monocytes 11.8 % (0.0-10.0); %Neutrophils 76.9 % (42.0-75.0); Hemoglobin 9.9 g/dL (14.0-18.0); MDiff Complete? YES; Mean Corpuscular HGB CONC 32.7 g/dL (32.0-36.0); Mean Corpuscular Hemoglobin 32.2 pg (27.0-31.0); Mean Corpuscular Volume 98.6 fL (78.0-98.0); Mean Platelet Volume 8.5 fL (7.4-10.4); Platelet Clumps MODERATE; Platelet Morphology Comment PLT clumps seen-ADEQ; RBC Distribution Width 16.4 % (11.5-14.5); Red Blood Cell (RBC) Count 3.08 mill/uL (4.70-6.10); White Blood Cell (WBC) Count 11.7 thou/uL (4.8-10.8)
[2020-06-23] MEDS: Sodium Chloride 1 GM TAB PO SCH ×3 (08:50→20:23)
[2020-06-23] MEDS: Pantoprazole 40 MG VIAL IVP SCH ×2 (08:51→20:19)
[2020-06-23] MEDS: Rifaximin 550 MG TAB PO SCH ×2 (08:51→20:20)
[2020-06-23] MEDS: Spironolactone 100 MG TAB PO SCH (08:51)
[2020-06-23] MEDS: Lidocaine Patch Removal TOP SCH (08:51)
[2020-06-23] MEDS ORDERED: Furosemide 40 MG TAB PO SCH (09:00)
--- NOTE | 2020-06-23 11:51 | PRG ---
DATE OF SERVICE: 06/23/2020 SUBJECTIVE: Mr. Camacho is without complaints this morning. He did have a bout of nausea after breakfast this morning but feels fine now. He is lucid and oriented. He denies any abdominal pain. PHYSICAL EXAMINATION: VITAL SIGNS: Temperature is 97.8, blood pressure 122/70, pulse of 115. GENERAL: He is alert without distress. HEENT: Shows anicteric sclerae. Oropharynx is moist. CV: Shows normal S1, S2. Regular rate and rhythm. CHEST: Shows breath sounds. ABDOMEN: Soft, protuberant but nontender. He has active bowel sounds. Organomegaly not assessable secondary to size. EXTREMITIES: Show no edema. LABORATORY DATA: Electrolytes within normal range except for sodium 132, creatinine 0.83, BUN of 20. WBCs 11.7, hemoglobin 9.9, and platelet count of 166. Abdominal ultrasound performed yesterday showed minimal ascites. ASSESSMENT: 1. Status post esophageal variceal bleed on admission, status post banding/ligation 9 days ago. No further evidence of recurrent bleeding. 2. Anemia from acute blood loss, stable. 3. Hepatic encephalopathy, currently lucid with normal venous ammonia. The patient is on lactulose and rifaximin. 4. Cirrhosis with portal hypertension. The patient was previously on nonselective beta-jason, nadolol, but currently on Toprol. 5. Atrial fibrillation. 6. Pneumonia, on cefepime. RECOMMENDATIONS: 1. Overall stable from GI standpoint. 2. Continue with lactulose and rifaximin. 3. Ascites appears to be minimal, continue with Lasix 40 mg daily and spironolactone 100 mg daily. 4. Currently, on Toprol 25 mg daily. Previously, on nadolol, and we would prefer the patient to be on a nonselective beta jason if possible given his history of esophageal . 5. We will follow. Job ID: [id number]
--- NOTE | 2020-06-23 13:55 | PRG ---
DATE OF SERVICE: 06/23/2020 SERVICE: Nephrology. SUBJECTIVE: A 80-year-old male with decompensated liver cirrhosis associated with acute variceal bleeding, seen in followup for acute hyponatremia. The patient was initially seen for hyperkalemia and acute kidney injury, which have resolved. No new problem. Appetite has improved and the patient denied melena or hematochezia. OBJECTIVE: VITAL SIGNS: Temperature 97.8, pulse 115, respiratory rate 20, SpO2 of 98% on room air, blood pressure is 122/70. Intake and output in the last 24 hours showed total intake not recorded and output of 250, this is grossly inconclusive. GENERAL: Comfortable elderly male, in no obvious distress. Afebrile. Anicteric. HEENT: Normocephalic, atraumatic. Oral mucosa is moist. CARDIOVASCULAR: Irregular rhythm and rate. Tachycardic. RESPIRATORY: Fair air entry bilaterally with few transmitted breath sounds. No obvious respiratory distress appreciated. GASTROINTESTINAL: Abdomen is mildly enlarged. No tenderness appreciated. Bowel sound is normoactive. MUSCULOSKELETAL/EXTREMITIES: Mild edema of the elbows noted. Mild edema of the feet and legs also noted. No erythema appreciated. CENTRAL NERVOUS SYSTEM: Conscious, alert, and oriented x3 with appropriate mental status. Cranial nerves 2 through 12 are grossly intact. The patient moves all extremities, but weakly. DIAGNOSTIC DATA: CBC today showed WBC count of 11.7, hemoglobin of 9.9, platelet of too numerous to count, and MCV of 98.6. Chemistry today showed sodium 132, potassium 3.7, chloride 100, CO2 of 24, BUN 20, creatinine 0.83, glucose 116, calcium 7.7. ASSESSMENT AND PLAN: 1. Hyponatremia: Birney to be due to syndrome of inappropriate antidiuretic hormone secretion related to liver cirrhosis as well as excessive free water intake. The patient also had some degree of volume overload. Sodium level has improved from 128 yesterday to 132 today. The patient was started on salt tablet yesterday. 2. Volume overload: We will continue diuretics. We will, however, substitute furosemide with torsemide due to presumed swelling to improve abduction and bioavailability. We will also continue spironolactone at increased dose of 100 mg daily. 3. Acute renal failure: Due to hemodynamic factors. Resolved. 4. Hypokalemia and hyperkalemia: Resolved. 5. Hypocalcemia: Concerning for vitamin D deficiency. We will get vitamin D level and we will replete if indicated. 6. Atrial fibrillation: Persistent. Defer to Cardiology. We will get repeat BMP in the morning. Further treatment to follow depending on hospital course. Job ID: [id number]
[2020-06-23] MEDS: Diltiazem 125 MG in Sodium Chloride 0.9% 100 ML IVPB SCH (14:47)
--- NOTE | 2020-06-23 15:26 | PDOC.HOSPP ---
- Subjective Encounter Date: 06/23/20 Subjective: The patient denies chest pain or shortness of breath. His rhythm changed to A. fib with RVR earlier today. He also complaining of persistent hiccups. - Objective Vital Signs & Weight: Vital Signs (12 hours) Temp Pulse Resp BP Pulse Ox 06/23/20 12:00 97.9 F 117 H 16 134/61 98 06/23/20 08:48 97.8 F 115 H 20 122/70 98 06/23/20 03:44 97.9 F 110 H 18 104/60 98 Weight Weight 191 lb 3.2 oz Most Recent Monitor Data Heart Rate from ECG 117 NIBP 107/60 NIBP BP-Mean 75 Respiration from ECG 16 SpO2 97 I&O: 06/22/20 06/23/20 06/24/20 06:59 06:59 06:59 Intake Total 480 Output Total 650 250 Balance -170 -250 Result Diagrams: 06/23/20 04:19 06/23/20 04:19 Hospitalist ROS - Medication Medications: Active Medications Generic Name Dose Route Start Last Admin Trade Name Braydon PRN Reason Stop Dose Admin Acetaminophen 500 mg 06/20/20 10:06 06/22/20 11:44 Tylenol PO 500 mg Q6H PRN Administration Headache/Fever/Mild Pain (1-3) Cefepime HCl 2 gm/ Sodium 100 mls @ 200 mls/hr 06/21/20 12:00 06/23/20 13:49 Chloride IVPB 100 mls 0400,1200,2000 SKYLAR Administration Diltiazem HCl 125 mg/ Sodium 125 mls @ 5 mls/hr 06/23/20 14:00 06/23/20 14:47 Chloride IVPB 125 mls INF SKYLAR Administration Protocol 5 MG/HR Lactulose 20 gm 06/21/20 09:00 06/23/20 08:50 Lactulose PO 20 gm BID SKYLAR Administration Lactulose 30 gm 06/23/20 07:00 06/23/20 07:48 Lactulose PO Not Given Q24HR SKYLAR Lactulose 20 gm 06/23/20 14:00 06/23/20 13:50 Lactulose PO Not Given Q24HR SKYLAR Lidocaine 1 patch 06/18/20 21:00 06/22/20 20:25 Lidoderm 5% Patch TD 1 patch 2100 SKYLAR Administration Metoprolol Succinate 25 mg 06/23/20 14:30 06/23/20 14:47 Toprol Xl PO 06/23/20 16:30 25 mg NOW SKYLAR Administration Miscellaneous Medication 1 each 06/19/20 09:00 06/23/20 08:51 Lidocaine Patch Removal TOP 1 each 09 SKYLAR Administration Pantoprazole Sodium 40 mg 06/15/20 21:00 06/23/20 08:51 Protonix IVP 40 mg Q12HR SKYLAR Administration Rifaximin 550 mg 06/17/20 21:00 06/23/20 08:51 Xifaxan PO 550 mg BID SKYLAR Administration Sodium Chloride 1 gm 06/22/20 15:00 06/23/20 13:49 Sodium Chloride PO 1 gm TID SKYLAR Administration Spironolactone 100 mg 06/23/20 08:00 06/23/20 08:51 Aldactone PO 100 mg QAM-WM SKYLAR Administration Tramadol HCl 50 mg 06/20/20 10:06 06/22/20 07:58 Ultram PO 50 mg Q8H PRN Administration Moderate to Severe Pain (6-10) - Exam General Appearance: awake alert ENT: normocephalic atraumatic Neck: supple Heart - other findings: Irregularly irregular rhythm Respiratory: CTAB, normal chest expansion, no tachypnea Neurological: cranial nerve grossly intact, no weakness Hosp A/P - Plan Hosp A/P (1) Esophageal varices with bleeding Code(s): I85.01 - ESOPHAGEAL VARICES WITH BLEEDING Status: Acute (2) ARF (acute renal failure) Status: Resolved (3) Acute blood loss anemia Code(s): D62 - ACUTE POSTHEMORRHAGIC ANEMIA Status: Acute (4) Hepatic encephalopathy Code(s): K72.90 - HEPATIC FAILURE, UNSPECIFIED WITHOUT COMA Status: Acute (5) Hyperkalemia Code(s): E87.5 - HYPERKALEMIA Status: Resolved (6) Atrial fibrillation with RVR Code(s): I48.91 - UNSPECIFIED ATRIAL FIBRILLATION Status: Acute (7) Hyponatremia Code(s): E87.1 - HYPO-OSMOLALITY AND HYPONATREMIA Status: Acute (8) Shoulder pain, left Code(s): M25.512 - PAIN IN LEFT SHOULDER Status: Acute - Plan 06/22: Pt overall improved compared to admission: 1/ U GI bleed secondary to varicies status post banding ligation. - on IV protonix daily - on spironolactone/furosemide - Rocephin d/c yesterday - s/p 3 units prbc last transfusion 06/18 2. Cirrhosis - check US for ascites - continue home meds 3. chronic left pleural effusion - XR yesterday shows possibly slightly increased. Due to cough, elevation of WBC count, I changed to cefepime yesterday to cover for possible infiltrate. Cough improved today. Anticipate this can be changed to oral abx tomorrow. 4. A fib with RVR - appreciate Cardiology management - on low dose beta jason for rate control - not a candidate for anticoagulation 5. Hyponatremia - fluid restriction started yesterday, diet changed to low sodium mechanical soft yesterday - worsening today. Urine studies obtained and pending and requested that Dr. Bryant resume care. 6. Hepatic encephalopathy - continues to improve - continue lactulose at bid 8/ Shoulder pain - check XR, continue pt/ot dvt prophy - scd's gi prophy - on IV protonix as part of treatment code status full will update pt's this afternoon 06/23: No further episodes of bleeding. H&H stable. On furosemide and Aldactone. A. fib with RVR now controlled on Cardizem drip. Continue management per cardiology. No evidence of hepatic encephalopathy. The patient was persistent hiccups likely induced by esophageal banding. Recommended cold sips of water and will determine over. If this does not help within the next 24 to 48 hours, we will consider adding carbamazepine.
[2020-06-23] MEDS: Lidocaine 5% Patch TD SCH (20:19)
[2020-06-23] MEDS: traMADol HCl 50 MG TAB PO PRN (20:23)
[2020-06-24] MEDS: Cefepime 2 GM in Sodium Chloride 0.9% 100 ML IVPB SCH ×3 (04:37→20:47)
[2020-06-24] MEDS: Spironolactone 100 MG TAB PO SCH (08:21)
[2020-06-24] MEDS: Pantoprazole 40 MG VIAL IVP SCH ×2 (08:22→20:48)
[2020-06-24] MEDS: Diltiazem 125 MG in Sodium Chloride 0.9% 100 ML IVPB SCH (08:22)
[2020-06-24] MEDS: Torsemide 20 MG TAB PO SCH (08:22)
[2020-06-24] MEDS: Rifaximin 550 MG TAB PO SCH ×2 (08:22→20:48)
[2020-06-24] MEDS: Sodium Chloride 1 GM TAB PO SCH ×3 (08:22→20:51)
[2020-06-24] MEDS: Lidocaine Patch Removal TOP SCH (08:23)
[2020-06-24] MEDS: traMADol HCl 50 MG TAB PO PRN ×2 (08:27→20:48)
[2020-06-24] MEDS ORDERED: Potassium Chloride 20 MEQ TAB PO SCH (08:45)
[2020-06-24] MEDS ORDERED: Digoxin 0.5 MG/2 ML AMP SLOW IVP SCH (08:45)
[2020-06-24 08:53] LABS: Anion Gap 13 mmol/L (10-20); BUN (Urea Nitrogen) 17 mg/dL (8.4-25.7); Calc. Creatinine Clearance 89 mL/min (70-130); Carbon Dioxide 22 mmol/L (23-31); Chloride 100 mmol/L (98-107); Estimated GFR-MDRD 88; Glucose 115 mg/dL (83-110); Potassium 3.5 mmol/L (3.5-5.1); Sodium 131 mmol/L (136-145)
--- NOTE | 2020-06-24 08:57 | PRG ---
DATE OF SERVICE: 06/24/2020 SUBJECTIVE: Mr. Camacho sitting up in bed. He is more awake and alert. Overall feeling better. His heart rate was high yesterday, is up to 120 and 130 at times. The metoprolol dose was increased and the Cardizem intravenously was given. OBJECTIVE: VITAL SIGNS: His blood pressure however today is relatively low at 100 systolic, pulse in the 70s. LUNGS: Clear. CARDIAC: Irregular. ABDOMEN: Soft and nontender. ASSESSMENT: 1. Atrial fibrillation, chronic, rate increase yesterday. 2. Relatively low blood pressure. 3. Recent gastrointestinal bleed. PLAN: 1. Beta jason dose is increased. 2. Stop Cardizem. 3. Add intravenous digoxin one dose only today, then oral tomorrow. 4. Also low potassium, replete potassium. Job ID: [id number]
--- NOTE | 2020-06-24 10:14 | PRG ---
DATE OF SERVICE: 06/24/2020 SERVICE: Nephrology. SUBJECTIVE: A 80-year-old male seen in followup for hyponatremia. The patient with liver cirrhosis, was initially admitted due to GI/variceal bleeding status post banding and later developed acute kidney injury as well as hyperkalemia, which have all improved. Feeling better. No new problem. OBJECTIVE: VITAL SIGNS: Temperature 97.9, pulse 70, respiratory rate 16, SpO2 of 99% on room air, blood pressure is 115/59. Intake and output in the last 24 hours showed total intake of 500. Output was not documented: This is grossly inconclusive. GENERAL: Comfortable elderly male, in no obvious distress. Afebrile. Anicteric. Acyanotic. HEENT: Normocephalic, atraumatic. Oral mucosa is moist. CARDIOVASCULAR: Irregular rhythm and rate with normal heart sounds 1 and 2. RESPIRATORY: Fair air entry bilaterally with few transmitted breath sounds. GI: Full/mildly enlarged. Nontender with normal bowel sounds. EXTREMITIES: Left elbow mild edema as well as mild edema of both lower extremities. No erythema appreciated. 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 Cranial nerves 2 through 12 are grossly intact. DIAGNOSTIC DATA: BMP today showed sodium 131, potassium 3.5, chloride 100, CO2 of 22, BUN 17, creatinine 0.84, glucose 115, calcium 8.0. ASSESSMENT: 1. Hyponatremia: Due to syndrome of inappropriate antidiuretic hormone secretion. Sodium is improved with fluid restriction and salt tablet. However, sodium today is 131, which is down from 132 yesterday. We will increase fluid/water restriction further from 1500 to 1200 per 24 hours. 2. Acute renal failure: Resolved. 3. Hypokalemia: Resolved, though serum potassium is marginal on the low side despite spironolactone. We will consider increasing spironolactone to 200 daily. 4. Edema: Improved. We will continue torsemide 20 and monitor with a view to increasing dose to 40 daily. 5. Atrial fibrillation: Treatment as per Cardiology and primary attending. 6. We will recheck renal function test as well as CBC in the morning. Further treatment to follow depending on hospital course. Job ID: [id number]
--- NOTE | 2020-06-24 13:24 | PRG ---
DATE OF SERVICE: 06/24/2020 REASON FOR CONSULTATION: Cirrhosis with esophageal varix bleed, hepatic encephalopathy. SUBJECTIVE: Overnight, the patient did not have any acute events or problems. Per nursing staff, he did well again with no inability to tolerate pill administration or his diet. Per the patient, he states that he is feeling much better and more clearer when compared to previously during this admission. He states that he has been taking the lactulose with multiple bowel movements with approximately 6 bowel movements yesterday. He has since had 1 to 2 bowel movements today. Otherwise, he denies any nausea, vomiting, fevers, chills, hematemesis, melena, hematochezia, or abdominal pain. OBJECTIVE: VITAL SIGNS: Temperature 98.8, pulse 88, blood pressure 111/74, respiratory rate 16, and saturating 97% on room air. GENERAL: The patient was lying in bed, in no acute distress. Alert and oriented x4. CARDIOVASCULAR: Irregularly irregular rhythm with a 3/6 systolic murmur best heard at the right upper sternal border. RESPIRATORY: Clear to auscultation bilaterally. ABDOMEN: Normoactive bowel sounds. Soft, nontender, and nondistended. EXTREMITIES: No cyanosis or clubbing. 1+ bilateral lower extremity edema, extending to mid fox. LABORATORY DATA: Chemistry with a sodium of 131, potassium 3.5, chloride 100, CO2 of 22, BUN 17, creatinine 0.84, and glucose 115. IMAGING DATA: No current GI imaging is available for review. ASSESSMENT AND PLAN: 1. Gastrointestinal bleeding from esophageal varix, now status post band ligation on 06/14/2020. The patient has not exhibited any evidence of further bleeding during the course of this hospitalization, but with his history of a bleeding esophageal varix, he will need repeat esophagogastroduodenoscopy in approximately 3 to 4 weeks after his most recent band ligation for continued therapy of eradication of these varices. 2. Acute blood loss anemia. The patient has had no further evidence of overt gastrointestinal bleeding since the upper endoscopy with band ligation. His hemoglobin and hematocrit are now stable with no transfusions within the last 72 hours. However, the patient was placed on metoprolol rather than nonselective beta-blockade for management of his atrial fibrillation, and while this may be beneficial for his atrial fibrillation, it may not necessarily be helpful for his esophageal varix. I will attempt to confer with the patient's ecommerce merchandising manager (Dr. Brisa Restrepo) about switching the patient over to a nonselective beta-jason like carvedilol. 3. Hepatic encephalopathy, resolved while on oral lactulose and rifaximin. Would continue with the rifaximin 550 mg b.i.d., but decrease the lactulose to 20 g b.i.d. and titrate to have approximately 3 to 4 bowel movements per day. 4. Pneumonia. The patient is currently being treated for pneumonia while on cefepime, currently doing well with no shortness of breath and clear to auscultation on examination today. We will continue to follow. Please call with any questions. Job ID: [id number]
[2020-06-24 13:36] VITALS: BMI 26.3
--- NOTE | 2020-06-24 14:59 | PDOC.HOSPP ---
- Subjective Encounter Date: 06/24/20 Subjective: Hiccups resolved yesterday when the patient was moved up to the chair. He stated that his shoulder pain is also improving. - Objective Vital Signs & Weight: Vital Signs (12 hours) Temp Pulse Resp BP Pulse Ox 06/24/20 11:55 98.8 F 88 16 111/74 97 06/24/20 09:22 84 06/24/20 07:25 97.9 F 70 16 115/59 L 99 06/24/20 03:41 97.9 F 83 16 103/57 L 96 Weight Admit Weight 173 lb 15.115 oz Weight 194 lb Most Recent Monitor Data Heart Rate from ECG 117 NIBP 107/60 NIBP BP-Mean 75 Respiration from ECG 16 SpO2 97 I&O: 06/23/20 06/24/20 06/25/20 06:59 06:59 06:59 Intake Total 500 Output Total 250 Balance -250 500 Result Diagrams: 06/23/20 04:19 06/24/20 08:17 Hospitalist ROS - Medication Medications: Active Medications Generic Name Dose Route Start Last Admin Trade Name Freq PRN Reason Stop Dose Admin Acetaminophen 500 mg 06/20/20 10:06 06/22/20 11:44 Tylenol PO 500 mg Q6H PRN Administration Headache/Fever/Mild Pain (1-3) Cefepime HCl 2 gm/ Sodium 100 mls @ 200 mls/hr 06/21/20 12:00 06/24/20 11:57 Chloride IVPB 100 mls 0400,1200,2000 SKYLAR Administration Lactulose 20 gm 06/21/20 09:00 06/24/20 08:20 Lactulose PO Not Given BID SKYLAR Lidocaine 1 patch 06/18/20 21:00 06/23/20 20:19 Lidoderm 5% Patch TD 1 patch 2100 SKYLAR Administration Metoprolol Succinate 50 mg 06/24/20 09:00 06/24/20 08:31 Toprol Xl PO 50 mg DAILY SKYLAR Administration Miscellaneous Medication 1 each 06/19/20 09:00 06/24/20 08:23 Lidocaine Patch Removal TOP 1 each 0900 SKYLAR Administration Pantoprazole Sodium 40 mg 06/15/20 21:00 06/24/20 08:22 Protonix IVP 40 mg Q12HR SKYLAR Administration Rifaximin 550 mg 06/17/20 21:00 06/24/20 08:22 Xifaxan PO 550 mg BID SKYLAR Administration Sodium Chloride 1 gm 06/22/20 15:00 06/24/20 14:12 Sodium Chloride PO 1 gm TID SKYLAR Administration Spironolactone 100 mg 06/23/20 08:00 06/24/20 08:21 Aldactone PO 100 mg QAM-WM SKYLAR Administration Torsemide 20 mg 06/24/20 09:00 06/24/20 08:22 Demadex PO 20 mg DAILY SKYLAR Administration Tramadol HCl 50 mg 06/20/20 10:06 06/24/20 08:27 Ultram PO 50 mg Q8H PRN Administration Moderate to Severe Pain (6-10) - Exam General Appearance: awake alert ENT: normocephalic atraumatic Neck: supple Heart: RRR Respiratory: normal chest expansion, no tachypnea Neurological: cranial nerve grossly intact, no focal deficits Hosp A/P - Plan Hosp A/P (1) Esophageal varices with bleeding Code(s): I85.01 - ESOPHAGEAL VARICES WITH BLEEDING Status: Acute (2) ARF (acute renal failure) Status: Resolved (3) Acute blood loss anemia Code(s): D62 - ACUTE POSTHEMORRHAGIC ANEMIA Status: Acute (4) Hepatic encephalopathy Code(s): K72.90 - HEPATIC FAILURE, UNSPECIFIED WITHOUT COMA Status: Acute (5) Hyperkalemia Code(s): E87.5 - HYPERKALEMIA Status: Resolved (6) Atrial fibrillation with RVR Code(s): I48.91 - UNSPECIFIED ATRIAL FIBRILLATION Status: Acute (7) Hyponatremia Code(s): E87.1 - HYPO-OSMOLALITY AND HYPONATREMIA Status: Acute (8) Shoulder pain, left Code(s): M25.512 - PAIN IN LEFT SHOULDER Status: Acute - Plan 06/22: Pt overall improved compared to admission: 1/ U GI bleed secondary to varicies status post banding ligation. - on IV protonix daily - on spironolactone/furosemide - Rocephin d/c yesterday - s/p 3 units prbc last transfusion 06/18 2. Cirrhosis - check US for ascites - continue home meds 3. chronic left pleural effusion - XR yesterday shows possibly slightly increased. Due to cough, elevation of WBC count, I changed to cefepime yesterday to cover for possible infiltrate. Cough improved today. Anticipate this can be changed to oral abx tomorrow. 4. A fib with RVR - appreciate Cardiology management - on low dose beta jason for rate control - not a candidate for anticoagulation 5. Hyponatremia - fluid restriction started yesterday, diet changed to low sodium mechanical soft yesterday - worsening today. Urine studies obtained and pending and requested that Dr. Bryant resume care. 6. Hepatic encephalopathy - continues to improve - continue lactulose at bid 8/ Shoulder pain - check XR, continue pt/ot dvt prophy - scd's gi prophy - on IV protonix as part of treatment code status full will update pt's this afternoon 06/23: No further episodes of bleeding. H&H stable. On furosemide and Aldactone. A. fib with RVR now controlled on Cardizem drip. Continue management per cardiology. No evidence of hepatic encephalopathy. The patient was persistent hiccups likely induced by esophageal banding. Recommended cold sips of water and will determine over. If this does not help within the next 24 to 48 hours, we will consider adding carbamazepine. 06/24: Atrial fibrillation controlled on carvedilol. Cardizem drip has been discontinued. He is working with physical therapy. Hopefully he can be discharged soon.
[2020-06-24] MEDS: Lidocaine 5% Patch TD SCH (20:48)
[2020-06-25 04:10] LABS: Hemoglobin 9.9 g/dL (14.0-18.0); Mean Corpuscular HGB CONC 32.2 g/dL (32.0-36.0); Mean Corpuscular Hemoglobin 32.2 pg (27.0-31.0); Mean Corpuscular Volume 99.9 fL (78.0-98.0); Mean Platelet Volume 7.9 fL (7.4-10.4); Platelet Count 168 thou/uL (130-400); RBC Distribution Width 16.3 % (11.5-14.5); Red Blood Cell (RBC) Count 3.06 mill/uL (4.70-6.10); White Blood Cell (WBC) Count 14.1 thou/uL (4.8-10.8)
[2020-06-25 04:31] LABS: Anion Gap 12 mmol/L (10-20); BUN (Urea Nitrogen) 18 mg/dL (8.4-25.7); Calc. Creatinine Clearance 81 mL/min (70-130); Calcium 7.7 mg/dL (7.8-10.44); Carbon Dioxide 23 mmol/L (23-31); Chloride 100 mmol/L (98-107); Estimated GFR-MDRD 79; Glucose 102 mg/dL (83-110); Potassium 4.1 mmol/L (3.5-5.1); Sodium 131 mmol/L (136-145)
[2020-06-25] MEDS: Cefepime 2 GM in Sodium Chloride 0.9% 100 ML IVPB SCH ×2 (05:02→12:46)
[2020-06-25] MEDS ORDERED: Ergocalciferol 1.25 MG(50,000 UNITS) CAP PO SCH (09:00)
[2020-06-25] MEDS: Spironolactone 100 MG TAB PO SCH (09:12)
[2020-06-25] MEDS: Digoxin 0.125 MG TAB PO SCH (09:12)
[2020-06-25] MEDS: Pantoprazole 40 MG VIAL IVP SCH ×2 (09:14→21:31)
[2020-06-25] MEDS: Lidocaine Patch Removal TOP SCH (09:14)
[2020-06-25] MEDS: Rifaximin 550 MG TAB PO SCH ×2 (09:14→21:34)
[2020-06-25] MEDS: Propranolol HCl LA 80 MG CAP PO SCH (09:14)
[2020-06-25] MEDS: Sodium Chloride 1 GM TAB PO SCH ×3 (09:14→21:31)
[2020-06-25] MEDS: Torsemide 20 MG TAB PO SCH (09:14)
--- NOTE | 2020-06-25 09:43 | PRG ---
DATE OF SERVICE: 06/25/2020 Mr. Camacho is resting comfortably in bed. No complaint. OBJECTIVE: VITAL SIGNS: Blood pressure 100/50, pulse currently is in the 90s. The most recent blood pressure on the monitor is 120 systolic. LUNGS: Clear. CARDIAC: Irregularly irregular. ABDOMEN: Soft and nontender. EXTREMITIES: No edema. ASSESSMENT: 1. Cirrhosis. 2. Atrial fibrillation. 3. History of gastrointestinal bleeding. PLAN: I talked to Dr. Tucker. Recommends a nonselective beta-jason to maximally benefit the increased portal vein pressures. Therefore, we changed it from metoprolol to Inderal. I would try to avoid carvedilol in view of the low blood pressure, also on digoxin. Job ID: [id number]
--- NOTE | 2020-06-25 19:18 | PRG ---
DATE OF SERVICE: 06/25/2020 SUBJECTIVE: The patient was seen and examined today, seems to be doing much better, hemodynamically stable, noted with the following vital signs. OBJECTIVE: VITAL SIGNS: Blood pressure 120/68, afebrile, temperature 98.9, pulse 82, respiratory rate of 20, and O2 saturation of 100%. HEENT: Unremarkable. CARDIOVASCULAR: First and second heart sounds were heard. RESPIRATORY: Clear to auscultation. DIGESTIVE: Revealed a benign abdomen. Positive bowel sounds. EXTREMITIES: No peripheral edema. SKIN: No new gross rash. LYMPHATICS: No peripheral lymphadenopathy. LABORATORY INVESTIGATION: Significant for sodium that is stable at 131. Vitamin D of 11.2. IMPRESSION: 1. Hyponatremia in the context of syndrome of inappropriate antidiuretic hormone secretion, seems to be stable at 131. 2. Hypovitaminosis D. 3. History of liver cirrhosis with esophageal varices, status post banding. PLAN: 1. The patient to continue with fluid restriction and monitor his sodium accordingly. 2. Increase protein intake in the aware of increasing the dose of oral intake. 3. Continue with vitamin D replacement. 4. Further management to be dependent on the clinical course. Job ID: [id number]
--- NOTE | 2020-06-25 20:36 | PDOC.HOSPP ---
- Subjective Encounter Date: 06/25/20 Subjective: The patient is feeling better today. He was able to converse with in physical therapy. Denies any shoulder pain - Objective Vital Signs & Weight: Vital Signs (12 hours) Temp Pulse Resp BP Pulse Ox 06/25/20 20:03 98 F 85 16 105/53 L 97 06/25/20 15:23 98.9 F 82 20 120/68 100 06/25/20 11:11 98.1 F 82 21 H 103/56 L 98 06/25/20 09:12 105 H Weight Admit Weight 173 lb 15.115 oz Weight 193 lb 14.4 oz Most Recent Monitor Data Heart Rate from ECG 117 NIBP 107/60 NIBP BP-Mean 75 Respiration from ECG 16 SpO2 97 I&O: 06/24/20 06/25/20 06/26/20 06:59 06:59 06:59 Intake Total 500 1200 Balance 500 1200 Result Diagrams: 06/25/20 03:15 06/25/20 03:15 Hospitalist ROS - Medication Medications: Active Medications Generic Name Dose Route Start Last Admin Trade Name Freq PRN Reason Stop Dose Admin Acetaminophen 500 mg 06/20/20 10:06 06/22/20 11:44 Tylenol PO 500 mg Q6H PRN Administration Headache/Fever/Mild Pain (1-3) Digoxin 0.125 mg 06/25/20 09:00 06/25/20 09:12 Lanoxin PO 0.125 mg DAILY SKYLAR Administration Ergocalciferol 1.25 mg 06/25/20 09:00 06/25/20 09:13 Drisdol PO 1.25 mg Q7D SKYLAR Administration Lactulose 20 gm 06/21/20 09:00 06/25/20 09:14 Lactulose PO 20 gm BID SKYLAR Administration Lidocaine 1 patch 06/18/20 21:00 06/24/20 20:48 Lidoderm 5% Patch TD 1 patch 2100 SKYLAR Administration Miscellaneous Medication 1 each 06/19/20 09:00 06/25/20 09:14 Lidocaine Patch Removal TOP 1 each 0900 SKYLAR Administration Pantoprazole Sodium 40 mg 06/15/20 21:00 06/25/20 09:14 Protonix IVP 40 mg Q12HR SKYLAR Administration Propranolol HCl 80 mg 06/25/20 09:00 06/25/20 09:14 Inderal La PO 80 mg DAILY SKYLAR Administration Rifaximin 550 mg 06/17/20 21:00 06/25/20 09:14 Xifaxan PO 550 mg BID SKYLAR Administration Sodium Chloride 1 gm 06/22/20 15:00 06/25/20 15:52 Sodium Chloride PO 1 gm TID SKYLAR Administration Spironolactone 100 mg 06/23/20 08:00 06/25/20 09:12 Aldactone PO 100 mg QAM-WM SKYLAR Administration Torsemide 20 mg 06/24/20 09:00 06/25/20 09:14 Demadex PO 20 mg DAILY SKYLAR Administration Tramadol HCl 50 mg 06/20/20 10:06 06/24/20 20:48 Ultram PO 50 mg Q8H PRN Administration Moderate to Severe Pain (6-10) Hosp A/P - Plan Hosp A/P (1) Esophageal varices with bleeding Code(s): I85.01 - ESOPHAGEAL VARICES WITH BLEEDING Status: Acute (2) ARF (acute renal failure) Status: Resolved (3) Acute blood loss anemia Code(s): D62 - ACUTE POSTHEMORRHAGIC ANEMIA Status: Acute (4) Hepatic encephalopathy Code(s): K72.90 - HEPATIC FAILURE, UNSPECIFIED WITHOUT COMA Status: Acute (5) Hyperkalemia Code(s): E87.5 - HYPERKALEMIA Status: Resolved (6) Atrial fibrillation with RVR Code(s): I48.91 - UNSPECIFIED ATRIAL FIBRILLATION Status: Acute (7) Hyponatremia Code(s): E87.1 - HYPO-OSMOLALITY AND HYPONATREMIA Status: Acute (8) Shoulder pain, left Code(s): M25.512 - PAIN IN LEFT SHOULDER Status: Acute - Plan 06/22: Pt overall improved compared to admission: 1/ U GI bleed secondary to varicies status post banding ligation. - on IV protonix daily - on spironolactone/furosemide - Rocephin d/c yesterday - s/p 3 units prbc last transfusion 06/18 2. Cirrhosis - check US for ascites - continue home meds 3. chronic left pleural effusion - XR yesterday shows possibly slightly increased. Due to cough, elevation of WBC count, I changed to cefepime yesterday to cover for possible infiltrate. Cough improved today. Anticipate this can be changed to oral abx tomorrow. 4. A fib with RVR - appreciate Cardiology management - on low dose beta jason for rate control - not a candidate for anticoagulation 5. Hyponatremia - fluid restriction started yesterday, diet changed to low sodium mechanical soft yesterday - worsening today. Urine studies obtained and pending and requested that Dr. Bryant resume care. 6. Hepatic encephalopathy - continues to improve - continue lactulose at bid 8/ Shoulder pain - check XR, continue pt/ot dvt prophy - scd's gi prophy - on IV protonix as part of treatment code status full will update pt's this afternoon 06/23: No further episodes of bleeding. H&H stable. On furosemide and Aldactone. A. fib with RVR now controlled on Cardizem drip. Continue management per cardiology. No evidence of hepatic encephalopathy. The patient was persistent hiccups likely induced by esophageal banding. Recommended cold sips of water and will determine over. If this does not help within the next 24 to 48 hours, we will consider adding carbamazepine. 06/24: Atrial fibrillation controlled on carvedilol. Cardizem drip has been discontinued. He is working with physical therapy. Hopefully he can be discharged soon. 06/25: The patient condition is currently stable. We are arranging for rehab placement likely tomorrow. Continue PT and OT.
[2020-06-25] MEDS: Lidocaine 5% Patch TD SCH (21:34)
[2020-06-25] MEDS: traMADol HCl 50 MG TAB PO PRN (21:34)
[2020-06-26 04:53] LABS: #Eosinphils 0.5 thou/uL (0.0-0.7); #Lymphocytes 1.3 thou/uL (1.20-3.40); #Monocytes 1.6 thou/uL (0.11-0.59); #Neutrophils 8.9 thou/uL (1.40-6.50); %Basophils 0.1 % (0.0-1.0); %Lymphocytes 10.8 % (21.0-51.0); %Monocytes 12.9 % (0.0-10.0); %Neutrophils 72.1 % (42.0-75.0); Hemoglobin 9.5 g/dL (14.0-18.0); Mean Corpuscular HGB CONC 32.6 g/dL (32.0-36.0); Mean Corpuscular Hemoglobin 32.3 pg (27.0-31.0); Mean Corpuscular Volume 99.3 fL (78.0-98.0); Mean Platelet Volume 7.3 fL (7.4-10.4); Platelet Count 171 thou/uL (130-400); RBC Distribution Width 16.2 % (11.5-14.5); Red Blood Cell (RBC) Count 2.95 mill/uL (4.70-6.10); White Blood Cell (WBC) Count 12.4 thou/uL (4.8-10.8)
[2020-06-26 05:10] LABS: Anion Gap 11 mmol/L (10-20); BUN (Urea Nitrogen) 18 mg/dL (8.4-25.7); Calc. Creatinine Clearance 70 mL/min (70-130); Calcium 7.8 mg/dL (7.8-10.44); Carbon Dioxide 25 mmol/L (23-31); Chloride 100 mmol/L (98-107); Estimated GFR-MDRD 67; Glucose 103 mg/dL (83-110); Potassium 3.5 mmol/L (3.5-5.1); Sodium 132 mmol/L (136-145)
[2020-06-26] MEDS: traMADol HCl 50 MG TAB PO PRN (07:23)
[2020-06-26] MEDS ORDERED: Potassium Chloride 20 MEQ TAB PO SCH (08:30)
[2020-06-26] MEDS: Propranolol HCl LA 80 MG CAP PO SCH (08:34)
[2020-06-26] MEDS: Rifaximin 550 MG TAB PO SCH (08:34)
[2020-06-26] MEDS: Lidocaine Patch Removal TOP SCH (08:34)
[2020-06-26] MEDS: Spironolactone 100 MG TAB PO SCH (08:34)
[2020-06-26] MEDS: Sodium Chloride 1 GM TAB PO SCH ×2 (08:34→15:29)
[2020-06-26] MEDS: Digoxin 0.125 MG TAB PO SCH (08:34)
[2020-06-26] MEDS: Pantoprazole 40 MG VIAL IVP SCH (08:34)
[2020-06-26] MEDS: Torsemide 20 MG TAB PO SCH (08:34)
--- NOTE | 2020-06-26 09:53 | PRG ---
DATE OF SERVICE: 06/26/2020 SUBJECTIVE: Mr. Camacho feels well. He has no complaints. OBJECTIVE: VITAL SIGNS: Blood pressure is 97/60, pulse is in the 80s, it is atrial fibrillation. LUNGS: Clear. CARDIAC: Irregular. ABDOMEN: Soft, nontender. EXTREMITIES: Moderate edema ASSESSMENT: 1. Atrial fibrillation, longstanding, chronic, adequate rate control. 2. Cannot be anticoagulated due to recent gastrointestinal bleeding. 3. Peripheral edema, stable. PLAN: Continue current medical regimen. Dr. Sesay will be available this weekend if needed. Potassium is repleted this morning. Dr. Lemus will be back next Monday. From a cardiac standpoint, continue same medication. I do not think we can increase the beta blockers further due to the blood pressure, but he is on a therapeutic dose of nonselective beta blockers with Inderal 80 mg a day now. Job ID: [id number]
[2020-06-26 11:40] VITALS: TEMP 97.6
--- NOTE | 2020-06-26 12:26 | PRG ---
DATE OF SERVICE: 06/26/2020 SUBJECTIVE: The patient noted with the following vital signs. OBJECTIVE: VITAL SIGNS: Afebrile, temperature 97.6, pulse 88, respiratory rate of 18, O2 saturations of 98% with a blood pressure of 110/59. HEENT: Unremarkable. CARDIOVASCULAR SYSTEM: First and second heart sounds were heard. RESPIRATORY SYSTEM: Clear to auscultation. DIGESTIVE SYSTEM: Revealed a benign abdomen. EXTREMITIES: No peripheral edema. SKIN: No new gross rash. LYMPHATICS: No peripheral lymphadenopathy. LABORATORY INVESTIGATION: Showed a white count of 12,400, hemoglobin 9.5. Chemistry showed a sodium of 132, creatinine 1.07. IMPRESSION: 1. Hyponatremia in the context of . 2. Syndrome of inappropriate antidiuretic hormone secretion, seems to be improving. 3. Acute on chronic kidney disease, much improved. PLAN: 1. We will continue with current management of high-protein intake with fluid restriction. 2. Further management to be dependent on the clinical course. Job ID: [id number]
[2020-06-26 15:28] VITALS: BP 96/61
--- NOTE | 2020-06-27 03:13 | DIS ---
DATE OF ADMISSION: 06/14/2020 DATE OF DISCHARGE: 06/26/2020 DISCHARGE DIAGNOSES: 1. Esophageal varices with bleeding. 2. Acute renal failure. 3. Acute blood loss anemia. 4. Hepatic encephalopathy. 5. Atrial fibrillation with rapid ventricular response. 6. Hyperkalemia. 7. Hyponatremia. 8. Shoulder pain. DISCHARGE MEDICATIONS: 1. Aspirin 81 mg orally daily. 2. Digoxin 0.125 mg orally daily. 3. Propranolol 80 mg orally daily. 4. Spironolactone 100 mg orally daily. 5. Torsemide 20 mg orally daily. 6. Lactulose 15 mL orally twice daily. 7. Tramadol 50 mg orally q.6 hours as needed for pain. HISTORY OF PRESENT ILLNESS AND HOSPITAL COURSE: The patient is a 80-year-old male with past medical history of coronary artery disease, atrial fibrillation, aortic stenosis, cirrhosis of the liver, who was brought to the hospital due to hematemesis and melena. He was also found to be encephalopathic. He is admitted to the hospital and had a prolonged course where he was managed with upper GI endoscopy where esophageal variceal bleeding was noted. This is status post banding with ligation, which led to hemostasis. The patient has acute blood loss anemia required a total of 3 units of packed RBCs to stabilize his hemoglobin level. He was managed with lactulose for his hepatic encephalopathy, which has gradually improved. During his hospital stay, the patient developed atrial fibrillation with rapid ventricular response. This was managed with Cardizem drip, which was subsequently transitioned to selective beta jason. No anticoagulation was initiated due to the patient's recent bleeding. The patient was also complaining of intermittent shoulder pain. This was managed with intermittent pain medications and physical therapy. Overall, the patient remains generally weak and will require further therapy. Inpatient rehab admission was discussed with the patient's family, but they opted for him to come home with home health physical therapy. Job ID: [id number]
== END 2020-06-26 16:20 | disposition home health service (06) | DRG 441 ==
LOC: ERS 18:39 → SDC 20:41 → CCU 20:42 → IMCU/EMU 06-18 13:44 → 2NO 06-19 21:17
PROVIDERS: ADMIT Internal Medicine Gastroenterology; ATTEND Internal Medicine Gastroenterology
PROC: 06L38CZ Occlusion of Esophageal Vein with Extraluminal Device, Via Natural or Artificial Opening Endoscopic (ICD-10-PCS; principal; 2020-06-14)
PROC: 30233N1 Transfusion of Nonautologous Red Blood Cells into Peripheral Vein, Percutaneous Approach (ICD-10-PCS; 2020-06-14)
DX: K72.00 Acute and subacute hepatic failure without coma (principal); I85.11 Secondary esophageal varices with bleeding; G93.41 Metabolic encephalopathy; J18.9 Pneumonia, unspecified organism; K76.6 Portal hypertension; D62 Acute posthemorrhagic anemia; E87.2 Acidosis; I13.0 Hypertensive heart and chronic kidney disease with heart failure and stage 1 through stage 4 chronic kidney disease, or unspecified chronic kidney disease; I25.810 Atherosclerosis of coronary artery bypass graft(s) without angina pectoris; N17.9 Acute kidney failure, unspecified; R18.8 Other ascites; E22.2 Syndrome of inappropriate secretion of antidiuretic hormone; K74.60 Unspecified cirrhosis of liver; I50.9 Heart failure, unspecified; N18.3 Chronic kidney disease, stage 3 (moderate); E11.22 Type 2 diabetes mellitus with diabetic chronic kidney disease; I48.0 Paroxysmal atrial fibrillation; E66.9 Obesity, unspecified; E88.09 Other disorders of plasma-protein metabolism, not elsewhere classified; E87.5 Hyperkalemia; M25.519 Pain in unspecified shoulder; I95.2 Hypotension due to drugs; E55.9 Vitamin D deficiency, unspecified; T44.7X5A Adverse effect of beta-adrenoreceptor antagonists, initial encounter; E87.6 Hypokalemia; Z79.01 Long term (current) use of anticoagulants; Z88.8 Allergy status to other drugs, medicaments and biological substances; Z79.899 Other long term (current) drug therapy; Z79.82 Long term (current) use of aspirin; Z95.1 Presence of aortocoronary bypass graft; Z95.2 Presence of prosthetic heart valve; Z68.26 Body mass index [BMI] 26.0-26.9, adult
CPT/HCPCS: 36415; 36416; 36430; 71045; 76705; 80048; 80053; 80076; 81001; 82040; 82140; 82306; 82570; 82805; 83690; 83735; 83935; 84145; 84156; 84300; 84540; 85014; 85018; 85025; 85027; 85610; 85730; 86140; 86850; 86900; 86901; 87086; 93005; 93010; 94002; 94003; 94760; 96361; 96365; 96366; 96368; 96375; 96376; 99292; C9113; C9132; J0692; J0696; J1160; J1815; J1940; J2250; J2354; J2405; J2704; J3490; J7050; J7070; P9016; P9047

== ENCOUNTER 2020-07-23 07:49 | Outpatient (CLI) | payer MEDICARE, BC, OTHER ==
[2020-07-24 13:42] LABS: SARS-CoV-2 MS2 Positive; SARS-CoV-2 N Gene Negative; SARS-CoV-2 S Gene Negative; SARS-CoV-2 by NAA Not Detected (NotDetected); SARS-CoV-2 orf1ab Negative
== END 2020-07-23 07:50 | disposition home or self-care (01) ==
LOC: LABBT 07:49
PROVIDERS: ATTEND Internal Medicine
DX: K74.60 Unspecified cirrhosis of liver (principal); I85.00 Esophageal varices without bleeding; Z20.828 Contact with and (suspected) exposure to other viral communicable diseases
CPT/HCPCS: 87635; U0003

== ENCOUNTER 2020-08-28 06:57 | Outpatient (CLI) | payer MEDICARE, BC, OTHER ==
[2020-08-29 12:00] LABS: SARS-CoV-2 MS2 Positive; SARS-CoV-2 N Gene Negative; SARS-CoV-2 S Gene Negative; SARS-CoV-2 by NAA Not Detected (NotDetected); SARS-CoV-2 orf1ab Negative
== END 2020-08-28 06:58 | disposition home or self-care (01) ==
LOC: LABBT 06:57
PROVIDERS: ATTEND Internal Medicine
DX: K74.60 Unspecified cirrhosis of liver (principal); I85.00 Esophageal varices without bleeding; Z20.828 Contact with and (suspected) exposure to other viral communicable diseases
CPT/HCPCS: 87635; U0003

== ENCOUNTER 2020-08-31 08:00 | Day surgery (SDC) | payer MEDICARE, BC ==
[2020-08-28 11:24] VITALS: BMI 25.3
[2020-08-31] MEDS ORDERED: PROPOFOL 200 MG/20 ML VIAL ONE (10:35)
--- NOTE | 2020-08-31 16:42 | OP ---
DATE OF PROCEDURE: 08/31/2020 PROCEDURE PERFORMED: Esophagogastroduodenoscopy (diagnostic). INDICATIONS FOR PROCEDURE: History of bleeding esophageal varices status post band ligation x2 in the past, surveillance of esophageal varices with possible band ligation. DESCRIPTION OF PROCEDURE: After the risks and benefits of the procedure were explained to the patient including risks of bleeding, infection, perforation, reactions to anesthesia, aspiration, and/or pain, informed consent was obtained. The patient was then taken to the endoscopy suite where he was maneuvered into the left lateral decubitus position followed by introduction of deep sedation via propofol and anesthesia support. Once adequate sedation was achieved, the standard gastroscope was introduced into the mouth with intubation of the esophagus, stomach, and the proximal small intestines with the findings listed below. The patient tolerated the procedure well with no immediate perioperative complications. Upon completion of the procedure, all equipment was removed from the patient and he was transferred to Day Stay in satisfactory condition. FINDINGS: Esophagus: Normal-appearing mucosa was seen in the proximal and mid esophagus. Small (grade 1) esophageal varices were seen in the distal esophagus that lie flat with insufflation. There was no high-risk stigmata of bleeding associated with either of these 2 varices seen today nor was there any evidence of active/recent bleeding. However, at the gastroesophageal junction, mild oozing of blood was noted as well as increased mucosal erythema/inflammation, consistent with acid reflux. Otherwise, there was no evidence of erosions, ulcerations, or mass lesions. Stomach: Diffuse mucosal erythema in a mosaic-type pattern was seen in the gastric cardia, fundus, body along the greater curvature and extending into the antrum. It did exhibit mild oozing of blood in regions with small clot formation, measuring 1 to 2 mm in size, but there was no evidence of active bleeding associated with this finding. Normal-appearing mucosa was then seen in the antrum and incisura. There was no evidence of erosions, ulcerations, mass lesions, or active bleeding. Duodenum: Normal-appearing mucosa was seen in both the duodenal bulb and second portion of the duodenum. There was no evidence of erosions, ulcerations, mass lesions, or active/recent bleeding. IMPRESSION: 1. Mild portal hypertensive gastropathy with mild oozing of blood. 2. LA grade A reflux-mediated erosive esophagitis with mild oozing of blood. 3. Small distal esophageal varices with no high-risk stigmata of active or recent bleeding with no intervention taken today. 4. No evidence of gastric varices. RECOMMENDATIONS: 1. Would continue the patient on nonselective beta-jaosn (propranolol) 80 mg daily as part of primary prophylaxis for further variceal bleeding. 2. Would recommend a repeat upper endoscopy in 1 year for surveillance of the esophageal varices. 3. Would consider placing the patient on acid reflux medications including famotidine 40 mg daily for reflux esophagitis. 4. Would have the patient follow up in the GI clinic in 3 weeks with preclinic labs including CBC, CMP, AFP, and INR. Job ID: [id number]
== END 2020-08-31 12:10 | disposition home or self-care (01) ==
LOC: SDC 08:00
PROVIDERS: ATTEND Internal Medicine
PROC: 0DJ08ZZ Inspection of Upper Intestinal Tract, Via Natural or Artificial Opening Endoscopic (ICD-10-PCS; principal; 2020-08-31)
DX: I85.00 Esophageal varices without bleeding (principal); Z79.899 Other long term (current) drug therapy; Z88.8 Allergy status to other drugs, medicaments and biological substances
CPT/HCPCS: J2704

== ENCOUNTER 2020-10-30 14:14 | Inpatient (IN) | payer MEDICARE, BC ==
[2020-10-30 15:12] VITALS: BMI 24.4
[2020-10-30] MEDS ORDERED: Ondansetron PF 4 MG/2 ML Vial IVP PRN (15:32)
[2020-10-30] MEDS ORDERED: Guaifenesin DM 100-10/5 ML UDCUP PO PRN (15:32)
[2020-10-30] MEDS ORDERED: Calcium Carbonate 500 MG ChewTAB PO PRN (15:32)
[2020-10-30] MEDS ORDERED: Acetaminophen 325 MG TAB PO PRN (15:32)
[2020-10-30] MEDS ORDERED: Sodium Chloride 0.9% 500 ML IV SCH (16:00)
[2020-10-30 16:05] LABS: #Eosinphils 0.1 thou/uL (0.0-0.7); #Lymphocytes 0.9 thou/uL (1.20-3.40); #Neutrophils 9.4 thou/uL (1.40-6.50); %Basophils 0.4 % (0.0-1.0); %Eosinophils 0.9 % (0.0-10.0); %Lymphocytes 8.1 % (21.0-51.0); %Monocytes 8.3 % (0.0-10.0); %Neutrophils 82.3 % (42.0-75.0); Hemoglobin 14.5 g/dL (14.0-18.0); Mean Corpuscular HGB CONC 34.3 g/dL (32.0-36.0); Mean Corpuscular Hemoglobin 32.6 pg (27.0-31.0); Mean Corpuscular Volume 95.1 fL (78.0-98.0); Mean Platelet Volume 5.8 fL (7.4-10.4); Platelet Count 240 thou/uL (130-400); RBC Distribution Width 15.2 % (11.5-14.5); Red Blood Cell (RBC) Count 4.44 mill/uL (4.70-6.10); White Blood Cell (WBC) Count 11.4 thou/uL (4.8-10.8)
[2020-10-30 16:25] LABS: PTT 38.5 sec (22.9-36.1); Prothrombin Time 13.6 sec (12.0-14.7)
--- NOTE | 2020-10-30 16:25 | RAD ---
EXAM: CHEST ONE VIEW HISTORY: Infiltrate. COMPARISON: 06/21/2020 FINDINGS: Postoperative changes related to median sternotomy and cardiac valve replacement are again noted. The re are pleural and parenchymal changes at the left lung base, but these changes have improved compared to prior exam. This may be related to residual left pleural fluid collection and associated volume loss. The right lung is clear. Vascular calcifications are seen in the thoracic aorta. The left cardiac border is obscured due to pleural and parenchymal changes at the left lung base. Pulmona ry vasculature is within normal limits. IMPRESSION: Pleural and parenchymal changes left lung base which have improved from prior study likely due to imp rovement in pleural a few. Residual pleural and parenchymal changes may be related to loculated pleural fluid collection left lung base with associated atelectasis. Superimposed pneumonia would be difficult to exclude.
[2020-10-30 16:27] LABS: ALT (SGPT) 31 U/L (8-55); AST (SGOT) 42 U/L (5-34); Albumin 3.5 g/dL (3.4-4.8); Alkaline Phosphatase 273 U/L (40-110); Anion Gap 20 mmol/L (10-20); BUN (Urea Nitrogen) 20 mg/dL (8.4-25.7); Bilirubin, Total 1.8 mg/dL (0.2-1.2); Calc. Creatinine Clearance 43 mL/min (70-130); Calcium 10.2 mg/dL (7.8-10.44); Carbon Dioxide 25 mmol/L (23-31); Chloride 79 mmol/L (98-107); Globulin 4.5 g/dL (2.4-3.5); Glucose 171 mg/dL (83-110); Potassium 4.5 mmol/L (3.5-5.1)
--- NOTE | 2020-10-30 16:32 | HP ---
REASON FOR ADMISSION: Hyponatremia, severe dehydration, possible hepatic encephalopathy. HISTORY OF PRESENTING ILLNESS: Please note majority of this history is obtained by talking to the patient's who is here at bedside as the patient is not oriented at present. His pulse was elevated at home into the 120s. This has been ongoing from Monday. They called Dr. Lemus' office and the patient has had addition of metolazone to spironolactone and hydrochlorothiazide, which he already takes. On Monday and Monday, this got worse and they called Dr. Lemus' office again on Monday and was told not to take metolazone. They were also told to drink some tomato juice along with other diet to relieve his dehydration. This morning, the patient went to see Dr. Tucker. He had lab work done and it showed a sodium 121. This was concerning and the patient was clinically dehydrated. He was admitted for further workup and management of this. at bedside mentions that he is not the same person normally. He is very slow to talk and in fact, he has not been able to get the right words out. He has also become slow in ambulating as well. He has not had a bowel movement for the last 3 days now. thinks that his ammonia levels are high. PAST MEDICAL AND SURGICAL HISTORY: History of cirrhosis, coronary artery disease, CABG, bioprosthetic Magna aortic valve, cirrhosis secondary to OATES, hypertension, radical prostatectomy for prostate cancer, left atrial appendage ligation with CABG, upper and lower endoscopies. He has had esophageal varices with banding done on August 31. CURRENT MEDICATIONS: The patient is takin. Digoxin 0.125 mg daily. 2. Lactulose 3 teaspoon full in the morning and 2 teaspoon full at noon. He is off: 1. Propranolol. 2. Torsemide. 3. Aldactone. ALLERGIES: TO LISINOPRIL AND LOSARTAN. PERSONAL HISTORY: Does not abuse alcohol or drugs. No history of smoking. FAMILY HISTORY: Mother at the age of 63 from stroke. Father at the age of 85. CODE STATUS: Full. 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 He normally ambulates by himself, mostly sometimes uses a walker. REVIEW OF SYSTEMS: CONSTITUTIONAL: Negative for weight loss or gain, ability to conduct usual activities. SKIN: Negative for rash, itching. EYES: Negative for double vision, pain. ENT/MOUTH: Negative for nose bleeding, neck stiffness, pain, tenderness. CARDIOVASCULAR: Negative for palpitations, dyspnea on exertion, orthopnea. RESPIRATORY: Negative for shortness of breath, wheezing, cough, hemoptysis, fever or night sweats. GASTROINTESTINAL: Negative for poor appetite, abdominal pain, heartburn, nausea, vomiting, constipation, or diarrhea. GENITOURINARY: Negative for urgency, frequency, dysuria, nocturia. MUSCULOSKELETAL: Negative for pain, swelling. NEUROLOGIC/PSYCHIATRIC: Negative for anxiety, depression. ALLERGY/IMMUNOLOGIC: Negative for skin rash, bleeding tendency. PHYSICAL EXAMINATION: GENERAL: The patient is a 80-year-old male, who is currently not in any acute distress. VITAL SIGNS: Blood pressure 146/76, pulse 108 per minute, respiratory rate 18 per minute, temperature 97.5 degrees Fahrenheit, saturating 97% on room air. NECK: Supple. No elevated JVD. HEENT: Eyes; extraocular muscles intact. Pupils reacting to light. Oral cavity, mucous membranes are dry. No exudates or congestion. CARDIOVASCULAR SYSTEM: S1 and S2 heard. Tachycardic. No murmur. RESPIRATORY: Air entry 1+ bilateral. No rales or rhonchi. ABDOMEN: Soft. Bowel sounds heard. No tenderness, rigidity, or guarding. EXTREMITIES: No peripheral edema or calf tenderness. VASCULAR SYSTEM: Peripheral pulses 1+ bilateral. No ischemic ulcers or gangrene. CENTRAL NERVOUS SYSTEM: No gross focal deficits noted. The patient is alert and awake, but is not oriented. PSYCHIATRIC SYSTEM: No hallucinations or delusions. LABORATORY DATA: The patient has had sodium of 121 on the October 28, chloride of 85, BUN 15, creatinine 1.1, serum glucose 148, total bilirubin 1.5, AST 58, alkaline phosphatase 302, albumin was 3.3. The tumor marker AFP was 2.2 on September 17. Please note, all his labs are ordered and pending and will follow up shortly. CLINICAL IMPRESSION AND PLAN: The patient will be admitted to medical floor for severe hyponatremia, dehydration, possible hepatic encephalopathy. He will be gently hydrated with normal saline at 100 mL per hour. The patient is taken off all diuretics. We will continue his digoxin 0.125 mg daily. The patient is tachycardic at present. He apparently had an EKG done this morning in Dr. Lemus' office and she told him that it was normal. Just for documentation sake, I would want a 12-lead EKG on him. We will also obtain a chest x-ray to rule out infiltrate and a COVID-19 PCR as well. We will follow up on the labs. If needed, nonselective beta-jason will be added. If he were to be persistently tachycardic despite fluid hydration, we will give 1 L of bolus now. We will consult Dr. David Richards who is on-call for Dr. Tucker. Job ID: [id number]
[2020-10-30 16:39] LABS: Sodium 119 mmol/L (136-145)
[2020-10-30] MEDS: Sodium Chloride 0.9% 1,000 ML IV SCH (17:08)
[2020-10-30] MEDS ORDERED: Fleet Enema 133 ML BOT PR SCH (21:00)
[2020-10-30] MEDS: Heparin 5,000 UNITS/ML VIAL SC SCH (21:15)
[2020-10-30 21:39] LABS: Creatinine, Urine 71.95 mg/dL (63-166); Potassium, Urine 45.9 mmol/L
[2020-10-30 22:31] LABS: SARS-CoV-2 MS2 Positive; SARS-CoV-2 N Gene Negative; SARS-CoV-2 S Gene Negative; SARS-CoV-2 by NAA Not Detected (NotDetected); SARS-CoV-2 orf1ab Negative
[2020-10-30 22:44] LABS: Bacteria/HPF None Seen HPF (None Seen); Bilirubin Negative (Negative); Blood, Urine Negative (Negative); Clarity Clear (Clear); Glucose, Urine (Dipstick) Normal (Negative); Ketone, Urine Negative (Negative); Leukocyte Negative Leu/uL (Negative); Nitrite Negative (Negative); Protein, Urine (Dipstick) Negative (Neg-Trace); RBC/HPF 0-3 HPF (0-3); Specific Gravity, Urine 1.016 (1.002-1.036); Squamous Epithelial 0-3 HPF (0-3); Urobilinogen Normal mg/dL (Less than 2); WBC/HPF 0-3 HPF (0-3)
[2020-10-31] MEDS: Sodium Chloride 0.9% 1,000 ML IV SCH ×5 (00:18→20:47)
--- NOTE | 2020-10-31 01:18 | CON ---
DATE OF CONSULTATION: 10/30/2020 CHIEF COMPLAINT: Confusion. HISTORY OF PRESENT ILLNESS: Mr. Camacho is a 80-year-old man with a history of cirrhosis followed by Dr. Tucker in the office, who was sent to the emergency room after he was found to have significant electrolyte abnormalities including severe hyponatremia along with his worsening confusion over the last 4 days. His concern for clinical dehydration along with the hyponatremia. The patient was started on gentle IV fluids by the primary service with sodium chloride and the patient has since perked up significantly. He is now alert and oriented and feeling much better. He has no nausea or vomiting. He has had no diarrhea or constipation or blood in the stool. 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 PAST SURGICAL HISTORY: Aortic valve replacement and banding of esophageal varices. FAMILY HISTORY: Negative for GI malignancy. SOCIAL HISTORY: He quit drinking in the past. No drugs. No smoking. ALLERGIES: LISINOPRIL AND LOSARTAN. MEDICATIONS: 1. Digoxin. 2. Lactulose. Recently, his propranolol and torsemide and Aldactone discontinued due to the hyponatremia. REVIEW OF SYSTEMS: Negative x10 systems reviewed except as stated in the history of present illness. LABORATORY DATA: White blood cell count 11.4, hemoglobin 14.5, platelets 240. INR 1.0. Sodium 119, potassium 4.5, chloride is 79, BUN 20, creatinine 1.39, CO2 of 25. Bilirubin 1.8, AST 42, ALT 31, alkaline phosphatase 273, ammonia 48, albumin 3.5. AFP 2.2 back in August. PHYSICAL EXAMINATION: VITAL SIGNS: His temperature is 97.5, pulse 108, and blood pressure 145/77. GENERAL: He is in no acute distress. Alert and oriented x3. LUNGS: Clear to auscultation bilaterally. HEART: Tachycardic. S1 and S2 without murmur. ABDOMEN: Soft, nontender, and nondistended. Bowel sounds are present. EXTREMITIES: No lower extremity edema. IMPRESSION: 1. Cirrhosis of the liver, decompensated with elevated bilirubin and low albumin and ascites, now complicated by hyponatremia and varices requiring banding and prior bleed and prior hepatic encephalopathy. 2. Hyponatremia with confusion. He received gentle rehydration with normal saline and his mental status is returned to normal and he is feeling much better. His propranolol and diuretics have been discontinued. In the meantime, if he ultimately develops more significant symptomatic ascites, he can receive paracentesis as needed. I would keep him off the diuretics for now. 3. Acute renal failure with mild increase in his creatinine at 1.39. 4. Esophageal varices, status post banding, most recently on August 31, 2020. Portal hypertensive gastropathy was noted as well. 5. Hepatic encephalopathy. Currently, his mental status is normal after receiving rehydration. RECOMMENDATIONS: 1. Continue to hold the beta blockers and diuretics. 2. If he develops significant symptomatic ascites in the future, he can receive paracentesis. 3. He is receiving gentle rehydration with normal saline with improvement. 4. He should be ready to discharge home soon if he continues to do well and his electrolytes improve significantly after rehydration. Job ID: [id number]
[2020-10-31 06:10] LABS: #Basophils 0.1 thou/uL (0.0-0.2); #Eosinphils 0.4 thou/uL (0.0-0.7); #Lymphocytes 1.2 thou/uL (1.20-3.40); #Monocytes 1.1 thou/uL (0.11-0.59); #Neutrophils 5.6 thou/uL (1.40-6.50); %Basophils 0.8 % (0.0-1.0); %Eosinophils 4.2 % (0.0-10.0); %Lymphocytes 14.6 % (21.0-51.0); %Monocytes 13.5 % (0.0-10.0); %Neutrophils 66.9 % (42.0-75.0); Hemoglobin 12.1 g/dL (14.0-18.0); Mean Corpuscular HGB CONC 34.1 g/dL (32.0-36.0); Mean Corpuscular Hemoglobin 32.4 pg (27.0-31.0); Mean Platelet Volume 5.8 fL (7.4-10.4); Platelet Count 195 thou/uL (130-400); Red Blood Cell (RBC) Count 3.75 mill/uL (4.70-6.10); White Blood Cell (WBC) Count 8.4 thou/uL (4.8-10.8)
[2020-10-31 06:32] LABS: ALT (SGPT) 24 U/L (8-55); AST (SGOT) 36 U/L (5-34); Albumin 2.9 g/dL (3.4-4.8); Alkaline Phosphatase 226 U/L (40-110); Anion Gap 13 mmol/L (10-20); BUN (Urea Nitrogen) 16 mg/dL (8.4-25.7); Bilirubin, Total 1.5 mg/dL (0.2-1.2); Calc. Creatinine Clearance 52 mL/min (70-130); Calcium 8.9 mg/dL (7.8-10.44); Carbon Dioxide 27 mmol/L (23-31); Chloride 85 mmol/L (98-107); Globulin 3.5 g/dL (2.4-3.5); Glucose 111 mg/dL (83-110); Potassium 4.6 mmol/L (3.5-5.1); Protein, Total 6.4 g/dL (5.8-8.1); Sodium 120 mmol/L (136-145); Uric Acid 7.1 mg/dL (3.5-7.2)
[2020-10-31] MEDS: Digoxin 0.125 MG TAB PO SCH (08:35)
[2020-10-31] MEDS: Heparin 5,000 UNITS/ML VIAL SC SCH ×2 (08:35→20:42)
[2020-10-31] MEDS ORDERED: FLU VACC QS2020-21(65YR UP)/PF 240 MCG/0.7 ML SYRINGE IM ONE (09:00)
[2020-10-31 12:33] LABS: Anion Gap 12 mmol/L (10-20); BUN (Urea Nitrogen) 15 mg/dL (8.4-25.7); Calc. Creatinine Clearance 56 mL/min (70-130); Calcium 8.8 mg/dL (7.8-10.44); Carbon Dioxide 26 mmol/L (23-31); Chloride 87 mmol/L (98-107); Glucose 126 mg/dL (83-110); Potassium 4.1 mmol/L (3.5-5.1); Sodium 121 mmol/L (136-145)
--- NOTE | 2020-10-31 12:52 | CON ---
DATE OF CONSULTATION: 10/31/2020 HISTORY OF PRESENT ILLNESS: Mr. Camacho is a 80-year-old white male, who was admitted for his hyponatremia, confusion, and dehydration. He has been taking three diuretics according to the patient. His p.o. and fluid intake has been decreased at home. Due to the worsening serum sodium, the patient was admitted. Empiric volume repletion is being given. His mentation is actually much improved at the present time. REVIEW OF SYSTEMS: No chest pain. Occasional confusion. No nausea. No vomiting. Decreased appetite. Decreased energy level. No abdominal pain. No leg edema. No shortness of breath. No fever or chills. Appetite is decreased. No gross hematuria. No dysuria. No urinary frequency. HOME MEDICATIONS: Included, 1. Zofran 8 mg p.o. q.4 hours p.r.n. 2. Digoxin 0.125 mg tab daily. 3. Lactulose 30 mL b.i.d. The patient is also on a ? Of spironolactone; propranolol, dose unknown b.i.d.; torsemide, dose unknown daily. PAST MEDICAL HISTORY: Cirrhosis secondary to a presumed fatty liver, history of aortic valve disease, coronary artery disease, prostate cancer currently in remission. Status post cardiac cath, status post CABG, status post upper and lower GI endoscopy. PAST SURGICAL HISTORY: He is status post prostatectomy, status post prostate biopsy, status post cardiac cath, status post CABG, status post upper GI endoscopy with banding of esophageal varices. SOCIAL HISTORY: The patient lives in [place], , four children. He smoked for 5 years one pack a day, but currently not smoking. No alcohol. Sedentary lifestyle. ALLERGIES: LISINOPRIL, LOSARTAN. TRAUMA: None. IMMUNIZATION: Up to date. HOSPITALIZATIONS: Please see past medical history. FAMILY HISTORY: No family history of ESRD. PHYSICAL EXAMINATION: VITAL SIGNS: Blood pressure is 131/72, heart rate 90, respiratory rate 16, temperature 97.6, O2 saturation 99%. GENERAL: The patient is awake, alert, comfortable, not in distress. SKIN: Adequate turgor. HEENT: Pinkish conjunctivae. Anicteric sclerae. NECK: No neck mass. No carotid bruits. No JVD. CHEST: No deformities. LUNGS: Clear breath sounds. No wheezing. No crackles. HEART: Normal sinus rhythm. No murmur. No gallops. No rubs. ABDOMEN: Globular, soft, nontender. No masses. EXTREMITIES: No edema. No deformities. NEUROLOGIC: Awake and oriented to 3 spheres. Moving all extremities. No tremors. No asterixis. No ataxia. LABORATORY DATA: Laboratories of October 31, 2020; sodium 120, potassium 4.6, chloride 85, carbon dioxide 27, BUN 16, creatinine 1.15, uric acid is 7.1. AST 36, ALT 24, ammonia level is 48, albumin 2.9. Further review of his serum sodium shows the following: October 30, 2020, 119; October 28, 2020, 121; August 20, 2020, 121. October 30, 2020, chest x-ray showed parenchymal changes on left lung base. Urinalysis of October 30, 2020, protein negative, specific gravity 1.016. ASSESSMENT AND PLAN: Hyponatremia-consider the possibility of hypovolemic hyponatremia. For that reason, he has been given normal saline. Urine sediment was relatively benign. If the serum sodium will not improve, we may need to consider changing the patient's IV fluid to 1.5% sodium chloride and run it at 50 mL/hour. I will recheck basic met later today. There is no indication for any hypertonic saline at the present time since the patient is asymptomatic and toleratng current IV fluid. Job ID: [id number] [facility]
--- NOTE | 2020-10-31 13:03 | PRG ---
DATE OF SERVICE: 10/31/2020 SUBJECTIVE: Mr. Camacho is doing much better. His mental status has returned to baseline. He has a better appetite now than he has in months. His feels like that the torsemide was suppressing his appetite. This has been held along with the spironolactone over the last couple of days. His propranolol is held as well. OBJECTIVE: VITAL SIGNS: Temperature 97.6, pulse 90, blood pressure 131/72. GENERAL: He is in no acute distress. Alert and awake. LUNGS: Clear to auscultation bilaterally. HEART: Regular rate and rhythm without murmur. ABDOMEN: Soft, nontender, and nondistended. Bowel sounds are present. EXTREMITIES: No lower extremity edema. LABORATORY DATA: White blood cell count 8.4, hemoglobin 12.1, platelets 195. Sodium 121, creatinine 1.08. IMPRESSION: 1. Hyponatremia. He was dehydrated and immediately perked up once he received IV fluids. His sodium is still low at 121. His diuretics have been held for a couple of days now. He will likely ultimately require free water restriction at this point. Nephrology has seen him and we will await their recommendations. 2. Cirrhosis. 3. History of hepatic encephalopathy. 4. Acute renal failure, improved with his creatinine trending down from 1.38 to 1.08. 5. Esophageal varices, which have been banded previously. He had no recent bleeding episodes. RECOMMENDATIONS: 1. We will continue to hold diuretics and beta blockers. 2. He has been rehydrated now, might ultimately require free water restriction. Nephrology has seen him and we will await their recommendations. 3. We will follow the trend of his sodium. Job ID: [id number]
--- NOTE | 2020-10-31 16:36 | PDOC.HOSPP ---
- Subjective Encounter Date: 10/31/20 Encounter Time: 16:36 Subjective: F/u: hyponatremia THe patient denies complaints, no dizziness or lightheadedness, no cough or shortness of breath. He has chronic runny nose for three months He was taking diuretics at home, had recent open heart surgery for a valve last month per - Objective Vital Signs & Weight: Vital Signs (12 hours) Temp Pulse Resp BP BP BP Pulse Ox 10/31/20 16:23 97.6 F 88 15 120/70 100 10/31/20 13:19 131/72 10/31/20 12:00 97.6 F 90 16 131/72 99 10/31/20 08:35 87 100 10/31/20 08:00 97.6 F 83 15 113/61 100 Weight Weight 156 lb I&O: 10/30/20 10/31/20 11/01/20 06:59 06:59 06:59 Intake Total 180 Output Total 325 Balance -145 Result Diagrams: 10/31/20 05:46 10/31/20 11:46 Additional Labs: Accuchecks 10/31/20 10/31/20 12:08 04:25 POC Glucose 142 H 109 H Hospitalist ROS - Review of Systems Constitutional: denies: fever, chills - Medication Medications: Active Medications Generic Name Dose Route Start Last Admin Trade Name Braydon PRN Reason Stop Dose Admin Digoxin 0.125 mg 10/31/20 09:00 10/31/20 08:35 Digoxin 0.125 Mg Tab PO 0.125 mg DAILY SKYLAR Administration Heparin Sodium (Porcine) 5,000 units 10/30/20 21:00 10/31/20 08:35 Heparin 5,000 Units/Ml Vial SC 5,000 units BID SKYLAR Administration Sodium Chloride 1,000 mls @ 100 mls/hr 10/30/20 15:45 10/31/20 10:23 Normal Saline 0.9% IV Not Given .Q10H SKYLAR Lactulose 20 gm 10/30/20 21:00 10/31/20 08:35 Lactulose 20 Gm/30 Ml Udcup PO 20 gm BID SKYLAR Administration - Exam General Appearance: NAD, awake alert Eye: PERRL, anicteric sclera ENT: normocephalic atraumatic, no oropharyngeal lesions Neck: no JVD Heart: RRR, no murmur, no gallops, no rubs Respiratory: CTAB, no wheezes, no rales, no ronchi Gastrointestinal: soft, non-tender, non-distended, normal bowel sounds Extremities: no cyanosis, no clubbing, no edema Skin: normal turgor, no lesions, no rashes Neurological: cranial nerve grossly intact, normal sensation to touch, no weakness
--- NOTE | 2020-10-31 16:39 | PDOC.HOSPP ---
- Subjective Encounter Date: 10/31/20 Encounter Time: 16:40 Subjective: F/u: hyponatremia THe patient's sodium has improved. He denies seizures, dizziness, lightheadedness. He denies shortness of breath but has had runny nose for the past three months. No sore throat - Objective Vital Signs & Weight: Vital Signs (12 hours) Temp Pulse Resp BP BP BP Pulse Ox 10/31/20 16:23 97.6 F 88 15 120/70 100 10/31/20 13:19 131/72 10/31/20 12:00 97.6 F 90 16 131/72 99 10/31/20 08:35 87 100 10/31/20 08:00 97.6 F 83 15 113/61 100 Weight Weight 156 lb I&O: 10/30/20 10/31/20 11/01/20 06:59 06:59 06:59 Intake Total 180 Output Total 325 Balance -145 Result Diagrams: 10/31/20 05:46 10/31/20 11:46 Additional Labs: Accuchecks 10/31/20 10/31/20 12:08 04:25 POC Glucose 142 H 109 H Hospitalist ROS - Review of Systems Constitutional: denies: fever, chills - Medication Medications: Active Medications Generic Name Dose Route Start Last Admin Trade Name Braydon PRN Reason Stop Dose Admin Digoxin 0.125 mg 10/31/20 09:00 10/31/20 08:35 Digoxin 0.125 Mg Tab PO 0.125 mg DAILY SKYLAR Administration Heparin Sodium (Porcine) 5,000 units 10/30/20 21:00 10/31/20 08:35 Heparin 5,000 Units/Ml Vial SC 5,000 units BID SKYLAR Administration Sodium Chloride 1,000 mls @ 100 mls/hr 10/30/20 15:45 10/31/20 10:23 Normal Saline 0.9% IV Not Given .Q10H SKYLAR Lactulose 20 gm 10/30/20 21:00 10/31/20 08:35 Lactulose 20 Gm/30 Ml Udcup PO 20 gm BID SKYLAR Administration - Exam General Appearance: NAD, awake alert Eye: PERRL, anicteric sclera ENT: normocephalic atraumatic, no oropharyngeal lesions Neck: no JVD Heart: RRR, no murmur, no gallops, no rubs Respiratory: CTAB, no wheezes, no rales, no ronchi Gastrointestinal: soft, non-tender, non-distended, normal bowel sounds, no hepatomegaly Extremities: no cyanosis, no clubbing, no edema Skin: normal turgor, no lesions Hosp A/P - Plan MRI abdomen 11/2019: cirrhosis of the liver, splenomegaly, ascites, cholelithiasis, 2 cm cystic mass in pancreas, 17 mm right parcardiac cyst This is 80 year old male who presented with hyponatremia HYponatremia - sodium improved to 121. NEphro is following. Continue IV fluids Cirrhosis of liver - hold diuretics for now given hyponatremia, no evidence of significant ascites on exam Possible loculated effusion - noted on X ray, had recent cardiadc surgery last month. Will check CT chest Afib - continue digoxin Rhinorrhea - will order kari
[2020-10-31 18:27] LABS: Anion Gap 14 mmol/L (10-20); BUN (Urea Nitrogen) 15 mg/dL (8.4-25.7); Calc. Creatinine Clearance 58 mL/min (70-130); Calcium 8.6 mg/dL (7.8-10.44); Carbon Dioxide 25 mmol/L (23-31); Chloride 88 mmol/L (98-107); Glucose 134 mg/dL (83-110); Potassium 4.7 mmol/L (3.5-5.1); Sodium 122 mmol/L (136-145)
[2020-11-01 06:30] LABS: Anion Gap 11 mmol/L (10-20); BUN (Urea Nitrogen) 14 mg/dL (8.4-25.7); Calc. Creatinine Clearance 62 mL/min (70-130); Calcium 8.3 mg/dL (7.8-10.44); Carbon Dioxide 27 mmol/L (23-31); Chloride 90 mmol/L (98-107); Glucose 105 mg/dL (83-110); Potassium 4.2 mmol/L (3.5-5.1); Sodium 124 mmol/L (136-145)
--- NOTE | 2020-11-01 08:45 | CT ---
EXAM: Chest CT scan without contrast: HISTORY: Loculated effusion on chest x-ray COMPARISON: None FINDINGS: No mediastinal mass or adenopathy. Extensive 3 vessel coronary calcific disease. Postop midline sternotomy. Pleural-based parenchymal changes in the posterior left lower lobe, nonspecific possibly representing some pneumonia or atelectasis. 2.6 x 12.3 x 6.1 cm diameter loculated left pleural effusion in the left costophrenic angle. Scattered linear and interstitial parenchymal changes throughout the left mid and upper lung zone and right lung more prominent in the bases having more chronic appearance without significant acute right pleural effusion. Evidence for small hiatal hernia including a moderate amount of fat. Borderline size liver and spleen with liver nodularity concerning for possible cirrhosis. Minimal ascites. Fat stranding within the upper mesentery and peritoneum, nonspecific. Cholelithiasis without acute cholecystitis. IMPRESSION: Loculated left pleural effusion and the left costophrenic angle with some pleural-based parenchymal c hanges evidence for atelectasis and/or pneumonia. Evidence for scattered linear interstitial parenchymal changes, possibly chronic bilaterally. Numerous other findings including findings in the abdomen as above.
[2020-11-01] MEDS: Sodium Chloride 0.9% 1,000 ML IV SCH ×2 (08:49→17:39)
[2020-11-01] MEDS: Heparin 5,000 UNITS/ML VIAL SC SCH (08:50)
[2020-11-01] MEDS: Digoxin 0.125 MG TAB PO SCH (08:50)
--- NOTE | 2020-11-01 10:29 | PDOC.HOSPP ---
- Subjective Encounter Date: 11/01/20 Encounter Time: 10:26 Subjective: F/u: hyponatremia The patient's sodium has improved to 124. He denies shortness of breath or cough. 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 states the patient takes coreg at home Patient is on heparin SC, is concerned because patient has had esophageal varices in the past - Objective Vital Signs & Weight: Vital Signs (12 hours) Temp Pulse Resp BP Pulse Ox 11/01/20 08:50 95 11/01/20 08:39 99 11/01/20 08:33 92 99 11/01/20 07:36 97.6 F 114 H 15 111/70 100 11/01/20 00:00 97.9 F 81 16 112/70 99 Weight Weight 156 lb I&O: 10/31/20 11/01/20 11/02/20 06:59 06:59 06:59 Intake Total 180 1240 Output Total 325 Balance -145 1240 Result Diagrams: 10/31/20 05:46 11/01/20 05:42 Additional Labs: Accuchecks 11/01/20 10/31/20 10/31/20 04:18 20:36 16:27 POC Glucose 96 140 H 121 H 10/31/20 12:08 POC Glucose 142 H Hospitalist ROS - Review of Systems Constitutional: denies: fever, chills - Medication Medications: Active Medications Generic Name Dose Route Start Last Admin Trade Name Freq PRN Reason Stop Dose Admin Digoxin 0.125 mg 10/31/20 09:00 11/01/20 08:50 Digoxin 0.125 Mg Tab PO 0.125 mg DAILY SKYLAR Administration Heparin Sodium (Porcine) 5,000 units 10/30/20 21:00 11/01/20 08:50 Heparin 5,000 Units/Ml Vial SC Not Given BID [facility] Sodium Chloride 1,000 mls @ 100 mls/hr 10/30/20 15:45 11/01/20 08:49 Normal Saline 0.9% IV Not Given .Q10H SKYLAR Lactulose 20 gm 10/30/20 21:00 11/01/20 08:50 Lactulose 20 Gm/30 Ml Udcup PO 20 gm BID SKYLAR Administration - Exam General Appearance: NAD, awake alert Eye: PERRL, anicteric sclera ENT: normocephalic atraumatic, no oropharyngeal lesions Neck: no JVD Heart: RRR, no murmur, no gallops, no rubs Respiratory: CTAB, no wheezes, no rales, no ronchi Gastrointestinal: soft, non-tender, non-distended, normal bowel sounds Extremities: no cyanosis, no clubbing, no edema Skin: normal turgor, no lesions, no rashes Hosp A/P - Plan MRI abdomen 11/2019: cirrhosis of the liver, splenomegaly, ascites, cholelithiasis, 2 cm cystic mass in pancreas, 17 mm right parcardiac cyst This is 80 year old male who presented with hyponatremia HYponatremia - sodium improved to 124. NEphro is following. Continue IV fluids Loculated effusion - confirmed on chest CT today. Patient's reports may be old blood from last surgery - will ask CT surgery whether this needs to be drained Cirrhosis of liver History of bleeding esophageal varices - hold diuretics for now given hyponatremia, no evidence of significant ascites on exam - restart coreg, discontinue anticoagulation Afib - continue digoxin, start coreg at low dose 12.5 mg bid Rhinorrhea - continue kari Dispo: PT evaluation, continue until hyponatremia resolves
[2020-11-01] MEDS: Carvedilol 6.25 MG TAB PO SCH ×2 (10:43→10:45)
[2020-11-01] MEDS ORDERED: Carvedilol 6.25 MG TAB PO PRN ×2 (10:53→17:07)
--- NOTE | 2020-11-01 11:33 | PRG ---
DATE OF SERVICE: 11/01/2020 SUBJECTIVE: Mr. Camacho is a 80-year-old white male, who was admitted for hyponatremia. He has an underlying cirrhosis. 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 Free water restriction has been done, and the feeling is that he may have a superimposed hypovolemic hyponatremia. He is currently receiving normal saline at 100 mL/hour. There is slow improvement of serum sodium from 120 to a most recent value of 124. No new complaints today. No chest pain or shortness of breath. OBJECTIVE: VITAL SIGNS: Blood pressure 123/74, heart rate 84, respiratory rate 16, temperature 97.3, O2 saturation 100%. GENERAL: Awake, sitting comfortable, not in distress. SKIN: Adequate turgor. HEENT: Pinkish conjunctivae. Anicteric sclerae. No neck mass. No carotid bruits. No JVD. CHEST: No deformities. LUNGS: Clear breath sounds. No wheezing. No crackles. HEART: Normal sinus rhythm. No murmurs. No gallops. No rubs. ABDOMEN: Globular, soft, nontender. No masses. EXTREMITIES: No edema. No deformities. MEDICATIONS: November 01, 2020, were reviewed. LABORATORY DATA: October 31, 2020; white count 8.4, hemoglobin 12.1. November 01, 2020; sodium 124, potassium 4.2, chloride 90, carbon dioxide 27, BUN 14, creatinine 0.97, glucose 105, and calcium 8.3. ASSESSMENT AND PLAN: 1. Hypovolemic hyponatremia, slowly improving serum sodium. Initial serum sodium on admission was about 120, it is currently noted at 124. Please note that the serum sodium went to as low as 119 at [facility]. Continue free water restriction of 1 L per day. Continue normal saline. No indication for any hypertonic saline at the present time. The patient is mentating well. 2. Cirrhosis secondary to fatty liver, GI following. 3. Recheck basic metabolic panel in a.m. Job ID: [id number]
[2020-11-01 16:37] LABS: Anion Gap 11 mmol/L (10-20); BUN (Urea Nitrogen) 13 mg/dL (8.4-25.7); Calc. Creatinine Clearance 66 mL/min (70-130); Calcium 8.2 mg/dL (7.8-10.44); Carbon Dioxide 26 mmol/L (23-31); Chloride 91 mmol/L (98-107); Glucose 123 mg/dL (83-110); Potassium 4.2 mmol/L (3.5-5.1); Sodium 124 mmol/L (136-145)
--- NOTE | 2020-11-01 16:51 | PRG ---
DATE OF SERVICE: 11/01/2020 SUBJECTIVE: Mr. Camacho's mental status continues to improve. OBJECTIVE: VITAL SIGNS: Temperature 98.1, pulse 81, blood pressure 145/70. GENERAL: He is in no acute distress. Oriented x3. LUNGS: Clear to auscultation bilaterally. HEART: Regular rate and rhythm without murmur. ABDOMEN: Soft, nontender, and nondistended. Bowel sounds are present. EXTREMITIES: No lower extremity edema. IMPRESSION: 1. Hyponatremia. He is improving. He is on fluid restriction. He has been rehydrated with normal saline. 2. History of esophageal varices. He has undergone banding with eradication and beta jason can be held at this point to maximize perfusion of the kidneys as beta jason is not proven to add additional preventive efficacy above banding alone. I will keep him off the nonselective beta jason for now renal function and electrolyte management. 3. Cirrhosis. 4. Hepatic encephalopathy. This has actually been doing better since he has been rehydrated and has had improvement in his sodium. 5. We will keep him off his diuretics at this point. He can receive paracentesis as needed in the future. 6. Acute renal failure. Continues to improve with his creatinine. RECOMMENDATIONS: 1. Free water restriction. 2. Diuretics and beta jason have been held. 3. Follow trend of his sodium and creatinine. 4. Continue lactulose. Job ID: [id number]
[2020-11-01] MEDS ORDERED: Carvedilol 6.25 MG TAB PO SCH (17:00)
--- NOTE | 2020-11-01 18:32 | CON ---
DATE OF CONSULTATION: 11/01/2020 REQUESTING PHYSICIAN: Dr. Sierra. CHIEF COMPLAINT: Lethargy and confusion. HISTORY OF PRESENT ILLNESS: The patient is a 80-year-old man with cirrhosis who underwent replacement of his aortic valve with a 23 mm PERIMOUNT Magna bioprosthesis and coronary artery bypass grafting x3 along with an epicardial maze procedure and ligation of his left atrial appendage in July 2019. His cirrhosis apparently was diagnosed the following November when he presented with shortness of breath and increasing abdominal girth and required paracentesis. This past May, he was admitted with hematemesis and was found to have esophageal varices, which were banded. He was admitted to the hospital 2 days ago with lethargy and confusion. He was found to be significantly hyponatremic. He was felt to be somewhat hypovolemic. His mental status, mild azotemia, and hyponatremia are improving with hydration and lactulose administration. A chest x-ray demonstrated changes consistent with a left pleural effusion that was loculated and this was confirmed by CT scanning. The patient denies any significant shortness of breath, any cough, fever, or chills. PAST MEDICAL HISTORY: Significant for his aortic valve disease, coronary disease, hypertension, cirrhosis, radical prostatectomy for prostate cancer. HOME MEDICATIONS: 1. Digoxin. 2. Lactulose. ALLERGIES: REPORTS ALLERGIES TO LISINOPRIL AND LOSARTAN. REVIEW OF SYSTEMS: Negative for any shortness of breath at rest. Positive for some minimal dyspnea on exertion. Negative for any cough, fever, or chills. PHYSICAL EXAMINATION: GENERAL: He is in no distress. VITAL SIGNS: Temperature is 97.3, heart rate is 84, blood pressure 123/74. NECK: He has no JVD. LUNGS: He has clear breath sounds with perhaps some very subtle decreased breath sounds on the left side, but similar findings on percussion. LABORATORY DATA: Showed a white count of 8.4, hemoglobin 12.1, platelets 195,000. His sodium this morning is 124, BUN 14, creatinine 0.97, but his sodium was 119 on presentation. At that time, his bilirubin was 1.8, alkaline phosphatase 273, AST 42, ALT 31, albumin 3.5. His bilirubin yesterday was 1.5 and albumin 2.9. His chest x-rays show a left pleural effusion tracking up the left lateral aspect of the chest wall that appear towards the end of his hospitalization following his surgery in July 2019. There are some pictures that show it more prominently than others, but it has been a consistent finding several times over the last year or so. The CT scan shows it is primarily located laterally and it is an elliptical shaped fluid collection with what appears to be a surrounding rind. 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 It would almost surely require an open decortication, which if it were severely symptomatic or if it were infected might well be warranted, but in this setting, I think that I would just leave it alone. Job ID: [id number]
[2020-11-02] MEDS: Sodium Chloride 0.9% 1,000 ML IV SCH ×2 (00:25→10:26)
[2020-11-02 06:07] LABS: Anion Gap 11 mmol/L (10-20); BUN (Urea Nitrogen) 13 mg/dL (8.4-25.7); Calc. Creatinine Clearance 71 mL/min (70-130); Calcium 7.9 mg/dL (7.8-10.44); Carbon Dioxide 26 mmol/L (23-31); Chloride 96 mmol/L (98-107); Glucose 97 mg/dL (83-110); Potassium 4.1 mmol/L (3.5-5.1); Sodium 129 mmol/L (136-145)
[2020-11-02] MEDS: Digoxin 0.125 MG TAB PO SCH (08:32)
--- NOTE | 2020-11-02 09:38 | PRG ---
DATE OF SERVICE: 11/02/2020 SUBJECTIVE: Mr. Camacho is a 80-year-old white male with known history of cirrhosis who was seen by the Renal Service for his acute hyponatremia on top of his chronic hyponatremia. Our feeling was that this was hypovolemic hyponatremia. He was given normal saline with improvement of the serum sodium. He was also placed on free water restriction. He voices no new complaints today. No chest pain. No shortness of breath. OBJECTIVE: VITAL SIGNS: Blood pressure 94/56, heart rate 82, respiratory rate 20, temperature 97.9, O2 saturation 100% on room air. GENERAL: The patient is awake, supine, comfortable, not in distress. SKIN: Adequate turgor. HEENT: Pinkish conjunctivae. Anicteric sclerae. NECK: No neck mass. No carotid bruits. No JVD. CHEST: No deformities. LUNGS: Clear breath sounds. No wheezing. No crackles. HEART: Normal sinus rhythm. No murmur. No gallops. No rubs. ABDOMEN: Globular, soft, and nontender. No masses. EXTREMITIES: No edema. No deformities. MEDICATIONS: Medications of November 02, 2020, were reviewed. LABORATORY DATA: Laboratories of October 31, 2020; white count 8.4, hemoglobin 12.1. Sodium 129, potassium 4.1, chloride 96, carbon dioxide 26, BUN 13, creatinine 0.84, calcium 7.9. ASSESSMENT AND PLAN: Hypovolemic hyponatremia, improving renal function with IV hydration with normal saline. He is also on a free water restriction of about 1 L per day. Continue current management. There is no indication today for any hypertonic saline. Overall, agree with current management. If the patient is still here, we will recheck another basic metabolic panel tomorrow. Job ID: [id number]
[2020-11-02 11:27] VITALS: BP 111/63; TEMP 97.2
[2020-11-02 12:23] LABS: Anion Gap 12 mmol/L (10-20); BUN (Urea Nitrogen) 13 mg/dL (8.4-25.7); Calc. Creatinine Clearance 66 mL/min (70-130); Calcium 8.2 mg/dL (7.8-10.44); Carbon Dioxide 23 mmol/L (23-31); Chloride 99 mmol/L (98-107); Glucose 135 mg/dL (83-110); Potassium 5.1 mmol/L (3.5-5.1); Sodium 129 mmol/L (136-145)
--- NOTE | 2020-11-02 14:17 | PRG ---
DATE OF SERVICE: 11/02/2020 SUBJECTIVE: Mr. Camacho has no acute complaints. He is tolerating his diet well. He has not had recurrence of the abdominal swelling. OBJECTIVE: VITAL SIGNS: Temperature 97.2, pulse 83, blood pressure 111/63. GENERAL: He is in no acute distress. Alert and oriented x3. LUNGS: Clear to auscultation bilaterally. HEART: Regular rate and rhythm without murmur. ABDOMEN: Mildly distended without guarding and without tenderness. Bowel sounds are present. EXTREMITIES: No lower extremity edema. LABORATORY DATA: White blood cell count 8.4, hemoglobin 12.1, platelets 195. Sodium 129, creatinine 0.91. IMPRESSION: 1. Symptomatic hyponatremia, clinically improved. His diuretics have been held. 2. History of esophageal varices. He can restart his propranolol today. He has undergone banding most recently in August. 3. Cirrhosis. 4. Hepatic encephalopathy, currently improved. 5. Acute renal failure, improved. RECOMMENDATIONS: 1. Diuretics have been held. He will follow up in the office with Dr. Tucker in the next 1 to 2 weeks to recheck his electrolytes. Lower dose diuretics could potentially be considered in the future again if he develops recurrence of ascites. 2. He will restart propranolol. 3. Continue lactulose. 4. Follow up in the office in 1-[address] Tucker or the P.A. His will call to schedule this appointment. Job ID: [id number]
--- NOTE | 2020-11-02 16:20 | EKG ---
Test Reason : Blood Pressure : / mmHG Vent. Rate : 094 BPM Atrial Rate : 094 BPM P-R Int : 204 ms QRS Dur : 096 ms QT Int : 320 ms P-R-T Axes : 074 010 198 degrees QTc Int : 400 ms Sinus rhythm with Premature atrial complexes Abnormal ECG When compared with ECG of 08-JUL-2020 12:37, Sinus rhythm has replaced Atrial fibrillation T wave inversion less evident in Anterolateral leads Confirmed by DR. Justina LEVINE ([id number]) on 11/02/2020 4:19:42 PM Referred By: MOR Confirmed By:DR. Justina LEVINE
--- NOTE | 2020-11-02 19:04 | PDOC.DS.DS ---
Provider - Provider Date of Admission: 10/30/20 14:14 Date of Discharge: 11/02/20 Admitting Provider: Faustino Robertson MD Consultations: Gastroentrology (Dr. David Richards), Nephrology (Dr. Luiz Gillespie), Other (Cardiovascular surgery with Dr. Christiano Iversno) Primary Care Physician: NO PCP PROVIDER Course - Hospital Course Hospital Course: Discharge Diagnoses: 1. Severe hyponatremia likely from diuretic use 2. 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 Anemia 4. Cirrhosis 5. History of esophageal varices Brief HPI: This is a 80 year old male with past medical history of cirrhosis who presented to the ER with worsening hyponatremia. THe patient was recently prescribed metolazone, spirolactone and HCTZ by Dr. Lemus office. He went to see Dr. Tucker and was found to have a sodium of 121 and was admitted for further workup. Hospital Course: Severe hyponatremia: the patient was started on IV fluids. Nephrology was consulted and he was also started on a free water restriction of 1L. The patient's sodium gradually improved to 129. He was told to hold on any diuretics and continue a 1L fluid restriction for a week. He should have a repeat BMP in a week . History of esophageal varices : the patient was on propranolol at home, unclear dose. GI was consulted. His dose was reduced to 10 mg daily due to his dehydration while in the hospital. Fibrothorax: CT of his chest showed a loculated effusion. He denied cough or shortness of breath. THe cardiothoracic surgeon was consulted and recommended no drainage and this was likely a fibrothorax. If he were to spike a fever, require oxygen or get short of breath, then this would need drainage Pertinent Studies: CHest X ray: 1. Pleural an parenchymal changes left lung base which have improved likely due to improvement in pleural fluid. Residual pleural and parenchymal changes may be related to loculated pleural fluid collection at the left lung base with associated atelectasis CHest CT: 1. Loculated left pleural effusion with pleural and parenchymal changes with e vidence for atelectasis and or pneumonia. Evidence for scattered linear interstitial parenchymal changes, possibly chronic Resuscitation Status: 10/30/20 15:32 Resuscitation Status Routine Resuscitation Status: FULL: Full Resuscitation Discussed with: POA: - Labs Lab Results: 10/31/20 05:46 11/02/20 11:52 Abnormal Lab Results - Last 48 hrs 11/01/20 05:42: Sodium 124 L, Chloride 90 L 11/01/20 16:07: Sodium 124 L, Chloride 91 L 11/02/20 05:27: Sodium 129 L, Chloride 96 L 11/02/20 11:52: Sodium 129 L - Physical Exam Vitals: Vital Signs (12 hours) Temp Pulse Resp BP BP Pulse Ox 11/02/20 11:26 97.2 F L 83 20 111/63 99 11/02/20 08:32 86 11/02/20 07:34 97.9 F 82 20 94/56 L 100 Weight Weight 156 lb Physical Exam: The patient was seen and examined on the day of discharge. General: alert, awake, oriented times three CVS: RRR, no murmurs, rubs, gallops Lungs: CTAB Abdomen: +BS, soft, nontender, nondistended Extremities: no edema Problem - Time spent with Patient (mins): 30 Plan - Discharge Medications Prescriptions: Propranolol [Inderal] 10 mg PO DAILY #30 tab Home Medications: Medication Instructions Recorded Confirmed Type Digoxin [Lanoxin] 0.125 mg PO DAILY #30 tab 06/26/20 10/30/20 Rx Lactulose 30 ml PO BID 07/11/20 10/30/20 History Ondansetron [Zofran ODT] 8 mg PO Q4HR PRN 08/28/20 10/30/20 History Propranolol [Inderal] 10 mg PO DAILY #30 tab 11/02/20 Rx Allergies: lisinopril Allergy (Verified 08/28/20 11:25) losartan Allergy (Verified 08/28/20 11:25) - Discharge Instructions Discharge Instructions:: You presented with a low sodium level. Please restrict free water intake to 1L. Hold off of your diuretics. Please get a repeat sodium level in one week. Follow up with your primary doctor in a week, follow up with Dr. Gillespie in a week and Dr. Tucker in one to two weeks. Reduce your propranolol dose to 10 mg daily. If you have confusion, seizures, dizziness or lightheadedness, please come back to the hospital. Activity:: Activity as Tolerated Nourishment:: Fluid Restriction Diet (1L free water restriction ) - Follow up Plan Referrals: David Richards MD [Active] - PROVIDER,NO PCP [Primary Care Provider] - Guillermo Iverson MD [Active] - Luiz Gillespie MD [Active] - Disposition: HOME Quality - Care Measures CORE MEASURES:: N/A
--- NOTE | 2020-11-05 11:10 | PQF ---
CLINICAL DOCUMENTATION CLARIFICATION FORM: Dear : Carey Sierra Date / Time: 11/05/2020 Please exercise your independent, professional judgment in responding to the clarification form. Clinical indicators are provided on the bottom of this form for your review Kindly clarify the acuity of hepatic encephalopathy Please check appropriate box(es): [ ] Hepatic Encephalopathy: Type: [ ] Acute [ ] Chronic [ X ] Other diagnosis Hypernatremia____ [ ] Unable to determine In addition, please specify: Present on Admission (POA): [ ] Yes [ ] No [ ] Unable to determine To be completed by CDI/Coding staff for physician review: Present Clinical Indicators - Signs / Symptoms / Labs Results and Location in Medical Record [ x ] Patient will be admitted to medical floor for severe hyponatremia, dehydration and possible hepatic encephalopathy H and P [ x ] Hyponatremia with confusion, hepatic encephalopathy. Currently his mental status is normal after receiving rehydration Consult 10/30 by David Rodriguez [ x ] Elevated labs including total bilirubin of 1.8, AST of 42, alkaline phosphatase of 273 and globulin of 4.5 Laboratory [ x ] Hepatic encephalopathy has actually been doing better since he has been rehydrated and has had improvement in his sodium Progress note 11/01 by David Richards Present Risk Factors Results and Location in Medical Record [ x ] Cirrhosis, acute renal failure, fatty liver Progress note 10/31 by David Talavera Present Treatments Results and Location in Medical Record [ x ] Lactulose 10/30-11/02 Medications [ x ] IV fluids 10/30-11/02 Medications CDS/Gate Attendant Signature: [id number] Phone #: Date/Time: 11/05/2020 This is a permanent part of the Medical Record [facility]
== END 2020-11-02 16:01 | disposition home or self-care (01) | DRG 641 ==
LOC: T4-B 14:14
PROVIDERS: ADMIT Internal Medicine; ATTEND Internal Medicine
DX: E87.1 Hypo-osmolality and hyponatremia (principal); N17.9 Acute kidney failure, unspecified; J95.89 Other postprocedural complications and disorders of respiratory system, not elsewhere classified; E86.0 Dehydration; I25.10 Atherosclerotic heart disease of native coronary artery without angina pectoris; Z20.828 Contact with and (suspected) exposure to other viral communicable diseases; K74.60 Unspecified cirrhosis of liver; I10 Essential (primary) hypertension; J94.1 Fibrothorax; K76.0 Fatty (change of) liver, not elsewhere classified; T50.2X5A Adverse effect of carbonic-anhydrase inhibitors, benzothiadiazides and other diuretics, initial encounter; D64.9 Anemia, unspecified; J34.89 Other specified disorders of nose and nasal sinuses; Y83.8 Other surgical procedures as the cause of abnormal reaction of the patient, or of later complication, without mention of misadventure at the time of the procedure; I48.91 Unspecified atrial fibrillation; Z95.1 Presence of aortocoronary bypass graft; Z95.2 Presence of prosthetic heart valve; Z85.46 Personal history of malignant neoplasm of prostate; Z90.79 Acquired absence of other genital organ(s); Z88.8 Allergy status to other drugs, medicaments and biological substances; Z79.899 Other long term (current) drug therapy; I48.0 Paroxysmal atrial fibrillation
CPT/HCPCS: 36415; 36416; 71045; 71250; 80048; 80053; 81001; 82140; 82570; 83930; 83935; 84133; 84300; 84443; 84550; 85025; 85610; 85730; 87635; 93005; 93010; J1644; U0003

== ENCOUNTER 2022-02-01 09:20 | Outpatient (CLI) | payer MEDICARE, BC | END 2022-02-01 09:21 | disposition home or self-care (01) | LOC: BICULT 09:20 | PROVIDERS: ATTEND Internal Medicine | DX: K74.60 Unspecified cirrhosis of liver (principal); R18.8 Other ascites; R60.0 Localized edema; K72.90 Hepatic failure, unspecified without coma; E87.1 Hypo-osmolality and hyponatremia; I85.00 Esophageal varices without bleeding; R16.1 Splenomegaly, not elsewhere classified | CPT/HCPCS: 76705 ==

== ENCOUNTER 2022-06-29 07:05 | Day surgery (SDC) | payer MEDICARE, BC ==
[2022-06-29] MEDS ORDERED: Lidocaine 1% PF 5 ML VIAL ONE (07:42)
[2022-06-29] MEDS ORDERED: Sodium Bicarbonate 2.5 MEQ/5 ML VIAL ONE (07:42)
[2022-06-29 08:04] LABS: #Eosinphils 0.3 thou/uL (0.0-0.7); #Lymphocytes 0.7 thou/uL (1.20-3.40); #Neutrophils 9.2 thou/uL (1.40-6.50); %Eosinophils 2.3 % (0.0-10.0); %Lymphocytes 5.9 % (21.0-51.0); %Monocytes 8.9 % (0.0-10.0); %Neutrophils 82.9 % (42.0-75.0); Hemoglobin 14.7 g/dL (14.0-18.0); Mean Corpuscular HGB CONC 32.7 g/dL (32.0-36.0); Mean Corpuscular Hemoglobin 34.1 pg (27.0-31.0); Mean Platelet Volume 6.5 fL (7.4-10.4); Platelet Count 207 thou/uL (130-400); RBC Distribution Width 13.6 % (11.5-14.5); Red Blood Cell (RBC) Count 4.31 mill/uL (4.70-6.10); White Blood Cell (WBC) Count 11.1 thou/uL (4.8-10.8)
[2022-06-29 08:10] LABS: INR-International Normal Ratio 1.2; PTT 38.6 sec (22.9-36.1); Prothrombin Time 15.2 sec (12.0-14.7)
[2022-06-29 08:20] LABS: ALT (SGPT) 63 U/L (8-55); AST (SGOT) 84 U/L (5-34); Alkaline Phosphatase 299 U/L (40-110); Anion Gap 14 mmol/L (10-20); BUN (Urea Nitrogen) 17 mg/dL (8.4-25.7); Bilirubin, Total 8.8 mg/dL (0.2-1.2); Calc. Creatinine Clearance 0 mL/min (70-130); Calcium 9.2 mg/dL (7.8-10.44); Carbon Dioxide 26 mmol/L (23-31); Chloride 94 mmol/L (98-107); Estimated GFR 66; Globulin 4.3 g/dL (2.4-3.5); Glucose 110 mg/dL (83-110); Potassium 4.2 mmol/L (3.5-5.1); Protein, Total 7.3 g/dL (5.8-8.1); Sodium 130 mmol/L (136-145)
[2022-06-29 09:12] VITALS: BP 157/75; TEMP 97.5; BMI 28.0
[2022-06-29 12:07] LABS: RBC Count-Automated (BF) 65 /cu.mm; WBC/Nucleated-Auto (BF) 108 /cu.mm
[2022-06-29 12:17] LABS: BF Color Yellow; Body Fluid Source Ascites Body Fluid; Clarity Hazy (Clear); Tube # EDTA
[2022-06-29 12:55] LABS: BF Segmented Neutrophils 5 %; Cell Count Non Hematic 80 %; Lymphocytes 15 %
== END 2022-06-29 09:00 | disposition home or self-care (01) ==
LOC: ULT 07:05
PROVIDERS: ATTEND Physician Assistant Medical
PROC: 0W9G3ZX Drainage of Peritoneal Cavity, Percutaneous Approach, Diagnostic (ICD-10-PCS; principal; 2022-06-29)
DX: K74.60 Unspecified cirrhosis of liver (principal); R18.8 Other ascites; K72.90 Hepatic failure, unspecified without coma; C22.0 Liver cell carcinoma; K21.9 Gastro-esophageal reflux disease without esophagitis; E78.5 Hyperlipidemia, unspecified; E87.1 Hypo-osmolality and hyponatremia; I48.91 Unspecified atrial fibrillation; I11.0 Hypertensive heart disease with heart failure; I50.9 Heart failure, unspecified; I25.10 Atherosclerotic heart disease of native coronary artery without angina pectoris; E11.9 Type 2 diabetes mellitus without complications; C61 Malignant neoplasm of prostate; Z87.891 Personal history of nicotine dependence; Z79.899 Other long term (current) drug therapy; Z88.8 Allergy status to other drugs, medicaments and biological substances; Z95.2 Presence of prosthetic heart valve
CPT/HCPCS: 49083; 80053; 82042; 84157; 85025; 85060; 85610; 85730; 87070; 87205; 88112; 88305; 89051

== ENCOUNTER 2022-07-17 09:45 | Inpatient (IN) | payer MEDICARE, BC ==
[2022-07-17 10:33] LABS: #Basophils 0.1 thou/uL (0.0-0.2); #Eosinphils 0.1 thou/uL (0.0-0.7); #Lymphocytes 0.7 thou/uL (1.20-3.40); #Neutrophils 9.9 thou/uL (1.40-6.50); %Basophils 0.6 % (0.0-1.0); %Eosinophils 0.8 % (0.0-10.0); %Lymphocytes 6.1 % (21.0-51.0); %Monocytes 8.1 % (0.0-10.0); %Neutrophils 84.4 % (42.0-75.0); Hemoglobin 9.6 g/dL (14.0-18.0); Mean Corpuscular HGB CONC 32.7 g/dL (32.0-36.0); Mean Corpuscular Hemoglobin 35.4 pg (27.0-31.0); Mean Platelet Volume 6.8 fL (7.4-10.4); Platelet Count 241 thou/uL (130-400); RBC Distribution Width 15.3 % (11.5-14.5); White Blood Cell (WBC) Count 11.8 thou/uL (4.8-10.8)
[2022-07-17] MEDS ORDERED: Heparin 1,000 UNITS/ML VIAL ONE (10:35)
[2022-07-17 10:53] LABS: Calcium 8.2 mg/dL (7.8-10.44)
[2022-07-17 10:54] LABS: ALT (SGPT) 67 U/L (8-55); AST (SGOT) 134 U/L (5-34); Albumin 2.7 g/dL (3.4-4.8); Alkaline Phosphatase 276 U/L (40-110); Anion Gap 20 mmol/L (10-20); BUN (Urea Nitrogen) 53 mg/dL (8.4-25.7); Bilirubin, Total 7.4 mg/dL (0.2-1.2); Calc. Creatinine Clearance 0 mL/min (70-130); Carbon Dioxide 17 mmol/L (23-31); Chloride 98 mmol/L (98-107); Estimated GFR 67; Globulin 2.9 g/dL (2.4-3.5); Glucose 142 mg/dL (83-110); Lipase 43 U/L (8-78); Potassium 7.2 mmol/L (3.5-5.1); Protein, Total 5.6 g/dL (5.8-8.1); Sodium 128 mmol/L (136-145)
[2022-07-17 12:10] LABS: Potassium 6.7 mmol/L (3.5-5.1)
[2022-07-17 12:20] LABS: PTT 40.5 sec (22.9-36.1)
[2022-07-17] MEDS ORDERED: Dextrose 50% Abboject 50 ML SYRINGE ONE (12:26)
[2022-07-17] MEDS ORDERED: Insulin Regular 300 UNITS/3 ML VIAL ONE (12:26)
[2022-07-17] MEDS ORDERED: Calcium Chloride 1 GM/10 ML Abboject SYRINGE ONE (12:26)
[2022-07-17 12:39] LABS: INR-International Normal Ratio 1.5; Prothrombin Time 18.7 sec (12.0-14.7)
[2022-07-17] MEDS ORDERED: Metoclopramide HCl 10 MG/2 ML VIAL ONE (12:49)
[2022-07-17 13:38] LABS: Hemoglobin 8.2 g/dL (14.0-18.0)
[2022-07-17] MEDS ORDERED: Furosemide 40 MG/4 ML VIAL SLOW IVP SCH (16:00)
[2022-07-17 16:26] LABS: Anion Gap 20 mmol/L (10-20); BUN (Urea Nitrogen) 60 mg/dL (8.4-25.7); Calc. Creatinine Clearance 52 mL/min (70-130); Calcium 8.7 mg/dL (7.8-10.44); Carbon Dioxide 17 mmol/L (23-31); Chloride 98 mmol/L (98-107); Estimated GFR 55; Glucose 138 mg/dL (83-110); Potassium 6.2 mmol/L (3.5-5.1); Sodium 129 mmol/L (136-145)
[2022-07-17] MEDS: cefTRIAXone\\ROCEPHIN 2 GM in Sodium Chloride 0.9% 100 ML IVPB SCH (16:28)
[2022-07-17] MEDS ORDERED: CALCIUM GLUC 1GM/NS 50ML 1 GM in Premix Bag 1 BAG IVPB SCH (17:15)
[2022-07-17] MEDS ORDERED: fentaNYL Citrate/PF 100 MCG/2 ML SYRINGE ONE (17:44)
[2022-07-17 18:55] LABS: Potassium 6.8 mmol/L (3.5-5.1)
[2022-07-17 19:25] LABS: Hemoglobin 8.4 g/dL (14.0-18.0)
[2022-07-17 19:52] LABS: Anion Gap 22 mmol/L (10-20); BUN (Urea Nitrogen) 61 mg/dL (8.4-25.7); Calc. Creatinine Clearance 44 mL/min (70-130); Calcium 8.9 mg/dL (7.8-10.44); Carbon Dioxide 17 mmol/L (23-31); Chloride 98 mmol/L (98-107); Estimated GFR 45; Glucose 113 mg/dL (83-110); Sodium 130 mmol/L (136-145)
[2022-07-17 19:57] LABS: Potassium 6.7 mmol/L (3.5-5.1)
[2022-07-17] MEDS: Albumin 25% 25 GM/100 ML BOT IVPB SCH (20:19)
[2022-07-17] MEDS: Hyoscyamine Sulfate SL 0.125 mg Tablet PO SCH (21:52)
[2022-07-18 00:12] LABS: Anion Gap 31 mmol/L (10-20); BUN (Urea Nitrogen) 65 mg/dL (8.4-25.7); Calc. Creatinine Clearance 38 mL/min (70-130); Calcium 9.1 mg/dL (7.8-10.44); Chloride 96 mmol/L (98-107); Estimated GFR 37; Glucose 151 mg/dL (83-110); Sodium 129 mmol/L (136-145)
[2022-07-18] MEDS: Pantoprazole 80 MG in Sodium Chloride 0.9% 100 ML IVPB SCH ×3 (00:14→21:23)
[2022-07-18 00:16] LABS: Carbon Dioxide 9 mmol/L (23-31); Potassium 6.8 mmol/L (3.5-5.1)
[2022-07-18] MEDS ORDERED: CALCIUM GLUC 1GM/NS 50ML 1 GM in Premix Bag 1 BAG IVPB SCH (01:15)
[2022-07-18 01:35] LABS: Hemoglobin 7.4 g/dL (14.0-18.0)
[2022-07-18] MEDS: Albumin 25% 25 GM/100 ML BOT IVPB SCH ×4 (01:40→21:18)
[2022-07-18] MEDS ORDERED: Gabapentin 300 MG CAP PO SCH (01:45)
[2022-07-18] MEDS ORDERED: Dextrose 50% Abboject 50 ML SYRINGE SLOW IVP SCH ×2 (02:00→07:00)
[2022-07-18] MEDS ORDERED: Insulin Regular 300 UNITS/3 ML VIAL IVP SCH ×2 (02:00→07:00)
[2022-07-18 04:26] LABS: #Eosinphils 0.1 thou/uL (0.0-0.7); #Lymphocytes 1.4 thou/uL (1.20-3.40); #Monocytes 1.9 thou/uL (0.11-0.59); #Neutrophils 14.2 thou/uL (1.40-6.50); %Basophils 0.1 % (0.0-1.0); %Eosinophils 0.3 % (0.0-10.0); %Lymphocytes 7.8 % (21.0-51.0); %Monocytes 10.8 % (0.0-10.0); Hemoglobin 6.5 g/dL (14.0-18.0); Mean Corpuscular HGB CONC 33.3 g/dL (32.0-36.0); Mean Corpuscular Hemoglobin 37.4 pg (27.0-31.0); Mean Platelet Volume 7.3 fL (7.4-10.4); Platelet Count 194 thou/uL (130-400); RBC Distribution Width 15.2 % (11.5-14.5); Red Blood Cell (RBC) Count 1.74 mill/uL (4.70-6.10); White Blood Cell (WBC) Count 17.5 thou/uL (4.8-10.8)
[2022-07-18 04:48] LABS: ALT (SGPT) 93 U/L (8-55); AST (SGOT) 221 U/L (5-34); Albumin 3.2 g/dL (3.4-4.8); Alkaline Phosphatase 178 U/L (40-110); Anion Gap 30 mmol/L (10-20); BUN (Urea Nitrogen) 71 mg/dL (8.4-25.7); Bilirubin, Total 7.3 mg/dL (0.2-1.2); Calc. Creatinine Clearance 34 mL/min (70-130); Calcium 9.4 mg/dL (7.8-10.44); Chloride 97 mmol/L (98-107); Estimated GFR 33; Globulin 2.1 g/dL (2.4-3.5); Glucose 172 mg/dL (83-110); Potassium 6.3 mmol/L (3.5-5.1); Protein, Total 5.3 g/dL (5.8-8.1); Sodium 130 mmol/L (136-145)
[2022-07-18 04:51] LABS: Carbon Dioxide 9 mmol/L (23-31)
[2022-07-18] MEDS ORDERED: Calcium Gluconate 100 MG/ML 10 ML IVPB SCH (07:00)
[2022-07-18] MEDS ORDERED: Albuterol Sulfate 2.5 mg/3 ml Neb IPPB SCH (07:00)
[2022-07-18] MEDS ORDERED: LOKELMA 10 GM PACKET PO SCH (07:00)
[2022-07-18] MEDS ORDERED: Sodium Bicarbonate 150 MEQ in Dextrose 5% in Water 1,000 ML IV SCH (07:30)
[2022-07-18] MEDS: CALCIUM GLUC 1GM/NS 50ML 1 GM in Premix Bag 1 BAG IVPB SCH ×2 (08:05→14:06)
[2022-07-18] MEDS ORDERED: Dextrose 50% Abboject 50 ML SYRINGE ONE (09:20)
[2022-07-18 11:55] LABS: Anion Gap 24 mmol/L (10-20); BUN (Urea Nitrogen) 77 mg/dL (8.4-25.7); Calc. Creatinine Clearance 33 mL/min (70-130); Calcium 9.4 mg/dL (7.8-10.44); Carbon Dioxide 15 mmol/L (23-31); Chloride 96 mmol/L (98-107); Estimated GFR 32; Glucose 172 mg/dL (83-110); Potassium 5.7 mmol/L (3.5-5.1); Sodium 129 mmol/L (136-145)
[2022-07-18] MEDS: Hyoscyamine Sulfate SL 0.125 mg Tablet PO SCH ×4 (13:26→21:24)
[2022-07-18] MEDS ORDERED: Fentanyl 100 MCG/2 ML VIAL ONE (14:07)
[2022-07-18] MEDS ORDERED: Lidocaine Viscous Sol 2% 15 ml UD Cup ONE (14:07)
[2022-07-18] MEDS ORDERED: Lidocaine 1% MPF 2 ML VIAL ONE (14:36)
[2022-07-18] MEDS ORDERED: Rocuronium Bromide 10 MG/ML (10ML VIAL) ONE (14:36)
[2022-07-18] MEDS ORDERED: Glycopyrrolate 0.2 MG/ML 5 ML SYRINGE ONE (14:36)
[2022-07-18] MEDS ORDERED: Neostigmine Methylsulfate 3 MG/3 ML SYRINGE ONE (14:36)
[2022-07-18] MEDS ORDERED: PROPOFOL 200 MG/20 ML VIAL ONE (14:36)
[2022-07-18] MEDS ORDERED: Promethazine HCl 25 MG/ML VIAL IM PRN (15:37)
[2022-07-18] MEDS ORDERED: Promethazine HCl 25 MG/ML VIAL IVPB PRN (15:37)
[2022-07-18] MEDS ORDERED: Ondansetron HCl/PF 4 MG/2 ML Vial IVP PRN (15:37)
[2022-07-18] MEDS: cefTRIAXone\\ROCEPHIN 2 GM in Sodium Chloride 0.9% 100 ML IVPB SCH (17:17)
[2022-07-18 19:31] LABS: Bilirubin Negative (Negative); Blood, Urine Negative (Negative); Clarity Clear (Clear); Glucose, Urine (Dipstick) Normal (Negative); Ketone, Urine Negative (Negative); Leukocyte 75 Leu/uL (Negative); Nitrite Negative (Negative); Protein, Urine (Dipstick) 10 mg/dL (Neg-Trace); RBC/HPF 0-3 HPF (0-3); Specific Gravity, Urine 1.018 (1.002-1.036); Squamous Epithelial 0-3 HPF (0-3); Urobilinogen Normal mg/dL (Less than 2); pH, Urine 5.5 (5.0-9.0)
[2022-07-18 19:32] LABS: Bacteria/HPF 1+ HPF (None Seen); Urine Culture Reflex Yes Yes
[2022-07-18 19:59] LABS: Creatinine, Urine 63.02 mg/dL (63-166); Protein, Urine Random Quant 16 mg/dL (1-14); Sodium, Urine Less than 20 mmol/L (Not Available); Urea Nitrogen, Random Urine 685 mg/dl
[2022-07-18 20:45] LABS: Anion Gap 17 mmol/L (10-20); BUN (Urea Nitrogen) 81 mg/dL (8.4-25.7); Calc. Creatinine Clearance 32 mL/min (70-130); Calcium 9.3 mg/dL (7.8-10.44); Carbon Dioxide 23 mmol/L (23-31); Chloride 95 mmol/L (98-107); Estimated GFR 31; Glucose 162 mg/dL (83-110); Potassium 5.4 mmol/L (3.5-5.1); Sodium 130 mmol/L (136-145)
[2022-07-18] MEDS: Ondansetron PF 4 MG/2 ML Vial IVP PRN (23:21)
[2022-07-19] MEDS ORDERED: Acetaminophen 500 MG TAB PO SCH (03:15)
[2022-07-19 03:22] LABS: Mean Corpuscular HGB CONC 35.2 g/dL (32.0-36.0); Mean Platelet Volume 7.4 fL (7.4-10.4); Platelet Count 179 thou/uL (130-400); RBC Distribution Width 17.5 % (11.5-14.5); Red Blood Cell (RBC) Count 1.88 mill/uL (4.70-6.10); White Blood Cell (WBC) Count 17.1 thou/uL (4.8-10.8)
[2022-07-19 03:54] LABS: Albumin 3.4 g/dL (3.4-4.8); Anion Gap 22 mmol/L (10-20); BUN (Urea Nitrogen) 85 mg/dL (8.4-25.7); BUN/Creatinine Ratio 40.28; Calc. Creatinine Clearance 32 mL/min (70-130); Calcium 9.2 mg/dL (7.8-10.44); Carbon Dioxide 18 mmol/L (23-31); Chloride 97 mmol/L (98-107); Estimated GFR 31; Glucose 189 mg/dL (83-110); Magnesium 2.7 mg/dL (1.6-2.6); Phosphorus 3.3 mg/dL (2.3-4.7); Potassium 5.6 mmol/L (3.5-5.1); Sodium 131 mmol/L (136-145)
[2022-07-19] MEDS ORDERED: Pantoprazole 80 MG, Admixture Fee 1 EACH in Sodium Chloride 0.9% 100 ML IVPB SCH (07:00)
[2022-07-19] MEDS ORDERED: LOKELMA 10 GM PACKET PO SCH (08:00)
[2022-07-19] MEDS: Midodrine HCl 5 MG TAB PO SCH ×3 (08:04→21:34)
[2022-07-19] MEDS: Hyoscyamine Sulfate SL 0.125 mg Tablet PO SCH ×4 (08:04→21:34)
[2022-07-19] MEDS: Albumin 25% 25 GM/100 ML BOT IVPB SCH ×3 (10:06→23:50)
[2022-07-19] MEDS: cefTRIAXone\\ROCEPHIN 2 GM in Sodium Chloride 0.9% 100 ML IVPB SCH (15:53)
[2022-07-19] MEDS: Octreotide Acetate 1,250 MCG in Sodium Chloride 0.9% 250 ML 250 ML IVPB SCH (17:10)
[2022-07-19] MEDS ORDERED: Pantoprazole 40 MG VIAL IVP SCH (19:00)
[2022-07-19 20:11] LABS: Anion Gap 20 mmol/L (10-20); BUN (Urea Nitrogen) 90 mg/dL (8.4-25.7); Calc. Creatinine Clearance 29 mL/min (70-130); Calcium 9.3 mg/dL (7.8-10.44); Carbon Dioxide 20 mmol/L (23-31); Chloride 97 mmol/L (98-107); Estimated GFR 27; Glucose 182 mg/dL (83-110); Potassium 4.8 mmol/L (3.5-5.1); Sodium 132 mmol/L (136-145)
[2022-07-19] MEDS: Pantoprazole 40 MG VIAL IVP SCH (21:35)
[2022-07-20] MEDS ORDERED: Acetaminophen 500 MG TAB PO SCH (01:45)
[2022-07-20 06:38] LABS: ALT (SGPT) 153 U/L (8-55); AST (SGOT) 253 U/L (5-34); Albumin 4.1 g/dL (3.4-4.8); Alkaline Phosphatase 224 U/L (40-110); Anion Gap 15 mmol/L (10-20); BUN (Urea Nitrogen) 93 mg/dL (8.4-25.7); Calc. Creatinine Clearance 31 mL/min (70-130); Calcium 9.7 mg/dL (7.8-10.44); Carbon Dioxide 24 mmol/L (23-31); Chloride 95 mmol/L (98-107); Estimated GFR 28; Globulin 2.1 g/dL (2.4-3.5); Glucose 149 mg/dL (83-110); Lipase 39 U/L (8-78); Potassium 4.2 mmol/L (3.5-5.1); Protein, Total 6.2 g/dL (5.8-8.1); Sodium 130 mmol/L (136-145)
[2022-07-20 07:19] LABS: Band 7 % (5-11); Eosinophils 4 % (0-10); Hemoglobin 6.8 g/dL (14.0-18.0); Lymphocytes 9 % (21-51); MDiff Complete? YES; Mean Corpuscular HGB CONC 33.3 g/dL (32.0-36.0); Mean Platelet Volume 7.2 fL (7.4-10.4); Monocytes 4 % (0-10); Myelocyte 1 % (0-0); Neutrophil 75 % (42-75); Platelet Clumps SLIGHT; Platelet Count 104 thou/uL (130-400); Polychromasia SLIGHT = 2-3 cells (100X) (0-2/hpf); RBC Distribution Width 17.6 % (11.5-14.5); Red Blood Cell (RBC) Count 1.94 mill/uL (4.70-6.10); Schistocytes SLIGHT = 2-5 cells (100X) (0-1/hpf); White Blood Cell (WBC) Count 12.3 thou/uL (4.8-10.8)
[2022-07-20] MEDS: Pantoprazole 40 MG VIAL IVP SCH ×2 (08:33→21:17)
[2022-07-20] MEDS: Hyoscyamine Sulfate SL 0.125 mg Tablet PO SCH ×4 (08:33→21:17)
[2022-07-20] MEDS: Midodrine HCl 5 MG TAB PO SCH ×3 (08:33→21:16)
[2022-07-20] MEDS ORDERED: Lidocaine 1% MPF 2 ML VIAL ONE ×2 (09:45)
[2022-07-20] MEDS ORDERED: Sodium Bicarbonate 2.5 MEQ/5 ML VIAL ONE (09:45)
[2022-07-20] MEDS: Albumin 25% 25 GM/100 ML BOT IVPB SCH ×2 (11:57→17:32)
[2022-07-20 13:58] LABS: RBC Count-Automated (BF) 34 /cu.mm; WBC/Nucleated-Auto (BF) 46 /cu.mm
[2022-07-20 14:05] LABS: Body Fluid Source Ascites Body Fluid
[2022-07-20 14:10] LABS: BF Color Yellow; Clarity Clear (Clear); Tube # EDTA
[2022-07-20 14:17] LABS: BF Segmented Neutrophils 22 %; Cell Count Non Hematic 48 %; Lymphocytes 30 %
[2022-07-20] MEDS: cefTRIAXone\\ROCEPHIN 2 GM in Sodium Chloride 0.9% 100 ML IVPB SCH (15:43)
[2022-07-20] MEDS: Octreotide Acetate 1,250 MCG in Sodium Chloride 0.9% 250 ML 250 ML IVPB SCH (17:31)
[2022-07-20] MEDS: Guaifenesin DM 100-10/5 ML UDCUP PO PRN (22:52)
[2022-07-21] MEDS ORDERED: Acetaminophen 500 MG TAB PO SCH (01:00)
[2022-07-21] MEDS: Albumin 25% 25 GM/100 ML BOT IVPB SCH (01:39)
[2022-07-21] MEDS ORDERED: Morphine 2 MG/ML VIAL SLOW IVP SCH (02:45)
[2022-07-21] MEDS: Guaifenesin DM 100-10/5 ML UDCUP PO PRN ×2 (03:06→08:43)
[2022-07-21 04:25] LABS: #Eosinphils 0.4 thou/uL (0.0-0.7); #Lymphocytes 0.8 thou/uL (1.20-3.40); #Monocytes 1.3 thou/uL (0.11-0.59); #Neutrophils 8.7 thou/uL (1.40-6.50); %Basophils 0.1 % (0.0-1.0); %Eosinophils 3.4 % (0.0-10.0); %Monocytes 11.4 % (0.0-10.0); %Neutrophils 78.2 % (42.0-75.0); Hemoglobin 6.9 g/dL (14.0-18.0); Mean Corpuscular HGB CONC 33.9 g/dL (32.0-36.0); Mean Corpuscular Hemoglobin 35.5 pg (27.0-31.0); Mean Platelet Volume 7.3 fL (7.4-10.4); Platelet Count 185 thou/uL (130-400); RBC Distribution Width 17.9 % (11.5-14.5); Red Blood Cell (RBC) Count 1.95 mill/uL (4.70-6.10); White Blood Cell (WBC) Count 11.1 thou/uL (4.8-10.8)
[2022-07-21 04:30] LABS: Glucose 159 mg/dL (83-110)
[2022-07-21 04:31] LABS: Anion Gap 16 mmol/L (10-20); BUN (Urea Nitrogen) 87 mg/dL (8.4-25.7); Calc. Creatinine Clearance 32 mL/min (70-130); Calcium 9.8 mg/dL (7.8-10.44); Carbon Dioxide 26 mmol/L (23-31); Chloride 96 mmol/L (98-107); Estimated GFR 29; Potassium 4.2 mmol/L (3.5-5.1); Sodium 134 mmol/L (136-145)
[2022-07-21] MEDS: Midodrine HCl 5 MG TAB PO SCH ×3 (08:42→22:29)
[2022-07-21] MEDS: Pantoprazole 40 MG VIAL IVP SCH ×2 (08:42→22:30)
[2022-07-21] MEDS: Hyoscyamine Sulfate SL 0.125 mg Tablet PO SCH ×4 (08:43→22:30)
[2022-07-21] MEDS: Ondansetron PF 4 MG/2 ML Vial IVP PRN ×2 (08:59→14:14)
[2022-07-21 09:52] LABS: ALT (SGPT) 118 U/L (8-55); AST (SGOT) 155 U/L (5-34); Albumin 4.3 g/dL (3.4-4.8); Alkaline Phosphatase 245 U/L (40-110); Bilirubin, Total 5.9 mg/dL (0.2-1.2); Protein, Total 6.3 g/dL (5.8-8.1)
[2022-07-21] MEDS: cefTRIAXone\\ROCEPHIN 2 GM in Sodium Chloride 0.9% 100 ML IVPB SCH (17:03)
[2022-07-21] MEDS ORDERED: Ondansetron ODT 4 MG TAB SL PRN (18:14)
[2022-07-21] MEDS: Octreotide Acetate 1,250 MCG in Sodium Chloride 0.9% 250 ML 250 ML IVPB SCH (21:09)
[2022-07-21] MEDS: Rifaximin 550 MG TAB PO SCH (22:29)
[2022-07-22] MEDS: Ondansetron ODT 4 MG TAB SL PRN (00:41)
[2022-07-22 03:55] LABS: Hemoglobin 8.3 g/dL (14.0-18.0); Mean Corpuscular HGB CONC 32.7 g/dL (32.0-36.0); Mean Corpuscular Hemoglobin 34.1 pg (27.0-31.0); Mean Platelet Volume 7.3 fL (7.4-10.4); Platelet Count 188 thou/uL (130-400); RBC Distribution Width 19.4 % (11.5-14.5); Red Blood Cell (RBC) Count 2.44 mill/uL (4.70-6.10); White Blood Cell (WBC) Count 10.6 thou/uL (4.8-10.8)
[2022-07-22 04:00] LABS: Anion Gap 14 mmol/L (10-20); BUN (Urea Nitrogen) 78 mg/dL (8.4-25.7); Calc. Creatinine Clearance 37 mL/min (70-130); Calcium 9.2 mg/dL (7.8-10.44); Carbon Dioxide 26 mmol/L (23-31); Chloride 97 mmol/L (98-107); Estimated GFR 34; Glucose 140 mg/dL (83-110); Potassium 4.4 mmol/L (3.5-5.1); Sodium 133 mmol/L (136-145)
[2022-07-22 04:02] LABS: ALT (SGPT) 107 U/L (8-55); AST (SGOT) 123 U/L (5-34); Albumin 3.9 g/dL (3.4-4.8); Alkaline Phosphatase 246 U/L (40-110); Bilirubin, Direct 4.4 mg/dL (0.1-0.3); Bilirubin, Total 6.8 mg/dL (0.2-1.2)
[2022-07-22 05:24] LABS: #Eosinphils 0.3 thou/uL (0.0-0.7); #Lymphocytes 0.8 thou/uL (1.20-3.40); #Neutrophils 8.5 thou/uL (1.40-6.50); %Basophils 0.2 % (0.0-1.0); %Eosinophils 3.1 % (0.0-10.0); %Lymphocytes 7.2 % (21.0-51.0); %Monocytes 9.3 % (0.0-10.0); %Neutrophils 80.3 % (42.0-75.0); Anisocytosis SLIGHT = 6-15 cells (100X) (0-5/hpf); MDiff Complete? YES
[2022-07-22] MEDS: Midodrine HCl 5 MG TAB PO SCH ×3 (08:23→20:20)
[2022-07-22] MEDS: Rifaximin 550 MG TAB PO SCH ×2 (08:23→20:21)
[2022-07-22] MEDS: Pantoprazole 40 MG VIAL IVP SCH ×2 (08:24→20:20)
[2022-07-22] MEDS: Hyoscyamine Sulfate SL 0.125 mg Tablet PO SCH ×5 (08:25→20:52)
[2022-07-22] MEDS: Albumin 25% 25 GM/100 ML BOT IVPB SCH ×2 (08:54→20:26)
[2022-07-22] MEDS ORDERED: Spironolactone 25 MG TAB PO SCH (09:30)
[2022-07-22] MEDS: cefTRIAXone\\ROCEPHIN 2 GM in Sodium Chloride 0.9% 100 ML IVPB SCH (15:05)
[2022-07-23] MEDS: Octreotide Acetate 1,250 MCG in Sodium Chloride 0.9% 250 ML 250 ML IVPB SCH (00:08)
[2022-07-23 04:27] LABS: ALT (SGPT) 84 U/L (8-55); AST (SGOT) 87 U/L (5-34); Albumin 3.9 g/dL (3.4-4.8); Alkaline Phosphatase 249 U/L (40-110); Bilirubin, Direct 3.8 mg/dL (0.1-0.3); Bilirubin, Total 5.9 mg/dL (0.2-1.2); Protein, Total 5.8 g/dL (5.8-8.1)
[2022-07-23] MEDS: Rifaximin 550 MG TAB PO SCH ×2 (09:38→20:36)
[2022-07-23] MEDS: Midodrine HCl 5 MG TAB PO SCH ×3 (09:39→20:36)
[2022-07-23] MEDS: Pantoprazole 40 MG VIAL IVP SCH ×2 (09:39→20:35)
[2022-07-23] MEDS: Hyoscyamine Sulfate SL 0.125 mg Tablet PO SCH ×4 (10:33→20:35)
[2022-07-23] MEDS: Albumin 25% 25 GM/100 ML BOT IVPB SCH ×3 (12:09→22:02)
[2022-07-23 12:48] LABS: Bilirubin Negative (Negative); Blood, Urine 2+ (Negative); Clarity Clear (Clear); Glucose, Urine (Dipstick) Normal (Negative); Ketone, Urine Negative (Negative); Leukocyte 250 Leu/uL (Negative); Nitrite Negative (Negative); Protein, Urine (Dipstick) 20 mg/dL (Neg-Trace); Specific Gravity, Urine 1.022 (1.002-1.036); Squamous Epithelial None Seen HPF (0-3); Urobilinogen 6 mg/dL (Less than 2); pH, Urine 5.5 (5.0-9.0)
[2022-07-23 12:49] LABS: Bacteria/HPF 1+ HPF (None Seen)
[2022-07-23 12:50] LABS: Urine Culture Reflex Yes Yes
[2022-07-23] MEDS: cefTRIAXone\\ROCEPHIN 2 GM in Sodium Chloride 0.9% 100 ML IVPB SCH (16:07)
[2022-07-23] MEDS ORDERED: Lactated Ringer's 500 ML IV SCH (17:30)
[2022-07-23] MEDS: Lactated Ringer's 1,000 ML IV SCH (20:35)
[2022-07-23] MEDS: Morphine 2 MG/ML VIAL SLOW IVP PRN (21:35)
[2022-07-24] MEDS: Octreotide Acetate 1,250 MCG in Sodium Chloride 0.9% 250 ML 250 ML IVPB SCH (02:24)
[2022-07-24] MEDS: Morphine 2 MG/ML VIAL SLOW IVP PRN (02:24)
[2022-07-24] MEDS: Albumin 25% 25 GM/100 ML BOT IVPB SCH ×2 (04:14→10:21)
[2022-07-24] MEDS: Lactated Ringer's 1,000 ML IV SCH (04:14)
[2022-07-24 04:15] LABS: Anion Gap 13 mmol/L (10-20); BUN (Urea Nitrogen) 48 mg/dL (8.4-25.7); Calc. Creatinine Clearance 54 mL/min (70-130); Calcium 9.3 mg/dL (7.8-10.44); Carbon Dioxide 28 mmol/L (23-31); Chloride 101 mmol/L (98-107); Estimated GFR 56; Glucose 123 mg/dL (83-110); Potassium 4.4 mmol/L (3.5-5.1); Sodium 138 mmol/L (136-145)
[2022-07-24 04:55] LABS: #Basophils 0.1 thou/uL (0.0-0.2); #Eosinphils 0.5 thou/uL (0.0-0.7); #Lymphocytes 0.3 thou/uL (1.20-3.40); #Monocytes 0.8 thou/uL (0.11-0.59); #Neutrophils 6.3 thou/uL (1.40-6.50); %Eosinophils 6.2 % (0.0-10.0); %Lymphocytes 4.2 % (21.0-51.0); %Monocytes 9.5 % (0.0-10.0); %Neutrophils 79.1 % (42.0-75.0); Anisocytosis SLIGHT = 6-15 cells (100X) (0-5/hpf); Hemoglobin 8.4 g/dL (14.0-18.0); MDiff Complete? YES; Macrocytosis SLIGHT = 6-15 cells (100X) (0-5/hpf); Mean Corpuscular Hemoglobin 36.7 pg (27.0-31.0); Mean Platelet Volume 6.6 fL (7.4-10.4); Platelet Count 185 thou/uL (130-400); RBC Distribution Width 18.3 % (11.5-14.5); Red Blood Cell (RBC) Count 2.29 mill/uL (4.70-6.10)
[2022-07-24] MEDS: Hyoscyamine Sulfate SL 0.125 mg Tablet PO SCH ×4 (07:59→21:42)
[2022-07-24] MEDS: Rifaximin 550 MG TAB PO SCH ×2 (07:59→21:42)
[2022-07-24] MEDS: Pantoprazole 40 MG VIAL IVP SCH ×2 (08:17→20:07)
[2022-07-24] MEDS ORDERED: Dextrose 5%-Lactated Ringers 1,000 ML IV SCH (10:30)
[2022-07-24] MEDS ORDERED: Multivitamins, Adult 10 ML, TRACE ELEMENT CONCENTRATE 1 ML in D15W-AA 5% with Lytes 2,0... IV SCH (14:00)
[2022-07-24] MEDS ORDERED: Lactulose 10 GM/15 ML Oral Solution PO PRN (14:11)
[2022-07-24] MEDS: Diltiazem HCl 125 MG in Premix Bag 1 BAG IVPB SCH (15:25)
[2022-07-24] MEDS: cefTRIAXone\\ROCEPHIN 2 GM in Sodium Chloride 0.9% 100 ML IVPB SCH (15:26)
[2022-07-24] MEDS ORDERED: Ascorbic Acid 500 mg Chewable Tablet PO SCH (17:00)
[2022-07-24] MEDS ORDERED: Zinc Sulfate 220 MG CAP PO SCH (17:00)
[2022-07-24] MEDS: Ondansetron ODT 4 MG TAB SL PRN (18:19)
[2022-07-24] MEDS: Mometasone Furoate 120 PUFF 220 MCG INH SCH (18:31)
[2022-07-24] MEDS: Albuterol 200 PUFF (6.7GM INHALER) INH PRN (20:09)
[2022-07-24] MEDS: Cholecalciferol 1,000 UNITS (25 MCG) TAB PO SCH (21:42)
[2022-07-24] MEDS ORDERED: Acetaminophen 650 MG Suppository PR SCH (21:45)
[2022-07-25] MEDS: Albuterol 200 PUFF (6.7GM INHALER) INH PRN ×2 (00:10→08:53)
[2022-07-25] MEDS: Diltiazem HCl 125 MG in Premix Bag 1 BAG IVPB SCH ×2 (03:05→13:09)
[2022-07-25 04:19] LABS: ALT (SGPT) 60 U/L (8-55); AST (SGOT) 81 U/L (5-34); Albumin 4.1 g/dL (3.4-4.8); Alkaline Phosphatase 194 U/L (40-110); Bilirubin, Direct 3.5 mg/dL (0.1-0.3); Bilirubin, Total 5.9 mg/dL (0.2-1.2); Phosphorus 2.6 mg/dL (2.3-4.7); Protein, Total 5.9 g/dL (5.8-8.1)
[2022-07-25 04:21] LABS: Anion Gap 15 mmol/L (10-20); BUN (Urea Nitrogen) 50 mg/dL (8.4-25.7); Calc. Creatinine Clearance 47 mL/min (70-130); Calcium 9.1 mg/dL (7.8-10.44); Carbon Dioxide 26 mmol/L (23-31); Chloride 100 mmol/L (98-107); Estimated GFR 47; Glucose 212 mg/dL (83-110); Magnesium 2.3 mg/dL (1.6-2.6); Potassium 4.3 mmol/L (3.5-5.1); Sodium 137 mmol/L (136-145)
[2022-07-25 04:39] LABS: Band 12 % (5-11); Hemoglobin 7.7 g/dL (14.0-18.0); Lymphocytes 11 % (21-51); MDiff Complete? YES; Macrocytosis SLIGHT = 6-15 cells (100X) (0-5/hpf); Mean Corpuscular HGB CONC 32.2 g/dL (32.0-36.0); Mean Corpuscular Hemoglobin 34.9 pg (27.0-31.0); Mean Platelet Volume 6.9 fL (7.4-10.4); Monocytes 8 % (0-10); Myelocyte 1 % (0-0); Neutrophil 68 % (42-75); Platelet Count 148 thou/uL (130-400); RBC Distribution Width 17.9 % (11.5-14.5); Red Blood Cell (RBC) Count 2.21 mill/uL (4.70-6.10); White Blood Cell (WBC) Count 6.5 thou/uL (4.8-10.8)
[2022-07-25] MEDS: Ondansetron PF 4 MG/2 ML Vial IVP PRN (04:51)
[2022-07-25] MEDS: Mometasone Furoate 120 PUFF 220 MCG INH SCH ×2 (07:08→18:45)
[2022-07-25] MEDS: Hyoscyamine Sulfate SL 0.125 mg Tablet PO SCH ×4 (08:13→20:54)
[2022-07-25] MEDS: Ascorbic Acid 500 mg Chewable Tablet PO SCH (08:13)
[2022-07-25] MEDS: Rifaximin 550 MG TAB PO SCH ×2 (08:14→20:55)
[2022-07-25] MEDS: Zinc Sulfate 220 MG CAP PO SCH (08:14)
[2022-07-25] MEDS: Pantoprazole 40 MG VIAL IVP SCH ×2 (08:52→21:00)
[2022-07-25] MEDS ORDERED: Furosemide 40 MG/4 ML VIAL SLOW IVP SCH ×2 (10:00→15:00)
[2022-07-25] MEDS: Cefepime 2 GM in Sodium Chloride 0.9% 100 ML IVPB SCH (11:11)
[2022-07-25] MEDS: methylPREDNISolone Sod Succ 40 MG VIAL IVP SCH ×2 (11:11→17:09)
[2022-07-25] MEDS ORDERED: Multivitamins, Adult 10 ML, TRACE ELEMENT CONCENTRATE 1 ML, Fat Emulsion 250 ML in D15W... IV SCH (14:00)
[2022-07-25] MEDS: Cholecalciferol 1,000 UNITS (25 MCG) TAB PO SCH (20:54)
[2022-07-26] MEDS: methylPREDNISolone Sod Succ 40 MG VIAL IVP SCH ×5 (00:33→22:44)
[2022-07-26] MEDS: Cefepime 2 GM in Sodium Chloride 0.9% 100 ML IVPB SCH ×3 (00:33→22:44)
[2022-07-26] MEDS: Diltiazem HCl 125 MG in Premix Bag 1 BAG IVPB SCH ×2 (01:37→22:44)
[2022-07-26] MEDS ORDERED: Acetaminophen 650 MG Suppository PR SCH (03:00)
[2022-07-26 04:30] LABS: #Lymphocytes 0.2 thou/uL (1.20-3.40); #Monocytes 0.3 thou/uL (0.11-0.59); #Neutrophils 4.3 thou/uL (1.40-6.50); %Eosinophils 0.1 % (0.0-10.0); %Lymphocytes 3.4 % (21.0-51.0); %Neutrophils 89.5 % (42.0-75.0); Hemoglobin 7.9 g/dL (14.0-18.0); Mean Corpuscular HGB CONC 31.6 g/dL (32.0-36.0); Mean Corpuscular Hemoglobin 34.6 pg (27.0-31.0); Mean Platelet Volume 7.2 fL (7.4-10.4); Platelet Count 132 thou/uL (130-400); RBC Distribution Width 17.5 % (11.5-14.5); Red Blood Cell (RBC) Count 2.28 mill/uL (4.70-6.10); White Blood Cell (WBC) Count 4.8 thou/uL (4.8-10.8)
[2022-07-26 04:53] LABS: Anion Gap 15 mmol/L (10-20); BUN (Urea Nitrogen) 60 mg/dL (8.4-25.7); Calc. Creatinine Clearance 43 mL/min (70-130); Carbon Dioxide 26 mmol/L (23-31); Chloride 99 mmol/L (98-107); Estimated GFR 41; Glucose 437 mg/dL (83-110); Magnesium 2.3 mg/dL (1.6-2.6); Potassium 4.7 mmol/L (3.5-5.1); Sodium 135 mmol/L (136-145)
[2022-07-26 04:57] LABS: Phosphorus 3.2 mg/dL (2.3-4.7)
[2022-07-26] MEDS: Mometasone Furoate 120 PUFF 220 MCG INH SCH ×2 (06:57→18:20)
[2022-07-26] MEDS ORDERED: Dextrose 5% in Water 1,000 ML IV PRN (07:30)
[2022-07-26] MEDS ORDERED: HumaLOG 300 UNITS/3 ML VIAL SC PRN (07:30)
[2022-07-26] MEDS ORDERED: Dextrose 50% Abboject 50 ML SYRINGE IVP PRN (07:30)
[2022-07-26] MEDS: Zinc Sulfate 220 MG CAP PO SCH (09:21)
[2022-07-26] MEDS: Rifaximin 550 MG TAB PO SCH ×2 (09:21→21:00)
[2022-07-26] MEDS: Ascorbic Acid 500 mg Chewable Tablet PO SCH (09:21)
[2022-07-26] MEDS: Hyoscyamine Sulfate SL 0.125 mg Tablet PO SCH ×4 (09:21→20:59)
[2022-07-26] MEDS: Pantoprazole 40 MG VIAL IVP SCH ×2 (09:22→21:00)
[2022-07-26] MEDS: NPH, Human Insulin Isophane 300 UNIT/3 ML VIAL SC SCH ×2 (11:41→18:19)
[2022-07-26] MEDS ORDERED: Melatonin 3 MG TAB PO PRN (18:00)
[2022-07-26] MEDS: traMADol HCl 50 MG TAB PO PRN ×2 (18:17→23:57)
[2022-07-26] MEDS: Cholecalciferol 1,000 UNITS (25 MCG) TAB PO SCH (21:00)
[2022-07-26] MEDS ORDERED: diphenhydrAMINE 50 MG CAP PO SCH (21:00)
[2022-07-27] MEDS: NPH, Human Insulin Isophane 300 UNIT/3 ML VIAL SC SCH ×4 (01:06→16:54)
[2022-07-27] MEDS ORDERED: Morphine 4 MG/ML VIAL SLOW IVP SCH (01:30)
[2022-07-27] MEDS: Mometasone Furoate 120 PUFF 220 MCG INH SCH (02:47)
[2022-07-27 04:48] LABS: Anion Gap 15 mmol/L (10-20); BUN (Urea Nitrogen) 63 mg/dL (8.4-25.7); Calc. Creatinine Clearance 48 mL/min (70-130); Calcium 8.8 mg/dL (7.8-10.44); Carbon Dioxide 26 mmol/L (23-31); Chloride 100 mmol/L (98-107); Estimated GFR 46; Glucose 285 mg/dL (83-110); Magnesium 2.2 mg/dL (1.6-2.6); Potassium 4.8 mmol/L (3.5-5.1); Sodium 136 mmol/L (136-145)
[2022-07-27 04:50] LABS: #Lymphocytes 0.3 thou/uL (1.20-3.40); #Monocytes 0.4 thou/uL (0.11-0.59); #Neutrophils 11.7 thou/uL (1.40-6.50); %Lymphocytes 2.5 % (21.0-51.0); %Monocytes 3.6 % (0.0-10.0); %Neutrophils 93.9 % (42.0-75.0); Hemoglobin 6.8 g/dL (14.0-18.0); MDiff Complete? YES; Macrocytosis SLIGHT = 6-15 cells (100X) (0-5/hpf); Mean Corpuscular HGB CONC 32.5 g/dL (32.0-36.0); Mean Corpuscular Hemoglobin 35.7 pg (27.0-31.0); Mean Platelet Volume 7.6 fL (7.4-10.4); Platelet Count 131 thou/uL (130-400); RBC Distribution Width 17.4 % (11.5-14.5); White Blood Cell (WBC) Count 12.5 thou/uL (4.8-10.8)
[2022-07-27] MEDS: methylPREDNISolone Sod Succ 40 MG VIAL IVP SCH ×4 (05:03→23:03)
[2022-07-27 05:24] LABS: Phosphorus 2.9 mg/dL (2.3-4.7)
[2022-07-27] MEDS ORDERED: Furosemide 40 MG/4 ML VIAL SLOW IVP SCH (09:15)
[2022-07-27] MEDS: Ascorbic Acid 500 mg Chewable Tablet PO SCH (09:23)
[2022-07-27] MEDS: Rifaximin 550 MG TAB PO SCH ×2 (09:24→21:19)
[2022-07-27] MEDS: Zinc Sulfate 220 MG CAP PO SCH (09:24)
[2022-07-27] MEDS: Pantoprazole 40 MG VIAL IVP SCH ×2 (09:25→21:50)
[2022-07-27] MEDS ORDERED: Furosemide 40 MG/4 ML VIAL ONE (10:38)
[2022-07-27 10:49] VITALS: BMI 52.0
[2022-07-27] MEDS: Cefepime 2 GM in Sodium Chloride 0.9% 100 ML IVPB SCH ×2 (11:40→23:00)
[2022-07-27] MEDS: Hyoscyamine Sulfate SL 0.125 mg Tablet PO SCH ×4 (12:36→21:19)
[2022-07-27] MEDS ORDERED: Temazepam 15 MG CAP PO PRN (14:00)
[2022-07-27] MEDS ORDERED: diphenhydrAMINE 25 MG CAP PO PRN (14:01)
[2022-07-27 17:29] VITALS: BP 135/67
[2022-07-27] MEDS: Mometasone 200 MCG/Formoterol 5 MCG 120 PUFF INHALER INH SCH (18:00)
[2022-07-27] MEDS: Cholecalciferol 1,000 UNITS (25 MCG) TAB PO SCH (21:20)
[2022-07-28] MEDS: NPH, Human Insulin Isophane 300 UNIT/3 ML VIAL SC SCH ×4 (00:14→17:57)
[2022-07-28] MEDS: methylPREDNISolone Sod Succ 40 MG VIAL IVP SCH ×3 (05:09→17:57)
[2022-07-28 05:11] LABS: Anion Gap 15 mmol/L (10-20); BUN (Urea Nitrogen) 71 mg/dL (8.4-25.7); Calc. Creatinine Clearance 79 mL/min (70-130); Calcium 9.3 mg/dL (7.8-10.44); Carbon Dioxide 27 mmol/L (23-31); Chloride 101 mmol/L (98-107); Estimated GFR 44; Glucose 209 mg/dL (83-110); Magnesium 2.3 mg/dL (1.6-2.6); Potassium 5.1 mmol/L (3.5-5.1); Sodium 138 mmol/L (136-145)
[2022-07-28 05:12] LABS: ALT (SGPT) 63 U/L (8-55); AST (SGOT) 73 U/L (5-34); Albumin 3.6 g/dL (3.4-4.8); Alkaline Phosphatase 221 U/L (40-110); Bilirubin, Direct 2.4 mg/dL (0.1-0.3); Bilirubin, Total 3.5 mg/dL (0.2-1.2); Phosphorus 2.9 mg/dL (2.3-4.7); Protein, Total 5.7 g/dL (5.8-8.1)
[2022-07-28 05:20] LABS: Platelet Morphology Comment Appears Adequate
[2022-07-28 05:21] LABS: #Lymphocytes 0.3 thou/uL (1.20-3.40); #Monocytes 0.5 thou/uL (0.11-0.59); #Neutrophils 9.2 thou/uL (1.40-6.50); %Basophils 0.1 % (0.0-1.0); %Lymphocytes 2.8 % (21.0-51.0); %Monocytes 4.7 % (0.0-10.0); %Neutrophils 92.4 % (42.0-75.0); Hemoglobin 7.5 g/dL (14.0-18.0); Mean Corpuscular HGB CONC 32.6 g/dL (32.0-36.0); Mean Corpuscular Hemoglobin 34.9 pg (27.0-31.0); Mean Platelet Volume 7.5 fL (7.4-10.4); Platelet Count 114 thou/uL (130-400); RBC Distribution Width 17.8 % (11.5-14.5); Red Blood Cell (RBC) Count 2.13 mill/uL (4.70-6.10); White Blood Cell (WBC) Count 9.9 thou/uL (4.8-10.8)
[2022-07-28] MEDS: Mometasone 200 MCG/Formoterol 5 MCG 120 PUFF INHALER INH SCH ×3 (08:25→19:02)
[2022-07-28] MEDS ORDERED: Furosemide 20 MG TAB PO SCH (09:00)
[2022-07-28] MEDS ORDERED: Spironolactone 25 MG TAB PO SCH (09:00)
[2022-07-28] MEDS: Ascorbic Acid 500 mg Chewable Tablet PO SCH (10:05)
[2022-07-28] MEDS: Rifaximin 550 MG TAB PO SCH ×2 (10:05→21:39)
[2022-07-28] MEDS: Pantoprazole 40 MG VIAL IVP SCH ×2 (10:05→21:39)
[2022-07-28] MEDS: Zinc Sulfate 220 MG CAP PO SCH (10:05)
[2022-07-28] MEDS: Cefepime 1 GM in Sodium Chloride 0.9% 100 ML IVPB SCH (11:55)
[2022-07-28] MEDS: Hyoscyamine Sulfate SL 0.125 mg Tablet PO SCH ×2 (11:58→13:14)
[2022-07-28] MEDS ORDERED: GUAIFENESIN SF SOLN 200 MG/10 ML UDCUP PO PRN (15:41)
[2022-07-28] MEDS ORDERED: Melatonin 3 MG TAB PO PRN (15:56)
[2022-07-28 18:07] LABS: Hemoglobin 7.8 g/dL (14.0-18.0)
[2022-07-28] MEDS: Ondansetron PF 4 MG/2 ML Vial IVP PRN (18:34)
[2022-07-28] MEDS: Cholecalciferol 1,000 UNITS (25 MCG) TAB PO SCH (21:39)
[2022-07-29 04:32] LABS: Anion Gap 21 mmol/L (10-20); BUN (Urea Nitrogen) 91 mg/dL (8.4-25.7); Calc. Creatinine Clearance 34 mL/min (70-130); Calcium 9.6 mg/dL (7.8-10.44); Carbon Dioxide 21 mmol/L (23-31); Chloride 100 mmol/L (98-107); Estimated GFR 32; Glucose 261 mg/dL (83-110); Potassium 5.4 mmol/L (3.5-5.1); Sodium 137 mmol/L (136-145)
[2022-07-29 05:17] LABS: #Lymphocytes 0.5 thou/uL (1.20-3.40); #Monocytes 0.7 thou/uL (0.11-0.59); #Neutrophils 11.3 thou/uL (1.40-6.50); %Eosinophils 0.1 % (0.0-10.0); %Lymphocytes 3.9 % (21.0-51.0); %Monocytes 5.4 % (0.0-10.0); %Neutrophils 90.6 % (42.0-75.0); Hemoglobin 7.5 g/dL (14.0-18.0); Mean Corpuscular HGB CONC 31.6 g/dL (32.0-36.0); Mean Corpuscular Hemoglobin 33.8 pg (27.0-31.0); Platelet Count 143 thou/uL (130-400); RBC Distribution Width 17.8 % (11.5-14.5); Red Blood Cell (RBC) Count 2.23 mill/uL (4.70-6.10); White Blood Cell (WBC) Count 12.5 thou/uL (4.8-10.8)
[2022-07-29] MEDS: Mometasone 200 MCG/Formoterol 5 MCG 120 PUFF INHALER INH SCH (05:46)
[2022-07-29] MEDS ORDERED: LOKELMA 10 GM PACKET PO SCH (06:45)
[2022-07-29] MEDS: methylPREDNISolone Sod Succ 40 MG VIAL IVP SCH ×3 (06:54→11:42)
[2022-07-29] MEDS: NPH, Human Insulin Isophane 300 UNIT/3 ML VIAL SC SCH ×3 (06:54→11:42)
[2022-07-29 07:14] LABS: Hemoglobin 7.2 g/dL (14.0-18.0)
[2022-07-29] MEDS ORDERED: Sodium Bicarbonate 75 MEQ in Dextrose 5% in Water 500 ML IV SCH (08:45)
[2022-07-29] MEDS: Ascorbic Acid 500 mg Chewable Tablet PO SCH (09:53)
[2022-07-29] MEDS: Pantoprazole 40 MG VIAL IVP SCH (09:55)
[2022-07-29] MEDS: Zinc Sulfate 220 MG CAP PO SCH (09:55)
[2022-07-29] MEDS: Rifaximin 550 MG TAB PO SCH (09:55)
[2022-07-29] MEDS ORDERED: Scopolamine 1.5 mg/72 hour Patch TD SCH (10:00)
[2022-07-29] MEDS ORDERED: Midazolam HCl 2 mg/2 ml Vial SLOW IVP PRN (10:05)
[2022-07-29] MEDS: Morphine 2 MG/ML VIAL SLOW IVP PRN ×2 (10:19→10:48)
[2022-07-29] MEDS ORDERED: Morphine 2 MG/ML VIAL SLOW IVP PRN (10:57)
[2022-07-29] MEDS: Cefepime 1 GM in Sodium Chloride 0.9% 100 ML IVPB SCH ×2 (11:41)
[2022-07-29] MEDS ORDERED: Albumin 25% 25 GM/100 ML BOT IVPB SCH (12:00)
[2022-07-29 12:34] VITALS: TEMP 97.6
== END 2022-07-29 13:29 | disposition hospice, inpatient (51) | DRG 432 ==
LOC: ERS 09:45 → 2NO 12:53 → SURG A 07-18 07:29 → IMCU/EMU 07-18 08:27
PROVIDERS: ADMIT Internal Medicine; ATTEND Student in an Organized Health Care Education/Training Program
PROC: 30233N1 Transfusion of Nonautologous Red Blood Cells into Peripheral Vein, Percutaneous Approach (ICD-10-PCS; 2022-07-18)
PROC: 06L38CZ Occlusion of Esophageal Vein with Extraluminal Device, Via Natural or Artificial Opening Endoscopic (ICD-10-PCS; 2022-07-18)
PROC: 0W9G3ZZ Drainage of Peritoneal Cavity, Percutaneous Approach (ICD-10-PCS; 2022-07-20)
PROC: 02HV33Z Insertion of Infusion Device into Superior Vena Cava, Percutaneous Approach (ICD-10-PCS; 2022-07-20)
PROC: B548ZZA Ultrasonography of Superior Vena Cava, Guidance (ICD-10-PCS; 2022-07-20)
PROC: 8E0ZXY6 Isolation (ICD-10-PCS; principal; 2022-07-24)
PROC: 3E0336Z Introduction of Nutritional Substance into Peripheral Vein, Percutaneous Approach (ICD-10-PCS; 2022-07-25)
PROC: 5A09357 Assistance with Respiratory Ventilation, Less than 24 Consecutive Hours, Continuous Positive Airway Pressure (ICD-10-PCS; 2022-07-25)
PROC: 5A0945A Assistance with Respiratory Ventilation, 24-96 Consecutive Hours, High Flow/Velocity Cannula (ICD-10-PCS; 2022-07-26)
PROC: 0W9G3ZZ Drainage of Peritoneal Cavity, Percutaneous Approach (ICD-10-PCS; 2022-07-27)
DX: K74.60 Unspecified cirrhosis of liver (principal); I85.11 Secondary esophageal varices with bleeding; U07.1 COVID-19; K76.7 Hepatorenal syndrome; J96.01 Acute respiratory failure with hypoxia; J12.82 Pneumonia due to coronavirus disease 2019; R18.8 Other ascites; D62 Acute posthemorrhagic anemia; I25.810 Atherosclerosis of coronary artery bypass graft(s) without angina pectoris; E87.0 Hyperosmolality and hypernatremia; K86.2 Cyst of pancreas; E87.1 Hypo-osmolality and hyponatremia; N17.9 Acute kidney failure, unspecified; E87.2 Acidosis; K76.6 Portal hypertension; T85.590A Other mechanical complication of bile duct prosthesis, initial encounter; E46 Unspecified protein-calorie malnutrition; I48.92 Unspecified atrial flutter; J90 Pleural effusion, not elsewhere classified; J81.1 Chronic pulmonary edema; Z51.5 Encounter for palliative care; Z66 Do not resuscitate; E78.5 Hyperlipidemia, unspecified; K31.89 Other diseases of stomach and duodenum; Y83.8 Other surgical procedures as the cause of abnormal reaction of the patient, or of later complication, without mention of misadventure at the time of the procedure; K83.8 Other specified diseases of biliary tract; K76.0 Fatty (change of) liver, not elsewhere classified; K75.81 Nonalcoholic steatohepatitis (NASH); E11.22 Type 2 diabetes mellitus with diabetic chronic kidney disease; R13.12 Dysphagia, oropharyngeal phase; K72.90 Hepatic failure, unspecified without coma; K80.50 Calculus of bile duct without cholangitis or cholecystitis without obstruction; G47.00 Insomnia, unspecified; R33.9 Retention of urine, unspecified; N18.9 Chronic kidney disease, unspecified; I44.1 Atrioventricular block, second degree; E87.5 Hyperkalemia; Z85.07 Personal history of malignant neoplasm of pancreas; Z95.2 Presence of prosthetic heart valve; Z88.8 Allergy status to other drugs, medicaments and biological substances; Z79.899 Other long term (current) drug therapy; Z95.1 Presence of aortocoronary bypass graft; Z82.3 Family history of stroke; Z90.79 Acquired absence of other genital organ(s); Z68.29 Body mass index [BMI] 29.0-29.9, adult
CPT/HCPCS: 36415; 36416; 36430; 36569; 49083; 71045; 80048; 80053; 80069; 80076; 81001; 82040; 82140; 82570; 83690; 83735; 84100; 84145; 84156; 84300; 84484; 84540; 85014; 85018; 85025; 85027; 85060; 85610; 85652; 85730; 86140; 86850; 86900; 86901; 87086; 89051; 93005; 93010; 94640; 94660; 94760; 96374; 96375; C1751; C9113; J0610; J0692; J0696; J1644; J1815; J1940; J2250; J2270; J2354; J2405; J2704; J2765; J2920; J3010; J3490; J7050; J7070; J7120; J7620; J7999; P9016; P9047; Q0162; U0003; U0005

== ENCOUNTER 2022-07-29 13:52 | Inpatient (IN) | payer OTHER ==
[2022-07-29 13:56] VITALS: BMI 29.4
[2022-07-29] MEDS ORDERED: Morphine 4 MG/ML VIAL SLOW IVP PRN (14:39)
[2022-07-29] MEDS ORDERED: Midazolam HCl 2 mg/2 ml Vial SLOW IVP PRN (14:40)
[2022-07-29] MEDS ORDERED: diphenhydrAMINE 50 MG/ML VIAL IVP PRN (14:45)
[2022-07-29] MEDS ORDERED: Haloperidol Lactate 5 MG/ML VIAL SLOW IVP PRN (14:45)
[2022-07-29] MEDS ORDERED: Acetaminophen 650 MG Suppository PR PRN (14:45)
[2022-07-29] MEDS ORDERED: Scopolamine 1.5 mg/72 hour Patch TOP PRN (14:45)
[2022-07-29] MEDS ORDERED: Ondansetron PF 4 MG/2 ML Vial IVP PRN (14:45)
[2022-07-29] MEDS ORDERED: Morphine 4 MG/ML VIAL SLOW IVP SCH (15:00)
[2022-07-29] MEDS ORDERED: Midazolam HCl 2 mg/2 ml Vial SLOW IVP SCH (15:00)
== END 2022-07-29 19:04 | disposition expired | DRG 951 ==
LOC: IMCU/EMU 13:52
PROVIDERS: ADMIT Family Medicine; ATTEND Family Medicine
DX: Z51.5 Encounter for palliative care (principal); I85.01 Esophageal varices with bleeding; D62 Acute posthemorrhagic anemia; Z66 Do not resuscitate; K74.60 Unspecified cirrhosis of liver; I25.10 Atherosclerotic heart disease of native coronary artery without angina pectoris; E11.69 Type 2 diabetes mellitus with other specified complication; I10 Essential (primary) hypertension; E87.5 Hyperkalemia; Z95.1 Presence of aortocoronary bypass graft; Z98.890 Other specified postprocedural states; Z88.8 Allergy status to other drugs, medicaments and biological substances; Z79.899 Other long term (current) drug therapy